=== PATIENT | female | born 1980 | race Caucasian/White ===

== ENCOUNTER 2016-11-04 15:58 | Outpatient (CLI) | payer OTHER ==
[~2016-11-04] VITALS: Ht 170.2 cm; Wt 78.0 kg
[2016-11-04] MEDS ORDERED: ACETAMINOPHEN 325 MG TAB PO STA (16:32)
[2016-11-04] MEDS ORDERED: ACETAMINOPHEN 325 MG TAB ONE (16:40)
[2016-11-04 17:00] LABS: BASO % 0.2 %; BASO ABS # 0.02 K/uL (0-0.2); COMPLETE YES; IG% 0.8 %; LYMPH % 25.6 %; LYMPH ABS # 3.03 K/uL (1.2-3.4); MEAN CELL VOLUME 94.3 fL (80-100); MEAN CORPUSCULAR HEMOGLOBIN 32.1 pg (25-34); NEUT % 65.4 %; PLATELET COUNT 311 K/uL (130-400); RED BLOOD COUNT 3.18 M/uL (4.2-5.4); WHITE BLOOD COUNT 11.85 K/uL (4.8-10.8)
[2016-11-04] MEDS ORDERED: OXYCODONE/ACETAMINOPHEN 5-325 TAB PO STA (17:26)
[2016-11-04] MEDS ORDERED: CYCLOBENZAPRINE HCL 5 MG TAB PO ONE (17:30)
[2016-11-04] MEDS ORDERED: OXYCODONE/ACETAMINOPHEN 5-325 TAB ONE (17:33)
[2016-11-04 18:22] VITALS: Ht 170.2 cm; Wt 78.0 kg
[2017-05-30] MEDS ORDERED: PRED20TA2 PO (10:42)
[2017-05-30] MEDS ORDERED: CETI10TA84 PO (10:42)
[2017-05-30] MEDS ORDERED: BND25 PO (10:42)
[2017-05-30] MEDS ORDERED: LEVO-14 PO (10:42)
[2017-05-30] MEDS ORDERED: VNTHFA/IN INH (10:47)
[2017-05-30] MEDS ORDERED: ZNTT/150 PO (10:49)
[2017-06-28] MEDS ORDERED: OXYC-57 PO (13:25)
== END 2016-11-04 18:45 | disposition home or self-care (01) ==
LOC: C.OPB 15:58 → C.LD 15:58 → C.OPB 18:45
PROVIDERS: ATTEND Obstetrics & Gynecology
DX: O26.892 Other specified pregnancy related conditions, second trimester (principal); R10.9 Unspecified abdominal pain; Z3A.22 22 weeks gestation of pregnancy

== ENCOUNTER 2016-12-12 19:25 | Emergency (ER) | payer OTHER ==
[2016-12-12 19:33] VITALS: TEMP 36.9; Ht 170.2 cm
[2016-12-12] MEDS ORDERED: HYDROmorphone INJ 1 MG/ML SYR IV STA ×2 (19:48→20:49)
[2016-12-12] MEDS ORDERED: SODIUM CHLORIDE 0.9% 1000ML 1,000 ML IV STA (19:48)
[2016-12-12] MEDS ORDERED: DiphenhydrAMINE HCL 50 MG/ML VIAL IV STA (19:48)
[2016-12-12 20:01] LABS: HEMATOCRIT 34.1 % (37-47); MEAN CELL VOLUME 92.9 fL (80-100); MEAN CORPUSCULAR HEMOGLOBIN 32.7 pg (25-34); MEAN CORPUSCULAR HGB CONC 35.2 g/dl (32-36); MEAN PLATELET VOLUME 10.2 fL (7.4-10.4); PLATELET COUNT 498 K/uL (130-400); RED BLOOD COUNT 3.67 M/uL (4.2-5.4); WHITE BLOOD COUNT 16.67 K/uL (4.8-10.8)
--- NOTE | 2016-12-12 20:04 | DIAGNOSTIC IMAGING REPORT ---
CHEST ONE VIEW PORTABLE CLINICAL HISTORY: ALMAZ, 25 wk dyspnea COMPARISON STUDY: 12/10/2014 FINDINGS: Somewhat limited study for prominence. Diaphragms smooth. No consolidative infiltrate. IMPRESSION: Subtle interstitial prominence throughout both hemithoraces. Mild interstitial inflammatory process should be considered Electronically signed by: Coy Patel M.D. 12/12/2016 8:03 PM Dictated Date/Time: 12/12/2016 8:02 PM
[2016-12-12] MEDS ORDERED: ALBUT/IPRATROP 3MG/0.5MG NEB 3 ML VIAL INH STA (20:20)
[2016-12-12 20:23] LABS: BLOOD UREA NITROGEN 4 mg/dl (7-18); BUN/CREATININE RATIO 7.2 (10-20); CALCIUM 9.1 mg/dl (8.5-10.1); CARBON DIOXIDE 15 mmol/L (21-32); CHLORIDE 109 mmol/L (98-107); CREATININE 0.52 mg/dl (0.60-1.20); GLUCOSE 85 mg/dl (70-99); POTASSIUM 3.2 mmol/L (3.5-5.1); SODIUM 142 mmol/L (136-145)
[2016-12-12 20:26] LABS: COMPLETE YES; LYMPH ABS # 3.37 K/uL (1.2-3.4); LYMPHOCYTE % 20.2 %; NEUTROPHILS % 76.3 %
--- NOTE | 2016-12-12 20:34 | EMERGENCY ROOM VISIT NOTE ---
History Report prepared by Lotus: Sis Snell Under the Supervision of: Dr. Frank Ibarra M.D. First contact with patient: 19:39 Chief Complaint: ANXIETY Stated Complaint: 25 WEEKS PREG, CANT BREATHE. PER LD SEE IN ER History of Present Illness The patient is a 36 year old female who presents to the Emergency Room with complaints of worsening shortness of breath for the past week. She is 25 weeks . She has a history of anxiety and panic attacks, and she typically takes Xanax and Wellbutrin. She stopped taking these medications in June when she found out that she was . The patient states that she "hasn't been able to breathe for weeks." It has gotten worse today. She has had a headache for the past 3 days. She states that she has been unable to sleep due to her symptoms. The patient has been taking Fioricet but states that it is not helping. She rates her current pain as a 7/10 in severity. She has been using hot and cold compresses on her head. The patient reports vomiting due to coughing and states that she can't feel her hands. She has noticed bilateral leg swelling after work for the past couple of weeks. She denies SI and fever. She denies any alcohol use today but had some wine last night. She was diagnosed with bronchitis 3 weeks ago. 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 Source of History: patient Onset: 1 week ago Position: chest (respiratory) Symptom Intensity: 7/10 Quality: other (shortness of breath) Timing: worsening Modifying Factors (Worsening): other (anxiety) Associated Symptoms: + cough, + headache, + vomiting, No fevers Review of Systems See HPI for pertinent positives & negatives. A total of 10 systems reviewed and were otherwise negative. Past Medical & Surgical Medical Problems: (1) Cramping affecting , antepartum (2) Disc herniation (3) Endometriosis (4) Hemorrhoid (5) Mastitis (6) Mastitis (7) Ovarian cyst (8) with 22 completed weeks gestation (9) Seizure Family History Cancer Diabetes mellitus Heart disease Hypertension Kidney stones Social History Smoking Status: Current Every Day Smoker Alcohol Use: occasionally Marital Status: in relationship Housing Status: lives with significant other Occupation Status: employed Current/Historical Medications Scheduled Cefdinir (Omnicef), 300 MG PO Q12H Methylprednisolone (Medrol Dosepak), 1 PKT PO UD Multivit/Min/Iron/Fol Ac/Pren ( Vitamin), 1 TAB PO QPM Scheduled PRN Acetamin/Butalbital/Caffeine (Fioricet), 1 TAB PO DAILY PRN for Pain Ondansetron Hcl (Zofran), 4 MG PO Q6 PRN for Nausea Allergies Coded Allergies: Ceftriaxone (Verified Allergy, Intermediate, hives, 12/12/16) Penicillins (Verified Allergy, Mild, HIVES, 12/12/16) CANNOT TAKE ANY CROSS DRUGS EITHER OF PENICILLIN Tramadol (Verified Adverse Reaction, Intermediate, headache, 12/12/16) Vancomycin (Verified Adverse Reaction, Unknown, CHANTAL SYNDROME, 12/12/16) Physical Exam Vital Signs Date Time Temp Pulse Resp B/P Pulse Ox O2 Delivery O2 Flow Rate FiO2 12/12/16 23:06 109/58 96 Room Air 12/12/16 21:18 102 18 105/60 98 Room Air 12/12/16 19:33 36.9 118 28 118/55 99 Room Air Physical Exam GENERAL: Patient is severely anxious appearing and in moderate distress, hyperventilating, crying and periodically vomiting. HEENT: No acute trauma, normocephalic atraumatic, mucous membranes moist, no nasal congestion, no scleral icterus. NECK: No stridor, no adenopathy, no meningismus, trachea is midline. LUNGS: Tachypneic with clear lungs, no wheeze, no rhonchi. HEART: Tachycardic rate and regular rhythm. No murmurs, rubs, gallops appreciated. ABDOMEN: Soft, nontender, bowel sounds positive, fundus consistent with dates, no peritonitis. BACK: No midline tenderness, no CVA tenderness EXTREMITIES: Normal motion all extremities, no cyanosis, no edema. NEUROLOGIC: Alert and oriented, no acute motor or sensory deficits, no focal weakness, cranial nerves grossly intact. SKIN: No rash, no jaundice, no diaphoresis. Medical Decision & Procedures ER Provider Diagnostic Interpretation: Radiology results and stated below per my review and radiologist interpretation: CHEST ONE VIEW PORTABLE CLINICAL HISTORY: ALMAZ, 25 wk dyspnea COMPARISON STUDY: 12/10/2014 FINDINGS: Somewhat limited study for prominence. Diaphragms smooth. No consolidative infiltrate. IMPRESSION: Subtle interstitial prominence throughout both hemithoraces. Mild interstitial inflammatory process should be considered Electronically signed by: Coy Patel M.D. 12/12/2016 8:03 PM Dictated Date/Time: 12/12/2016 8:02 PM BILATERAL LOWER EXTREMITY VENOUS DOPPLER HISTORY: Dyspnea shortness of breath with elevated Dimer COMPARISON STUDY: None. FINDINGS: There is normal compressibility, flow, and augmentation within the bilateral lower extremity deep venous systems. IMPRESSION: No DVT within the right or left lower extremity. Electronically signed by: Coy Patel M.D. 12/12/2016 10:22 PM Dictated Date/Time: 12/12/2016 10:22 PM Laboratory Results 12/12/16 19:57 Red Blood Count 3.67, Mean Corpuscular Volume 92.9, Mean Corpuscular Hemoglobin 32.7, Mean Corpuscular Hemoglobin Concent 35.2, Mean Platelet Volume 10.2 12/12/16 19:57 Test 12/12/16 19:57 12/12/16 20:31 White Blood Count 16.67 K/uL (4.8-10.8) Red Blood Count 3.67 M/uL (4.2-5.4) Hemoglobin 12.0 g/dL (12.0-16.0) Hematocrit 34.1 % (37-47) Mean Corpuscular Volume 92.9 fL (80-100) Mean Corpuscular Hemoglobin 32.7 pg (25-34) Mean Corpuscular Hemoglobin Concent 35.2 g/dl (32-36) Platelet Count 498 K/uL (130-400) Mean Platelet Volume 10.2 fL (7.4-10.4) RDW Standard Deviation 48.9 fL (36.4-46.3) RDW Coefficient of Variation 14.5 % (11.5-14.5) Neutrophils % (Manual) 76.3 % Lymphocytes % (Manual) 20.2 % Monocytes % (Manual) 3.5 % Neutrophils # (Manual) 12.72 K/uL (1.4-6.5) Total Absolute Neutrophils 12.72 K/uL (1.4-6.5) Lymphocytes # (Manual) 3.37 K/uL (1.2-3.4) Total Absolute Lymphocytes 3.37 K/uL (1.2-3.4) Monocytes # (Manual) 0.58 K/uL (0.11-0.59) D-Dimer 840 ug/L FEU (0-500) Anion Gap 18.0 mmol/L (3-11) Estimated GFR () 141.5 Estimated GFR (Non- 122.1 BUN/Creatinine Ratio 7.2 (10-20) Calcium Level 9.1 mg/dl (8.5-10.1) Troponin I < 0.015 ng/ml (0-0.045) Influenza Type A (RT-PCR) Neg for Influ A (NEG) Influenza Type A Antigen Neg for Influ A (NEG) Influenza Type B Antigen Neg for Influ B (NEG) Influenza Type B (RT-PCR) Neg for Influ B (NEG) Laboratory results as reviewed by me. Medications Administered Medications (Trade) Dose Ordered Sig/Maxine Route Start Time Stop Time Status Last Admin Dose Admin Hydromorphone HCl (Dilaudid Inj) 1 mg NOW STAT IV 12/12/16 19:48 12/12/16 19:50 DC 12/12/16 19:58 1 MG Diphenhydramine HCl 50 mg 50 mg NOW STAT IV 12/12/16 19:48 12/12/16 19:50 DC 12/12/16 19:57 50 MG Sodium Chloride (Nss 1000ml) 1,000 ml @ 999 mls/hr Q1H1M STAT IV 12/12/16 19:48 12/12/16 20:48 DC 12/12/16 19:58 999 MLS/HR Albuterol/ Ipratropium (Duoneb) 3 ml NOW STAT INH 12/12/16 20:20 12/12/16 20:21 DC 12/12/16 20:35 3 ML Hydromorphone HCl (Dilaudid Inj) 1 mg NOW STAT IV 12/12/16 20:49 12/12/16 20:50 DC 12/12/16 20:53 1 MG Cefixime (Suprax Tab) 400 mg NOW STAT PO 12/12/16 22:50 12/12/16 22:51 DC 12/12/16 23:01 400 MG Dexamethasone Sodium Phosphate (Decadron Inj) 4 mg NOW ONCE IV 12/12/16 23:00 12/12/16 23:01 DC 12/12/16 23:01 4 MG Oxycodone HCl (Roxicodone Immediate Rel 5MG Home Pack) 1 homepack UD ONCE PO 12/12/16 23:00 12/12/16 23:01 DC 12/12/16 23:02 1 HOMEPACK ED Course 1938: The patient was evaluated in room A7. A complete history and physical exam was performed. 1947: NSS 1000 ml @ 999 mls/hr IV, Benadryl 50 mg IV, Dilaudid 1 mg IV 2008: The patient is complaining that she is still unable to breathe. Her HR and RR have improved. 2019: DuoNeb 3 ml INH 2046: I reassessed the patient at this time. Her chest still hurts and she is still experiencing a headache. 2048: Dilaudid 1 mg IV 2236: I reassessed the patient. I discussed the results and treatment plan with her. She refused a CT scan. She understands the risks associated with this, including . She is requesting antibiotics. She is unclear if she is allergic to Omnicef, but she can take Keflex. She notes a rash with Rocephin in the past. She has never had any throat or tongue swelling. 2249: Cefixime 400 mg PO 2258: The patient states that she "rages" on prednisone and would like to try a different steroid. At this time I answered all pertaining questions that she had. She expressed understanding and verbalized agreement. The patient will be discharged home. 2299: Oxycodone HCl 1 homepack PO, Decadron 4 mg IV Medical Decision Differential: Infectious, Reactive Airway Disease, Pneumonia, Pneumothorax, COPD , CHF, ACS, Pulmonary Embolism, MSK, GI, Dissection, amongst other etiologies entertained. 36 yr old female arrives severely upset, crying and dry-heaving. She is clearly in acute panic attack. Given IV benadryl and narcotic as she is 25 wks with improvement though still feeling SHOB. Notes SHOB improved with neb. Given another dose dilaudid with further improvement in her symptoms. Dimer is positive thus with did US legs which is negative. I discussed that with shob, tachy and persistent symptoms she should have CT PE study done which is my medical opinion. She refuses to have CT done given risks to fetus as well as she is severely anxious of having CT. I explained that PE could cause serious half-way injury or even if not diagnosed promptly. Does have bumped WBC along with questionable infiltrates on CXR. With 3 weeks of symptoms abx would be indicated. Flu PCR is negative. Labs otherwise look OK. She was recently on Zpack thus I do not feel this is reasonable medication to use. Allergic to PNC and she is thus several other abx not viable. She notes previous rash to IV rocephin, though tolerates Keflex without problem. Thus, we have decided on trying Omnicef which she is not sure she has ever been on. I made it clear that she may have allergic reaction to this but as previous reactions were not anaphylactic seems reasonable to try. Notes she "rages" on prednisone and does want to try different steroid as she thinks she has tolerated others before. She will need to follow up with her PCP. Asked directly if she wishes mental health eval which she declines and she states clearly she is not suicidal nor homicidal. Asked in private whether she feels safe at home which she does. Does admit very infrequent use of one glass wine while to get some sleep which she notes her OB doc told her she could do. Notes she wishes to go home. She has long history of headaches thus will give oxy ir to go home with. She has no meningitis findings, no neuro deficits and headaches chronic thus I do not feel this is SAH/ICH. Impression Primary Impression: Shortness of breath Additional Impressions: Pulmonary congestion Acute anxiety Scribe Attestation The scribe's documentation has been prepared under my direction and personally reviewed by me in its entirety. I confirm that the note above accurately reflects all work, treatment, procedures, and medical decision making performed by me. Departure Information Dispostion Home / Self-Care Prescriptions Cefdinir (Omnicef) 300 Mg Cap 300 MG PO Q12H for 10 Days, #20 CAP Prov: Frank Ibarra M.D. 12/12/16 Methylprednisolone (MEDROL DOSEPAK) 4 Mg Roosevelt 1 PKT PO UD for 6 Days, #1 PKT Prov: Frank Ibarra M.D. 12/12/16 Referrals Brett Avina M.D. (PCP) Forms HOME CARE DOCUMENTATION FORM, IMPORTANT VISIT INFORMATION Patient Instructions ED Dyspnea Shortness of Breath, My [facility] Additional Instructions You have worsening shortness of breath or are concerned that symptoms are not improving return to ED for further evaluation. We are always here to help. Follow up with your OB provider as soon as possible. Problem Qualifiers
[2016-12-12] MEDS ORDERED: ONDA4TAB46 PO (20:38)
[2016-12-12 21:18] VITALS: PULSE 102
--- NOTE | 2016-12-12 22:24 | DIAGNOSTIC IMAGING REPORT ---
BILATERAL LOWER EXTREMITY VENOUS DOPPLER HISTORY: Dyspnea shortness of breath with elevated Dimer COMPARISON STUDY: None. FINDINGS: There is normal compressibility, flow, and augmentation within the bilateral lower extremity deep venous systems. IMPRESSION: No DVT within the right or left lower extremity. Electronically signed by: Coy Patel M.D. 12/12/2016 10:22 PM Dictated Date/Time: 12/12/2016 10:22 PM
[2016-12-12] MEDS ORDERED: CEFIXIME TAB 400 MG CAP PO STA (22:50)
[2016-12-12] MEDS ORDERED: OXYCODONE IR HOME PACK PO ONE (23:00)
[2016-12-12] MEDS ORDERED: DEXAMETHASONE SOD INJ 10 MG/ML VIAL IV ONE (23:00)
[2016-12-12] MEDS ORDERED: METH4PAK PO (23:05)
[2016-12-12] MEDS ORDERED: CEFD1CAP14 PO (23:05)
[2016-12-12 23:06] VITALS: BP 109/58; O2SAT 96
[2016-12-12 23:49] LABS: INFLUENZA A PCR Neg for Influ A (NEG); INFLUENZA B PCR Neg for Influ B (NEG)
[2016-12-29] MEDS ORDERED: RGLI10 IV (07:49)
[2017-05-30] MEDS ORDERED: LEVO-14 PO (10:42)
[2017-05-30] MEDS ORDERED: BND25 PO (10:42)
[2017-05-30] MEDS ORDERED: PRED20TA2 PO (10:42)
[2017-05-30] MEDS ORDERED: CETI10TA84 PO (10:42)
[2017-05-30] MEDS ORDERED: VNTHFA/IN INH (10:47)
[2017-05-30] MEDS ORDERED: ZNTT/150 PO (10:49)
[2017-06-28] MEDS ORDERED: OXYC-57 PO (13:25)
== END 2016-12-12 23:11 | disposition home or self-care (01) ==
LOC: C.EDB 19:26 → C.EDA 23:11
DX: O26.892 Other specified pregnancy related conditions, second trimester (principal); O99.342 Other mental disorders complicating pregnancy, second trimester; O99.332 Smoking (tobacco) complicating pregnancy, second trimester; R06.02 Shortness of breath; R09.89 Other specified symptoms and signs involving the circulatory and respiratory systems; F41.9 Anxiety disorder, unspecified; F17.200 Nicotine dependence, unspecified, uncomplicated; Z3A.25 25 weeks gestation of pregnancy

== ENCOUNTER 2016-12-28 20:12 | Observation (INO) | payer OTHER ==
[~2016-12-28] VITALS: Ht 170.2 cm; Wt 74.0 kg
[~2016-12-28 20:12] MED LIST: ONDA4TAB46 PO
[2016-12-28] MEDS ORDERED: LACTATED RINGER'S 1000ML 500 ML IV ONE (20:31)
[2016-12-28] MEDS ORDERED: MEPERIDINE HCL 25 MG/ML CARP IV ONE (20:45)
[2016-12-28] MEDS: METOCLOPRAMIDE HCL INJ 5 MG/ML 2 ML VIAL IV SCH (20:57)
[2016-12-28] MEDS ORDERED: IV FLUIDS COMPLETED PRN (21:00)
[2016-12-28] MEDS ORDERED: PANTOprazole INJ 40 MG in SYRINGE 0 ML IV SCH (21:00)
[2016-12-28] MEDS ORDERED: FAMOTIDINE IV INJ 20 MG in DEXTROSE 5% 100ML 100 ML IV SCH (21:00)
[2016-12-28 21:10] LABS: BASO % 0.2 %; BASO ABS # 0.03 K/uL (0-0.2); COMPLETE YES; EOS % 2.4 %; HEMATOCRIT 29.8 % (37-47); IG% 1.2 %; LYMPH ABS # 2.92 K/uL (1.2-3.4); MEAN CELL VOLUME 95.5 fL (80-100); MEAN CORPUSCULAR HEMOGLOBIN 32.7 pg (25-34); MEAN CORPUSCULAR HGB CONC 34.2 g/dl (32-36); MEAN PLATELET VOLUME 10.6 fL (7.4-10.4); MONO % 3.7 %; NEUT % 69.5 %; PLATELET COUNT 279 K/uL (130-400); RED BLOOD COUNT 3.12 M/uL (4.2-5.4); WHITE BLOOD COUNT 12.72 K/uL (4.8-10.8)
[2016-12-28 21:27] LABS: ALT/SGPT 14 U/L (12-78); BLOOD UREA NITROGEN 3 mg/dl (7-18); BUN/CREATININE RATIO 5.5 (10-20); CALCIUM 8.5 mg/dl (8.5-10.1); CARBON DIOXIDE 18 mmol/L (21-32); CHLORIDE 110 mmol/L (98-107); CREATININE 0.56 mg/dl (0.60-1.20); GLUCOSE 74 mg/dl (70-99); MAGNESIUM 1.8 mg/dl (1.8-2.4); POTASSIUM 3.6 mmol/L (3.5-5.1); SODIUM 140 mmol/L (136-145)
[2016-12-28 21:29] LABS: ALB/GLOB RATIO 0.8 (0.9-2); ALKALINE PHOSPHATASE 99 U/L (45-117); AST/SGOT 11 U/L (15-37)
[2016-12-28 21:43] LABS: URINE APPEARANCE CLEAR (CLEAR); URINE BILIRUBIN NEG (NEG); URINE COLOR YELLOW; URINE EPITHELIAL CELL AUTO >30 /lpf (0-5); URINE NITRITE NEG (NEG); URINE PH 7.5 (4.5-7.5); URINE SPECIFIC GRAVITY 1.003 (1.000-1.030); UROBILINOGEN NEG (NEG)
[2016-12-28 21:46] LABS: MANUAL MICROSCOPIC REQUIRED? NO; REVIEW REQ? NO
[2016-12-28] MEDS: LACTATED RINGER'S 1000ML 1,000 ML IV SCH ×2 (21:50→22:00)
[2016-12-28] MEDS ORDERED: MoRPHine SULFATE 2 MG/ML CARP IV ONE (22:00)
[2016-12-28 22:13] LABS: BENZODIAZEPINE, URINE POS (NEG); COCAINE,URINE NEG (NEG); PHENCYCLIDINE, URINE NEG (NEG)
[2016-12-28 22:18] LABS: THYROID STIMULATING HORMONE 0.832 uIu/ml (0.300-4.500)
[2016-12-28 23:18] LABS: AMYLASE 38 U/L (25-115)
[2016-12-28] MEDS ORDERED: DiphenhydrAMINE HCL 50 MG/ML VIAL IV STA (23:28)
[2016-12-28] MEDS ORDERED: DiphenhydrAMINE HCL 50 MG/ML VIAL ONE (23:29)
[2016-12-29] MEDS ORDERED: MoRPHine SULFATE 2 MG/ML CARP ONE (01:19)
[2016-12-29] MEDS ORDERED: NURSING VERBAL MED ORDER ONE (01:30)
[2016-12-29] MEDS ORDERED: BUTALBITAL/ACETAMIN/CAFFEINE TAB PO PRN (02:00)
[2016-12-29] MEDS: METOCLOPRAMIDE HCL INJ 5 MG/ML 2 ML VIAL IV SCH (02:28)
[2016-12-29] MEDS: LACTATED RINGER'S 1000ML 1,000 ML IV SCH (05:22)
[2016-12-29 07:30] VITALS: Ht 170.2 cm; Wt 74.0 kg
[2016-12-29] MEDS ORDERED: RGLI10 IV (07:49)
--- NOTE | 2016-12-29 07:50 | Discharge Instructions ---
Discharge Instructions Date of Service Dec 29, 2016. Admission Reason for Admission: Vomiting Discharge Discharge Diagnosis / Problem: NAUSEA, VOMITING Discharge Goals Goal(s): Continuing OB care Activity Recommendations Activity Limitations: resume your previous activity . Instructions / Follow-Up Instructions / Follow-Up ACTIVITY RECOMMENDATIONS: See Labor Sheet. SPECIAL CARE INSTRUCTIONS: Call Doctor if: * Regular contractions every 5 minutes or greater than contractions in one hour. * Bleeding * Water breaks or is leaking * Decreased movement * Fever >100.4 degrees F * Pain not relieved by routine measures or pain medication ordered. *Call if cannot keep down fluids or have a bloody vomit again. FOLLOW UP VISIT: Return to Labor and Delivery on for /call for appointment time . Follow-up Visit with: __JERAMIE GLEASON IN THE OFFICE___ When:___AS SCHEDULED__ Current Hospital Diet Patient's current hospital diet: Regular OB Diet Discharge Diet Recommended Diet: Regular Diet Pending Studies Studies pending at discharge: no Medical Emergencies . Who to Call and When: Medical Emergencies: If at any time you feel your situation is an emergency, please call 911 immediately. . Non-Emergent Contact Non-Emergency issues call your: Pull Worker . . "Provider Documentation" section prepared by Latisha Macedo. VTE Core Measure Inpt VTE Proph given/why not?: Treatment not indicated
[2017-01-01 16:13] LABS: HYDROXYETHYLFLURAZEPAM CONF NEGATIVE NG/ML (CUTOFF=50); HYDROXYMIDAZOLAM NEGATIVE NG/ML (CUTOFF=50); HYDROXYTRIAZOLAM CONF NEGATIVE NG/ML (CUTOFF=50); TEMAZEPAM CONF 1690 NG/ML (CUTOFF=50)
--- NOTE | 2017-01-09 16:46 | DISCHARGE SUMMARY ---
CHIEF COMPLAINT: 1. at 27 weeks. 2. Vomiting blood. DISCHARGE DIAGNOSIS: at 27 weeks. HISTORY OF PRESENT ILLNESS: This patient has a completely written history and physical that is located in the other report section of this admission and her records are also there as well. I am going to be brief with this. She called me on the phone, said she vomited up blood. It was bright red, covering her body and her sheets. 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 She notes this is bright red and brown to purple. When she presented to labor and delivery, she was unsteady on her feet. She was slurring her words and needed help getting to the bathroom. By the time I got into the room, she was alert and oriented x3. She was not really slurring her words. The patient said she has not slept in over 48 hours and that she had vomited up blood. She also notes that she is very dizzy and lightheaded. The patient has done well in this . She has lost 14 pounds, had had increased nausea and vomiting. She has really not been eating. She is a gestational diabetic. There is a concern about the abdominal circumference on this baby, measuring in the 13th percentile. The patient has had several issues with chronic pain, both with headaches and back pain. She has an appointment in pain clinic for her back on 01/04. She has been on chronic Fioricet throughout this . She notes no right lower quadrant pain, just lower abdominal crampy menstrual type pain, no vaginal bleeding or discharge, good movement. She notes that she is taking Fioricet, Lexapro, vitamins, Zofran and Tylenol. She was asked specifically if she was taking any narcotics, she declined. For the rest of the patient's detailed history and physical, please see her dictated history and physical. ASSESSMENT: This is an intrauterine at 27 weeks with a long history of nausea, vomiting, malnutrition in this . She is now claiming to have hematemesis, also complaining of worsening headache. She has mild cramping as well. No evidence of labor, no electrolyte abnormalities, no evidence of preeclampsia. HOSPITAL COURSE: The patient was admitted. She received IV fluids, IV Reglan, IV H2 alise, Tylenol for her headache. She was told multiple times that we would need to see her vomit to evaluate for this. The patient then subsequently over the course of hospitalization, disconnected herself from the monitor twice, got up, supposedly vomited, flushed the toilet and returned back to the bed. She claimed that she did not remember that we needed to see her about this because she is so sleep deprived. Her drug test returned positive for benzos as well as positive for butalbital and Fioricet. When she was confronted with the positive benzo screen, she noted that maybe she had taken some benzodiazepine that was next to her bed, when she thought she was taking her Zantac but she told multiple stories about this as well. At one time, she said it was near her bedside, the other time she said it was in a guestroom. She did have mild intermittent contractions on admission, which resolved with IV hydration. Her cervix was closed, long and high. She recently was seen in the Emergency Room for an anxiety attack and bronchitis. She was discharged with script for OxyIR and antibiotics. This was approximately 2 weeks prior to admission, she thought it was 2 days ago. She notes she finished the Omnicef in last couple of days. She notes she did not take the narcotics until a couple of days ago and she took that for a headache when she ran out of Fioricet. Her urine tox was negative for narcotics. She also admitted to the ED doctor that she had a glass of wine the day prior to admission and it appears that every now and then she may be having a glass of wine through this to deal with her anxiety. I did remind her that we recommend no alcohol in at all. After monitoring the patient for 8 hours, she was unable to demonstrate emesis to me. She continually asked for a Pepsi after not demonstrating any issues. Approximately 6-7 hours after initially admitted, I allowed her to eat and drink, she ate all of her meal. She drank her Pepsi. The fetus was reassuring for 27 weeks. Her fFN was negative. I did give her IV Demerol for headache after the Tylenol was not helpful. She noted that her headache was much better the next morning. Again, we were unable to document emesis because the patient got herself off the monitor after being explicitly told that she could not get up without assistance, that I needed to see her vomit, that she should not flush the toilet. She was upset about this, she was upset that I thought she was lying. I explained to her why I needed to see her emesis. She says that she is not remembering things because of lack of sleep. We discussed this in depth. She has never been diagnosed with bipolar disorder. She just restarted her antidepressant in the last week and does not wish to start anything else. She declines psychology evaluation and after she ate her breakfast, she wanted to go home. She was discharged to home the morning of 12/29/2016. She will continue Lexapro, change from Zantac to Protonix, continue Reglan for nausea. She has an appointment for ultrasound to evaluate estimated weight in a visit in the office with Dr. Hudson next week. I told her that she needed to talk to the dietitian today to make an appointment and if she threw up blood again, she is to call. All of this documentation is documented very well in the OB progress note section under other reports on [employer].
[2017-05-30] MEDS ORDERED: PRED20TA2 PO (10:42)
[2017-05-30] MEDS ORDERED: BND25 PO (10:42)
[2017-05-30] MEDS ORDERED: CETI10TA84 PO (10:42)
[2017-05-30] MEDS ORDERED: LEVO-14 PO (10:42)
[2017-05-30] MEDS ORDERED: VNTHFA/IN INH (10:47)
[2017-05-30] MEDS ORDERED: ZNTT/150 PO (10:49)
[2017-06-28] MEDS ORDERED: OXYC-57 PO (13:25)
== END 2016-12-29 08:45 | disposition home or self-care (01) ==
LOC: C.OPB 20:12 → C.LD 20:12 → C.OPB 20:33 → C.LD 20:33
PROVIDERS: ADMIT Obstetrics & Gynecology; ATTEND Obstetrics & Gynecology
DX: O21.0 Mild hyperemesis gravidarum (principal); O09.522 Supervision of elderly multigravida, second trimester; O99.89 Other specified diseases and conditions complicating pregnancy, childbirth and the puerperium; R51 Headache; M54.9 Dorsalgia, unspecified; Z3A.27 27 weeks gestation of pregnancy

== ENCOUNTER 2016-12-31 00:29 | Emergency (ER) | payer OTHER ==
[~2016-12-31] VITALS: Ht 170.2 cm; Wt 74.5 kg
[~2016-12-31 00:29] MED LIST changes: -ONDA4TAB46 PO; +RGLI10 IV
[2016-12-31 00:32] VITALS: Ht 170.2 cm; Wt 74.5 kg
[2016-12-31] MEDS ORDERED: SODIUM CHLORIDE 0.9% 1000ML 1,000 ML IV STA (00:50)
[2016-12-31 01:08] LABS: HEMATOCRIT 28.8 % (37-47); MEAN CELL VOLUME 93.2 fL (80-100); MEAN CORPUSCULAR HEMOGLOBIN 32.4 pg (25-34); MEAN CORPUSCULAR HGB CONC 34.7 g/dl (32-36); MEAN PLATELET VOLUME 10.3 fL (7.4-10.4); PLATELET COUNT 246 K/uL (130-400); RED BLOOD COUNT 3.09 M/uL (4.2-5.4); WHITE BLOOD COUNT 11.22 K/uL (4.8-10.8)
[2016-12-31 01:26] LABS: BUN/CREATININE RATIO 11.6 (10-20); CALCIUM 8.4 mg/dl (8.5-10.1); CREATININE 0.54 mg/dl (0.60-1.20); POTASSIUM 3.8 mmol/L (3.5-5.1)
[2016-12-31 01:47] LABS: MANUAL MICROSCOPIC REQUIRED? NO; REVIEW REQ? NO; URINE APPEARANCE CLEAR (CLEAR); URINE BILIRUBIN NEG (NEG); URINE COLOR YELLOW; URINE EPITHELIAL CELL AUTO 20-30 /lpf (0-5); URINE NITRITE NEG (NEG); URINE SPECIFIC GRAVITY 1.006 (1.000-1.030); UROBILINOGEN NEG (NEG); ZZUR CULT IF INDIC CLEAN CATCH NO
[2016-12-31 02:09] LABS: BENZODIAZEPINE, URINE POS (NEG); COCAINE,URINE NEG (NEG); PHENCYCLIDINE, URINE NEG (NEG)
--- NOTE | 2016-12-31 02:39 | EMERGENCY ROOM VISIT NOTE ---
History Report prepared by Sorayaibkayla: Zurdo Ortez Under the Supervision of: Dr. Frank Ibarra M.D. First contact with patient: 00:36 Chief Complaint: FALL Stated Complaint: FALL History of Present Illness The patient is a 36 year old female who presents to the Emergency Room with complaints of an acute fall that occurred earlier tonight. The patient slipped in snow on a set of steps to cause the fall. She hit her head on the concrete step but denies loss of consciousness. Her head pain is currently rated 8/10 in severity. She is starting to feel some neck pain. The patient vomited twice since the fall. She also hit the right knee. She does not have any right hip pain. The patient is 28 weeks , and prevented her abdomen from hitting the ground with her arm. She denies vaginal bleeding. The patient denies drug or alcohol use tonight. She did have Fioricet for her head pain at approximately 2100 tonight. The patient's blood type is O+. Source of History: patient Onset: earlier tonight Position: other (global) Quality: other (fall) Timing: other (acute) Associated Symptoms: + headache, + neck pain, + vomiting, No LOC, No abdominal pain Review of Systems See HPI for pertinent positives & negatives. A total of 10 systems reviewed and were otherwise negative. Past Medical & Surgical Medical Problems: (1) Cramping affecting , antepartum (2) Disc herniation (3) Endometriosis (4) Hematemesis (5) Hemorrhoid (6) Mastitis (7) Mastitis (8) Nausea and vomiting in (9) Ovarian cyst (10) with 22 completed weeks gestation (11) with 27 completed weeks gestation (12) Seizure Family History Cancer Diabetes mellitus Heart disease Hypertension Kidney stones Social History Smoking Status: Current Every Day Smoker Alcohol Use: occasionally Marital Status: in relationship Housing Status: lives with significant other Occupation Status: employed Current/Historical Medications Scheduled Metoclopramide HCl (Metoclopramide HCl), 10 MG IV Q6H Multivit/Min/Iron/Fol Ac/Pren ( Vitamin), 1 TAB PO QPM Scheduled PRN Acetamin/Butalbital/Caffeine (Fioricet), 1 TAB PO DAILY PRN for Pain Allergies Coded Allergies: Ceftriaxone (Verified Allergy, Intermediate, hives, 12/31/16) Penicillins (Verified Allergy, Mild, HIVES, 12/31/16) CANNOT TAKE ANY CROSS DRUGS EITHER OF PENICILLIN Tramadol (Verified Adverse Reaction, Intermediate, headache, 12/31/16) Vancomycin (Verified Adverse Reaction, Unknown, CHANTAL SYNDROME, 12/31/16) Physical Exam Vital Signs Date Time Temp Pulse Resp B/P Pulse Ox O2 Delivery O2 Flow Rate FiO2 12/31/16 02:52 36.7 80 18 95/60 98 12/31/16 01:41 78 18 96/65 98 Room Air 12/31/16 00:35 93 12/31/16 00:32 36.7 95 16 110/62 100 Room Air Physical Exam GENERAL: Patient is well appearing, in minimal distress, slightly sleepy appearing. HEENT: Large hematoma of the left forehead with an overlying abrasion, normocephalic, mucous membranes moist, no nasal congestion, no scleral icterus. NECK: No stridor, no adenopathy, no meningismus, trachea is midline, vague tenderness over the entire posterior neck. LUNGS: No dyspnea. Clear to auscultation and equal bilaterally. No wheeze, no rhonchi. HEART: Regular rate and rhythm. No murmurs, rubs, gallops appreciated. ABDOMEN: Soft, nontender, bowel sounds positive, no peritonitis. Fundus consistent withe dates, otherwise no masses. BACK: No midline tenderness, no CVA tenderness EXTREMITIES: Normal motion all extremities, no cyanosis, no edema. Abrasion over the right anterior knee with swelling and bruising, tender to palpation over the entire knee joint extending to the right lateral lower leg. NEUROLOGIC: Alert and oriented, no acute motor or sensory deficits, no focal weakness, cranial nerves grossly intact. GCS is 15, however the patient is somewhat sleepy-appearing. SKIN: No rash, no jaundice, no diaphoresis. Medical Decision & Procedures ER Provider Diagnostic Interpretation: X ray results and stated below per my interpretation. Other radiology results and stated below per my review and radiologist interpretation: TWO VIEW RIGHT TIB-FIB: No fracture, no dislocation. THREE VIEW RIGHT KNEE: No fracture, no dislocation, minimal soft tissue swelling. CT HEAD: No intracranial hemorrhage or skull fracture. Swelling in the forehead. CT C SPINE: No fracture or malalignment. Osteopenia. Radiologist: Abhay Morrison MD. Laboratory Results 12/31/16 00:55 12/31/16 00:55 Test 3/11/17 00:55 12/31/16 01:35 Red Blood Count 3.09 M/uL (4.2-5.4) Mean Corpuscular Volume 93.2 fL (80-100) Mean Corpuscular Hemoglobin 32.4 pg (25-34) Mean Corpuscular Hemoglobin Concent 34.7 g/dl (32-36) RDW Standard Deviation 49.4 fL (36.4-46.3) RDW Coefficient of Variation 14.6 % (11.5-14.5) Mean Platelet Volume 10.3 fL (7.4-10.4) Anion Gap 11.0 mmol/L (3-11) Est Creatinine Clear Calc Drug Dose 150.4 ml/min Estimated GFR () 139.7 Estimated GFR (Non- 120.6 BUN/Creatinine Ratio 11.6 (10-20) Calcium Level 8.4 mg/dl (8.5-10.1) Ethyl Alcohol mg/dL < 3.0 mg/dl (0-3) Urine Color YELLOW Urine Appearance CLEAR (CLEAR) Urine pH 7.0 (4.5-7.5) Urine Specific [place] 1.006 (1.000-1.030) Urine Protein NEG (NEG) Urine Glucose (UA) NEG (NEG) Urine Ketones NEG (NEG) Urine Occult Blood NEG (NEG) Urine Nitrite NEG (NEG) Urine Bilirubin NEG (NEG) Urine Urobilinogen NEG (NEG) Urine Leukocyte Esterase TRACE (NEG) Urine WBC (Auto) 1-5 /hpf (0-5) Urine RBC (Auto) 0-4 /hpf (0-4) Urine Hyaline Casts (Auto) 1-5 /lpf (0-5) Urine Epithelial Cells (Auto) 20-30 /lpf (0-5) Urine Bacteria (Auto) NEG (NEG) Urine Opiates Screen NEG (NEG) Urine Methadone, Qualitative NEG (NEG) Urine Barbiturates POS (NEG) Urine Phencyclidine (PCP) Level NEG (NEG) Ur Amphetamine/Methamphetamine NEG (NEG) MDMA (Ecstasy) Screen NEG (NEG) Urine Benzodiazepines Screen POS (NEG) Urine Cocaine Metabolite NEG (NEG) Urine Marijuana (THC) NEG (NEG) Laboratory results as reviewed by me. Medications Administered Medications (Trade) Dose Ordered Sig/Maxine Route Start Time Stop Time Status Last Admin Dose Admin Sodium Chloride (Nss 1000ml) 1,000 ml @ 999 mls/hr Q1H1M STAT IV 12/31/16 00:50 12/31/16 01:50 DC 12/31/16 01:02 999 MLS/HR ED Course 0040: The patient was evaluated in room B7. A complete history and physical exam was performed. 0050: NSS 1000 ml @ 999 mls/hr. 0115: The [place] Prescription Drug Monitoring Program was reviewed regarding this patient. She has had no controlled substances on file since May. 0220: Checked on the patient. She states that she unintentionally took Valium as she thought it was Zantac. 0225: Obstetrics & Gynecology was paged. 0230: Discussed the case with Dr. Thorpe (Shingle Carrier), who feels that the patient can return home and should follow up if she has any abdominal pain or vaginal bleeding. 0238: Spoke with the charge nurse. She will put in paperwork for [facility] to assess the home for the patient's 2.5 year old. 0240: Discussed the discharge instructions with the patient. She will be discharged. Medical Decision Differential: Intracranial Injury, Cervical Injury, Intrathoracic/Abdominal Injury, Neurologic Injuries, Fractures/Dislocations, Lacerations, Tetanus Status , amongst other pathologies entertained. 36 yr old 28 wk female arrives after tripping and falling at home in the snow, striking head and knee on ground. Admits taking Fiorecet prior to fall which I suspect is why she is a bit sedated here as opposed to head injury. CT head/neck negative though they had to be done given minor sedated appearance, large contusion. Xrays knee/tib/fib negative as well for acute fracture. Requesting pain medications though clearly is not in very much distress. Claims the benzo in her urine are secondary to Valium she took several days ago "accidentally" and that she has thrown it all away now. I suspect she has taken it more recently than she lets on. Adamantly denies trauma to abdomen, has no vaginal bleeding, baby is actively kicking and HR good. Stable and in no distress, though stating she still has headache. Already had Tylenol in fiorecet and further narcotics are contraindicated in post head injury patients. Discussed with Dr Thorpe who feels patient should be discharged to home. He further states he feels that [facility] should be contacted. While patient gives me no information that child at home is in risk , I feel that as mandated reported with someone stating they are concerned, that I must report this case. [place] website not functioning for reporting and Charge Nurse has filled report via phone/paper while I was seeing other patients. I have verified this has been done. As there is another person at home and patient has exhibited no active danger to patient I do not feel I have any indication to get law enforcement involved at this time. Patient furthermore offered discussion with Mental Health though adamantly denies need for this. I have explained at length the risks of using benzo's in . Patient claiming vomiting but never vomited while here. [place] Drug Monitoring Program Search Results: patient reviewed within database Drug Monitoring Findings: She has had no controlled substances on file since May. Consults Time Called: 224 Consulting Physician: Dr. Thorpe (Shingle Carrier) Returned Call: 229 229: Discussed the case with Dr. Thorep (Shingle Carrier), who feels that the patient can return home and should follow up if she has any abdominal pain or vaginal bleeding. Impression Primary Impression: Fall Additional Impressions: Concussion Contusion of knee, right Scribe Attestation The scribe's documentation has been prepared under my direction and personally reviewed by me in its entirety. I confirm that the note above accurately reflects all work, treatment, procedures, and medical decision making performed by me. Departure Information Dispostion Home / Self-Care Referrals Brett Avina M.D. (PCP) Forms HOME CARE DOCUMENTATION FORM, IMPORTANT VISIT INFORMATION Patient Instructions ED Concussion, My [facility] Problem Qualifiers Primary Impression: Fall Encounter type: initial encounter Qualified Codes: W19.XXXA - Unspecified fall, initial encounter Additional Impressions: Concussion Encounter type: initial encounter Loss of consciousness presence/duration: without LOC Qualified Codes: S06.0X0A - Concussion without loss of consciousness, initial encounter
[2016-12-31 02:52] VITALS: BP 95/60; PULSE 80; TEMP 36.7; O2SAT 98
--- NOTE | 2016-12-31 07:11 | DIAGNOSTIC IMAGING REPORT ---
CT HEAD WITHOUT CONTRAST (CT) CLINICAL HISTORY: Head pain status post trauma. Confusion. COMPARISON STUDY: No previous studies for comparison. TECHNIQUE: Axial CT of the brain is performed from the vertex to the skull base. IV contrast was not administered for this examination. CT DOSE: FINDINGS: No intra or extra-axial mass lesions are visualized. There is no CT evidence of acute cortical infarction. There is no evidence of midline shift. There is no acute hemorrhage. No calvarial fractures are visualized. There is no evidence of pathologic ventricular dilatation. There is no evidence of acute sinusitis. There is frontal scalp edema. IMPRESSION: Frontal scalp edema. Otherwise normal noncontrast head CT. Electronically signed by: Ignacio Becerra M.D. 12/31/2016 7:10 AM Dictated Date/Time: 12/31/2016 7:09 AM
--- NOTE | 2016-12-31 07:13 | DIAGNOSTIC IMAGING REPORT ---
CT OF THE CERVICAL SPINE CLINICAL HISTORY: Neck pain status post trauma COMPARISON STUDY: No previous studies for comparison. CT DOSE: 1039.07 mGy.cm TECHNIQUE: CT scan of the cervical spine was performed from the skull base to the thoracic inlet. Images are reviewed in the axial, sagittal, and coronal planes. IV contrast was not administered for this examination. FINDINGS: The visualized portions of the lung apices reveal no evidence of pneumothorax. The prevertebral soft tissues are normal. No fractures or subluxations are visualized. There are multilevel degenerative changes IMPRESSION: No evidence of acute fracture or traumatic subluxation. Electronically signed by: Ignacio Becerra M.D. 12/31/2016 7:11 AM Dictated Date/Time: 12/31/2016 7:10 AM
--- NOTE | 2016-12-31 07:13 | DIAGNOSTIC IMAGING REPORT ---
RIGHT KNEE 3 VIEWS CLINICAL HISTORY: Right knee pain status post trauma COMPARISON: None. DISCUSSION: No fractures or dislocations are visualized. There are very minor degenerative changes present. There is no evidence for soft tissue swelling. IMPRESSION: No fractures or dislocations identified. Electronically signed by: Ignacio Becerra M.D. 12/31/2016 7:12 AM Dictated Date/Time: 12/31/2016 7:12 AM
--- NOTE | 2016-12-31 07:14 | DIAGNOSTIC IMAGING REPORT ---
RIGHT TIBIA/FIBULA 2 VIEWS ROUTINE CLINICAL HISTORY: Right lower leg pain status post trauma COMPARISON: None. DISCUSSION: No fractures are visualized. IMPRESSION: No fractures identified. Electronically signed by: Ignacio Becerra M.D. 12/31/2016 7:13 AM Dictated Date/Time: 12/31/2016 7:12 AM
[2016-12-31] MEDS ORDERED: LXP10 PO (12:08)
[2016-12-31] MEDS ORDERED: ACET-1311 PO (12:08)
[2016-12-31] MEDS ORDERED: TYLOTC500 PO (17:03)
[2016-12-31] MEDS ORDERED: PANT40TA PO (17:03)
[2016-12-31] MEDS ORDERED: METO-157 PO (17:03)
[2016-12-31] MEDS ORDERED: FRCT/ PO (20:28)
[2016-12-31] MEDS ORDERED: PRENTAB26 PO (20:28)
[2017-01-04 13:08] LABS: HYDROXYETHYLFLURAZEPAM CONF NEGATIVE NG/ML (CUTOFF=50); HYDROXYMIDAZOLAM NEGATIVE NG/ML (CUTOFF=50); HYDROXYTRIAZOLAM CONF NEGATIVE NG/ML (CUTOFF=50); TEMAZEPAM CONF >2000 NG/ML (CUTOFF=50)
[2017-05-30] MEDS ORDERED: CETI10TA84 PO (10:42)
[2017-05-30] MEDS ORDERED: PRED20TA2 PO (10:42)
[2017-05-30] MEDS ORDERED: LEVO-14 PO (10:42)
[2017-05-30] MEDS ORDERED: BND25 PO (10:42)
[2017-05-30] MEDS ORDERED: VNTHFA/IN INH (10:47)
[2017-05-30] MEDS ORDERED: ZNTT/150 PO (10:49)
[2017-06-28] MEDS ORDERED: OXYC-57 PO (13:25)
== END 2016-12-31 02:53 | disposition home or self-care (01) ==
LOC: EDBD 00:29 → C.EDB 00:30
DX: O99.89 Other specified diseases and conditions complicating pregnancy, childbirth and the puerperium (principal); Z3A.28 28 weeks gestation of pregnancy; S06.0X0A Concussion without loss of consciousness, initial encounter; S00.83XA Contusion of other part of head, initial encounter; S00.81XA Abrasion of other part of head, initial encounter; S80.01XA Contusion of right knee, initial encounter; W00.0XXA Fall on same level due to ice and snow, initial encounter; Z83.3 Family history of diabetes mellitus; F17.210 Nicotine dependence, cigarettes, uncomplicated; O99.333 Smoking (tobacco) complicating pregnancy, third trimester; F19.10 Other psychoactive substance abuse, uncomplicated

== ENCOUNTER 2016-12-31 11:51 | Emergency (ER) | payer OTHER ==
[~2016-12-31] VITALS: Ht 170.2 cm; Wt 74.5 kg
[2016-12-31 11:56] VITALS: Ht 170.2 cm; Wt 74.5 kg
[2016-12-31] MEDS ORDERED: LXP10 PO (12:08)
[2016-12-31] MEDS ORDERED: ACET-1311 PO (12:08)
[2016-12-31] MEDS ORDERED: SODIUM CHLORIDE 0.9% 1000ML 1,000 ML IV STA (12:09)
[2016-12-31] MEDS ORDERED: ONDANSETRON INJ 2 MG/ML 2 ML VIAL IV STA (12:10)
[2016-12-31 13:12] VITALS: TEMP 36.8
--- NOTE | 2016-12-31 13:59 | DIAGNOSTIC IMAGING REPORT ---
LIMITED (US) CLINICAL HISTORY: . Trauma. COMPARISON STUDY: 08/31/2016 FINDINGS: A limited study was performed. A single live fetus in cephalic presentation was visualized. The heart rate is 136. The amniotic fluid volume appear normal for gestational age. The placenta was anterior. No previa was identified. The maternal cervix was closed. An anatomic study was not performed. IMPRESSION: Single live fetus in cephalic presentation. The maternal cervix was closed. No placental abnormalities are visualized. The amniotic fluid volume appeared normal for gestational age. Electronically signed by: Ignacio Becerra M.D. 12/31/2016 1:58 PM Dictated Date/Time: 12/31/2016 1:56 PM
[2016-12-31 14:02] VITALS: BP 103/61; PULSE 69; O2SAT 97
--- NOTE | 2016-12-31 14:20 | EMERGENCY ROOM VISIT NOTE ---
History Report prepared by Lotus: Lea Flores Under the Supervision of: Dr. Mack Wild D.O. First contact with patient: 12:02 Chief Complaint: HEAD INJURY (MINOR) Stated Complaint: HEAD PAIN,DIZZINESS,VOMITING History of Present Illness The patient is a 36 year old female who presents to the Emergency Room with complaints of persistent head pain starting last night. She visited the ED last night after she fell and injured her head. She experienced some vomiting. A CT was taken and no major issues were found, but she does have a concussion. Currently, the pain is still present and today she describes the pain as "unbearable". She took Tylenol at 0830 this morning, but experienced no relief. She has also vomited 3 times today, which she describes as clear. She is also experiencing dizziness, nausea, lower back pain, neck pain, and the swelling on her forehead has increased. She has applied heat to her head, which did not help. She tried to ice her forehead, but the pain worsened. She reports she slept only 3 hours last night. The patient is currently and reports that the baby is not moving as much as yesterday. She denies any vaginal bleeding. She has a history of tension headaches. Source of History: patient Onset: last night Position: head Symptom Intensity: "unbearable" Timing: other (persistent) Modifying Factors (Worsening): other (ice) Associated Symptoms: + back pain, + nausea, + neck pain, + vomiting Note: Pt experienced no relief with application of heat or Tylenol. Pt reports feeling dizzy. Review of Systems See HPI for pertinent positives & negatives. A total of 10 systems reviewed and were otherwise negative. Past Medical & Surgical Medical Problems: (1) Cramping affecting , antepartum (2) Disc herniation (3) Endometriosis (4) Hematemesis (5) Hemorrhoid (6) Mastitis (7) Mastitis (8) Nausea and vomiting in (9) Ovarian cyst (10) with 22 completed weeks gestation (11) with 27 completed weeks gestation (12) Seizure Family History Cancer Diabetes mellitus Heart disease Hypertension Kidney stones Social History Smoking Status: Current Every Day Smoker Alcohol Use: occasionally Marital Status: in relationship Housing Status: lives with significant other Occupation Status: employed Current/Historical Medications Scheduled Escitalopram Oxalate (Escitalopram Oxalate), 10 MG PO DAILY Metoclopramide HCl (Metoclopramide HCl), 10 MG IV Q6H Multivit/Min/Iron/Fol Ac/Pren ( Vitamin), 1 TAB PO QPM Scheduled PRN Acetamin/Butalbital/Caffeine (Fioricet), 1 TAB PO DAILY PRN for Pain Acetaminophen (Tylenol), 650 MG PO UD PRN for Pain Allergies Coded Allergies: Ceftriaxone (Verified Allergy, Intermediate, hives, 12/31/16) Penicillins (Verified Allergy, Mild, HIVES, 12/31/16) CANNOT TAKE ANY CROSS DRUGS EITHER OF PENICILLIN Tramadol (Verified Adverse Reaction, Intermediate, headache, 12/31/16) Vancomycin (Verified Adverse Reaction, Unknown, CHANTAL SYNDROME, 12/31/16) Physical Exam Vital Signs Date Time Temp Pulse Resp B/P Pulse Ox O2 Delivery O2 Flow Rate FiO2 12/31/16 14:02 69 18 103/61 97 Room Air 12/31/16 13:12 36.8 78 20 101/62 99 Room Air 12/31/16 11:56 36.8 85 18 122/67 100 Room Air Physical Exam CONSTITUTIONAL/VITAL SIGNS: Reviewed / noted above. GENERAL: Non-toxic in appearance. INTEGUMENTARY: Warm, dry, and [place]. HEAD: Normocephalic. EYES: without scleral icterus or trauma. ENT/OROPHARYNX: clear and moist. LYMPHADENOPATHY/NECK: Is supple without lymphadenopathy or meningismus. RESPIRATORY: Lungs clear and equal. CARDIOVASCULAR: Regular rate and rhythm. GI/ABDOMEN: Soft and nontender. No organomegaly or pulsatile mass. No rebound or guarding. Normal bowel sounds. Gravid abdomen. EXTREMITIES: Warm and well perfused. BACK: No CVA tenderness. NEUROLOGICAL: Intact without focal deficits. PSYCHIATRIC: normal affect. MUSCULOSKELETAL: Normally developed with good muscle tone. Medical Decision & Procedures ER Provider Diagnostic Interpretation: Radiology results as stated below per my review and radiologist interpretation: LIMITED (US) CLINICAL HISTORY: . Trauma. COMPARISON STUDY: 08/31/2016 FINDINGS: A limited study was performed. A single live fetus in cephalic presentation was visualized. The heart rate is 136. The amniotic fluid volume appear normal for gestational age. The placenta was anterior. No previa was identified. The maternal cervix was closed. An anatomic study was not performed. IMPRESSION: Single live fetus in cephalic presentation. The maternal cervix was closed. No placental abnormalities are visualized. The amniotic fluid volume appeared normal for gestational age. Electronically signed by: Ignacio Becerra M.D. 12/31/2016 1:58 PM Dictated Date/Time: 12/31/2016 1:56 PM Medications Administered Medications (Trade) Dose Ordered Sig/Maxine Route Start Time Stop Time Status Last Admin Dose Admin Sodium Chloride (Nss 1000ml) 1,000 ml @ 999 mls/hr Q1H1M STAT IV 12/31/16 12:09 12/31/16 13:09 DC 12/31/16 12:50 999 MLS/HR Ondansetron HCl (Zofran Inj) 4 mg NOW STAT IV 12/31/16 12:10 12/31/16 12:13 DC 12/31/16 12:50 4 MG Laboratory results as stated above per my review. ED Course 1204: Previous medical records were reviewed. The patient was evaluated in room A10. A complete history and physical examination was performed. 1209: NSS 1000 ml @ 999 mls/hr IV. 1210: Zofran Inj 4 mg IV. 1400: I discussed the patient's case with Dr. Cade, on-call absorber operator. The patient will be discharged home. 1410: I reevaluated the patient. I discussed the results and treatment plan. She verbalized understanding and agreement. She will be discharged home. Medical Decision Differential includes: Acute intracranial bleed, trauma, meningitis, encephalitis, increased intracranial pressure, mass or mass effect, facial or dental infection, temporal arteritis, CVA, TIA, acute hypertensive emergency, sinusitis, carbon monoxide exposure. This is a 36-year-old female who presents the ED with a chief complaint of headache and nausea. The patient states that she fell yesterday and was here last night. She had a CT scan of the brain that did not show any acute abnormalities. She has an abrasion and a small hematoma to the forehead. The patient also has abrasions of the right leg. She states that he vomited 3 times this morning. She states that she is taking Fioricet and Tylenol without relief. The patient initially told triage that the baby is moving fine. I examined the patient. She has the above findings. There does not appear to be anything acute. She is in no distress. I advised the patient that I would provide her with IV fluids and IV Zofran for nausea. She requested morphine for pain. She states that she received morphine several days ago when she was admitted upstairs for vomiting. I did not feel comfortable providing morphine to the patient. She subsequently began telling me that her her baby does not feel like it's moving as much as it should. She was concerned about her baby and felt that it should be monitored. These were not complaints that she expressed prior to me declining to give her narcotics. The patient does not have any evidence of any abdominal injury. An ultrasound of the baby did not reveal any abnormalities. The heart rate was 136. The patient was given IV fluids, normal saline 1 L. She is given 4 mg IV Zofran. I spoke with Dr. Cade from obstetrics. She and I both feel the patient is stable for discharge and outpatient follow-up. While the patient was here, she reported that she vomited a small blood clot but the self flushing toilet flush it down before she could get a picture of it. She states that Dr. Thorpe asked her for a picture since she reported this previously. The patient also claims that she slipped on her urine in the bathroom as well. The patient's overall presentation is concerning for a secondary gain issue possibly related to controlled substances. The patient was felt to be stable for discharge. She stated that she presented via [employer]. She states that her other child's father is currently home with her 2-year-old. Consults Time Called: 1355 Consulting Physician: Dr. Cade, on-call absorber operator Returned Call: 1400 I discussed the patient's case with her. The patient will be discharged home. Impression Primary Impression: Headache Additional Impression: Nausea and vomiting in Scribe Attestation The scribe's documentation has been prepared under my direction and personally reviewed by me in its entirety. I confirm that the note above accurately reflects all work, treatment, procedures, and medical decision making performed by me. Departure Information Referrals Brett Avina M.D. (PCP) Patient Instructions My [facility] Additional Instructions Follow-up with your doctor for further care and evaluation in 2-6 days if symptoms persist. Return to the emergency department for worsening or new symptoms or any concerns. You have been examined and treated today on an emergency basis only. This is not a substitute for, or an effort to provide, complete comprehensive medical care. It is impossible to recognize and treat all injuries or illnesses in a single emergency department visit. It is therefore important that you follow up closely with your doctor. Call as soon as possible for an appointment Problem Qualifiers
[2016-12-31] MEDS ORDERED: PANT40TA PO (17:03)
[2016-12-31] MEDS ORDERED: METO-157 PO (17:03)
[2016-12-31] MEDS ORDERED: TYLOTC500 PO (17:03)
[2016-12-31] MEDS ORDERED: PRENTAB26 PO (20:28)
[2016-12-31] MEDS ORDERED: FRCT/ PO (20:28)
[2017-05-30] MEDS ORDERED: BND25 PO (10:42)
[2017-05-30] MEDS ORDERED: PRED20TA2 PO (10:42)
[2017-05-30] MEDS ORDERED: LEVO-14 PO (10:42)
[2017-05-30] MEDS ORDERED: CETI10TA84 PO (10:42)
[2017-05-30] MEDS ORDERED: VNTHFA/IN INH (10:47)
[2017-05-30] MEDS ORDERED: ZNTT/150 PO (10:49)
[2017-06-28] MEDS ORDERED: OXYC-57 PO (13:25)
== END 2016-12-31 14:24 | disposition home or self-care (01) ==
LOC: C.EDB 11:52 → C.EDA 14:24
DX: O26.892 Other specified pregnancy related conditions, second trimester (principal); O21.9 Vomiting of pregnancy, unspecified; O99.332 Smoking (tobacco) complicating pregnancy, second trimester; R51 Headache; F17.200 Nicotine dependence, unspecified, uncomplicated; Z3A.27 27 weeks gestation of pregnancy

== ENCOUNTER 2016-12-31 16:23 | Emergency (ER) | payer OTHER ==
[~2016-12-31 16:23] MED LIST changes: +ACET-1311 PO; +LXP10 PO
[2016-12-31 16:26] VITALS: TEMP 36.8; Ht 162.6 cm
[2016-12-31] MEDS ORDERED: SODIUM CHLORIDE 0.9% 1000ML 1,000 ML IV STA (16:53)
[2016-12-31] MEDS ORDERED: METO-157 PO (17:03)
[2016-12-31] MEDS ORDERED: TYLOTC500 PO (17:03)
[2016-12-31] MEDS ORDERED: PANT40TA PO (17:03)
[2016-12-31 17:31] LABS: MEAN CELL VOLUME 94.5 fL (80-100); MEAN CORPUSCULAR HEMOGLOBIN 32.2 pg (25-34); MEAN CORPUSCULAR HGB CONC 34.1 g/dl (32-36); MEAN PLATELET VOLUME 10.3 fL (7.4-10.4); PLATELET COUNT 255 K/uL (130-400); RED BLOOD COUNT 3.07 M/uL (4.2-5.4); WHITE BLOOD COUNT 11.91 K/uL (4.8-10.8)
[2016-12-31 17:44] LABS: PARTIAL THROMBOPLASTIN RATIO 0.9
[2016-12-31 17:45] LABS: ALT/SGPT 11 U/L (12-78); BLOOD UREA NITROGEN 4 mg/dl (7-18); BUN/CREATININE RATIO 7.7 (10-20); CALCIUM 8.2 mg/dl (8.5-10.1); CARBON DIOXIDE 18 mmol/L (21-32); CHLORIDE 111 mmol/L (98-107); CREATININE 0.48 mg/dl (0.60-1.20); GLUCOSE 68 mg/dl (70-99); POTASSIUM 3.5 mmol/L (3.5-5.1); SODIUM 142 mmol/L (136-145)
--- NOTE | 2016-12-31 17:54 | DIAGNOSTIC IMAGING REPORT ---
CT HEAD WITHOUT CONTRAST (CT) CLINICAL HISTORY: Headache, syncope, head trauma. COMPARISON STUDY: 12/31/2016 TECHNIQUE: Axial CT of the brain is performed from the vertex to the skull base. IV contrast was not administered for this examination. CT DOSE: FINDINGS: No intra or extra-axial mass lesions are visualized. There is no CT evidence of acute cortical infarction. There is no evidence of midline shift. There is no acute hemorrhage. No calvarial fractures are visualized. There is mild frontal scalp edema. There is no evidence of pathologic ventricular dilatation. There is no evidence of acute sinusitis IMPRESSION: Frontal scalp edema. Otherwise normal noncontrast head CT. Electronically signed by: Ignacio Becerra M.D. 12/31/2016 5:53 PM Dictated Date/Time: 12/31/2016 5:49 PM
[2016-12-31 17:56] LABS: ALKALINE PHOSPHATASE 97 U/L (45-117); AST/SGOT 11 U/L (15-37); COMPLETE YES; EOSINOPHIL % 3.5 %; LYMPH ABS # 2.82 K/uL (1.2-3.4); LYMPHOCYTE % 23.7 %; NEUTROPHILS % 71.9 %; THYROID STIMULATING HORMONE 0.503 uIu/ml (0.300-4.500)
--- NOTE | 2016-12-31 17:57 | DIAGNOSTIC IMAGING REPORT ---
CT OF THE CERVICAL SPINE CLINICAL HISTORY: Neck pain status post trauma COMPARISON STUDY: No previous studies for comparison. CT DOSE: 998.33 mGy.cm TECHNIQUE: CT scan of the cervical spine was performed from the skull base to the thoracic inlet. Images are reviewed in the axial, sagittal, and coronal planes. IV contrast was not administered for this examination. FINDINGS: The visualized portions of the lung apices reveal no evidence of pneumothorax. There is minimal apical emphysema The prevertebral soft tissues are normal. No fractures or subluxations are visualized. Incidental note is made of a right maxillary molar dental apical abscess. There is a right mandibular molar dental nima. IMPRESSION: No evidence of acute fracture or traumatic subluxation. Electronically signed by: Ignacio Becerra M.D. 12/31/2016 5:56 PM Dictated Date/Time: 12/31/2016 5:53 PM
[2016-12-31 18:30] VITALS: BP 100/50; PULSE 74; O2SAT 100
--- NOTE | 2016-12-31 19:55 | EMERGENCY ROOM VISIT NOTE ---
History Report prepared by Lotus: Mariella Erazo Under the Supervision of: Dr. Marty Kaiser M.D. First contact with patient: 16:38 Chief Complaint: HEAD PAIN Stated Complaint: SYNCOPE, FELL HIT BACK OF HEAD Nursing Triage Summary: Patient states she was seen in ED today, went home, went to bed and woke up on the floor on her back. Called OB and was told to come here for head trauma. States back of head was bleeding, believes she hit it on a wood floor. US done this am, also got fluids and zofran. History of Present Illness The patient is a 36 year old female who presents to the Emergency Room with complaints of worsening head pain. She is currently 28 weeks and reports she hit her forehead last night when she lost her footing in the snow. She landed on her wood deck, hitting her knees and head. The patient came in to the ED around midnight for treatment, then was discharged home and went to sleep. The patient again came to the emergency department at noon today because she had continued head pain. She was evaluated here and had an ultrasound of the fetus because she felt that movements had decreased. The ultrasound was reported as normal and she states that movements have returned to normal. She went back home but states when she was in the ED the second time she was very lightheaded. She got home and her boyfriend helped out of the car and she went upstairs. She reports she woke up on the hard wood floor of her bedroom, unsure of how she got there, so she called for her boyfriend, who came to help her up. She then called OB, who recommended she come back to the ED because of her head trauma and continued head pain. She does not know how long she had lost consciousness for. She also admits to some neck pain. She denies any chest pain or shortness of breath. She denies any numbness or weakness in her legs. She reports she felt light headed when she was discharged home earlier this afternoon, and states her head pain seems to be "getting worse". She rates her current discomfort as an 8/10. Movement and palpation worsen her pain. Tylenol has "done nothing" for her. She does not believe she hit her abdomen during her fall last night or today. She denies any vaginal bleeding or discharge. Source of History: patient Onset: midnight last night Position: head Symptom Intensity: 06/01 Quality: ache Timing: worsening Modifying Factors (Worsening): movement, other (palpation) Associated Symptoms: + LOC, + neck pain, No SOB, No abdominal pain, No chest pain Review of Systems See HPI for pertinent positives & negatives. A total of 10 systems reviewed and were otherwise negative. Past Medical & Surgical Medical Problems: (1) Cramping affecting , antepartum (2) Disc herniation (3) Endometriosis (4) Hematemesis (5) Hemorrhoid (6) Mastitis (7) Mastitis (8) Nausea and vomiting in (9) Ovarian cyst (10) with 22 completed weeks gestation (11) with 27 completed weeks gestation (12) Seizure Family History Cancer Diabetes mellitus Heart disease Hypertension Kidney stones Social History Smoking Status: Current Every Day Smoker Alcohol Use: occasionally Marital Status: in relationship Housing Status: lives with significant other Occupation Status: employed Current/Historical Medications Scheduled Escitalopram Oxalate (Escitalopram Oxalate), 10 MG PO HS Multivit/Min/Iron/Fol Ac/Pren ( Vitamin), 1 TAB PO HS Pantoprazole (Protonix), 40 MG PO DAILY Scheduled PRN Acetamin/Butalbital/Caffeine (Fioricet), 1 TAB PO DAILY PRN for Tension Headache Acetaminophen (Tylenol), 1,000 MG PO UD PRN for Pain Metoclopramide Hcl (Reglan), 10 MG PO TID PRN for Nausea Allergies Coded Allergies: Ceftriaxone (Verified Allergy, Intermediate, hives, 12/31/16) Penicillins (Verified Allergy, Mild, HIVES, 12/31/16) CANNOT TAKE ANY CROSS DRUGS EITHER OF PENICILLIN Tramadol (Verified Adverse Reaction, Intermediate, headache, 12/31/16) Vancomycin (Verified Adverse Reaction, Unknown, CHANTAL SYNDROME, 12/31/16) Physical Exam Vital Signs Date Time Temp Pulse Resp B/P Pulse Ox O2 Delivery O2 Flow Rate FiO2 12/31/16 18:30 74 18 100/50 100 Room Air 12/31/16 17:09 82 96/57 98 Room Air 82 112/64 87 121/69 12/31/16 16:26 36.8 92 16 105/66 98 Room Air Physical Exam Constitutional: Vital signs reviewed. Eyes: Pupils are equal round reactive to light. Conjunctiva are noninjected. ENT: Pharynx is clear without erythema or exudate. Mucous membranes are moist. No midline tenderness to the cervical spine. Respiratory: Clear to auscultation bilaterally. Breath sounds are equal bilaterally. Cardiovascular: Regular rate and rhythm. No rubs or gallops. GI: Soft, gravid and nontender. Bowel sounds are present. Musculoskeletal: No peripheral edema. Abrasion right knee. Integumentary: Abrasion to the forehead. Abrasion to the occiput. No active bleeding. Neurologic: The patient is awake and alert. Cranial nerves II-XII are intact. Motor is 5 out of 5 all extremities. Sensation is intact to light touch all extremities. Normal speech. No pronator drift. Psychiatric: Normal affect. Medical Decision & Procedures ER Provider Diagnostic Interpretation: These CT scans were reviewed and interpreted by the radiologist and reviewed by myself. CT OF THE CERVICAL SPINE CLINICAL HISTORY: Neck pain status post trauma COMPARISON STUDY: No previous studies for comparison. CT DOSE: 998.33 mGy.cm TECHNIQUE: CT scan of the cervical spine was performed from the skull base to the thoracic inlet. Images are reviewed in the axial, sagittal, and coronal planes. IV contrast was not administered for this examination. FINDINGS: The visualized portions of the lung apices reveal no evidence of pneumothorax. There is minimal apical emphysema The prevertebral soft tissues are normal. No fractures or subluxations are visualized. Incidental note is made of a right maxillary molar dental apical abscess. There is a right mandibular molar dental nima. IMPRESSION: No evidence of acute fracture or traumatic subluxation. Electronically signed by: Ignacio Becerra M.D. 12/31/2016 5:[address] HEAD WITHOUT CONTRAST (CT) CLINICAL HISTORY: Headache, syncope, head trauma. COMPARISON STUDY: 12/31/2016 TECHNIQUE: Axial CT of the brain is performed from the vertex to the skull base. IV contrast was not administered for this examination. CT DOSE: FINDINGS: No intra or extra-axial mass lesions are visualized. There is no CT evidence of acute cortical infarction. There is no evidence of midline shift. There is no acute hemorrhage. No calvarial fractures are visualized. There is mild frontal scalp edema. There is no evidence of pathologic ventricular dilatation. There is no evidence of acute sinusitis IMPRESSION: Frontal scalp edema. Otherwise normal noncontrast head CT. Electronically signed by: Ignacio Becerra M.D. 12/31/2016 5:53 PM Laboratory Results 12/31/16 17:10 Red Blood Count 3.07, Mean Corpuscular Volume 94.5, Mean Corpuscular Hemoglobin 32.2, Mean Corpuscular Hemoglobin Concent 34.1, Mean Platelet Volume 10.3 12/31/16 17:10 Test 12/31/16 17:10 12/31/16 17:21 White Blood Count 11.91 K/uL (4.8-10.8) Red Blood Count 3.07 M/uL (4.2-5.4) Hemoglobin 9.9 g/dL (12.0-16.0) Hematocrit 29.0 % (37-47) Mean Corpuscular Volume 94.5 fL (80-100) Mean Corpuscular Hemoglobin 32.2 pg (25-34) Mean Corpuscular Hemoglobin Concent 34.1 g/dl (32-36) Platelet Count 255 K/uL (130-400) Mean Platelet Volume 10.3 fL (7.4-10.4) RDW Standard Deviation 50.6 fL (36.4-46.3) RDW Coefficient of Variation 14.9 % (11.5-14.5) Neutrophils % (Manual) 71.9 % Lymphocytes % (Manual) 23.7 % Monocytes % (Manual) 0.9 % Eosinophils % (Manual) 3.5 % Neutrophils # (Manual) 8.56 K/uL (1.4-6.5) Total Absolute Neutrophils 8.56 K/uL (1.4-6.5) Lymphocytes # (Manual) 2.82 K/uL (1.2-3.4) Total Absolute Lymphocytes 2.82 K/uL (1.2-3.4) Monocytes # (Manual) 0.11 K/uL (0.11-0.59) Eosinophils # (Manual) 0.42 K/uL (0-0.5) Red Blood Cell Morphology Unremarkable Prothrombin Time 11.0 SECONDS (9.0-12.0) Prothromb Time International Ratio 1.0 (0.9-1.1) Activated Partial Thromboplast Time 24.2 SECONDS (21.0-31.0) Partial Thromboplastin Ratio 0.9 Anion Gap 13.0 mmol/L (3-11) Estimated GFR () 145.2 Estimated GFR (Non- 125.3 BUN/Creatinine Ratio 7.7 (10-20) Calcium Level 8.2 mg/dl (8.5-10.1) Total Bilirubin 0.2 mg/dl (0.2-1) Direct Bilirubin < 0.1 mg/dl (0-0.2) Aspartate Amino Transf (AST/SGOT) 11 U/L (15-37) Alanine Aminotransferase (ALT/SGPT) 11 U/L (12-78) Alkaline Phosphatase 97 U/L (45-117) Total Protein 6.1 gm/dl (6.4-8.2) Albumin 2.6 gm/dl (3.4-5.0) Thyroid Stimulating Hormone (TSH) 0.503 uIu/ml (0.300-4.500) Bedside Troponin I 0.000 ng/ml (0-0.045) Laboratory results as reviewed by me. Medications Administered Medications (Trade) Dose Ordered Sig/Maxine Route Start Time Stop Time Status Last Admin Dose Admin Sodium Chloride (Nss 1000ml) 1,000 ml @ 999 mls/hr Q1H1M STAT IV 12/31/16 16:53 12/31/16 17:53 DC 12/31/16 17:23 999 MLS/HR ECG Indication: syncope Rate (beats per minute): 78 Rhythm: normal sinus Findings: no acute ischemic change, no ectopy ED Course 1643: The patient was evaluated in room A9. A complete history and physical exam was performed. 1652: NSS 1000 ml @ 999 mls/hr IV. 5: I reevaluated the patient. I discussed her test results. She says she has no complaints, but still has a headache. I explained why we cannot give her anything stronger than Tylenol for pain and she understood. I will have nursing attempt an ambulation trial. The patient states she would rather go home to her own bed, but will wait for my consult from [employer]. She also reports she only slept about 3 hours last night and is very tired. 1899: I reevaluated the patient. She walked around the ED with the assistance of nursing. She was a little lightheaded, but did not feel like she was going to pass out. She states she does not want to be admitted, but thinks maybe it would be good to stay in the ED for another hour or so. 1900: I discussed the patients case with Dr. Ellis, [facility] [place] [employer]. She does not feel the patient needs to remain in the hospital. She is not concerned about the fetus given the patient did not fall on her abdomen and has normal movements. Dr. Ellis also did not feel any monitoring is indicated. 1910: I discussed the plan with the patient. She states rather than stay here and eat, she would rather just go home right now. I discussed her discharge instructions and she verbalized complete understanding and agreement. The patient also said the nurse did heart tones and it was 146. I cannot find documentation for this so nursing will repeat it before she is discharged. 192: The nurse went in to attempt heart tones on the fetus. She can feel the baby moving around and heard heart tones but baby moved. The patient then stated she wanted to leave, and have no further attempts, as she was going walk out. The nurse going to attempt heart tones again so we can address the patients concerns about her fetus. 193: Nursing informed me the heart tones are 140. The patient is being discharged. Medical Decision This is a 36-year-old female who presents with a syncopal episode and head injury. Differential diagnosis includes vasovagal syncope, orthostatic hypotension, dehydration, concussion, intracranial hemorrhage, cervical fracture. I did perform a limited focused review of portions of the patient's old chart on the electronic medical record. The patient was seen here at 1230 AM because she fell in the snow. She had a negative head and neck CT and her urine toxicology screen showed Benzodiazepines and Barbiturates. She is on Fioricet. The case was discussed with Dr. Thorpe. The patient was discharged home. She was seen here again at noon for persistent head pain. The patient requested Morphine for her headache, though the physician did not feel comfortable treating her with Morphine. She then told the physician she did not feel the baby was moving as usual, and requested evaluation. She had an US of the fetus which was unremarkable. The Physician felt that overall her appearance was one of secondary gain for controlled substances. The case was discussed with obstetrics and she was discharged home. I did evaluate the patient as noted above. The patient is presenting with a syncopal episode with a second head injury today. She is feeling dizzy and complains of a worsening headache. She is 28 weeks but states she did not fall on her abdomen. She states she has normal movements and no abdominal pain, vaginal bleeding, contractions or vaginal discharge. She denies any chest discomfort or shortness of breath or thoracic pain. She has no pain or edema to her legs other than an abrasion to her right knee from when she fell earlier. She is neurologically intact. Given her worsening headache and second head injury I did feel a CT scan was indicated. I did discuss this with her and she agreed. IV access was established. The patient was placed on a continuous director of cardiac rehabilitation. I did order and personally review the patient's 12-lead EKG as described above. There is no evidence of heart block, PVCs or acute ischemia. No preexcitation. I did order and review the patient's blood work as noted in the electronic medical record. She has anemia and slight leukocytosis which is unchanged from her prior visit. I did order a CT of the head and cervical spine. I did review the images myself as well as the radiology report as described above. There is no evidence of intracranial hemorrhage or skull fracture. No cervical fracture. I did treat the patient with normal saline IV. She did have Tylenol prior to arrival. She did ask for something for pain but I did explain to her given her syncopal episode, and recent head injury that I did not feel narcotics would be indicated. She understood. I did talk about hospitalization given her syncope and dizziness. She stated that she did not really want to stay in the hospital. She states that she only got 3 hours of sleep last night and had not eaten anything all day. This would certainly explain her syncopal episode. I did ambulate her around the emergency department and she did well other than getting slightly dizzy. This is understandable given her recent head injuries. We did order a food tray for her. I did discuss the case with the information services assistant plumbing and heating contractor who had sent her here earlier. She did not feel that the patient required hospitalization or any monitoring. She recommended outpatient follow up. I did discuss this with the patient. We were going to feed her and observe her for some time before discharging her but she stated that she wanted to leave right away. She even initially resisted getting heart tones but finally acquiesced. heart tones were 140. The baby was moving frequently. She was discharged in good condition and stated that she would eat something right away and go to bed. She was advised follow up with her doctor within 48 hours and given return instructions as outlined below. Consults Time Called: 1829 Consulting Physician: Dr. Ellis [facility] [place] [employer] Returned Call: 1900 I discussed the patients case with Dr. Ellis [facility] [place] [employer]. She does not feel the patient needs to remain in the hospital. She is not concerned about the fetus given the patient did not fall on her abdomen and has normal movements. Impression Primary Impression: Syncope Additional Impressions: Acute head injury Neck pain Anemia Scribe Attestation The scribe's documentation has been prepared under my direct and personally reviewed by me in its entirety. I confirm that the note above accurately reflects all work, treatment, procedures, and medical decision making performed by me. Departure Information Dispostion Home / Self-Care Referrals Brett Avina M.D. (PCP) Patient Instructions ED Head Injury Closed, My [facility], Syncope Additional Instructions You have been examined and treated today on an emergency basis only. This is not a substitute for, or an effort to provide, complete comprehensive medical care. It is impossible to recognize and treat all injuries or illnesses in a single emergency department visit. It is therefore important that you follow up closely with your physician within 48 hours. Call as soon as possible for an appointment. Return for worsening symptoms or if you develop fever, vomiting, chest pain, shortness of breath, abdominal pain, vaginal bleeding or discharge, loss of movement or any other concerning symptoms. Problem Qualifiers Primary Impression: Syncope Syncope type: unspecified Qualified Codes: R55 - Syncope and collapse Additional Impressions: Acute head injury Encounter type: initial encounter Qualified Codes: S09.90XA - Unspecified injury of head, initial encounter Weeks of gestation: 28 weeks Qualified Codes: Z3A.28 - 28 weeks gestation of Anemia Anemia type: unspecified type Qualified Codes: D64.9 - Anemia, unspecified
[2016-12-31] MEDS ORDERED: FRCT/ PO (20:28)
[2016-12-31] MEDS ORDERED: PRENTAB26 PO (20:28)
[2017-05-30] MEDS ORDERED: CETI10TA84 PO (10:42)
[2017-05-30] MEDS ORDERED: LEVO-14 PO (10:42)
[2017-05-30] MEDS ORDERED: BND25 PO (10:42)
[2017-05-30] MEDS ORDERED: PRED20TA2 PO (10:42)
[2017-05-30] MEDS ORDERED: VNTHFA/IN INH (10:47)
[2017-05-30] MEDS ORDERED: ZNTT/150 PO (10:49)
[2017-06-28] MEDS ORDERED: OXYC-57 PO (13:25)
== END 2016-12-31 19:44 | disposition home or self-care (01) ==
LOC: C.EDB 16:25 → C.EDA 19:44
DX: R55 Syncope and collapse (principal); S09.90XA Unspecified injury of head, initial encounter; D64.9 Anemia, unspecified; W19.XXXA Unspecified fall, initial encounter; F17.200 Nicotine dependence, unspecified, uncomplicated; Z3A.28 28 weeks gestation of pregnancy

== ENCOUNTER 2017-01-02 21:56 | Emergency (ER) | payer OTHER ==
[~2017-01-02] VITALS: Ht 170.2 cm; Wt 72.2 kg
[~2017-01-02 21:56] MED LIST changes: -ACET-1311 PO; +FRCT/ PO; +METO-157 PO; +PANT40TA PO; +PRENTAB26 PO; -RGLI10 IV; +TYLOTC500 PO
[2017-01-02 22:09] VITALS: Ht 170.2 cm; Wt 72.2 kg
[2017-01-02] MEDS ORDERED: ACETAMINOPHEN 500 MG TAB PO STA (23:05)
[2017-01-02 23:29] VITALS: BP 111/70; PULSE 90; TEMP 36.4; O2SAT 98
--- NOTE | 2017-01-03 01:47 | EMERGENCY ROOM VISIT NOTE ---
History First contact with patient: 22:50 Chief Complaint: BACK PAIN Stated Complaint: BACK History of Present Illness The patient is a 36 year old female who presents to the Emergency Room with complaints of left-sided low back. That she rates a 10/10. The patient is 28 weeks , and has had a history of chronic L5 and S1 disc disease. The patient states that when she was in [place] she would follow with pain management where she had injections performed. She presents to the ER today as her fourth visit in the past 48 hours. She had several falls 2 days ago, one of which was here in the emergency department and was felt to be intentional. Patient was seen by 3 different providers 48 hours ago, each with concern for drug-seeking behavior. The patient presents tonight for evaluation. She states there is a large snowstorm tomorrow, and she does not feel that she can get to her primary care physician's office. She does have an appointment in 2 days with a new tumbling barrel painter locally. She has been using Tylenol at home. She was given Flexeril by HOT METAL CAR OPERATOR, but she states she does not take this anymore because it gives her restless leg symptoms. She has had some cough incontinence throughout the . She states her pain radiates down her left leg. No fever or chills. No abdominal pain. The baby has been moving as normal. Review of Systems More than 10 systems were reviewed and otherwise negative with the exception of history of present illness. Past Medical/Surgical History Medical Problems: (1) Cramping affecting , antepartum (2) Disc herniation (3) Endometriosis (4) Hematemesis (5) Hemorrhoid (6) Mastitis (7) Mastitis (8) Nausea and vomiting in (9) Ovarian cyst (10) with 22 completed weeks gestation (11) with 27 completed weeks gestation (12) Seizure Family History Cancer Diabetes mellitus Heart disease Hypertension Kidney stones Social History Smoking Status: Current Every Day Smoker Alcohol Use: occasionally Marital Status: in relationship Housing Status: lives with significant other Occupation Status: employed Current/Historical Medications Scheduled Escitalopram Oxalate (Escitalopram Oxalate), 10 MG PO HS Multivit/Min/Iron/Fol Ac/Pren ( Vitamin), 1 TAB PO HS Pantoprazole (Protonix), 40 MG PO DAILY Scheduled PRN Acetamin/Butalbital/Caffeine (Fioricet), 1 TAB PO DAILY PRN for Tension Headache Acetaminophen (Tylenol), 1,000 MG PO UD PRN for Pain Metoclopramide Hcl (Reglan), 10 MG PO TID PRN for Nausea Allergies Coded Allergies: Ceftriaxone (Verified Allergy, Intermediate, hives, 12/31/16) Penicillins (Verified Allergy, Mild, HIVES, 12/31/16) CANNOT TAKE ANY CROSS DRUGS EITHER OF PENICILLIN Tramadol (Verified Adverse Reaction, Intermediate, headache, 12/31/16) Vancomycin (Verified Adverse Reaction, Unknown, CHANTAL SYNDROME, 12/31/16) Physical Exam Vital Signs Date Time Temp Pulse Resp B/P Pulse Ox O2 Delivery O2 Flow Rate FiO2 01/02/17 23:29 36.4 90 18 111/70 98 01/02/17 22:09 36.4 90 18 111/70 98 Pain Rating (0-10): 5.0 Physical Exam VITALS: Vitals are noted on the nurse's note and reviewed by myself. Vital signs stable. GENERAL: Well-developed, well-nourished, white female, who is in no acute distress and resting comfortably. Patient is cooperative with the examination. HEAD: Normocephalic atraumatic. NECK: Supple without nuchal rigidity. No lymphadenopathy. No thyromegaly. Cervical spine is nontender. HEART: Regular rate and rhythm without murmurs gallops or rubs. LUNGS: Clear to auscultation bilaterally without wheezes, rales or rhonchi. No retractions or accessory muscle use. ABDOMEN: Positive normal bowel sounds x 4. Soft and consistent with 28 week . No CVA tenderness. MUSCULOSKELETAL: No muscle atrophy, erythema, or edema noted. Full range of motion without joint tenderness in all extremities. Positive tenderness on palpation of the lower lumbar spine with left greater than right. When distracted palpation in this area does not elicit a tenderness response in the patient. Negative straight leg raise. NEURO: Patient was alert and oriented to person place and time. CN II through XII grossly intact. Deep tendon reflexes 2+ throughout. Medical Decision & Procedures ED Course Physical exam and history were performed. Nursing notes and EMR were reviewed. Patient appears to have back pain chronically that is acutely exacerbated today. I spent an extensive amount of time reviewing the patient's chart over the past 2 days. She is , and does not have complaints of abdominal or vaginal pain today. She has had multiple visits that are very concerning for drug-seeking behavior. On exam her tenderness is not reproducible when she is distracted, and I do have concern for malingering. I discussed options of care with the patient, and offered both x-rays and urinalysis. The patient stated that she felt both of these were unnecessary tests, and refused both. I explained that I would be able to provide her Tylenol here in the department, but we would not be able to provide her narcotics. The patient was quite dissatisfied with this, and asked that I contact her HOT METAL CAR OPERATOR as they may be able to provide different pain medication. I discussed the case with my attending physician, and we agreed that an emergent HOT METAL CAR OPERATOR consult for musculoskeletal back pain was not appropriate. I discharged the patient with instructions to follow with her primary care physician, HOT METAL CAR OPERATOR, and tumbling barrel painter, as she has appointments this week. The patient remained in the ER for greater than 1 hour after discharge, and I did return to answer her questions several times regarding her care today. The patient was very persistent with requesting several narcotics including morphine, Vicodin, and Tylenol 3. I again explained that the emergency department would not be providing her narcotic medication, and that she was being treated appropriately. She must keep her upcoming appointments, but was otherwise invited back to the ER with any new, worsening, or concerning symptoms. Overall I have significant concern for drug-seeking behavior with the patient. Based on her past visits in 48 hours, it appears that multiple providers share this concern. I feel the patient is appropriate for a no narcotic treatment plan, and will make this recommendation. The chart was completed utilizing [employer] Voice Recognition Software. Grammatical errors, random word insertions, pronoun errors, and incomplete sentences are an occasional consequence of this system due to software limitations, ambient noise, and hardware issues. Any formal questions or concerns about the content, text, or information contained within the body of this dictation should be directly addressed to the provider for clarification. . Medical Decision Differential diagnosis: Etiologies such as drug seeking behavior, musculoskeletal, disc herniation, fracture, aortic disease, metastatic disease, cord compression, discitis, infection, renal colic, gastrointestinal, acute exacerbation of chronic back pain, sciatica, cauda equina, as well as others were entertained. Impression Primary Impression: Low back pain Departure Information Dispostion Home / Self-Care Condition GOOD Forms HOME CARE DOCUMENTATION FORM, IMPORTANT VISIT INFORMATION Patient Instructions My [facility] Additional Instructions You were seen and evaluated today on an emergency basis only. This is not a substitute for, or an effort to provide, complete comprehensive medical care. It is not possible to recognize and treat all injuries or illnesses in a single emergency department visit. For this reason it is recommended that you followup with your HOT METAL CAR OPERATOR and pain management provider this week as scheduled. You may take Tylenol 1000 mg every 6-8 hours as needed for pain. Continue Flexeril as previously prescribed. You are welcome to return to the emergency department anytime with new, worsening, or concerning symptoms.
[2017-05-30] MEDS ORDERED: CETI10TA84 PO (10:42)
[2017-05-30] MEDS ORDERED: BND25 PO (10:42)
[2017-05-30] MEDS ORDERED: LEVO-14 PO (10:42)
[2017-05-30] MEDS ORDERED: PRED20TA2 PO (10:42)
[2017-05-30] MEDS ORDERED: VNTHFA/IN INH (10:47)
[2017-05-30] MEDS ORDERED: ZNTT/150 PO (10:49)
[2017-06-28] MEDS ORDERED: OXYC-57 PO (13:25)
== END 2017-01-02 23:29 | disposition home or self-care (01) ==
LOC: C.EDB 21:57 → C.EDC 23:29
DX: O26.892 Other specified pregnancy related conditions, second trimester (principal); O99.332 Smoking (tobacco) complicating pregnancy, second trimester; M54.5 Low back pain; F17.200 Nicotine dependence, unspecified, uncomplicated; Z3A.28 28 weeks gestation of pregnancy

== ENCOUNTER → 2017-01-05 | Outpatient (CLI) | payer OTHER ==
[~2017-01-05] MED LIST changes: +AYG/5 PO; +BND25 PO; +CETI10TA10 PO; +CETI10TA84 PO; +DEXA2TAB PO; +DIPH25CA65 PO; +DOCU-94 PO; +HYDR25SU20 PR; +LEVO-14 PO; +LXP/20 PO; +ONDA4TAB65 PO; +OXYC-57 PO; +PRED20TA2 PO; +RANI150T3 PO; -TYLOTC500 PO; +VNTHFA/IN INH; +ZNTT/150 PO
[2017-01-05 16:33] LABS: HEMATOCRIT 27.9 % (37-47)
[2017-01-05 19:06] LABS: URINE APPEARANCE CLOUDY (CLEAR); URINE BILIRUBIN NEG (NEG); URINE COLOR YELLOW; URINE EPITHELIAL CELL AUTO >30 /lpf (0-5); URINE NITRITE NEG (NEG); URINE SPECIFIC GRAVITY 1.016 (1.000-1.030); UROBILINOGEN NEG (NEG)
[2017-01-05 19:08] LABS: MANUAL MICROSCOPIC REQUIRED? NO; REVIEW REQ? NO
== END | disposition home or self-care (01) ==
LOC: C.LAB1850 15:32
PROVIDERS: ATTEND Obstetrics & Gynecology
DX: O09.523 Supervision of elderly multigravida, third trimester (principal)

== ENCOUNTER → 2017-01-27 | Outpatient (CLI) | payer OTHER ==
[~2017-01-27] MED LIST changes: +AZIT250T PO; -BND25 PO; +BSP/10 PO; +CITA10TA4 PO; +DIPH25CA5 PO
[2017-01-27 13:14] LABS: BENZODIAZEPINE, URINE NEG (NEG); COCAINE,URINE NEG (NEG); PHENCYCLIDINE, URINE NEG (NEG)
== END | disposition home or self-care (01) ==
LOC: C.LABSPEC 11:25
PROVIDERS: ATTEND Obstetrics & Gynecology
DX: O26.90 Pregnancy related conditions, unspecified, unspecified trimester (principal); Z3A.00 Weeks of gestation of pregnancy not specified

== ENCOUNTER → 2017-02-27 | Outpatient (CLI) | payer OTHER | END | disposition home or self-care (01) | LOC: C.LABSPEC 15:37 | PROVIDERS: ATTEND Obstetrics & Gynecology | DX: O09.523 Supervision of elderly multigravida, third trimester (principal); Z3A.00 Weeks of gestation of pregnancy not specified ==

== ENCOUNTER 2017-03-28 00:44 | Inpatient (IN) | payer OTHER ==
[~2017-03-28] VITALS: Ht 167.6 cm; Wt 80.0 kg
[~2017-03-28 00:44] MED LIST changes: -AYG/5 PO; -AZIT250T PO; -BSP/10 PO; -CETI10TA10 PO; -CETI10TA84 PO; -CITA10TA4 PO; -DEXA2TAB PO; -DIPH25CA5 PO; -DIPH25CA65 PO; -DOCU-94 PO; -HYDR25SU20 PR; -LEVO-14 PO; -LXP/20 PO; -ONDA4TAB65 PO; -OXYC-57 PO; -PRED20TA2 PO; -RANI150T3 PO; -VNTHFA/IN INH; -ZNTT/150 PO
[2017-03-28] MEDS ORDERED: LACTATED RINGER'S 1000ML 1,000 ML IV SCH (00:55)
[2017-03-28] MEDS ORDERED: LACTATED RINGER'S 1000ML 1,000 ML IV PRN (00:55)
[2017-03-28 01:17] VITALS: Ht 167.6 cm; Wt 80.0 kg
[2017-03-28] MEDS ORDERED: FENTANYL CITRATE INJ 50 MCG/1 ML 2 ML VIAL ONE (01:41)
[2017-03-28] MEDS ORDERED: EpHEDrine SULFATE INJ 50 MG/ML AMP ONE (01:41)
[2017-03-28] MEDS ORDERED: FENTANYL 2MCG/ML ROPIV 1.25MG/ML 100ML BAG EPI ONE (01:41)
[2017-03-28] MEDS ORDERED: BUPIVACAINE 0.25% 30 ML VIAL ONE (01:41)
[2017-03-28 01:43] LABS: BENZODIAZEPINE, URINE NEG (NEG); COCAINE,URINE NEG (NEG); PHENCYCLIDINE, URINE NEG (NEG)
[2017-03-28 01:53] LABS: HEMATOCRIT 32.9 % (37-47); MEAN CELL VOLUME 95.9 fL (80-100); MEAN CORPUSCULAR HEMOGLOBIN 31.2 pg (25-34); MEAN CORPUSCULAR HGB CONC 32.5 g/dl (32-36); MEAN PLATELET VOLUME 12.1 fL (7.4-10.4); PLATELET COUNT 202 K/uL (130-400); RED BLOOD COUNT 3.43 M/uL (4.2-5.4); WHITE BLOOD COUNT 11.26 K/uL (4.8-10.8)
[2017-03-28 01:54] LABS: PLT ESTIMATE NORMAL
[2017-03-28] MEDS ORDERED: NALOXONE HCL INJ 1 MG in SODIUM CHLORIDE 0.9% 1000ML 1,000 ML IV PRN (02:49)
[2017-03-28] MEDS ORDERED: LACTATED RINGER'S 1000ML 500 ML IV PRN ×2 (02:49→04:27)
[2017-03-28] MEDS ORDERED: DiphenhydrAMINE HCL 50 MG/ML VIAL IV PRN (03:00)
[2017-03-28] MEDS ORDERED: FENTANYL 2MCG/ML ROPIV 1.25MG/ML 100ML BAG EPI PRN (03:00)
[2017-03-28] MEDS ORDERED: NALOXONE HCL INJ 0.4 MG/1 ML VIAL/CARP IV PRN (03:00)
[2017-03-28] MEDS ORDERED: NALBUPHINE HCL INJ 10 MG/ML AMP IV PRN (03:00)
[2017-03-28] MEDS ORDERED: EpHEDrine SULFATE INJ 50 MG/ML AMP IV PRN (03:00)
[2017-03-28] MEDS ORDERED: NURSING VERBAL MED ORDER ONE (03:15)
[2017-03-28] MEDS ORDERED: CALCIUM CARBONATE 500 MG CHEWABLE PO PRN (03:15)
[2017-03-28] MEDS ORDERED: OXYTOCIN 30 UNITS/500ML NSS IV PRN ×2 (04:30→05:30)
[2017-03-28] MEDS ORDERED: BENZOCAINE 20% AER SPR 82.5 GM CAN EXT PRN (05:30)
[2017-03-28] MEDS ORDERED: DIPHTHERIA/TETANUS/PERTUSSIS 0.5 ML SYR/VIAL IM. ONE (05:30)
[2017-03-28] MEDS ORDERED: HYDROCORTISONE ACETATE 25 MG SUPP PR PRN (05:30)
[2017-03-28] MEDS ORDERED: LANOLIN OINT EXT PRN ×2 (05:30)
[2017-03-28] MEDS ORDERED: SUPERCREAM 0.870 % 15GM JAR EXT PRN (05:30)
[2017-03-28] MEDS: IBUPROFEN 600 MG TAB PO PRN ×4 (06:05→18:49)
--- NOTE | 2017-03-28 06:29 | DELIVERY SUMMARY ---
DATE OF OPERATION: 03/28/2017 FINDINGS: A viable female infant with Apgars of 8 and 9. Baby delivered spontaneously over intact perineum. Cord gases, cord blood samples were obtained. Placenta delivered spontaneously. Estimated blood loss is 300 mL. LABOR NOTE: The patient is a 36-year-old 5, para 1 with an EDC of 24 March by first trimester ultrasound, who presented to labor and delivery with spontaneous rupture of membranes. The patient states membranes ruptured late in the evening of 27 March with irregular contractions. The patient has had multiple events during this . She was treated as a gestational diabetic. Her previous , she was GDM on insulin, however; this although the circumferences were less than a 75th percentile so the patient was not on any insulin. The patient has a history of migraine headaches and was using Fioricet for control. There was episode around 30 weeks ' gestational age where there was concern about abuse of medication. Decision was made to only have neurology write for the medication. The patient was seen in the Emergency room around 30 weeks for a fall and was felt to be intoxicated. The patient had a urine tox screen which was positive for benzodiazepines. The patient was not receiving any prescriptions for this medication. The patient states that she took the medication by mistake. The patient's last was also remarkable for post mastitis which lasted 14 months. She was on multiple antibiotics including a PIC line for the medication. The infection finally cleared. Upon arrival, the patient was 3-4 cm, grossly ruptured and gregor and uncomfortable. Anesthesia was consulted and an epidural was placed. Upon the placement of the epidural, the patient progressed to full dilatation and began her second stage. She pushed twice delivering a viable female . Cord was clamped and cut. Cord gases, cord blood samples were obtained. Placenta was delivered spontaneously. Inspection of the perineum showed the perineum to be intact. Estimated blood loss was 300 mL. Sponge and needle count was correct. I attest to the content of the Intraoperative Record and any orders documented therein. Any exceptions are noted below. MTDD
--- NOTE | 2017-03-28 07:46 | Anesthesia Procedure Note ---
Anesthesia Epidural Removal Nt Date & Time Mar 28, 2017 at 07:46 Vital Signs Pain Intensity: 0.0 Notes Mental Status: alert / awake / arousable, participated in evaluation Nausea / Vomiting: adequately controlled Pain: adequately controlled Airway Patency, RR, SpO2: stable & adequate BP & HR: stable & adequate Hydration State: stable & adequate Neuraxial Anesthesia: was administered Anesthetic Complications: no major complications apparent, pt satisfied with anesthetic care Epidural: removed without complications, with tip intact
[2017-03-28 08:10] VITALS: BP 120/58; PULSE 71; TEMP 36.7
[2017-03-28] MEDS: PRENATAL VITAMIN TAB PO SCH (10:26)
[2017-03-28] MEDS: FERROUS SULFATE 325 MG TAB PO SCH (10:26)
[2017-03-28] MEDS: PANTOprazole SOD 40 MG TAB PO SCH (10:26)
[2017-03-28] MEDS: DOCUSATE SODIUM 100 MG CAP PO SCH ×2 (10:26→19:46)
[2017-03-28] MEDS: ACETAMINOPHEN 325 MG TAB PO PRN ×2 (10:28→19:48)
[2017-03-28 12:15] VITALS: BP 111/65; PULSE 83; TEMP 37
[2017-03-28 15:14] VITALS: BP 110/69; PULSE 70; TEMP 36.7; O2SAT 99
[2017-03-28 19:50] VITALS: BP 102/64; PULSE 71; TEMP 36.6
[2017-03-28] MEDS ORDERED: ESCITALOPRAM OXALATE 10 MG TAB PO SCH (22:00)
[2017-03-29 00:25] VITALS: BP 106/63; PULSE 64; TEMP 36.7
[2017-03-29] MEDS: IBUPROFEN 600 MG TAB PO PRN ×2 (00:33→05:10)
[2017-03-29 05:00] VITALS: BP 117/72; PULSE 64; TEMP 36.6; O2SAT 100
--- NOTE | 2017-03-29 06:40 | Progress Note ---
Subjective Mar 29, 2017. Subjective conversation w/ patient, physical exam, chart review Ambulation: ambulating normally Voiding: no voiding problems Passing Gas: Yes Diet Tolerance: Regular Diet Lochia: Moderate Feeding Type: Bottle Feeding (has h/o severe mastitis, is preventing with compressive garment and avoiding nipple stim.) Review of Systems Constitutional: No fever, No chills Respiratory: No cough Cardiac: No chest pain Abdomen: No nausea, No vomiting Objective Vital Signs Date Time Temp Pulse Resp B/P (MAP) Pulse Ox O2 Delivery O2 Flow Rate FiO2 03/29/17 05:00 36.6 64 18 117/72 (87) 100 Room Air 03/29/17 00:25 36.7 64 18 106/63 (77) Room Air 03/29/17 00:25 Room Air 03/28/17 19:50 36.6 71 16 102/64 (77) Room Air 03/28/17 15:15 Room Air 03/28/17 15:14 36.7 70 18 110/69 (83) 99 Room Air 03/28/17 12:15 37.0 83 16 111/65 (80) Room Air 03/28/17 08:10 Room Air 03/28/17 08:10 36.7 71 20 120/58 (78) Room Air Physical Exam General Appearance: WELL-APPEARING, NO APPARENT DISTRESS Respiratory/Chest: no respiratory distress, no accessory muscle use Cardiovascular: no edema Abdomen: non tender, soft Fundus: Firm (-3cm below umb.) Extremities: no calf tenderness Laboratory Results Last 24 Hours Test 03/29/17 04:44 Assessment and Plan Problem List Medical Problems: (1) Acute anxiety Status: Acute (2) Acute gastroenteritis Status: Acute (3) Acute head injury Status: Acute (4) Anemia Status: Acute (5) Concussion Status: Acute (6) Contusion of knee, right Status: Acute (7) External hemorrhoid Status: Acute (8) Fall Status: Acute (9) Headache Status: Acute (10) Low back pain Status: Acute (11) Neck pain Status: Acute (12) Pelvic pain Status: Acute (13) Pulmonary congestion Status: Acute (14) Purulent discharge from nipple Status: Acute (15) Right lower quadrant abdominal pain Status: Acute (16) Right ovarian cyst Status: Acute (17) Shortness of breath Status: Acute (18) Syncope Status: Acute (19) Thrombosed external hemorrhoids Status: Acute Post- Day#: 1 Continue Routine Care: Patient desires d/c home as she is greater than 24 hours . She is noted to have swelling of the lower lip and tongue this morning, without any associated shortness of breath. She also has c/o rash at times during this admission and is being treated with benadryl Q8h for these symptoms. She suspects she is allergic to the sheets or something in our environment, such as deng in neighboring rooms, and wants to go home today if possible. Review of her meds for any new items reveals that she is on colace since delivery and has never taken before; also will stop that and advise she not use it at home.
--- NOTE | 2017-03-29 06:43 | Discharge Instructions ---
Discharge Instructions Date of Service Mar 29, 2017. Admission Reason for Admission: LABOR Discharge Discharge Diagnosis / Problem: Vaginal delivery Discharge Goals Goal(s): Routine recovery after delivery Activity Recommendations Activity Limitations: per Instructions/Follow-up section . Instructions / Follow-Up Instructions / Follow-Up ACTIVITY RECOMMENDATIONS: * Gradual return to full activity over the next 2-3 weeks. * No lifting - nothing heavier than baby over the next 2-3 weeks. * Do not engage in vigorous exercise, sexual activity or sports until cleared by your physician. * Do not drive or operate any motorized equipment until cleared by your physician. * You may shower/bathe daily. MEDICATIONS: For discomfort or pain, you may use Acetaminophen (Tylenol), Ibuprofen (Advil), or Naproxen (Aleve) following the package directions. For constipation you may use Colace following the package directions. BREAST CARE: If you are not breast feeding: * Wear a supportive bra 24 hours a day for one to two weeks. * Avoid stimulating your breasts and nipples as much as possible during the first few weeks after delivery. * When taking a shower, have the warm water hit your back, not breasts. * When your breasts feel full, apply ice packs. Usually three to four times a day helps ease the discomfort. * Take a mild pain medication (Tylenol / Motrin) when you are uncomfortable. If breast feeding: * Use breast milk to lubricate nipples. Lansinoh cream may be used for sore nipples. You do not need to remove cream prior to breast feeding. If using a different brand of cream, check the label for directions regarding removal of cream prior to nursing. * Wear a supportive bra. * If having problems with breasts or breast feeding, call a commercial sales consultant or your health care provider. EPISIOTOMY CARE: After delivery, if you have an episiotomy (stitches), the following steps will ease discomfort and aid healing. * For the first 24 hours after delivery, place ice packs next to your episiotomy to help reduce swelling. * After the first 24 hour-period, sitz baths, either portable or in the tub, are suggested. A shower with a shower arm sprayed over the episiotomy may be comforting. * Mansi care should be done after each voiding and bowel movement. Squirt warm water from a plastic bottle over the perineum (region of the body between the anus and urinary opening) and pat dry. * Use Dermoplast to ease discomfort. Shake container. Nabb directly over the episiotomy. Place a Tucks on a clean sanitary pad next to your episiotomy. SPECIAL CARE INSTRUCTIONS: When you are discharged from the hospital, it is important for you to follow the instructions listed below: * During the first week at home, you should be able to care for yourself and your baby. In addition, the usual light household activities are encouraged. * Limit your activities to the way you feel. Do not try to clean the house or move furniture. Be sensible. * If you actively engage in sports and have done so up until the time of your delivery, you may resume these activities as soon as you feel able. This may take up to one month or even longer. Use good judgment. * Continue to take your vitamins for at least six weeks after the of your baby. * Your diet need not be limited unless you were on a special diet before your delivery. Breast-feeding mothers need around 2500 calories per day and at least 64-80 ounces of fluid per day (8 to 10 glasses). * You should eat foods from the four major food groups. Crash diets or fad diets are to be avoided. Eating lean meats, fresh fruits and vegetables, low-fat dairy products, high fiber foods and a regular exercise program, will help you get back to your pre- weight without putting your health at risk. * Constipation is sometimes a problem after delivery. Take a mild laxative as needed. If breast feeding, Milk of Magnesia is acceptable to use. You may use a suppository or Fleets enema if no episiotomy. * A daily shower or tub bath is suggested. Be sure to thoroughly and gently dry the perineum. * A bloody vaginal discharge will usually continue until around four weeks post . A small amount of bleeding may continue for as long as six weeks. Vaginal discharge changes from the bright red bleeding after delivery to pink then brownish and finally yellowish-pink before becoming white and disappearing. * Bleeding may increase with activity. Your first period may come in 4-8 weeks. If you are breast feeding, your period may be delayed even longer. * [place] (sex) can begin whenever both you and your partner feel comfortable and do not have any form of genital infection. It is recommended that you wait at least six weeks for internal and external healing to occur. If you have questions, please talk to your health care practitioner. A condom should be used to prevent infection and . * Foreplay, gentle intercourse and lubrication is very important the first several times to prevent pain. A water-based lubricant such as K-Y jelly or Astroglide may be used. * If you have RH negative blood and your baby is RH positive, you will receive RHOGAM by injection prior to discharge. The nurse will give you a card to keep with you that has the date and place that you received RHOGAM after delivery. * During your care, you had a Rubella screen done to check for the presence of rubella antibodies in your blood. If your test was negative, you will receive a Rubella vaccine prior to discharge. This vaccine may cause a fever, soreness at the injection site and flu-like symptoms. If these symptoms persist, notify your health care practitioner. is not advised for one month after a Rubella vaccine. * Verbalizes understanding of car seat law as reviewed with patient nursing. * Car Seat hand-out given and reviewed with patient by nursing. * Shaken baby information reviewed with patient by nursing. Call you doctor if: * Heavy bleeding (saturating several pads an hour) or passing clots the size of your fist. * A fever >101 degrees F (38.3 degrees C) on two occasions four hours apart and /or chills. * Unusual pain in the pelvic or vaginal areas. * "Baby Blues" lasting longer than two weeks. If you have any questions or concerns, call your health care practitioner at . FOLLOW UP VISIT: * Please call the office at to schedule a 6 week examination. It is important you keep this appointment. It is important for you to make arrangements for either yearly or twice yearly check-ups thereafter. Current Hospital Diet Patient's current hospital diet: Regular OB Diet Discharge Diet Recommended Diet: Regular Diet Pending Studies Studies pending at discharge: no Medical Emergencies . Who to Call and When: Medical Emergencies: If at any time you feel your situation is an emergency, please call 911 immediately. . Non-Emergent Contact Non-Emergency issues call your: Primary Care Provider . . "Provider Documentation" section prepared by Elaina Kapadia. . VTE Core Measure Inpt VTE Proph given/why not?: Treatment not indicated
[2017-03-29 07:41] LABS: HEMATOCRIT 28.5 % (37-47)
[2017-03-29 08:00] VITALS: BP 112/69; PULSE 71; TEMP 36.6
[2017-03-29] MEDS: PRENATAL VITAMIN TAB PO SCH ×2 (08:00→08:35)
[2017-03-29] MEDS ORDERED: NURSING VERBAL MED ORDER ONE (08:15)
[2017-03-29] MEDS ORDERED: DiphenhydrAMINE HCL 50 MG/ML VIAL ONE (08:25)
[2017-03-29] MEDS ORDERED: DiphenhydrAMINE HCL 50 MG/ML VIAL IV ONE (08:30)
[2017-03-29] MEDS: FERROUS SULFATE 325 MG TAB PO SCH (08:35)
[2017-03-29] MEDS: PANTOprazole SOD 40 MG TAB PO SCH (08:35)
[2017-03-29] MEDS ORDERED: RANITIDINE HCL 50 MG/100 ML D5W IV ONE (09:45)
[2017-03-29] MEDS ORDERED: CETI10TA10 PO (09:50)
[2017-03-29] MEDS ORDERED: RANI150T3 PO (09:50)
[2017-03-29] MEDS ORDERED: DEXA2TAB PO (09:50)
[2017-03-29] MEDS ORDERED: DEXAMETHASONE INJ 8 MG in SYRINGE 0 ML IV ONE (10:30)
[2017-03-29] MEDS ORDERED: RANITIDINE IV 50 MG in DEXTROSE 5% 100ML 100 ML IV ONE (10:30)
--- NOTE | 2017-03-29 11:14 | INTERNAL MEDICINE CONSULTATION ---
DATE OF ADMISSION: 03/29/2017 CHIEF COMPLAINT: Swelling of the lip and tongue. HISTORY OF PRESENT ILLNESS: This is a 36-year-old female with past medical history significant for endometriosis, lumbar degenerative disc disease, migraine without auras, depression, tobacco use disorder, allergic rhinitis due to pollen, is day 1. The patient says that yesterday she noticed some hives in lower extremities and in the neck region and she got some Benadryl and today morning when she got up she had swollen lip and swollen tongue. She has some pain with swallowing, but no shortness of breath. She got a dose of Benadryl and we were called for further evaluation. The patient denies any new medications. She had epidural during her delivery, but she had epidural in the past and never had a reaction. SHE IS ALLERGIC TO PENICILLIN WHICH GIVES HIVES, but no recent changes in medications. She denies any food allergies. Currently, resting comfortably and hemodynamically stable, still has swollen lips and swollen tongue, seems comfortable. Allergies:to , penicillins, tramadol and vancomycin. PAST MEDICAL HISTORY: As mentioned above. PAST SURGICAL HISTORY: Exploration of abdomen for ovarian torsion, laparoscopy with biopsy for endometriosis, tonsillectomy, adenoidectomy, tympanostomy. MEDICATIONS AT HOME: The patient is on albuterol two puffs every 4 hours p.r.n.,Fioricet one pill every 4 times as needed, previtamin daily, Zofran 4 mg every 8 hours p.r.n., Lexapro 10 mg p.o. daily. FAMILY HISTORY: Significant for maternal grandmother had cervical cancer. Maternal grandmother has diabetes. Paternal grandfather has heart disorder and hypertension. SOCIAL HISTORY: Smokes half pack a day for 20 years. No alcohol use. No drug use. Single. REVIEW OF SYMPTOMS: As per HPI. Rest of symptoms negative. PHYSICAL EXAMINATION: GENERAL: The patient is of moderate build, not in distress. VITAL SIGNS: Temperature 36.6, pulse 64, respiratory rate 18, blood pressure 117/72, oxygen 100% room air. HEENT: No pallor, no icterus.Swollen lips and tounge NECK: No JVD, no neck masses, supple. CARDIOVASCULAR: S1, S2 heard, regular rate and rhythm, no murmur, no gallop. RESPIRATORY SYSTEM: Clear to auscultation bilaterally. No wheezing, no crackles. ABDOMEN: Benign. CENTRAL NERVOUS SYSTEM: Nonfocal. EXTREMITIES: No edema. LABORATORY DATA: Hemoglobin 9.6, hematocrit 28.5. Urine toxicology negative. ASSESSMENT AND PLAN: This is a 36-year-old female who presented with allergic reaction on day 1. 1. Allergic reaction with swollen lips and swollen tongue. No airway compromise. Has some pain on swallowing. Received Benadryl so far. We will give a dose of dexamethasone and IV Zantac, Benadryl p.r.n. and see if the patient improves. May be she can be discharged on Zantac daily for 1-2 weeks and tapering dexamethasone, Zyrtec for about a week and follow outpatient with family doctor .May need allergy/ immunology evaluation 2. History of depression. Continue home medication of Lexapro. 3. Deep venous thrombosis prophylaxis and disposition as per [employer]. MTDD
[2017-03-29 14:21] VITALS: BP_DIAS 69; PULSE 71; TEMP 36.6
[2017-03-29] MEDS ORDERED: CETIRIZINE HCL 10 MG TAB PO SCH (20:00)
[2017-03-29] MEDS ORDERED: BISACODYL 5 MG TABEC PO SCH (20:00)
[2017-03-29] MEDS ORDERED: RANITIDINE HCL 150 MG TAB PO SCH (20:00)
[2017-03-30] MEDS ORDERED: CETIRIZINE HCL 10 MG TAB PO SCH (08:00)
[2017-03-30] MEDS ORDERED: OXYC-57 PO (12:44)
[2017-05-30] MEDS ORDERED: PRED20TA2 PO (10:42)
[2017-05-30] MEDS ORDERED: LEVO-14 PO (10:42)
[2017-05-30] MEDS ORDERED: CETI10TA84 PO (10:42)
[2017-05-30] MEDS ORDERED: DIPH25CA5 PO (10:42)
[2017-05-30] MEDS ORDERED: VNTHFA/IN INH (10:47)
[2017-05-30] MEDS ORDERED: ZNTT/150 PO (10:49)
[2017-06-28] MEDS ORDERED: OXYC-57 PO (13:25)
== END 2017-03-29 14:10 | disposition home or self-care (01) | DRG 775 ==
LOC: C.OPB 00:44 → C.LD 00:44 → C.OPB 01:03 → C.OBG 08:18
PROVIDERS: ADMIT Obstetrics & Gynecology; ATTEND Obstetrics & Gynecology
PROC: 10E0XZZ Delivery of Products of Conception, External Approach (ICD-10-PCS; principal; 2017-03-28)
DX: O24.420 Gestational diabetes mellitus in childbirth, diet controlled (principal); O99.354 Diseases of the nervous system complicating childbirth; G43.909 Migraine, unspecified, not intractable, without status migrainosus; O76 Abnormality in fetal heart rate and rhythm complicating labor and delivery; O48.0 Post-term pregnancy; O99.73 Diseases of the skin and subcutaneous tissue complicating the puerperium; L27.0 Generalized skin eruption due to drugs and medicaments taken internally; R22.0 Localized swelling, mass and lump, head; O9A.23 Injury, poisoning and certain other consequences of external causes complicating the puerperium; T47.4X5A Adverse effect of other laxatives, initial encounter; Y92.230 Patient room in hospital as the place of occurrence of the external cause; O99.52 Diseases of the respiratory system complicating childbirth; J30.9 Allergic rhinitis, unspecified; O99.344 Other mental disorders complicating childbirth; F32.9 Major depressive disorder, single episode, unspecified; O99.334 Smoking (tobacco) complicating childbirth; F17.210 Nicotine dependence, cigarettes, uncomplicated; Z37.0 Single live birth; Z3A.40 40 weeks gestation of pregnancy; Z87.898 Personal history of other specified conditions; Z79.899 Other long term (current) drug therapy

== ENCOUNTER 2017-03-30 11:54 | Emergency (ER) | payer OTHER ==
[~2017-03-30] VITALS: Ht 170.2 cm; Wt 74.7 kg
[~2017-03-30 11:54] MED LIST changes: +CETI10TA10 PO; +DEXA2TAB PO; +RANI150T3 PO
[2017-03-30 11:56] VITALS: TEMP 37; Ht 170.2 cm; Wt 74.7 kg
[2017-03-30] MEDS ORDERED: XYLOCAINE 1%/SOD BICARB 20 ML VIAL INFIL ONE (12:21)
--- NOTE | 2017-03-30 12:30 | EMERGENCY ROOM VISIT NOTE ---
History Report prepared by Lotus: Joyce Mcnulty Under the Supervision of: Dr. Rj De Jesus M.D. First contact with patient: 12:11 Chief Complaint: RECTAL PAIN Stated Complaint: THROMBOSED HEMORRHOID-GAVE ON MONDAY History of Present Illness The patient is a 36 year old female who presents to the Emergency Room with complaints of persistent rectal pain that began 1 day ago. She currently rates her discomfort as a 5/10 in severity. The patient reports that she had a vaginal two days ago for her daughter. She reports that she has a history of thrombosed hemorrhoids. The patient states that she called her general surgeon yesterday and was told that she cannot get in for an appointment until tomorrow. She reports that her pain is so severe that she could not wait until tomorrow. 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 Source of History: patient Onset: 1 day ago Position: other (rectal) Symptom Intensity: 5/10 Timing: other (persistent) Modifying Factors (Worsening): other (lifting heavy dogs) Review of Systems All systems have been listed, reviewed, and are negative other than those previously mentioned. Please see Additional Medical History Sheet. Past Medical & Surgical Medical Problems: (1) Cramping affecting , antepartum (2) Disc herniation (3) Endometriosis (4) Hematemesis (5) Hemorrhoid (6) Mastitis (7) Mastitis (8) Nausea and vomiting in (9) Ovarian cyst (10) with 22 completed weeks gestation (11) with 27 completed weeks gestation (12) Seizure Family History Cancer Diabetes mellitus Gallbladder disease Heart disease Hypertension Kidney disease Kidney stones Social History Smoking Status: Current Every Day Smoker Alcohol Use: occasionally Marital Status: in relationship Housing Status: lives with family Occupation Status: employed Current/Historical Medications Scheduled Cetirizine Hcl (Zyrtec), 10 MG PO DAILY Dexamethasone (Dexamethasone), 4 MG PO UD Escitalopram Oxalate (Escitalopram Oxalate), 10 MG PO HS Multivit/Min/Iron/Fol Ac/Pren ( Vitamin), 1 TAB PO HS Pantoprazole (Protonix), 40 MG PO DAILY Ranitidine Hcl (Zantac), 150 MG PO BID Scheduled PRN Acetamin/Butalbital/Caffeine (Fioricet), 1 TAB PO DAILY PRN for Tension Headache Metoclopramide Hcl (Reglan), 10 MG PO TID PRN for Nausea Oxycodone/Acetaminophen 5MG/325MG (Percocet 5MG/325MG), 1-2 TABLETS PO Q4H PRN for Pain Allergies Coded Allergies: Ceftriaxone (Verified Allergy, Intermediate, hives, 03/30/17) Penicillins (Verified Allergy, Mild, HIVES, 03/30/17) CANNOT TAKE ANY CROSS DRUGS EITHER OF PENICILLIN Tramadol (Verified Adverse Reaction, Intermediate, headache, 03/30/17) Vancomycin (Verified Adverse Reaction, Unknown, CHANTAL SYNDROME, 03/30/17) Physical Exam Vital Signs Date Time Temp Pulse Resp B/P (MAP) Pulse Ox O2 Delivery O2 Flow Rate FiO2 03/30/17 13:28 81 16 117/69 96 03/30/17 11:56 37.0 84 18 131/65 97 Room Air Physical Exam GENERAL: Patient awake, alert, oriented x 3. Patient follows commands. Patient does not appear toxic. Patient is adequately hydrated and well- nourished. SKIN: No erythema, pallor, cyanosis or rash HEENT: Normal head, pupils equal, reactive to light and accommodation. Neck: Without adenopathy, no neck vein distention. LUNGS: Clear to auscultation. No wheezes, no rales, no rhonchi. HEART: No murmurs. No gallops. No rubs ABDOMEN: No masses, no rebound, no hepatomegaly or splenomegaly. RECTAL: Cluster of hemorrhoids around her anus with 1 boby sized thrombosed hemorrhoid. EXTREMITIES: No signs of trauma or infection. NEUROLOGIC: Cranial nerves II-XII within normal limits. No gross motor sensory function deficits. Medical Decision & Procedures Procedure The largest hemorrhoid was anesthetized with 1% lidocaine buffer a 1.5 cm elipse was removed. Clot was removed and the entire inside of the hemorrhoid was irrigated. Gauze was placed over the site with a bandage. The patient tolerated the procedure well. The patient is safe for discharge. ED Course 1211: Past medical records reviewed. The patient was evaluated in room B7. A complete history and physical examination was performed. 1220: At this time removed the thrombose from the patient. I discussed all the exam findings with her and I discussed the treatment plan. She verbalized complete understanding and agreement. She is ready to go home. 1221: Ordered Lidocaine HCl 20 ml INFIL. Medical Decision Nurses notes reviewed. Medical history sheet reviewed. Differential diagnosis includes but is not limited to: external hemorrhoids, thrombosed hemorrhoids, fissure. Patient has multiple external hemorrhoids one of which was thrombosed. The hemorrhoid was opened and a small ellipse was removed. He was irrigated. Patient understands that this is a temporary resolution and that she may require further surgical intervention. The patient will be placed on Colace which she's had before. There was some concern about possible angioedema edema. This is unlikely to be from the Colace. The patient was also given a prescription for Percocet. She is to use sitz baths and follow-up with Dr. Aguirre. Blood Pressure Screening: Patient was found to have a slightly elevated blood pressure due to circumstances. I do not believe that the patient requires hypertension monitoring. Medication Reconciliation: I attest that I have personally reviewed the patient' s current medication list. [place] Drug Monitoring Program Search Results: patient reviewed within database, no issues identified Impression Primary Impression: External hemorrhoid, thrombosed Scribe Attestation The scribe's documentation has been prepared under my direction and personally reviewed by me in its entirety. I confirm that the note above accurately reflects all work, treatment, procedures, and medical decision making performed by me. Departure Information Dispostion Home / Self-Care Prescriptions Oxycodone/Acetaminophen 5MG/325MG (PERCOCET 5MG/325MG) Tab 1-2 TABLETS PO Q4H Y for Pain, #10 TAB Prov: Rj De Jesus M.D. 03/30/17 Referrals No Doctor, Assigned (PCP) Forms HOME CARE DOCUMENTATION FORM, IMPORTANT VISIT INFORMATION Patient Instructions Hemorrhoids Thrombosed, My [facility] Additional Instructions 100 mg of Colace twice a day. 1 Percocet every 4 hours as needed for moderate to severe pain. Do not drive or operate machinery while taking Percocet. Use a sitz bath 3-4 times a day for the next 4 days. Follow-up with Dr. Aguirre.
[2017-03-30] MEDS ORDERED: OXYC-57 PO (12:44)
[2017-03-30 13:28] VITALS: BP 117/69; PULSE 81; O2SAT 96
[2017-05-30] MEDS ORDERED: CETI10TA84 PO (10:42)
[2017-05-30] MEDS ORDERED: LEVO-14 PO (10:42)
[2017-05-30] MEDS ORDERED: DIPH25CA5 PO (10:42)
[2017-05-30] MEDS ORDERED: PRED20TA2 PO (10:42)
[2017-05-30] MEDS ORDERED: VNTHFA/IN INH (10:47)
[2017-05-30] MEDS ORDERED: ZNTT/150 PO (10:49)
[2017-06-28] MEDS ORDERED: OXYC-57 PO (13:25)
== END 2017-03-30 13:30 | disposition home or self-care (01) ==
LOC: C.EDB 11:55
DX: K64.5 Perianal venous thrombosis (principal)

== ENCOUNTER 2017-04-02 12:01 | Emergency (ER) | payer OTHER ==
[~2017-04-02] VITALS: Ht 170.2 cm; Wt 71.8 kg
[~2017-04-02 12:01] MED LIST changes: +OXYC-57 PO
[2017-04-02 12:07] VITALS: Ht 170.2 cm; Wt 71.8 kg
[2017-04-02] MEDS ORDERED: DOCU-94 PO (12:25)
[2017-04-02] MEDS ORDERED: LXP/20 PO (12:25)
[2017-04-02] MEDS ORDERED: DiphenhydrAMINE HCL 50 MG/ML VIAL IV STA (12:42)
[2017-04-02] MEDS ORDERED: DEXAMETHASONE SOD INJ 10 MG/ML VIAL IV STA (12:51)
[2017-04-02 13:13] LABS: BASO % 0.2 %; BASO ABS # 0.02 K/uL (0-0.2); COMPLETE YES; EOS % 0.5 %; HEMATOCRIT 33.9 % (37-47); IG% 0.8 %; LYMPH ABS # 1.99 K/uL (1.2-3.4); MEAN CELL VOLUME 96.3 fL (80-100); MEAN CORPUSCULAR HEMOGLOBIN 31.5 pg (25-34); MEAN CORPUSCULAR HGB CONC 32.7 g/dl (32-36); MEAN PLATELET VOLUME 10.2 fL (7.4-10.4); MONO % 2.6 %; NEUT % 80.9 %; PLATELET COUNT 331 K/uL (130-400); RED BLOOD COUNT 3.52 M/uL (4.2-5.4); WHITE BLOOD COUNT 13.27 K/uL (4.8-10.8)
[2017-04-02 13:23] LABS: INR 0.9 (0.9-1.1); PARTIAL THROMBOPLASTIN RATIO 0.9; PROTHROMBIN TIME (PATIENT) 10.1 SECONDS (9.0-12.0)
[2017-04-02 13:30] LABS: BUN/CREATININE RATIO 20.4 (10-20); CALCIUM 8.3 mg/dl (8.5-10.1); CREATININE 0.5 mg/dl (0.60-1.20)
--- NOTE | 2017-04-02 13:31 | EMERGENCY ROOM VISIT NOTE ---
History First contact with patient: 12:28 Chief Complaint: ILLNESS Stated Complaint: SWOLLEN LIP/TONGUE, THROMBOSED HEMORRHOID History of Present Illness The patient is a 36 year old female who presents to the Emergency Room with complaints of hemorrhoids, lip and tongue swelling, rash on hands, ankle swelling and pain. She gave to a healthy term female on 03/28/2017 by NVD with epidural. The day following this she woke up with lip and tongue swelling which did not improve with Benadryl use. She was evaluate by one of the hospitalist who started dexamethasone and the swelling improved over the next 24 hours. It was unclear what may have caused this as no antibiotics were given. She was seen in the ER 3 days previously due to a thrombosed hemorrhoid which was drained however she feels further pain at this site again. Blood also noted on wiping She also notes she engorged breasts as she is not breast feeding and waiting for her milk to dry up due to previous mastitis with her last child. Review of Systems See HPI for pertinent positives & negatives. A total of 10 systems reviewed and were otherwise negative. Past Medical/Surgical History Medical Problems: (1) Acute anxiety (2) Contusion of breast, right (3) Cramping affecting , antepartum (4) Disc herniation (5) Endometriosis (6) Hand contusion (7) Hematemesis (8) Hemorrhoid (9) Influenza A (10) Influenza A (11) Mastitis (12) Mastitis (13) Mastitis (14) Nausea and vomiting in (15) Ovarian cyst (16) (17) with 22 completed weeks gestation (18) with 27 completed weeks gestation (19) Pulmonary congestion (20) Radicular pain of right lower extremity (21) Seizure (22) Third trimester Family History Cancer Diabetes mellitus Gallbladder disease Heart disease Hypertension Kidney disease Kidney stones Social History Smoking Status: Current Every Day Smoker Alcohol Use: occasionally Marital Status: in relationship Housing Status: lives with family Occupation Status: employed Current/Historical Medications Scheduled Diphenhydramine Hcl (Benadryl Allergy), 1 CAP PO Q6H Escitalopram Oxalate (Escitalopram Oxalate), 20 MG PO HS Hydrocortisone Acetate (Rectal (Anusol-Hc), 1 SUPP AR BID Ranitidine Hcl (Zantac), 150 MG PO BID Scheduled PRN Oxycodone/Acetaminophen 5MG/325MG (Percocet 5MG/325MG), 1-2 TABLETS PO Q4H PRN for Pain Allergies Coded Allergies: Ceftriaxone (Verified Allergy, Intermediate, hives, 04/02/17) Penicillins (Verified Allergy, Mild, HIVES, 04/02/17) CANNOT TAKE ANY CROSS DRUGS EITHER OF PENICILLIN Tramadol (Verified Adverse Reaction, Intermediate, headache, 04/02/17) Vancomycin (Verified Adverse Reaction, Unknown, CHANTAL SYNDROME, 04/02/17) Physical Exam Vital Signs Date Time Temp Pulse Resp B/P (MAP) Pulse Ox O2 Delivery O2 Flow Rate FiO2 04/02/17 15:03 37.0 95 18 134/82 98 04/02/17 12:07 37.0 95 18 134/82 98 Room Air Physical Exam VITAL SIGNS: were reviewed as above GENERAL: mild acute distress from lip swelling and ankle pain. SKIN: Warm dry and pink, hives on wrist bilaterally, macular confluent blanching rash on both palms. No petechia or purpura noted HEAD: Normocephalic and atraumatic EYES: extraocular muscles intact, pupils equal and reactive to light OROPHARYNX: non erythematous, clear and moist, lower lip and tongue appear mildly swollen, tonsils surgically absent NECK: Supple, no adenopathy or meningismus, no stridor on auscultation LUNGS: normal respiratory rate, clear to auscultation, no accessory muscle use HEART: Increased rate with normal rhythm, heart sounds 1+2, no murmurs ABDOMEN: Soft and nontender, bowel sounds normal RECTAL: circumferential hemorrhoids, painful to touch BACK: no CVA tenderness EXTREMITIES: Warm and well perfused, no calf tenderness/swelling, no pedal edema , tender bottom of both feet bilaterally, no ankle and toe swelling (however subjectively she feels they are enlarged). NEUROLOGICALLY: Awake alert and oriented. Cranial nerves 2-12 intact. Cerebellar testing is within normal limits. There is no nystagmus. There is no facial droop. Speech is clear. Vision is grossly normal. Upper and lower limb motor and sensory examinations. MUSCULOSKELETAL: Good muscle tone. No evidence of trauma Medical Decision & Procedures Laboratory Results 04/02/17 13:00 Red Blood Count 3.52, Mean Corpuscular Volume 96.3, Mean Corpuscular Hemoglobin 31.5, Mean Corpuscular Hemoglobin Concent 32.7, Mean Platelet Volume 10.2, Neutrophils (%) (Auto) 80.9, Lymphocytes (%) (Auto) 15.0, Monocytes (%) (Auto) 2.6, Eosinophils (%) (Auto) 0.5, Basophils (%) (Auto) 0.2, Neutrophils # (Auto) 10.76, Lymphocytes # (Auto) 1.99, Monocytes # (Auto) 0.34, Eosinophils # (Auto) 0.06, Basophils # (Auto) 0.02 04/02/17 13:00 Test 04/02/17 13:00 White Blood Count 13.27 K/uL (4.8-10.8) Red Blood Count 3.52 M/uL (4.2-5.4) Hemoglobin 11.1 g/dL (12.0-16.0) Hematocrit 33.9 % (37-47) Mean Corpuscular Volume 96.3 fL (80-100) Mean Corpuscular Hemoglobin 31.5 pg (25-34) Mean Corpuscular Hemoglobin Concent 32.7 g/dl (32-36) Platelet Count 331 K/uL (130-400) Mean Platelet Volume 10.2 fL (7.4-10.4) Neutrophils (%) (Auto) 80.9 % Lymphocytes (%) (Auto) 15.0 % Monocytes (%) (Auto) 2.6 % Eosinophils (%) (Auto) 0.5 % Basophils (%) (Auto) 0.2 % Neutrophils # (Auto) 10.76 K/uL (1.4-6.5) Lymphocytes # (Auto) 1.99 K/uL (1.2-3.4) Monocytes # (Auto) 0.34 K/uL (0.11-0.59) Eosinophils # (Auto) 0.06 K/uL (0-0.5) Basophils # (Auto) 0.02 K/uL (0-0.2) RDW Standard Deviation 48.5 fL (36.4-46.3) RDW Coefficient of Variation 13.9 % (11.5-14.5) Immature Granulocyte % (Auto) 0.8 % Immature Granulocyte # (Auto) 0.10 K/uL (0.00-0.02) Erythrocyte Sedimentation Rate 22 mm/hr (0-21) Prothrombin Time 10.1 SECONDS (9.0-12.0) Prothromb Time International Ratio 0.9 (0.9-1.1) Activated Partial Thromboplast Time 23.7 SECONDS (21.0-31.0) Partial Thromboplastin Ratio 0.9 Anion Gap 10.0 mmol/L (3-11) Est Creatinine Clear Calc Drug Dose 149.8 ml/min Estimated GFR () 143.3 Estimated GFR (Non- 123.6 BUN/Creatinine Ratio 20.4 (10-20) Calcium Level 8.3 mg/dl (8.5-10.1) Total Bilirubin 0.2 mg/dl (0.2-1) Aspartate Amino Transf (AST/SGOT) 10 U/L (15-37) Alanine Aminotransferase (ALT/SGPT) 17 U/L (12-78) Alkaline Phosphatase 145 U/L (45-117) C-Reactive Protein 1.70 mg/dl (0-0.29) Total Protein 6.2 gm/dl (6.4-8.2) Albumin 2.8 gm/dl (3.4-5.0) Globulin 3.4 gm/dl (2.5-4.0) Albumin/Globulin Ratio 0.8 (0.9-2) Medications Administered Medications (Trade) Dose Ordered Sig/Maxine Route Start Time Stop Time Status Last Admin Dose Admin Diphenhydramine HCl (Benadryl Inj) 25 mg NOW STAT IV 04/02/17 12:42 04/02/17 12:44 DC 04/02/17 12:53 25 MG Dexamethasone Sodium Phosphate (Decadron Inj) 10 mg NOW STAT IV 04/02/17 12:51 04/02/17 12:54 DC 04/02/17 12:55 10 MG ED Course 12:15pm Complete history and physical performed 1:15pm Discussed case Dr De Jesus 1:47pm Reassessed patient; lip swelling improving after diphenhydramine and dexamethasone given Medical Decision Prior records/ancillary studies reviewed. Triage Nursing notes reviewed. Additional history obtained from the patient. The patient's history was concerning for possible allergic reaction / angioedema. Differential diagnosis: Etiologies such as allergic reaction, anaphylaxis, urticaria, Montague-Wale syndrome, toxic epidermal necrolysis, erythema multiforme, cellulitis, as well as others were entertained. Physical examination: As above. ER treatment provided: Continuous cardiac monitoring Benadryl 25 mg IV Decadron 10 mg IV On reassessment the patient felt better. Diagnostic interpretation by me: Deferred Consistent with angioedema but unclear etiology what caused this. Only medication that started before each episode is Colace therefore she was advised to stop this and use diphenhydramine as required for continued symptoms at home. She opted not to have steroids as these worsen her depression, insomnia and she gets severely irritable. The above treatment did well to reverse the symptoms. After prolonged monitoring and frequent reassessments the patient did very well and symptoms improved. I gave my usual and customary discussion regarding this issue. By the evaluation outlined above emergent etiologies such as recurring anaphylaxis, anaphylatic shock, airway compromise, Montague-Wale syndrome, toxic epidermal necrolysis, erythema multiforme, infectious etiologies, as well as others were deemed relatively unlikely. The patient informed about the findings as listed above. All questions were answered and she pleased with the treatment. Return instructions were outlined and the patient was discharged in stable condition. Outpatient prescription management: Anusol - HC supp for hemorrhoids Oxycodone 5mg Referral: The patient was referred back to her primary care physician for follow-up in 2- 3 days for a recheck of the current condition and for possible referral to early intervention school psychologist. [place] Drug Monitoring Program Search Results: patient reviewed within database Drug Monitoring Findings: No controlled substances since Jun 20 2016 Impression Primary Impression: Angioedema Additional Impressions: Hemorrhoid Engorged breasts Departure Information Dispostion Home / Self-Care Condition GOOD Prescriptions Hydrocortisone Acetate (Rectal (ANUSOL-HC) 25 Mg Sup 1 SUPP AR BID for 7 Days, #14 SUPP Prov: Gregory Hernandez MD 04/02/17 Oxycodone/Acetaminophen 5MG/325MG (PERCOCET 5MG/325MG) Tab 1-2 TABLETS PO Q4H Y for Pain, #20 TAB PAIN Prov: Gregory Hernandez MD 04/02/17 Diphenhydramine Hcl (BENADRYL ALLERGY) 25 Mg Cap 1 CAP PO Q6H for 30 Days, #30 CAP 1 Refill Prov: Gregory Hernandez MD 04/02/17 Referrals No Doctor, Assigned (PCP) Brett Avina M.D. Patient Instructions My [facility] Resident Tracking Resident Involvement: Resident Care Provided Care Provided: Adult ED Problem Qualifiers Primary Impression: Angioedema Encounter type: initial encounter Qualified Codes: T78.3XXA - Angioneurotic edema, initial encounter
[2017-04-02 13:33] LABS: ALB/GLOB RATIO 0.8 (0.9-2); C-REACTIVE PROTEIN 1.7 mg/dl (0-0.29)
[2017-04-02] MEDS ORDERED: DIPH25CA65 PO (14:49)
--- NOTE | 2017-04-02 14:49 | EMERGENCY ROOM VISIT NOTE ---
ED Visit Note First contact with patient: 12:28 36-year-old female with multiple complaints including breast engorgement, hemorrhoids and swelling of her hands feet and face. I saw the patient along with Dr. Hernandez the resident. Please see his note. I saw the patient only a few days ago and drained a thrombosed hemorrhoid. Patient now has multiple other small nonthrombosed hemorrhoids surrounding the anus. The patient had more swelling earlier when seen by the resident, Dr. Hernandez. The patient has since been given Benadryl and steroids. The patient is currently taking Colace as her only new medication. I will stop that medication even though it is unlikely that is causing the angioedema. The patient will continue Benadryl. The patient is not tolerating oral steroids well but will be placed on rectal steroid suppositories for her hemorrhoids. The patient will continue using ibuprofen as needed for breast engorgement.
[2017-04-02] MEDS ORDERED: OXYC-57 PO (14:50)
[2017-04-02] MEDS ORDERED: HYDR25SU20 PR (14:51)
[2017-04-02 15:03] VITALS: BP 134/82; PULSE 95; TEMP 37; O2SAT 98
[2017-05-30] MEDS ORDERED: LEVO-14 PO (10:42)
[2017-05-30] MEDS ORDERED: CETI10TA84 PO (10:42)
[2017-05-30] MEDS ORDERED: PRED20TA2 PO (10:42)
[2017-05-30] MEDS ORDERED: DIPH25CA5 PO (10:42)
[2017-05-30] MEDS ORDERED: VNTHFA/IN INH (10:47)
[2017-05-30] MEDS ORDERED: ZNTT/150 PO (10:49)
[2017-06-28] MEDS ORDERED: OXYC-57 PO (13:25)
== END 2017-04-02 15:04 | disposition home or self-care (01) ==
LOC: C.EDB 12:02 → C.EDC 15:04
DX: T78.3XXA Angioneurotic edema, initial encounter (principal); K64.9 Unspecified hemorrhoids; N64.59 Other signs and symptoms in breast; X58.XXXA Exposure to other specified factors, initial encounter; F41.9 Anxiety disorder, unspecified; K92.0 Hematemesis; Z83.3 Family history of diabetes mellitus; Z82.49 Family history of ischemic heart disease and other diseases of the circulatory system; F17.200 Nicotine dependence, unspecified, uncomplicated

== ENCOUNTER 2017-04-05 10:53 | Emergency (ER) | payer OTHER ==
[~2017-04-05] VITALS: Ht 170.2 cm; Wt 71.9 kg
[~2017-04-05 10:53] MED LIST changes: -CETI10TA10 PO; -DEXA2TAB PO; +DIPH25CA65 PO; -FRCT/ PO; +HYDR25SU20 PR; +LXP/20 PO; -LXP10 PO; -METO-157 PO; -PANT40TA PO; -PRENTAB26 PO
[2017-04-05 11:08] VITALS: TEMP 36.9; Ht 170.2 cm; Wt 71.9 kg
[2017-04-05] MEDS ORDERED: SODIUM CHLORIDE 0.9% 500ML 500 ML IV STA (12:00)
[2017-04-05] MEDS ORDERED: ONDANSETRON INJ 2 MG/ML 2 ML VIAL IV STA (12:00)
[2017-04-05] MEDS ORDERED: OPTIRAY 320 IV PRN (12:00)
[2017-04-05 12:04] LABS: BASO % 0.1 %; BASO ABS # 0.01 K/uL (0-0.2); COMPLETE YES; EOS % 0.5 %; HEMATOCRIT 33.9 % (37-47); IG% 0.6 %; LYMPH % 15.3 %; LYMPH ABS # 2.08 K/uL (1.2-3.4); MEAN CELL VOLUME 96.6 fL (80-100); MEAN CORPUSCULAR HEMOGLOBIN 32.8 pg (25-34); MEAN CORPUSCULAR HGB CONC 33.9 g/dl (32-36); MEAN PLATELET VOLUME 9.7 fL (7.4-10.4); MONO % 2.4 %; NEUT % 81.1 %; PLATELET COUNT 332 K/uL (130-400); RED BLOOD COUNT 3.51 M/uL (4.2-5.4); WHITE BLOOD COUNT 13.57 K/uL (4.8-10.8)
[2017-04-05 12:12] LABS: INR 0.9 (0.9-1.1); PROTHROMBIN TIME (PATIENT) 10.1 SECONDS (9.0-12.0)
[2017-04-05 12:29] LABS: ALT/SGPT 15 U/L (12-78); AST/SGOT 12 U/L (15-37); BLOOD UREA NITROGEN 13 mg/dl (7-18); BUN/CREATININE RATIO 25.7 (10-20); CALCIUM 8.1 mg/dl (8.5-10.1); CARBON DIOXIDE 22 mmol/L (21-32); CHLORIDE 109 mmol/L (98-107); CREATININE 0.49 mg/dl (0.60-1.20); GLUCOSE 80 mg/dl (70-99); SODIUM 140 mmol/L (136-145)
[2017-04-05 12:32] LABS: ALKALINE PHOSPHATASE 128 U/L (45-117)
--- NOTE | 2017-04-05 13:10 | DIAGNOSTIC IMAGING REPORT ---
CT ABD/PELVIS IV CONTRAST ONLY CLINICAL HISTORY: Diffuse abdominal pain COMPARISON STUDY: 09/28/2015 TECHNIQUE: Following the IV administration of 94 mL of Optiray-320, CT scan of the abdomen and pelvis was performed from the lung bases to the proximal femurs. Images are reviewed in the axial, sagittal, and coronal planes. IV contrast was administered without complication. CT DOSE: 304.82 mGy.cm FINDINGS: Lower chest: There are minimal basilar atelectatic changes. Liver: The contrast-enhanced liver is normal in size, contour, and attenuation. There is no intrahepatic biliary ductal dilatation. The hepatic veins and portal veins are patent. Gallbladder: Unremarkable. Spleen: Normal in size and attenuation. Pancreas: Unremarkable. Adrenal glands: Unremarkable. Kidneys: There is symmetric renal cortical enhancement. The kidneys are normal in size without hydronephrosis. Bowel: There are no transition zones indicate bowel obstruction. There is mild fecal retention. There is no acute diverticulitis. The appendix appears normal. Peritoneum: There is no intraperitoneal free air or abdominal ascites. There is stable rectus diastases. There is a tiny fat-containing umbilical hernia. Vasculature: The abdominal aorta is normal in course and caliber. Adenopathy: None. Pelvic viscera: The uterus appears bulky with a prominent endometrium. Correlation with a beta hCG as well as a pelvic ultrasound is recommended in follow-up Skeletal structures: No destructive osseous lesions are seen. IMPRESSION: 1. No evidence of bowel obstruction. No evidence of free air 2. Normal appendix. No evidence of acute diverticulitis 3. Bulky uterus with a prominent endometrium. Correlation with a beta hCG as well as with a pelvic ultrasound is recommended in follow-up Electronically signed by: Ignacio Becerra M.D. 04/05/2017 1:09 PM Dictated Date/Time: 04/05/2017 1:01 PM
[2017-04-05 13:17] LABS: URINE APPEARANCE CLEAR (CLEAR); URINE BILIRUBIN NEG (NEG); URINE COLOR YELLOW; URINE NITRITE NEG (NEG); URINE PH 7.5 (4.5-7.5); URINE SPECIFIC GRAVITY 1.022 (1.000-1.030); UROBILINOGEN NEG (NEG); ZZUR CULT IF INDIC CLEAN CATCH YES
[2017-04-05 13:27] LABS: MANUAL MICROSCOPIC REQUIRED? NO; REVIEW REQ? NO
[2017-04-05] MEDS ORDERED: ONDA4TAB65 PO (13:51)
[2017-04-05 14:03] VITALS: BP 111/60; PULSE 67; O2SAT 96
--- NOTE | 2017-04-05 17:55 | EMERGENCY ROOM VISIT NOTE ---
History Report prepared by Lotus: Sis Snell Under the Supervision of: Gladys LondonO. First contact with patient: 11:30 Chief Complaint: ABDOMINAL PAIN Stated Complaint: STOMACH/BACK PAIN, SWELLING TO EYE AND LIPS Nursing Triage Summary: pt reports hx of angio edema today notes increased edema in eyes , with abdominal pain that started 1 day ago that wraps around to back, denies urinary sx History of Present Illness The patient is a 36 year old female who presents to the Emergency Room with complaints of constant abdominal pain since yesterday afternoon. The patient delivered a baby on 03/28/17. She states that she woke up the next day with angioedema of her lips and tongue. She has been in the ED for the angioedema and discharged home. She has an appointment with an manager mechanical next week. The patient states that the swelling has continued intermittently but improves with Benadryl. Yesterday afternoon she developed lower abdominal pain that radiates into her back bilaterally. Nothing makes her pain better, but bending and twisting exacerbate her pain. The patient rates her current pain as a 5/10 in severity. She notes nausea as well. She is still experiencing vaginal bleeding from her delivery and states that it is getting better. This is her second child. She denies any other vaginal discharge, vomiting, urinary symptoms, and diarrhea. She had a normal bowel movement this morning. Source of History: patient Onset: yesterday afternoon Position: abdomen Symptom Intensity: 5/10 Quality: other (radiating) Timing: constant Modifying Factors (Worsening): other (bending/twisting) Modifying Factors (Relieving): other (none) Associated Symptoms: + nausea, No vomiting, No diarrhea, No urinary symptoms Note: Pt has been experiencing intermittent angioedema that improves with Benadryl. Review of Systems See HPI for pertinent positives & negatives. A total of 10 systems reviewed and were otherwise negative. Past Medical & Surgical Medical Problems: (1) Acute anxiety (2) Contusion of breast, right (3) Cramping affecting , antepartum (4) Disc herniation (5) Endometriosis (6) Hand contusion (7) Hematemesis (8) Hemorrhoid (9) Influenza A (10) Influenza A (11) Mastitis (12) Mastitis (13) Mastitis (14) Nausea and vomiting in (15) Ovarian cyst (16) (17) with 22 completed weeks gestation (18) with 27 completed weeks gestation (19) Pulmonary congestion (20) Radicular pain of right lower extremity (21) Seizure (22) Third trimester Family History Cancer Diabetes mellitus Gallbladder disease Heart disease Hypertension Kidney disease Kidney stones Social History Smoking Status: Current Every Day Smoker Alcohol Use: occasionally Marital Status: in relationship Housing Status: lives with family Occupation Status: employed Current/Historical Medications Scheduled Diphenhydramine Hcl (Benadryl Allergy), 1 CAP PO Q6H Escitalopram Oxalate (Escitalopram Oxalate), 20 MG PO HS Hydrocortisone Acetate (Rectal (Anusol-Hc), 1 SUPP NC BID Ranitidine Hcl (Zantac), 150 MG PO BID Scheduled PRN Ondansetron Hcl (Zofran), 4 MG PO PRN PRN for nausea Oxycodone/Acetaminophen 5MG/325MG (Percocet 5MG/325MG), 1-2 TABLETS PO Q4H PRN for Pain Allergies Coded Allergies: Ceftriaxone (Verified Allergy, Intermediate, hives, 04/05/17) Penicillins (Verified Allergy, Mild, HIVES, 04/05/17) CANNOT TAKE ANY CROSS DRUGS EITHER OF PENICILLIN Tramadol (Verified Adverse Reaction, Intermediate, headache, 04/05/17) Vancomycin (Verified Adverse Reaction, Unknown, CHANTAL SYNDROME, 04/05/17) Physical Exam Vital Signs Date Time Temp Pulse Resp B/P (MAP) Pulse Ox O2 Delivery O2 Flow Rate FiO2 04/05/17 14:03 67 16 111/60 96 04/05/17 13:10 65 16 107/71 99 Room Air 04/05/17 12:19 73 18 104/61 98 Room Air 04/05/17 11:08 36.9 85 18 109/65 97 Room Air Physical Exam GENERAL: alert, sitting up in bed, well appearing, well nourished, no distress, non-toxic HEAD: NC/AT, no swelling. EYE EXAM: normal conjunctiva, PERRL and EOM's grossly intact OROPHARYNX: no exudate, no erythema, lips, buccal mucosa, and tongue normal and mucous membranes are moist NECK: supple, no nuchal rigidity, no adenopathy, non-tender LUNGS: Clear to auscultation. Normal chest wall mechanics HEART: no murmurs, S1 normal and S2 normal ABDOMEN: abdomen soft, minimally diffusely tender, normo-active bowel sounds, no masses, no rebound or guarding. BACK: Back is symmetrical on inspection and there is no deformity, acute reproducible tenderness in the bilateral lower lumber perispinal region. SKIN: no rashes and no bruising UPPER EXTREMITIES: upper extremities are grossly normal. LOWER EXTREMITIES: No pitting edema, calves equal bilaterally. NEURO EXAM: Normal sensorium, cranial nerves II-XII grossly intact, normal speech, no gross weakness of arms, no gross weakness of legs. Medical Decision & Procedures ER Provider Diagnostic Interpretation: Radiology results as stated below per my review and the radiologist's interpretation: CT ABD/PELVIS IV CONTRAST ONLY CLINICAL HISTORY: Diffuse abdominal pain COMPARISON STUDY: 09/28/2015 TECHNIQUE: Following the IV administration of 94 mL of Optiray-320, CT scan of the abdomen and pelvis was performed from the lung bases to the proximal femurs. Images are reviewed in the axial, sagittal, and coronal planes. IV contrast was administered without complication. CT DOSE: 304.82 mGy.cm FINDINGS: Lower chest: There are minimal basilar atelectatic changes. Liver: The contrast-enhanced liver is normal in size, contour, and attenuation. There is no intrahepatic biliary ductal dilatation. The hepatic veins and portal veins are patent. Gallbladder: Unremarkable. Spleen: Normal in size and attenuation. Pancreas: Unremarkable. Adrenal glands: Unremarkable. Kidneys: There is symmetric renal cortical enhancement. The kidneys are normal in size without hydronephrosis. Bowel: There are no transition zones indicate bowel obstruction. There is mild fecal retention. There is no acute diverticulitis. The appendix appears normal. Peritoneum: There is no intraperitoneal free air or abdominal ascites. There is stable rectus diastases. There is a tiny fat-containing umbilical hernia. Vasculature: The abdominal aorta is normal in course and caliber. Adenopathy: None. Pelvic viscera: The uterus appears bulky with a prominent endometrium. Correlation with a beta hCG as well as a pelvic ultrasound is recommended in follow-up Skeletal structures: No destructive osseous lesions are seen. IMPRESSION: 1. No evidence of bowel obstruction. No evidence of free air 2. Normal appendix. No evidence of acute diverticulitis 3. Bulky uterus with a prominent endometrium. Correlation with a beta hCG as well as with a pelvic ultrasound is recommended in follow-up Electronically signed by: Ignacio Becerra M.D. 04/05/2017 1:09 PM Dictated Date/Time: 04/05/2017 1:01 PM Laboratory Results 04/05/17 11:52 Red Blood Count 3.51, Mean Corpuscular Volume 96.6, Mean Corpuscular Hemoglobin 32.8, Mean Corpuscular Hemoglobin Concent 33.9, Mean Platelet Volume 9.7, Neutrophils (%) (Auto) 81.1, Lymphocytes (%) (Auto) 15.3, Monocytes (%) (Auto) 2.4, Eosinophils (%) (Auto) 0.5, Basophils (%) (Auto) 0.1, Neutrophils # (Auto) 11.00, Lymphocytes # (Auto) 2.08, Monocytes # (Auto) 0.33, Eosinophils # (Auto) 0.07, Basophils # (Auto) 0.01 04/05/17 11:52 Test 04/05/17 11:52 04/05/17 13:05 White Blood Count 13.57 K/uL (4.8-10.8) Red Blood Count 3.51 M/uL (4.2-5.4) Hemoglobin 11.5 g/dL (12.0-16.0) Hematocrit 33.9 % (37-47) Mean Corpuscular Volume 96.6 fL (80-100) Mean Corpuscular Hemoglobin 32.8 pg (25-34) Mean Corpuscular Hemoglobin Concent 33.9 g/dl (32-36) Platelet Count 332 K/uL (130-400) Mean Platelet Volume 9.7 fL (7.4-10.4) Neutrophils (%) (Auto) 81.1 % Lymphocytes (%) (Auto) 15.3 % Monocytes (%) (Auto) 2.4 % Eosinophils (%) (Auto) 0.5 % Basophils (%) (Auto) 0.1 % Neutrophils # (Auto) 11.00 K/uL (1.4-6.5) Lymphocytes # (Auto) 2.08 K/uL (1.2-3.4) Monocytes # (Auto) 0.33 K/uL (0.11-0.59) Eosinophils # (Auto) 0.07 K/uL (0-0.5) Basophils # (Auto) 0.01 K/uL (0-0.2) RDW Standard Deviation 48.0 fL (36.4-46.3) RDW Coefficient of Variation 13.7 % (11.5-14.5) Immature Granulocyte % (Auto) 0.6 % Immature Granulocyte # (Auto) 0.08 K/uL (0.00-0.02) Prothrombin Time 10.1 SECONDS (9.0-12.0) Prothromb Time International Ratio 0.9 (0.9-1.1) Activated Partial Thromboplast Time 25.3 SECONDS (21.0-31.0) Partial Thromboplastin Ratio 1.0 Anion Gap 9.0 mmol/L (3-11) Est Creatinine Clear Calc Drug Dose 152.9 ml/min Estimated GFR () 144.3 Estimated GFR (Non- 124.5 BUN/Creatinine Ratio 25.7 (10-20) Calcium Level 8.1 mg/dl (8.5-10.1) Total Bilirubin 0.2 mg/dl (0.2-1) Direct Bilirubin < 0.1 mg/dl (0-0.2) Aspartate Amino Transf (AST/SGOT) 12 U/L (15-37) Alanine Aminotransferase (ALT/SGPT) 15 U/L (12-78) Alkaline Phosphatase 128 U/L (45-117) Total Protein 6.2 gm/dl (6.4-8.2) Albumin 2.8 gm/dl (3.4-5.0) Lipase 112 U/L (73-393) Urine Color YELLOW Urine Appearance CLEAR (CLEAR) Urine pH 7.5 (4.5-7.5) Urine Specific [place] 1.022 (1.000-1.030) Urine Protein NEG (NEG) Urine Glucose (UA) NEG (NEG) Urine Ketones NEG (NEG) Urine Occult Blood 3+ (NEG) Urine Nitrite NEG (NEG) Urine Bilirubin NEG (NEG) Urine Urobilinogen NEG (NEG) Urine Leukocyte Esterase MODERATE (NEG) Urine WBC (Auto) 10-30 /hpf (0-5) Urine RBC (Auto) 0-4 /hpf (0-4) Urine Hyaline Casts (Auto) 0 /lpf (0-5) Urine Epithelial Cells (Auto) 10-20 /lpf (0-5) Urine Bacteria (Auto) NEG (NEG) Urine Test NEG (NEG) Laboratory results per my review. Medications Administered Medications (Trade) Dose Ordered Sig/Maxine Route Start Time Stop Time Status Last Admin Dose Admin Ondansetron HCl (Zofran Inj) 4 mg NOW STAT IV 04/05/17 12:00 04/05/17 12:01 DC 04/05/17 12:15 4 MG Sodium Chloride 500 ml @ 999 mls/hr Q31M STAT IV 04/05/17 12:00 04/05/17 12:30 DC 04/05/17 12:15 999 MLS/HR ED Course ED COURSE: Vital signs were reviewed and showed normal vitals. The patients medical record was reviewed The above diagnostic studies were performed and reviewed. ED treatments and interventions as stated above. 1130: The patient was evaluated in room A11B. A complete history and physical examination was performed. 1159: The patient is nauseated and requesting Zofran. 1200: NSS 500 ml @ 999 mls/hr IV, Zofran 4 mg IV 1348: Upon reevaluation, the patient is resting more comfortably. I discussed my findings with the patient. She does not want a pelvic examination and does not want me to call her ob-counter helper. She understands and agrees with the treatment plan. Based on the patients age, coexisting illnesses, exam and lab findings the decision to treat as an outpatient was made. The patient remained stable while under my care. The patient appeared well at the time of discharge. Medical Decision Differential diagnoses includes but is not limited to gastritis, peptic ulcer disease, GERD, gallbladder disease, pancreatitis, small bowel obstruction, acute coronary syndrome, pericarditis, ischemic bowel, irritable bowel disease, irritable bowel syndrome, appendicitis, diverticulitis, malignancy, hernia, urinary tract infection, torsion, perforation, trauma, infectious. Medication Reconciliation: I attest that I have personally reviewed the patient' s current medication list. Blood pressure screening: Patient was found to have normal blood pressure on screening and does not require follow-up. Patient is a 36-year-old female who presents the ER for diffuse abdominal pain radiating through to the back. She recently had a vaginal delivery. She seen here for swelling in her face. She has also noted intermittent swelling in her legs lips and eyes which has completely resolved. Abdominal exam is fairly benign. She denies any new vaginal discharge. She does admit to some vaginal bleeding. No fevers. Labs show a persistent leukocytosis of 13,000. Hemoglobin is 11.5. BMP along with LFTs, bilirubin and lipase is normal. UA was contaminated with multiple epithelial cells. was negative. Following the CT scan which was negative with exception of a thickened endometrium. I recommend discussion with OB and pelvic which she declined. Patient notes that she will follow up with them later today. She was given fluids and Zofran. She is discharged follow-up with her primary care doctor/ OB. I do not believe that she has endometritis as she has no fevers and doesn' t complain of any new pelvic discharge, however pelvic would've been extremely beneficial. Risks and benefits were explained. Patient left as she wanted to take the child home. Discussed with Pt concerning signs and symptoms to watch out for. Pt was instructed to follow up with their PCP and discussed with the patient their option to return to the ED at anytime for persistent or worsening symptoms. The appropriate anticipatory guidance and out-patient management, including indications for return to the emergency department, were explained at length to the patient and understood. Impression Primary Impression: Abdominal pain Additional Impression: Swelling Scribe Attestation The scribe's documentation has been prepared under my direction and personally reviewed by me in its entirety. I confirm that the note above accurately reflects all work, treatment, procedures, and medical decision making performed by me. Departure Information Dispostion Home / Self-Care Prescriptions Ondansetron Hcl (ZOFRAN) 4 Mg Tab 4 MG PO PRN Y for nausea, #30 TAB Prov: Lopez Ovalles, DO 04/05/17 Referrals Brett Avina M.D. (PCP) Forms Call Back Authorization, HOME CARE DOCUMENTATION FORM, IMPORTANT VISIT INFORMATION Patient Instructions Abdominal Pain - [facility], [facility] Additional Instructions Please follow up with your primary care doctor with in the next 24 hours. Any worsening of your symptoms, please return to the ED immediately. This includes trouble swelling, trouble breathing, chest pain, shortness breath, passing out, or any other concerning signs or symptoms from your standpoint. Problem Qualifiers Primary Impression: Abdominal pain Abdominal location: generalized Qualified Codes: R10.84 - Generalized abdominal pain
[2017-05-30] MEDS ORDERED: PRED20TA2 PO (10:42)
[2017-05-30] MEDS ORDERED: LEVO-14 PO (10:42)
[2017-05-30] MEDS ORDERED: CETI10TA84 PO (10:42)
[2017-05-30] MEDS ORDERED: DIPH25CA5 PO (10:42)
[2017-05-30] MEDS ORDERED: VNTHFA/IN INH (10:47)
[2017-05-30] MEDS ORDERED: ZNTT/150 PO (10:49)
[2017-06-28] MEDS ORDERED: OXYC-57 PO (13:25)
== END 2017-04-05 14:04 | disposition home or self-care (01) ==
LOC: C.EDB 10:55 → C.EDA 14:04
DX: O90.89 Other complications of the puerperium, not elsewhere classified (principal); R10.84 Generalized abdominal pain; R22.0 Localized swelling, mass and lump, head; N80.9 Endometriosis, unspecified; O99.345 Other mental disorders complicating the puerperium; F41.9 Anxiety disorder, unspecified; O99.335 Smoking (tobacco) complicating the puerperium; F17.200 Nicotine dependence, unspecified, uncomplicated; Z82.49 Family history of ischemic heart disease and other diseases of the circulatory system; Z84.1 Family history of disorders of kidney and ureter; Z83.3 Family history of diabetes mellitus; Z79.899 Other long term (current) drug therapy

== ENCOUNTER 2017-06-08 11:25 | Emergency (ER) | payer OTHER ==
[~2017-06-08] VITALS: Ht 167.6 cm; Wt 75.5 kg
[~2017-06-08 11:25] MED LIST changes: +BND25 PO; +CETI10TA84 PO; -DIPH25CA65 PO; -HYDR25SU20 PR; +LEVO-14 PO; -LXP/20 PO; -OXYC-57 PO; +PRED20TA2 PO; -RANI150T3 PO; +VNTHFA/IN INH; +ZNTT/150 PO
[2017-06-08 11:29] VITALS: TEMP 37; Ht 167.6 cm; Wt 75.5 kg
[2017-06-08] MEDS ORDERED: SODIUM CHLORIDE 0.9% 1000ML 1,000 ML IV STA ×2 (11:59)
[2017-06-08 12:15] LABS: BASO % 0.2 %; BASO ABS # 0.02 K/uL (0-0.2); COMPLETE YES; EOS % 2.3 %; HEMATOCRIT 40.6 % (37-47); IG% 0.2 %; LYMPH ABS # 2.97 K/uL (1.2-3.4); MEAN CELL VOLUME 96.9 fL (80-100); MEAN PLATELET VOLUME 10.9 fL (7.4-10.4); MONO % 4.7 %; NEUT % 62.6 %; PLATELET COUNT 325 K/uL (130-400); RED BLOOD COUNT 4.19 M/uL (4.2-5.4)
[2017-06-08 12:35] LABS: BUN/CREATININE RATIO 15.1 (10-20); CALCIUM 8.7 mg/dl (8.5-10.1); CREATININE 0.72 mg/dl (0.60-1.20)
[2017-06-08 12:36] LABS: PREG INTERNAL NEGATIVE QC NEG CLEAR BACKGROUND; PREG INTERNAL POSITIVE QC POS CONTROL LINE
[2017-06-08 12:45] LABS: ALB/GLOB RATIO 1.1 (0.9-2); THYROID STIMULATING HORMONE 1.04 uIu/ml (0.300-4.500)
[2017-06-08] MEDS ORDERED: AYG/5 PO (13:02)
--- NOTE | 2017-06-08 13:03 | EMERGENCY ROOM VISIT NOTE ---
History First contact with patient: 11:47 Chief Complaint: ED VAG BLEEDING Stated Complaint: 9 WKS. POST -EXCESSIVE BLEEDING History of Present Illness The patient is a 36 year old female who presents to the Emergency Room with complaints of heavy vaginal bleeding. The patient states that she is 9 weeks . She states that she has been formula feeding. She had a normal menstrual period last month. She states that over the past 3-4 days, she has had some brownish spotting which progressed into vaginal bleeding last night. She states the bleeding has been gradually worsening overnight. At this time, she states that she is changing her tampon and pad every 20-30 minutes and also complains of pelvic cramping and nausea. The patient is concerned she could be , as she has been having unprotected sex. She states she has felt slightly lightheaded this morning when she tried to go to work. Her bleeding has been exacerbated by moving around and lifting heavy objects. She called [facility] [employer] [facility] and they sent her here for evaluation. The patient does not take any blood thinners. She reports a history of endometriosis. Review of Systems A complete 10 point review of systems was reviewed with the patient with pertinent positives and negatives as per history of present illness. All else were negative. Past Medical/Surgical History Medical Problems: (1) Acute anxiety (2) Contusion of breast, right (3) Cramping affecting , antepartum (4) Disc herniation (5) Endometriosis (6) Hand contusion (7) Hematemesis (8) Hemorrhoid (9) Influenza A (10) Influenza A (11) Mastitis (12) Mastitis (13) Mastitis (14) Nausea and vomiting in (15) Ovarian cyst (16) (17) with 22 completed weeks gestation (18) with 27 completed weeks gestation (19) Pulmonary congestion (20) Radicular pain of right lower extremity (21) Seizure (22) Third trimester Family History Cancer Diabetes mellitus Gallbladder disease Heart disease Hypertension Kidney disease Kidney stones Social History Smoking Status: Current Every Day Smoker Alcohol Use: occasionally Marital Status: in relationship Housing Status: lives with family Occupation Status: employed Current/Historical Medications Scheduled Cetirizine (Zyrtec), 10 MG PO HS Levocetirizine Dihydrochloride (Levocetirizine Dihydrochl), 1 TAB PO QAM Norethindrone Acetate (Aygestin), 1 TAB PO UD Ranitidine (Zantac), 150 MG PO HS Scheduled PRN Albuterol Hfa (Ventolin Hfa), 2-4 PUFFS INH Q6H PRN for Shortness of Breath Diphenhydramine Hcl (Benadryl), 50 MG PO Q4H PRN for HIVES Prednisone (Prednisone Tab), 2 TABS PO UD PRN for IDIOPATHIC ANGIOEDEMA Physical Exam Vital Signs Date Time Temp Pulse Resp B/P (MAP) Pulse Ox O2 Delivery O2 Flow Rate FiO2 06/08/17 13:39 53 18 117/76 100 06/08/17 12:38 53 06/08/17 12:19 53 20 113/48 98 Room Air 06/08/17 11:29 37.0 64 18 108/73 97 Room Air Physical Exam VITALS: Vitals are noted on the nurse's note and reviewed by myself. Vital signs stable. GENERAL: This is a 36-year-old female, in no acute distress, nondiaphoretic, well-developed well-nourished. SKIN: Capillary reflex less than 2 seconds. HEENT: Normocephalic. PERRLA. EOMI. Mucous membranes moist. Neck is supple without nuchal rigidity. HEART: Regular rate and rhythm without murmurs gallops or rubs. LUNGS: Clear to auscultation bilaterally without wheezes, rales or rhonchi. ABDOMEN: Soft, nontender to palpation. PELVIC: There is a moderate amount of blood within the vaginal vault. There is some oozing from the cervix. NEURO: Patient was alert and oriented to person place and time. Medical Decision & Procedures Laboratory Results 06/08/17 11:50 Red Blood Count 4.19, Mean Corpuscular Volume 96.9, Mean Corpuscular Hemoglobin 31.0, Mean Corpuscular Hemoglobin Concent 32.0, Mean Platelet Volume 10.9, Neutrophils (%) (Auto) 62.6, Lymphocytes (%) (Auto) 30.0, Monocytes (%) (Auto) 4.7, Eosinophils (%) (Auto) 2.3, Basophils (%) (Auto) 0.2, Neutrophils # (Auto) 6.19, Lymphocytes # (Auto) 2.97, Monocytes # (Auto) 0.47, Eosinophils # (Auto) 0.23, Basophils # (Auto) 0.02 06/08/17 11:50 Test 06/08/17 11:50 White Blood Count 9.90 K/uL (4.8-10.8) Red Blood Count 4.19 M/uL (4.2-5.4) Hemoglobin 13.0 g/dL (12.0-16.0) Hematocrit 40.6 % (37-47) Mean Corpuscular Volume 96.9 fL (80-100) Mean Corpuscular Hemoglobin 31.0 pg (25-34) Mean Corpuscular Hemoglobin Concent 32.0 g/dl (32-36) Platelet Count 325 K/uL (130-400) Mean Platelet Volume 10.9 fL (7.4-10.4) Neutrophils (%) (Auto) 62.6 % Lymphocytes (%) (Auto) 30.0 % Monocytes (%) (Auto) 4.7 % Eosinophils (%) (Auto) 2.3 % Basophils (%) (Auto) 0.2 % Neutrophils # (Auto) 6.19 K/uL (1.4-6.5) Lymphocytes # (Auto) 2.97 K/uL (1.2-3.4) Monocytes # (Auto) 0.47 K/uL (0.11-0.59) Eosinophils # (Auto) 0.23 K/uL (0-0.5) Basophils # (Auto) 0.02 K/uL (0-0.2) RDW Standard Deviation 49.0 fL (36.4-46.3) RDW Coefficient of Variation 13.7 % (11.5-14.5) Immature Granulocyte % (Auto) 0.2 % Immature Granulocyte # (Auto) 0.02 K/uL (0.00-0.02) Anion Gap 5.0 mmol/L (3-11) Est Creatinine Clear Calc Drug Dose 111.1 ml/min Estimated GFR () 124.0 Estimated GFR (Non- 107.0 BUN/Creatinine Ratio 15.1 (10-20) Calcium Level 8.7 mg/dl (8.5-10.1) Total Bilirubin 0.2 mg/dl (0.2-1) Aspartate Amino Transf (AST/SGOT) 14 U/L (15-37) Alanine Aminotransferase (ALT/SGPT) 17 U/L (12-78) Alkaline Phosphatase 96 U/L (45-117) Total Protein 7.0 gm/dl (6.4-8.2) Albumin 3.6 gm/dl (3.4-5.0) Globulin 3.4 gm/dl (2.5-4.0) Albumin/Globulin Ratio 1.1 (0.9-2) Thyroid Stimulating Hormone (TSH) 1.040 uIu/ml (0.300-4.500) Human Chorionic Gonadotropin, Qual NEG (NEG) Medications Administered Medications (Trade) Dose Ordered Sig/Maxine Route Start Time Stop Time Status Last Admin Dose Admin Sodium Chloride 1,000 ml @ 999 mls/hr Q1H1M STAT IV 06/08/17 11:59 06/08/17 12:59 DC 06/08/17 12:16 999 MLS/HR Sodium Chloride 1,000 ml @ 999 mls/hr Q1H1M STAT IV 06/08/17 11:59 06/08/17 12:59 DC 06/08/17 12:16 999 MLS/HR ED Course The patient was evaluated as above. Labs were drawn and IV access was obtained. Case was discussed with Dr. Hudson of [employer]. She suggested an Aygestin taper. Discharge instructions were reviewed with the patient. The patient verbalized understanding of my assessment and treatment plan and was discharged home in good condition. Medical Decision Differential diagnosis includes miscarriage, heavy menstrual bleeding, bleeding dyscrasia, structural abnormality, malignancy, among others. The patient is a 36-year-old female who presents today complaining of heavy vaginal bleeding. Labs revealed no leukocytosis. Hemoglobin is 13.0. Pelvic exam showed moderate blood, but no hemorrhaging. Case was discussed with [facility] [employer], who recommended an Aygestin taper and follow-up in the office. The patient was agreeable to this. She will return here for worsening bleeding or any other new/concerning symptoms. Based on the patient's presentation and work up, I feel the patient is stable for outpatient treatment. The patient was educated to return to the emergency department for any worsening of their current condition or new/concerning symptoms. She will follow up with [facility] [employer] as needed. Medication Reconcilliation Current Medication List: was personally reviewed by me Blood Pressure Screening Patient's blood pressure: Normal blood pressure Impression Primary Impression: Excessive vaginal bleeding Departure Information Dispostion Home / Self-Care Condition GOOD Prescriptions Norethindrone Acetate (AYGESTIN) 5 Mg Tab 1 TAB PO UD, #45 TAB 1 tablet 4 times a day 3 days, 3 times a day 4 days, twice a day 7 days, daily 7 days. Prov: Masha Schreiber ., ИВАН 06/08/17 Referrals Kita Best, (PCP) Trena Barajas M.D. Patient Instructions My [facility] Additional Instructions Take the Aygestin as prescribed. Continue the entire taper until it is finished , even if you stop bleeding. When you finish the taper, you may have a normal menstrual period. This is normal. Follow-up with [facility] [employer] as needed. Return to the emergency by with worsening bleeding, passing out, lightheadedness , or any other new/concerning symptoms.
[2017-06-08 13:39] VITALS: BP 117/76; PULSE 53; O2SAT 100
[2017-06-28] MEDS ORDERED: OXYC-57 PO (13:25)
== END 2017-06-08 13:40 | disposition home or self-care (01) ==
LOC: C.EDB 11:26
DX: N93.9 Abnormal uterine and vaginal bleeding, unspecified (principal); F41.9 Anxiety disorder, unspecified; N80.9 Endometriosis, unspecified; Z80.9 Family history of malignant neoplasm, unspecified; Z83.3 Family history of diabetes mellitus; Z82.49 Family history of ischemic heart disease and other diseases of the circulatory system; Z84.1 Family history of disorders of kidney and ureter; F17.210 Nicotine dependence, cigarettes, uncomplicated; Z79.899 Other long term (current) drug therapy

== ENCOUNTER → 2017-06-19 | Outpatient (CLI) | payer OTHER ==
[~2017-06-19] MED LIST changes: +AYG/5 PO; +AZIT250T PO; +BSP/10 PO; +CITA10TA4 PO; +OXYC-57 PO
--- NOTE | 2017-06-19 13:49 | MAMMOGRAPHY REPORT ---
BILATERAL DIGITAL DIAGNOSTIC MAMMOGRAM TOMOSYNTHESIS WITH CAD AND TARGETED LEFT ULTRASOUND: 06/19/2017 CLINICAL HISTORY: 36-year-old woman presents for symptoms which she reports dated back to January 2014. She initially had left mastitis for which she was treated for approximately one year, including IV antibiotics. Most recently, 1 month ago she noted pain and bloody/purulent discharge from her left n ipple and also extending from puncture sites of prior nipple piercing. She reports she was able to e xpress additional pus from her nipple yesterday. TECHNIQUE: Breast tomosynthesis in addition to standard 2D mammography was performed. Current study was also evaluated with a Computer Aided Detection (CAD) system. COMPARISON: Comparison is made to exams dated: 11/20/2014 ultrasound - [facility] a nd 11/27/2015 mammogram. BREAST COMPOSITION: The tissue of both breasts is heterogeneously dense, which may obscure small mas ses. FINDINGS: No obvious mass, architectural distortion, developing asymmetry or suspicious microcalcifi cations are seen bilaterally. No focal skin thickening or nipple retraction is identified. Targeted ultrasound was performed along with the left nipple and retroareolar breast in the area of c oncern pointed out by the patient. Given slight technical issues of shadowing surrounding the nipple due to the air interface, there is a probable small hypoechoic fluid collection within the nipple it self. Accurate measurements are difficult to obtain but crescent of hypoechoic fluid measures approx imately 4.5 x 3.4 x 10.2 mm. No fluid collection or mass is seen with in the deeper breast parenchym a. No definite intraductal mass is seen within the deeper parenchyma in the retroareolar and periare olar left breast. IMPRESSION: ACR BI-RADS CATEGORY 2: BENIGN, TARGETED ULTRASOUND ACR BI-RADS CATEGORY 2: BENIGN 1. There is a crescentic hypoechoic fluid collection within the left nipple measuring approximately 4.5 x 3.4 x 10.2 mm, likely explaining the patient's purulent/blood-tinged discharge, suspicious for residual abscess despite reported history of expressed prurulent discharge one day prior. Surgical c onsultation with the patient's breast surgeon, Dr. Aguirre, is recommended. 2. Otherwise stable mammograms, without mammographic evidence of malignancy. These results and recommendations were discussed with the patient at the time of the exam. Approximately 10% of breast cancers are not detected with mammography. A negative mammographic report should not delay biopsy if a clinically suggestive mass is present. Alda Griffin M.D. ay/:06/19/2017 13:33:19 Benzene Washer Operator: Kellie BOYD(R)(Neeraj), [facility] letter sent: Normal 1/2 BI-RADS Code: ACR BI-RADS Category 2: Benign Ultrasound BI-RADS: ACR BI-RADS Category 2: Benign
== END | disposition home or self-care (01) ==
LOC: C.MAMM 09:54
PROVIDERS: ATTEND Family Medicine
DX: N64.52 Nipple discharge (principal); N64.4 Mastodynia

== ENCOUNTER → 2017-06-28 | Day surgery (SDC) | payer OTHER ==
[2017-05-30 10:42] VITALS: Ht 167.6 cm; Wt 74.5 kg
[2017-06-27 14:44] LABS: BASO % 0.4 %; BASO ABS # 0.04 K/uL (0-0.2); COMPLETE YES; EOS % 4.1 %; HEMATOCRIT 40.8 % (37-47); IG% 0.4 %; LYMPH % 38.2 %; LYMPH ABS # 4.09 K/uL (1.2-3.4); MEAN CELL VOLUME 96.5 fL (80-100); MEAN CORPUSCULAR HGB CONC 31.1 g/dl (32-36); MEAN PLATELET VOLUME 10.6 fL (7.4-10.4); MONO % 6.3 %; NEUT % 50.6 %; PLATELET COUNT 499 K/uL (130-400); RED BLOOD COUNT 4.23 M/uL (4.2-5.4); WHITE BLOOD COUNT 10.72 K/uL (4.8-10.8)
[~2017-06-28] VITALS: Ht 167.6 cm; Wt 74.5 kg
[~2017-06-28] MED LIST changes: +ATROPINE SULFATE 0.1 MG/ML 5ML SYR IV PRN; +BUPIVACAINE 0.25% 30 ML VIAL ONE; +CLINDAMYCIN PHOS 150 MG/ML 2 ML VIAL IV SCH; +DEXAMETHASONE SOD INJ 4 MG/ML VIAL ONE; +EpHEDrine SULFATE INJ 50 MG/ML AMP IV PRN; +FENTANYL CITRATE INJ 50 MCG/1 ML 2 ML VIAL ONE; +FLUMAZENIL 0.1 MG/1 ML 10 ML VIAL IV PRN; +LACTATED RINGER'S 1000ML 1,000 ML IV SCH; +LIDOCAINE HCL 2% 2 ML VIAL (20MG/ML) ONE; +MIDAZOLAM HCL 1 MG/ML 2ML VIAL ONE; +NALOXONE HCL 0.4 MG/1 ML VIAL/CARP IV PRN; +NEOSTIGMINE METHYLSULFATE 5 MG/5 ML SYR ONE; +ONDANSETRON INJ 2 MG/ML 2 ML VIAL IV PRN; +ONDANSETRON INJ 2 MG/ML 2 ML VIAL ONE; +OXYCODONE/ACETAMINOPHEN 5-325 TAB PO PRN; +PROMETHAZINE HCL INJ 12.5 MG in SODIUM CHLORIDE 0.9% 50ML 50 ML IV PRN; +PROMETHAZINE HCL INJ 25 MG in SODIUM CHLORIDE 0.9% 50ML 50 ML IV PRN; +PROPOFOL IV EMULSION 10 MG/ML 20 ML VIAL IV ONE; +ROCURONIUM BROMIDE 10 MG/ML 5 ML VIAL IV ONE; +SODIUM CHLORIDE 0.9% 1000ML 1,000 ML IV SCH
--- NOTE | 2017-06-28 11:49 | History & Physical Bridge Note ---
H&P Re-Evaluation Bridge Note: I have examined the patient, reviewed the History & Physical and in the interval since the performance of the History & Physical I have noted the following changes of clinical significance: No changes noted
--- NOTE | 2017-06-28 13:24 | [facility] Post Operative Brief Note ---
Immediate Operative Summary Operative Date Jun 28, 2017. Pre-Operative Diagnosis Desires sterilization Post-Operative Diagnosis Same as preop Procedure(s) Performed Laparoscopic Tubal Sterilization Surgeon Dr. Cade Corporate Quality Assurance Manager Surgeon(s) None Estimated Blood Loss 5 mL Findings Scar tissue at umbilicus, site of previous laparoscopic incisions. Uterus/tubes /ovaries appear normal. Bowel appears normal. Specimens None Drains ochoa, clear yellow Anesthesia general Complication(s) None Disposition Recovery Room / PACU
--- NOTE | 2017-06-28 13:26 | Discharge Instructions-SurgCtr ---
Discharge Instructions Date of Service Jun 28, 2017. Visit Reason for Visit: Encounter For Contraceptive Mgmt Discharge Discharge Diagnosis / Problem: desire for sterilization Discharge Goals Goal(s): Therapeutic intervention Activity Recommendations Activity Limitations: per Instructions/Follow-up section Anesthesia . Post Anesthesia Instructions: If you have had General Anesthesia or IV Sedation: * Do not drive today. * Resume driving when surgeon permits. * Do not make important decisions or sign legal documents today. * Call surgeon for: 1. Temperature elevations greater than 101 degrees F. 2. Uncontrollable pain. 3. Excessive bleeding. 4. Persistent nausea and vomiting. 5. Medication intolerance (nausea, vomiting or rash). * For nausea and vomiting use only clear liquids such as: tea, soda, bouillon until nausea subsides, then gradually increase diet as tolerated. * If you have any concerns or questions, call your surgeon's office. If physician is unavailable and it is an emergency, call 911 or go to the nearest emergency room. . Instructions / Follow-Up Instructions / Follow-Up ACTIVITY RECOMMENDATIONS: * Rest the first 2-3 days. You should be back to your normal activity levels by day 3. * No heavy lifting for 2 weeks. * No intercourse, tampons or douching for 1-2 weeks. * You may shower the next day. * Do not drive anytime that you are taking narcotic pain medicines. RETURN TO SCHOOL/WORK: * May return to school or work after 2-3 days. DIET: Nausea may occur in the immediate post-operative period. If so, take clear liquids such as tea, bouillon, apple juice until all nausea has subsided, then resume usual diet. MEDICATIONS: Resume previous medications unless instructed otherwise by your surgeon. Ibuprofen 200mg 2-3 tablets every 4-6 hours as needed -- OR -- Aleve 2 tablets every 8-12 hours as needed for post-operative discomfort Medications are over the counter. Tylenol may be used if above medications are contraindicated or not preferred. Medication should be taken with food or milk. Do not take on an empty stomach. SPECIAL CARE INSTRUCTIONS: * Check temperature twice daily for one week. report any elevation over 101 degrees. * You may experience some vagina spotting and/or bleeding. This is normal for 1 -2 weeks and should not be heavier than a normal period. If it is unusual in amount, call your physician. * Post-operative discomfort may consist of a sore throat, a "bloated" feeling and pain in the shoulders. these are normal symptoms, which usually only last for 2-3 days. * Remove band-aids tomorrow and shower. There is no need to replace band-aids unless there is drainage or discomfort. FOLLOW UP VISIT: Call your doctor's office for a post-operative 2 week visit if not already scheduled. Diet Recommendations Home Diet: resume previous diet Procedures Procedures Performed: Laparoscopic Tubal Sterilization Pending Studies Studies pending at discharge: no Medical Emergencies . Who to Call and When: Medical Emergencies: If at any time you feel your situation is an emergency, please call 911 immediately. . Non-Emergent Contact Non-Emergency issues call your: Primary Care Provider, Mobile Development Manager . . "Provider Documentation" section prepared by Marilia Cade. . [place] Drug Monitoring Program Search Results: patient reviewed within database
[2017-06-28] MEDS: HYDROmorphone INJ 1 MG/ML SYR IV PRN ×8 (13:36→14:24)
[2017-06-28 14:46] VITALS: TEMP 36.6
--- NOTE | 2017-06-28 15:17 | OPERATIVE REPORT ---
DATE OF OPERATION: 06/28/2017 PREOPERATIVE DIAGNOSIS: Desires sterilization. POSTOPERATIVE DIAGNOSIS: Same, adhesions from prior surgery. PROCEDURES PERFORMED: Laparoscopic tubal sterilization. SURGEON: Dr. Marilia Cade. SANDFILL OPERATOR SURFACE: None. ESTIMATED BLOOD LOSS: 5 mL. FINDINGS: Scar tissue at the umbilicus at the site of previous laparoscopic incisions. Tubes, uterus and ovaries appear normal. Bowel appears normal. SPECIMENS: None. DRAINS: Muller, clear yellow. ANESTHESIA: General. COMPLICATIONS: None. DISPOSITION: Stable and good to recovery room. INDICATIONS FOR PROCEDURE: The patient is a 36-year-old G5, P2-0-3-2 who has completed childbearing and does not desire future fertility requesting tubal sterilization. Additionally, she has had multiple skin infections and has a nipple infection, currently has seen general surgery who recommends her to quit smoking prior to performing surgery. She had a previous mastitis infection that required antibiotics with PICC line and is requesting antibiotics preoperatively. DESCRIPTION OF PROCEDURE: The patient was seen in the preoperative holding area where risks, benefits, alternatives to surgery were reviewed. She elected to proceed with the case. She had previously signed informed consent under no duress in the office. She was taken to the operating room where general anesthesia was introduced. She was prepared and draped in the usual sterile fashion in the dorsal lithotomy position with feet in Yellofin stirrups. Clindamycin was given preoperatively for the above reasons. Muller catheter was placed and drained clear yellow. A weighted speculum was placed in the vagina. The cervix was visualized. The anterior lip was grasped with single tooth tenaculum and an acorn manipulator was placed. Gloves were changed and attention was then turned to the abdomen where an infraumbilical incision was made. Multiple attempts were made to carry this through to the peritoneum using the open Ivory technique; however, due to known history of laparoscopy x5 and concern for adhesive disease due to difficulty of getting through this tissue, this approach was abandoned and attention was then turned to the supraumbilical location and an incision was made at this site and carried down through to the peritoneum with ease using the Ivory technique. The scope was inserted. Intraabdominal placement was confirmed. The abdomen was insufflated with CO2 gas to 15 mmHg. The patient was placed in Trendelenburg position. The pelvis was viewed. A suprapubic incision was made and this trocar was placed under direct visualization. Pictures were taken. The Filshie clip applicator was inserted and confirmation of tubal anatomy was visualized with observation of bilateral tubal fimbria. The Filshie clips were applied approximately 2 cm from the cornual region. Pictures were taken. All instruments were removed under direct visualization. The gas was desufflated from the abdomen. The fascial incision sites were reapproximated using 0 Vicryl in a kuangi-ba-yzujl stitch. Skin incisions were reapproximated using 4-0 Vicryl in a subcuticular stitch. 0.25% Marcaine was applied to assist with pain control. Bandages were applied. All instruments were removed from the vagina. The Muller was removed. The patient was cleaned of prep and the patient was then taken in stable and good condition to the postoperative recovery area. She will receive a prescription of Percocet 30 tablets for postoperative pain control due to both abdominal surgery as well as the patient's inability to take NSAIDs for pain control due to allergy. [place] PDMP has been reviewed. She does have prior prescriptions for pain medications; however, none have been filled within the past month and due to patient's surgery and allergies I feel that this short term 7-day course of Percocet for pain control is appropriate. I attest to the content of the Intraoperative Record and any orders documented therein. Any exception s are noted below.
[2017-06-28 15:25] VITALS: BP 122/73; PULSE 82; O2SAT 100
--- NOTE | 2017-06-28 15:30 | Anesthesia Progress Nt - [facility] ---
Anesthesia Post Op Note Date & Time Jun 28, 2017 at 15:30 Vital Signs Pain Intensity: 6 Vital Signs Past 12 Hours Date Time Temp Pulse Resp B/P (MAP) Pulse Ox O2 Delivery O2 Flow Rate FiO2 06/28/17 15:25 82 16 122/73 (89) 100 Room Air 06/28/17 14:46 36.6 69 16 125/79 (94) 100 Room Air 06/28/17 14:31 121/76 06/28/17 14:30 62 23 06/28/17 14:30 61 23 98 06/28/17 14:29 60 23 06/28/17 14:29 57 23 98 06/28/17 14:28 68 21 99 06/28/17 14:28 69 21 06/28/17 14:26 142/91 06/28/17 14:23 63 19 06/28/17 14:23 63 19 98 06/28/17 14:21 137/86 06/28/17 14:20 36.6 60 16 140/87 99 Room Air 06/28/17 14:18 68 21 97 06/28/17 14:18 68 21 06/28/17 14:17 60 21 06/28/17 14:17 60 21 98 06/28/17 14:16 140/87 06/28/17 14:12 57 19 98 06/28/17 14:12 58 19 06/28/17 14:11 149/88 06/28/17 14:07 60 16 06/28/17 14:07 60 16 97 06/28/17 14:06 64 18 06/28/17 14:06 63 18 136/92 98 06/28/17 14:01 64 15 136/88 98 06/28/17 14:01 64 15 06/28/17 14:00 74 10 97 06/28/17 14:00 66 10 06/28/17 13:59 134/89 06/28/17 13:57 94/82 06/28/17 13:55 60 16 97 06/28/17 13:55 60 16 06/28/17 13:51 144/90 06/28/17 13:50 62 10 06/28/17 13:50 63 10 100 06/28/17 13:46 137/86 06/28/17 13:45 69 12 100 06/28/17 13:45 69 12 06/28/17 13:41 129/80 06/28/17 13:40 74 18 06/28/17 13:40 73 18 99 06/28/17 13:36 125/84 06/28/17 13:35 84 24 97 06/28/17 13:35 84 24 06/28/17 13:31 108/64 06/28/17 13:30 36.9 92 24 108/64 98 Diffusion Mask 6 06/28/17 13:30 91 17 06/28/17 13:30 91 17 99 06/28/17 11:20 37 80 16 126/67 (86) 99 Room Air Notes Mental Status: alert / awake / arousable, participated in evaluation Pt Amnestic to Procedure: Yes Nausea / Vomiting: adequately controlled Pain: adequately controlled Airway Patency, RR, SpO2: stable & adequate BP & HR: stable & adequate Hydration State: stable & adequate Anesthetic Complications: no major complications apparent
--- NOTE | 2017-06-28 20:36 | Medical Student: [facility] ---
Immediate Operative Summary Operative Date Jun 28, 2017. Pre-Operative Diagnosis desired sterilization Post-Operative Diagnosis same Procedure(s) Performed laparoscopic tubal sterilization bilaterally Surgeon Dr. Cade Rn Emergency Surgeon(s) none Estimated Blood Loss 5 ml Findings scar tissue at umbilicus likely from pervious laparoscopic incisions. Normal appearing uterus, fallopian tubes, ovaries, and bowel. Specimens none Drains ochoa , clear yellow fluid Anesthesia general Complication(s) None Disposition Recovery Room / PACU
== END | disposition home or self-care (01) ==
LOC: X.SURG 11:01
PROVIDERS: ATTEND Obstetrics & Gynecology
DX: Z30.2 Encounter for sterilization (principal); F41.9 Anxiety disorder, unspecified; F32.9 Major depressive disorder, single episode, unspecified; K21.9 Gastro-esophageal reflux disease without esophagitis; F17.200 Nicotine dependence, unspecified, uncomplicated; Z83.3 Family history of diabetes mellitus; Z80.49 Family history of malignant neoplasm of other genital organs

== ENCOUNTER 2017-08-06 13:55 | Emergency (ER) | payer OTHER ==
[~2017-08-06] VITALS: Ht 170.2 cm; Wt 78.2 kg
[~2017-08-06 13:55] MED LIST changes: -ATROPINE SULFATE 0.1 MG/ML 5ML SYR IV PRN; -AZIT250T PO; -BSP/10 PO; -BUPIVACAINE 0.25% 30 ML VIAL ONE; -CITA10TA4 PO; -CLINDAMYCIN PHOS 150 MG/ML 2 ML VIAL IV SCH; -DEXAMETHASONE SOD INJ 4 MG/ML VIAL ONE; -EpHEDrine SULFATE INJ 50 MG/ML AMP IV PRN; -FENTANYL CITRATE INJ 50 MCG/1 ML 2 ML VIAL ONE; -FLUMAZENIL 0.1 MG/1 ML 10 ML VIAL IV PRN; -LACTATED RINGER'S 1000ML 1,000 ML IV SCH; -LIDOCAINE HCL 2% 2 ML VIAL (20MG/ML) ONE; -MIDAZOLAM HCL 1 MG/ML 2ML VIAL ONE; -NALOXONE HCL 0.4 MG/1 ML VIAL/CARP IV PRN; -NEOSTIGMINE METHYLSULFATE 5 MG/5 ML SYR ONE; -ONDANSETRON INJ 2 MG/ML 2 ML VIAL IV PRN; -ONDANSETRON INJ 2 MG/ML 2 ML VIAL ONE; -OXYC-57 PO; -OXYCODONE/ACETAMINOPHEN 5-325 TAB PO PRN; -PROMETHAZINE HCL INJ 12.5 MG in SODIUM CHLORIDE 0.9% 50ML 50 ML IV PRN; -PROMETHAZINE HCL INJ 25 MG in SODIUM CHLORIDE 0.9% 50ML 50 ML IV PRN; -PROPOFOL IV EMULSION 10 MG/ML 20 ML VIAL IV ONE; -ROCURONIUM BROMIDE 10 MG/ML 5 ML VIAL IV ONE; -SODIUM CHLORIDE 0.9% 1000ML 1,000 ML IV SCH
[2017-08-06 14:07] VITALS: TEMP 36.8; Ht 170.2 cm; Wt 78.2 kg
--- NOTE | 2017-08-06 15:19 | EMERGENCY ROOM VISIT NOTE ---
History Report prepared by Lotus: Malu Lanier Under the Supervision of: Dr. Messi Tracey M.D. First contact with patient: 14:47 Chief Complaint: EAR PAIN Stated Complaint: GIULIANO. EAR INFECTION History of Present Illness The patient is a 36 year old white female with a past medical history of anxiety , depression, tubal ligation, endometriosis and angioedema who presents to the ED with a cc of constant ear pain and aching beginning beginning 10 days ago. The patient states that she cannot take NSAIDS after getting angioedema from them after giving . Positive sore throat. She notes that swallowing worsens her pain. The patient states that she has gotten ear tubes 2 times before with the last time. She notes that she smokes a half pack of cigarettes a day. Source of History: patient Onset: 10 days ago Position: ear (bilateral) Quality: ache Timing: constant Associated Symptoms: + sorethroat Review of Systems See HPI for pertinent positives and negatives. A total of ten systems were reviewed and were otherwise negative. Past Medical & Surgical Medical Problems: (1) Acute anxiety (2) Contusion of breast, right (3) Cramping affecting , antepartum (4) Disc herniation (5) Endometriosis (6) Hand contusion (7) Hematemesis (8) Hemorrhoid (9) Influenza A (10) Influenza A (11) Mastitis (12) Mastitis (13) Mastitis (14) Nausea and vomiting in (15) Ovarian cyst (16) (17) with 22 completed weeks gestation (18) with 27 completed weeks gestation (19) Pulmonary congestion (20) Radicular pain of right lower extremity (21) Seizure (22) Third trimester Family History Cancer Diabetes mellitus Gallbladder disease Heart disease Hypertension Kidney disease Kidney stones Social History Smoking Status: Current Every Day Smoker Alcohol Use: occasionally Marital Status: in relationship Housing Status: lives with family Occupation Status: employed Current/Historical Medications Scheduled Azithromycin (Zithromax), 250 MG PO DAILY Buspirone HCl (Buspirone HCl), 10 MG PO BID Citalopram Hydrobromide (Citalopram Hydrobromide), 10 MG PO QPM Prednisone (Prednisone Tab), 3 TAB PO DAILY Ranitidine (Zantac), 150 MG PO HS Scheduled PRN Albuterol Hfa (Ventolin Hfa), 2-4 PUFFS INH Q6H PRN for Shortness of Breath Diphenhydramine Hcl (Benadryl), 50 MG PO Q4H PRN for HIVES Prednisone (Prednisone Tab), 2 TABS PO UD PRN for IDIOPATHIC ANGIOEDEMA Allergies Coded Allergies: NSAIDs (Verified Allergy, Severe, IDIOPATHIC ANGIOEDEMA, 08/06/17) Ceftriaxone (Verified Allergy, Intermediate, hives, 08/06/17) Penicillins (Verified Allergy, Intermediate, HIVES, 08/06/17) CANNOT TAKE ANY CROSS DRUGS EITHER OF PENICILLIN Tramadol (Verified Adverse Reaction, Intermediate, headache, 08/06/17) Vancomycin (Verified Adverse Reaction, Intermediate, CHANTAL SYNDROME, ) Nickel (Verified Adverse Reaction, Mild, SKIN IRRITATION, 08/06/17) Physical Exam Vital Signs Date Time Temp Pulse Resp B/P (MAP) Pulse Ox O2 Delivery O2 Flow Rate FiO2 08/06/17 16:07 69 16 124/86 99 08/06/17 14:07 36.8 87 18 118/79 96 Room Air Physical Exam GENERAL: Awake, alert, well-appearing, NAD HENT: Normocephalic, atraumatic. Bilateral myringotomy tubes, does have some scarring of the TM. Left TM is severely retracted into the ossicles. Posterior oropharynx is clear, no stridor. EYES: Normal conjunctiva. Sclera non-icteric. NECK: Supple. No nuchal rigidity. FROM. RESPIRATORY: CTAB, no rhonchi, wheezing, crackles CARDIAC: RRR, no MRG ABDOMEN: Soft, NTND, BS+ MSK: No chest wall TTP, no LE edema NEURO: GCS 15, CN 2-12 intact, moves all 4s on command SKIN: No rash or jaundice noted. Medical Decision & Procedures Medications Administered Medications (Trade) Dose Ordered Sig/Maxine Route Start Time Stop Time Status Last Admin Dose Admin Prednisone (PredniSONE TAB) 50 mg ONE STAT PO 08/06/17 15:21 08/06/17 15:24 DC 08/06/17 15:47 50 MG Acetaminophen (Tylenol Tab) 1,000 mg NOW STAT PO 08/06/17 15:21 08/06/17 15:24 DC 08/06/17 15:43 1,000 MG Azithromycin (Zithromax Tab) 500 mg NOW ONCE PO 08/06/17 15:30 08/06/17 15:31 DC 08/06/17 15:44 500 MG ED Course 1447: The patient was evaluated in room C4. A complete history and physical exam was performed. 1557: I reevaluated the patient. Discussed results and discharge instructions: She verbalized understanding and agreement. The patient is ready for discharge. Medical Decision The patient is a 36 year old white female with a past medical history of anxiety , depression, tubal ligation, endometriosis and angioedema who presents to the ED with a cc of constant ear pain and aching beginning beginning 10 days ago. Differential diagnosis includes otitis media, otitis externa, eustachian tube dysfunction, pharyngitis, laryngitis. Patient was seen and evaluated the bedside. Patient of note had some questionable drainage around her myringotomy tubes. Patient noted to have severe retraction of the left TM. No other effusion noted patient did not have signs concerning for otitis externa. Given the patient's prior symptoms as well as history of otitis especially in an adult patient was treated with antibiotics as well as steroids. Patient was non-stridulous did not have any wheezing. Patient was not given her tachycardic. The patient that I don't think she needed any blood work or imaging at this time. Patient was feeling improved after symptomatically treatment and control. Patient was told to keep her follow-up appointment with ENT. Patient no signs of meningismus and patient did not have posterior auricular pain/bulging concerning for possible mastoiditis. Patient agreed with plan of care patient was given strict follow- up, discharge, return precautions. Patient discharged home. Medication Reconcilliation Current Medication List: was personally reviewed by me Blood Pressure Screening Patient's blood pressure: Normal blood pressure Blood pressure disposition: Did not require urgent referral Impression Primary Impression: Otitis media Additional Impression: Laryngitis Scribe Attestation The scribe's documentation has been prepared under my direction and personally reviewed by me in its entirety. I confirm that the note above accurately reflects all work, treatment, procedures, and medical decision making performed by me. Departure Information Dispostion Home / Self-Care Prescriptions Prednisone (Prednisone Tab) 20 Mg Tab 3 TAB PO DAILY for 4 Days, #12 TAB FOR 4 DAYS Prov: Messi Tracey M.D. 08/06/17 Azithromycin (Zithromax) 250 Mg Tab 250 MG PO DAILY for 4 Days, #4 TAB Prov: Messi Tracey M.D. 08/06/17 Referrals No Doctor, Assigned (PCP) Patient Instructions ED Otitis Media Acute Adult, My [facility] Additional Instructions Please return to the emergency department if you have worsening or recurrent symptoms not amenable to at-home treatment. Please call for a follow-up appointment with her primary care physician. Please take your medications as prescribed. If you have other concerns and/or complaints please feel free to also call your primary care physician's office or return the ED for further evaluation, management, and treatment. You may take tylenol 1000mg every 6 hours as needed for pain. Take the steroids preferably w/ food in the morning. You have been examined and treated today on an emergency basis only. This is not a substitute for, or an effort to provide, complete comprehensive medical care. It is impossible to recognize and treat all injuries or illnesses in a single emergency department visit. It is therefore important that you follow up closely with [facility]. Call as soon as possible for an appointment. Thank you for your time and consideration. I look forward to speaking with you again soon. Please don't hesitate to call us if you have any questions. Problem Qualifiers Primary Impression: Otitis media Otitis media type: other nonsuppurative Chronicity: chronic Laterality: bilateral Qualified Codes: H65.493 - Other chronic nonsuppurative otitis media , bilateral
[2017-08-06] MEDS ORDERED: TRAMADOL HCL 50 MG TAB PO STA (15:21)
[2017-08-06] MEDS ORDERED: ACETAMINOPHEN 500 MG TAB PO STA (15:21)
[2017-08-06] MEDS ORDERED: AZITHROMYCIN 250 MG TAB PO ONE (15:30)
[2017-08-06] MEDS ORDERED: CITA10TA4 PO (15:48)
[2017-08-06] MEDS ORDERED: BSP/10 PO (15:48)
[2017-08-06] MEDS ORDERED: AZIT250T PO (15:55)
[2017-08-06] MEDS ORDERED: PRED20TA2 PO (15:55)
[2017-08-06 16:07] VITALS: BP 124/86; PULSE 69; O2SAT 99
== END 2017-08-06 16:08 | disposition home or self-care (01) ==
LOC: C.EDB 13:56 → C.EDC 16:08
DX: H66.93 Otitis media, unspecified, bilateral (principal); J04.0 Acute laryngitis; G40.909 Epilepsy, unspecified, not intractable, without status epilepticus; N83.209 Unspecified ovarian cyst, unspecified side; F41.9 Anxiety disorder, unspecified; F17.200 Nicotine dependence, unspecified, uncomplicated; Z87.828 Personal history of other (healed) physical injury and trauma; Z79.899 Other long term (current) drug therapy; Z88.0 Allergy status to penicillin; Z88.1 Allergy status to other antibiotic agents; Z88.8 Allergy status to other drugs, medicaments and biological substances; Z91.09 Other allergy status, other than to drugs and biological substances; Z80.9 Family history of malignant neoplasm, unspecified; Z83.3 Family history of diabetes mellitus; Z83.79 Family history of other diseases of the digestive system; Z82.49 Family history of ischemic heart disease and other diseases of the circulatory system; Z84.1 Family history of disorders of kidney and ureter

== ENCOUNTER 2017-11-14 15:35 | Emergency (ER) | payer OTHER ==
[~2017-11-14] VITALS: Ht 167.6 cm; Wt 78.8 kg
[~2017-11-14 15:35] MED LIST changes: -AYG/5 PO; -BND25 PO; -CETI10TA84 PO; +DIPH25CA5 PO; -LEVO-14 PO
[2017-11-14 15:46] VITALS: Ht 167.6 cm; Wt 78.8 kg
[2017-11-14] MEDS ORDERED: BSP/10 PO (15:48)
[2017-11-14] MEDS ORDERED: CITA10TA4 PO (15:48)
[2017-11-14] MEDS ORDERED: SODIUM CHLORIDE 0.9% 1000ML 1,000 ML IV STA (16:48)
[2017-11-14] MEDS ORDERED: MoRPHine SULFATE 10 MG/ML CARP/VIAL IV STA (16:48)
[2017-11-14] MEDS ORDERED: ONDANSETRON INJ 2 MG/ML 2 ML VIAL IV STA (16:48)
[2017-11-14] MEDS ORDERED: TAMSULOSIN HCL 0.4 MG CAP PO ONE (17:00)
[2017-11-14 17:30] LABS: BASO % 0.4 %; BASO ABS # 0.05 K/uL (0-0.2); EOS % 2.8 %; EOS ABS # 0.37 K/uL (0-0.5); HEMATOCRIT 42.2 % (37-47); HEMOGLOBIN 14.3 g/dL (12.0-16.0); IG# 0.04 K/uL (0.00-0.02); LYMPH % 27.1 %; LYMPH ABS # 3.54 K/uL (1.2-3.4); MEAN CELL VOLUME 93.4 fL (80-100); MEAN CORPUSCULAR HEMOGLOBIN 31.6 pg (25-34); MEAN CORPUSCULAR HGB CONC 33.9 g/dl (32-36); MEAN PLATELET VOLUME 10.4 fL (7.4-10.4); MONO % 5.4 %; NEUT ABS # 8.34 K/uL (1.4-6.5); PLATELET COUNT 355 K/uL (130-400); RED CELL DISTRIBUTION WIDTH CV 13.7 % (11.5-14.5); RED CELL DISTRIBUTION WIDTH SD 46.8 fL (36.4-46.3); WHITE BLOOD COUNT 13.04 K/uL (4.8-10.8)
[2017-11-14 17:50] LABS: ALBUMIN 3.9 gm/dl (3.4-5.0); ALT/SGPT 17 U/L (12-78); BLOOD UREA NITROGEN 11 mg/dl (7-18); CALCIUM 9.3 mg/dl (8.5-10.1); CARBON DIOXIDE 23 mmol/L (21-32); CREATININE 0.86 mg/dl (0.60-1.20); GLUCOSE 92 mg/dl (70-99); LIPASE 230 U/L (73-393); POTASSIUM 3.7 mmol/L (3.5-5.1); SODIUM 139 mmol/L (136-145)
[2017-11-14 17:53] LABS: ALKALINE PHOSPHATASE 99 U/L (45-117); AST/SGOT 12 U/L (15-37); TOTAL PROTEIN 7.6 gm/dl (6.4-8.2)
[2017-11-14] MEDS ORDERED: BUTA1TAB70 PO (18:16)
--- NOTE | 2017-11-14 18:24 | DIAGNOSTIC IMAGING REPORT ---
ABD/PELVIS WITHOUT FOR STONE CT DOSE: 973.30 mGy.cm HISTORY: Flank pain left flank pain TECHNIQUE: Multiaxial CT images of the abdomen and pelvis were performed without the use of intravenous and oral contrast according to the standard department stone protocol. A dose lowering technique was utilized adhering to the principles of ALARA. COMPARISON STUDY: 04/05/2017 FINDINGS: The lung bases are clear. The unenhanced liver, gallbladder, spleen, pancreas, and adrenal glands are unremarkable. No renal stones or hydronephrosis. No bowel wall thickening or obstruction. The pelvic organs are unremarkable. No suspicious lytic or blastic osseous lesions. Interval resection of multiple uterine fibroids. 2.5 cm left ovarian cyst. (. Mild chronic sigmoid diverticulosis. No evidence for acute diverticulitis. Nonobstructive bowel pattern. Normal appendix. IMPRESSION: 1. No evidence for renal calcification or hydronephrosis. 2. 2.5 cm left ovarian cyst. 3. Mild chronic sigmoid diverticulosis. No evidence for acute diverticulitis. The above report was generated using voice recognition software. It may contain grammatical, syntax or spelling errors. Electronically signed by: Coy Patel M.D. 11/14/2017 6:22 PM Dictated Date/Time: 11/14/2017 6:18 PM
[2017-11-14] MEDS ORDERED: MoRPHine SULFATE 4 MG/ML 1 ML CARP\\VIAL IV STA (18:35)
[2017-11-14] MEDS ORDERED: DEXAMETHASONE INJ 10 MG in SYRINGE 0 ML IV STA (18:35)
[2017-11-14] MEDS ORDERED: HYDR-5688 PO (18:39)
[2017-11-14] MEDS ORDERED: METH4PAK PO (18:39)
--- NOTE | 2017-11-14 18:41 | EMERGENCY ROOM VISIT NOTE ---
History First contact with patient: 16:41 Chief Complaint: FLANK PAIN Stated Complaint: LOWER LEFT BACK PAIN, ABDOMINAL PAIN, UTI SX History of Present Illness The patient is a 37 year old female who presents to the Emergency Room with complaints of left flank pain. The patient states for the past 3-4 days when she would bear down to move her bowels or urinate she would get pain in the left lower quadrant of her abdomen. For the past 2 hours she has increased pain in that area and it is now radiating around to her back. She states the pain is now constant with intermittent sharpness. She rates it at a 8 out of 10. The patient does admit that 2 weeks ago she had a strain to her lower back with some sciatica but this feels different. The patient denies any urinary symptoms of frequency, urgency, dysuria or hematuria. The patient denies any personal history of kidney stones but does admit to a family history of kidney stones in her grandfather. The patient also admits that she drinks a lot of caffeinated soda. The patient denies any associated nausea or vomiting. The patient denies any change in bowel habits. She also states that she has been been taking Fioricet for her migraine headaches and that has not helped her abdominal pain. It has helped her migraine. Review of Systems 10 system review was performed and was negative unless stated otherwise history of present illness. Past Medical/Surgical History Medical Problems: (1) Acute anxiety (2) Contusion of breast, right (3) Cramping affecting , antepartum (4) Disc herniation (5) Endometriosis (6) Hand contusion (7) Hematemesis (8) Hemorrhoid (9) Influenza A (10) Influenza A (11) Mastitis (12) Mastitis (13) Mastitis (14) Nausea and vomiting in (15) Ovarian cyst (16) (17) with 22 completed weeks gestation (18) with 27 completed weeks gestation (19) Pulmonary congestion (20) Radicular pain of right lower extremity (21) Seizure (22) Third trimester Family History Cancer Diabetes mellitus Gallbladder disease Heart disease Hypertension Kidney disease Kidney stones Social History Smoking Status: Current Every Day Smoker Alcohol Use: occasionally Marital Status: in relationship Housing Status: lives with family Occupation Status: employed Current/Historical Medications Scheduled Buspirone HCl (Buspirone HCl), 10 MG PO BID Citalopram Hydrobromide (Citalopram Hydrobromide), 10 MG PO QPM Scheduled PRN Ohnyvbykbr-Pgcpyhtdyvwvr-Ujquy (Esgic), 1 TAB PO QID PRN for Severe Headache Diphenhydramine Hcl (Benadryl), 50 MG PO Q4H PRN for Allergic Reaction Prednisone (Prednisone Tab), 40 MG PO UD PRN for IDIOPATHIC ANGIOEDEMA Physical Exam Vital Signs Date Time Temp Pulse Resp B/P (MAP) Pulse Ox O2 Delivery O2 Flow Rate FiO2 11/14/17 18:21 71 16 108/65 98 Room Air 11/14/17 15:46 36.7 88 20 110/70 97 Room Air Physical Exam GENERAL: 37-year-old female appears uncomfortable secondary to pain. MENTAL Status: Alert and oriented 3. MOUTH: Mucosa is moist NECK: Supple, no lymphadenopathy noted. No carotid bruits noted. LUNGS: Clear auscultation without wheezes rales or rhonchi. CARDIAC: Regular rate and rhythm without murmur. Pulses is full and equal throughout. BACK: No CVA tenderness noted. ABDOMEN: Positive bowel sounds all 4 quadrants. Soft, nontender to palpation without organomegaly or masses. EXTREMITIES: No cyanosis or edema noted. Medical Decision & Procedures ER Provider Diagnostic Interpretation: ABD/PELVIS WITHOUT FOR STONE CT DOSE: 973.30 mGy.cm HISTORY: Flank pain left flank pain TECHNIQUE: Multiaxial CT images of the abdomen and pelvis were performed without the use of intravenous and oral contrast according to the standard department stone protocol. A dose lowering technique was utilized adhering to the principles of ALARA. COMPARISON STUDY: 04/05/2017 FINDINGS: The lung bases are clear. The unenhanced liver, gallbladder, spleen, pancreas, and adrenal glands are unremarkable. No renal stones or hydronephrosis. No bowel wall thickening or obstruction. The pelvic organs are unremarkable. No suspicious lytic or blastic osseous lesions. Interval resection of multiple uterine fibroids. 2.5 cm left ovarian cyst. (. Mild chronic sigmoid diverticulosis. No evidence for acute diverticulitis. Nonobstructive bowel pattern. Normal appendix. IMPRESSION: 1. No evidence for renal calcification or hydronephrosis. 2. 2.5 cm left ovarian cyst. 3. Mild chronic sigmoid diverticulosis. No evidence for acute diverticulitis. The above report was generated using voice recognition software. It may contain grammatical, syntax or spelling errors. Electronically signed by: Coy Patel M.D. 11/14/2017 6:22 PM Dictated Date/Time: 11/14/2017 6:18 PM Laboratory Results 11/14/17 17:05 Red Blood Count 4.52, Mean Corpuscular Volume 93.4, Mean Corpuscular Hemoglobin 31.6, Mean Corpuscular Hemoglobin Concent 33.9, Mean Platelet Volume 10.4, Neutrophils (%) (Auto) 64.0, Lymphocytes (%) (Auto) 27.1, Monocytes (%) (Auto) 5.4, Eosinophils (%) (Auto) 2.8, Basophils (%) (Auto) 0.4, Neutrophils # (Auto) 8.34, Lymphocytes # (Auto) 3.54, Monocytes # (Auto) 0.70, Eosinophils # (Auto) 0.37, Basophils # (Auto) 0.05 11/14/17 17:05 Test 11/14/17 17:05 White Blood Count 13.04 K/uL (4.8-10.8) Red Blood Count 4.52 M/uL (4.2-5.4) Hemoglobin 14.3 g/dL (12.0-16.0) Hematocrit 42.2 % (37-47) Mean Corpuscular Volume 93.4 fL (80-100) Mean Corpuscular Hemoglobin 31.6 pg (25-34) Mean Corpuscular Hemoglobin Concent 33.9 g/dl (32-36) Platelet Count 355 K/uL (130-400) Mean Platelet Volume 10.4 fL (7.4-10.4) Neutrophils (%) (Auto) 64.0 % Lymphocytes (%) (Auto) 27.1 % Monocytes (%) (Auto) 5.4 % Eosinophils (%) (Auto) 2.8 % Basophils (%) (Auto) 0.4 % Neutrophils # (Auto) 8.34 K/uL (1.4-6.5) Lymphocytes # (Auto) 3.54 K/uL (1.2-3.4) Monocytes # (Auto) 0.70 K/uL (0.11-0.59) Eosinophils # (Auto) 0.37 K/uL (0-0.5) Basophils # (Auto) 0.05 K/uL (0-0.2) RDW Standard Deviation 46.8 fL (36.4-46.3) RDW Coefficient of Variation 13.7 % (11.5-14.5) Immature Granulocyte % (Auto) 0.3 % Immature Granulocyte # (Auto) 0.04 K/uL (0.00-0.02) Urine Color YELLOW Urine Appearance CLEAR (CLEAR) Urine pH 6.0 (4.5-7.5) Urine Specific [place] 1.027 (1.000-1.030) Urine Protein NEG (NEG) Urine Glucose (UA) NEG (NEG) Urine Ketones NEG (NEG) Urine Occult Blood NEG (NEG) Urine Nitrite NEG (NEG) Urine Bilirubin NEG (NEG) Urine Urobilinogen NEG (NEG) Urine Leukocyte Esterase NEG (NEG) Anion Gap 8.0 mmol/L (3-11) Est Creatinine Clear Calc Drug Dose 93.9 ml/min Estimated GFR () 99.3 Estimated GFR (Non- 85.7 BUN/Creatinine Ratio 13.3 (10-20) Calcium Level 9.3 mg/dl (8.5-10.1) Total Bilirubin 0.2 mg/dl (0.2-1) Direct Bilirubin < 0.1 mg/dl (0-0.2) Aspartate Amino Transf (AST/SGOT) 12 U/L (15-37) Alanine Aminotransferase (ALT/SGPT) 17 U/L (12-78) Alkaline Phosphatase 99 U/L (45-117) Total Protein 7.6 gm/dl (6.4-8.2) Albumin 3.9 gm/dl (3.4-5.0) Lipase 230 U/L (73-393) Medications Administered Medications (Trade) Dose Ordered Sig/Maxine Route Start Time Stop Time Status Last Admin Dose Admin Sodium Chloride 1,000 ml @ 999 mls/hr Q1H1M STAT IV 11/14/17 16:48 11/14/17 17:48 DC 11/14/17 17:04 999 MLS/HR Morphine Sulfate (MoRPHine SULFATE INJ) 6 mg NOW STAT IV 11/14/17 16:48 11/14/17 16:50 DC 11/14/17 17:07 6 MG Ondansetron HCl (Zofran Inj) 4 mg NOW STAT IV 11/14/17 16:48 1/23/18 16:51 DC 11/14/17 17:05 4 MG Tamsulosin HCl (Flomax Cap) 0.4 mg NOW ONCE PO 11/14/17 17:00 11/14/17 17:01 DC 11/14/17 17:08 0.4 MG ED Course The patient was evaluated. IV access was obtained. The patient's EMR medication list were reviewed. The patient was given 1 L normal saline wide- open. She was given Zofran 4 mg IV push and morphine 6 mg IV for pain. She is also given Flomax 0.4 mg by mouth. CBC and differential, renal profile, LFTs and lipase levels were ordered. Urinalysis was ordered. Urinalysis was negative. CT stone study was ordered interpreted by the radiologist as above with a left 2.5 cm ovarian cyst. No evidence of ureteral calculi. Labs are reviewed. White count was elevated 13,000. Remainder labs are unremarkable. The patient was reevaluated and was still complaining of pain. I informed her of all findings. The patient was given additional 4 mg of morphine IV and Decadron 10 mg IV before discharge. The patient was discharged home in stable condition. Medical Decision Differential diagnosis include UTI, pyelonephritis, ureteral calculi, diverticulitis, muscular strain, hernia, ovarian cyst, endometriosis [place] Drug Monitoring Program Search Results: patient reviewed within database Medication Reconcilliation Current Medication List: was personally reviewed by me Blood Pressure Screening Patient's blood pressure: Normal blood pressure Impression Primary Impression: Left ovarian cyst Additional Impression: Low back pain Departure Information Dispostion Home / Self-Care Condition GOOD Prescriptions Hydrocodone/Acetaminophen 5MG/325MG (Tennyson 5MG/325MG) Tab 1-2 TABLET PO Q6 Y for Pain, #20 TAB For Initial Treatment Prov: Tammy Patel PA-C 11/14/17 Methylprednisolone (MEDROL DOSEPAK) 4 Mg [place] 0 PO DAILY, #1 PKT Prov: Tammy Patel PA-C 11/14/17 Referrals No Doctor, Assigned (PCP) Forms HOME CARE DOCUMENTATION FORM, IMPORTANT VISIT INFORMATION Patient Instructions [facility] Additional Instructions Take Tennyson as needed for pain. Do not drive while taking the Tennyson. Start Medrol Dosepak tomorrow. Follow-up with GENER[facility] MAINTENANCE TECHNICIAN regarding your ovarian cyst. Problem Qualifiers Additional Impression: Low back pain Chronicity: acute Back pain laterality: left Sciatica presence: without sciatica Qualified Codes: M54.5 - Low back pain
[2017-11-14] MEDS ORDERED: NORCO 5/325MG HOME PACK PO ONE (18:45)
[2017-11-14 19:10] VITALS: BP 104/69; PULSE 79; TEMP 36.7; O2SAT 98
[2017-11-15] MEDS ORDERED: NORE5TAB5 PO (18:07)
== END 2017-11-14 19:11 | disposition home or self-care (01) ==
LOC: C.EDB 15:37
DX: N83.202 Unspecified ovarian cyst, left side (principal); R10.9 Unspecified abdominal pain; M54.5 Low back pain

== ENCOUNTER 2017-11-15 14:28 | Emergency (ER) | payer OTHER ==
[~2017-11-15] VITALS: Ht 167.6 cm; Wt 80.2 kg
[~2017-11-15 14:28] MED LIST changes: +BSP/10 PO; +BUTA1TAB70 PO; +CITA10TA4 PO; +HYDR-5688 PO; +METH4PAK PO; -VNTHFA/IN INH; -ZNTT/150 PO
[2017-11-15 14:38] VITALS: TEMP 37.1; Ht 167.6 cm; Wt 80.2 kg
[2017-11-15] MEDS ORDERED: ONDANSETRON INJ 2 MG/ML 2 ML VIAL IV STA (15:10)
[2017-11-15] MEDS ORDERED: SODIUM CHLORIDE 0.9% 1000ML 1,000 ML IV STA (15:10)
[2017-11-15] MEDS ORDERED: MoRPHine SULFATE 4 MG/ML 1 ML CARP\\VIAL IV STA ×2 (15:10→17:44)
[2017-11-15 15:42] LABS: BASO % 0.1 %; BASO ABS # 0.01 K/uL (0-0.2); EOS % 0.1 %; EOS ABS # 0.02 K/uL (0-0.5); HEMATOCRIT 40.2 % (37-47); HEMOGLOBIN 13.3 g/dL (12.0-16.0); IG# 0.06 K/uL (0.00-0.02); LYMPH % 11.9 %; LYMPH ABS # 1.93 K/uL (1.2-3.4); MEAN CELL VOLUME 93.3 fL (80-100); MEAN CORPUSCULAR HEMOGLOBIN 30.9 pg (25-34); MEAN CORPUSCULAR HGB CONC 33.1 g/dl (32-36); MEAN PLATELET VOLUME 10.9 fL (7.4-10.4); MONO ABS # 0.82 K/uL (0.11-0.59); NEUT % 82.5 %; NEUT ABS # 13.41 K/uL (1.4-6.5); PLATELET COUNT 375 K/uL (130-400); RED CELL DISTRIBUTION WIDTH CV 13.7 % (11.5-14.5); RED CELL DISTRIBUTION WIDTH SD 47.1 fL (36.4-46.3); WHITE BLOOD COUNT 16.25 K/uL (4.8-10.8)
[2017-11-15 15:48] LABS: PTT PATIENT 24.7 SECONDS (21.0-31.0)
[2017-11-15 15:49] LABS: ALBUMIN 3.7 gm/dl (3.4-5.0); CALCIUM 8.6 mg/dl (8.5-10.1); CREATININE 0.84 mg/dl (0.60-1.20); POTASSIUM 3.5 mmol/L (3.5-5.1)
[2017-11-15 16:00] LABS: TOTAL PROTEIN 7.2 gm/dl (6.4-8.2)
--- NOTE | 2017-11-15 17:09 | DIAGNOSTIC IMAGING REPORT ---
PELVIC ULTRASOUND CLINICAL HISTORY: HEAVY VAGINAL BLEEDING, L OVARIAN CYST COMPARISON STUDY: CT of the abdomen and pelvis November 14, 2017 and pelvic ultrasound October 02, 2015. TECHNIQUE: Transabdominal and transvaginal sonography of the pelvis was performed. FINDINGS: The uterus measures 7.7 x 4 x 5.1 cm. Endometrium measures 1.1 cm in thickness. The myometrium is heterogeneous with multiple hypoechoic and echogenic regions which measure up to 3.9 cm. These have no well-defined borders. A 1.2 cm hypoechoic focus within the fundus may reflect a fibroid. The right ovary is normal, measuring 2.4 x 1.7 x 1.6 cm. The left ovary measures 2.5 x 2.4 x 3.1 cm. There is color flow within each ovary. There is a 2 cm complex left ovarian cyst with peripheral hypoechoic material suggestive of a hemorrhagic cyst. This corresponds to the finding on CT of November 14, 2017. IMPRESSION: 1. Endometrial thickness of 1.1 cm. Heterogeneous myometrium, most pronounced within the posterior wall with areas of increased and decreased echogenicity which raises the possibility of adenomyosis. Fibroids could appear similar although adenomyosis is favored. 2. 2 cm hemorrhagic left ovarian cyst. 3. No sonographic evidence of ovarian torsion. Electronically signed by: Rex Cuevas M.D. 11/15/2017 5:08 PM Dictated Date/Time: 11/15/2017 5:02 PM
[2017-11-15 17:27] VITALS: BP 122/83
[2017-11-15] MEDS ORDERED: NORE5TAB5 PO (18:07)
--- NOTE | 2017-11-15 18:09 | EMERGENCY ROOM VISIT NOTE ---
ED Visit Note First contact with patient: 14:58 CHIEF COMPLAINT: Heavy vaginal bleeding since last evening HISTORY OF PRESENT ILLNESS: Patient is a Ab3 37-year-old white female who presents to the emergency department for evaluation of heavy vaginal bleeding that started yesterday. Patient was actually seen in the emergency department yesterday for left lower quadrant/left flank pain that she had had for several days. The pain worsened yesterday which prompted her to come to the emergency department. She was thoroughly evaluated and diagnosed with a left ovarian cyst and discharged home on Lodi. Patient states that she had some vaginal spotting yesterday consistent with her normal menses. Her bleeding increased overnight. She states that she was using a super plus tampon and a pad, shortness interval was having to change them every 20 minutes. This morning she got lightheaded in the bathroom with position changes. She does report an episode of heavy vaginal bleeding when she was about 8 weeks in May of last year which resolved with Aygestin taper, and she reports that she was having normal menstrual cycles until her heavy bleeding last evening. She is status post tubal ligation in June of last year and thinks that it is highly unlikely that she could be . She does have a history of an ovarian torsion status post laparoscopy, and has had several laparoscopies for endometriosis. She continues to complain of left lower quadrant pain. She states that the Lodi only dulled the pain last evening. She states that she was on the phone with the [facility] office and they encouraged her to come to the emergency department for evaluation. REVIEW OF SYSTEMS: Review of systems as per HPI. All other systems reviewed were negative. 10 systems reviewed. PMH: Electronic medical records are reviewed and summarized as above/below. See Problem List. SOCIAL HISTORY: Patient lives at home with her boyfriend and children. Smoker. PHYSICAL EXAM: Vital Signs: Reviewed Nurse's notes. CONSTITUTIONAL: Patient is a well-appearing 37-year-old white female who is awake and alert and in no acute distress. Vital signs are stable. She is not tachycardic or hypotensive EYES: Pupils equal, round, reactive to light and accommodation. EOMs intact without nystagmus. Sclera are anicteric. ENT: Tympanic membranes intact, with normal landmarks. External canals are clear. Oral and nasopharynx are clear. Mucous membranes are moist, no lesions , tongue and gums appear normal. NECK: No bruits auscultated. Supple without lymphadenopathy. No thyromegaly. No meningeal signs. Full active range of motion without discomfort. CARDIOVASCULAR: Regular rate and rhythm, with normal S1 and S2, no murmur or gallop or rub is heard. No carotid bruits auscultated. No JVD. Peripheral pulses easily palpable. RESPIRATORY: Breath sounds equal and clear to auscultation without wheezes, rales, or rhonchi heard. Full and equal chest expansion without accessory muscle use or retractions. ABDOMEN: Bowel sounds are present. Abdomen is soft, nondistended, mildly tender in the left lower quadrant, without guarding, rebound or rigidity. Well- healed surgical scars are noted. INTEGUMENTARY: No lesions or rash, normal skin turgor. LYMPH: No lymphadenopathy. EMERGENCY DEPARTMENT COURSE: The patient was seen and examined as above. Her old records are reviewed, including her ED visit and laboratory studies from yesterday. She presents emergency department with heavy vaginal bleeding yesterday. She reports that she is going through a super plus tampon and pad every 20-40 minutes. She has a known left ovarian cyst. She is hemodynamically stable on evaluation. Laboratory workup yesterday was unremarkable. IV lock was initiated. She was given a liter of normal saline solution. She was mildly orthostatic with vitals. CBC with differential, serum hCG and CMP were drawn. Pelvic ultrasound was performed. Laboratory studies noted a white count of 16,200, unclear of the significance, could be related to the margination from pain and stress. H&H is 13.3 and 40.2. Coags are unremarkable. Chemistries are without significant abnormality. HCG was negative. TSH is just minimally low at 0.288. Urinalysis from yesterday was completely clear, today is contaminated with blood and no other indicators for infection. Pelvic ultrasound was performed which showed a thickened endometrium at 1.1 cm. The myometrium was heterogeneous, with areas of increased and decreased echogenicity which raises the possibility of adenomyosis , possibility also included fibroids. The left ovarian cyst was again documented, noted to be 2 cm and complex/hemorrhagic nature. All laboratory and diagnostic imaging studies were reviewed with the patient. She was medicated with Zofran 4 mg IV 1 and morphine 4 mg IV 2. When she was reassessed when she returned from ultrasound, she reported increased pain and did receive the second dose of morphine, also reported that she felt hungry and wanted to go home. Laboratory and diagnostic imaging studies were reviewed with gynecology on-call , Dr. Christopher. 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 The patient does also have the hemorrhagic left ovarian cyst which is also causing her discomfort. She is unable to take NSAIDs due to an allergy unfortunately. The patient has Lodi that she will continue for pain for her cyst. She was also placed on any Aygestin taper which she has done in the past. Bleeding precautions were outlined. She was advised to follow closely with [facility] for further care and management. The patient was discharged home in stable condition. She rated her discomfort a 2/10 at discharge. Differential diagnoses entertained included ectopic , ovarian cyst, ovarian torsion, dysfunctional uterine bleeding, mass or malignancy, uterine fibroids, , spontaneous ,, coagulopathy, among others. Medication reconciliation: I attest that I have personally reviewed the patient' s current medication list. Blood pressure screening : Patient was found to have normal blood pressure on screening and does not require follow-up. PELVIC ULTRASOUND CLINICAL HISTORY: HEAVY VAGINAL BLEEDING, L OVARIAN CYST COMPARISON STUDY: CT of the abdomen and pelvis November 14, 2017 and pelvic ultrasound October 02, 2015. TECHNIQUE: Transabdominal and transvaginal sonography of the pelvis was performed. FINDINGS: The uterus measures 7.7 x 4 x 5.1 cm. Endometrium measures 1.1 cm in thickness. The myometrium is heterogeneous with multiple hypoechoic and echogenic regions which measure up to 3.9 cm. These have no well-defined borders. A 1.2 cm hypoechoic focus within the fundus may reflect a fibroid. The right ovary is normal, measuring 2.4 x 1.7 x 1.6 cm. The left ovary measures 2.5 x 2.4 x 3.1 cm. There is color flow within each ovary. There is a 2 cm complex left ovarian cyst with peripheral hypoechoic material suggestive of a hemorrhagic cyst. This corresponds to the finding on CT of November 14, 2017. IMPRESSION: 1. Endometrial thickness of 1.1 cm. Heterogeneous myometrium, most pronounced within the posterior wall with areas of increased and decreased echogenicity which raises the possibility of adenomyosis. Fibroids could appear similar although adenomyosis is favored. 2. 2 cm hemorrhagic left ovarian cyst. 3. No sonographic evidence of ovarian torsion. Problem List Medical Problems: (1) Abdominal pain Status: Resolved (2) Acute anxiety Status: Resolved (3) Acute anxiety Status: Resolved (4) Acute gastroenteritis Status: Resolved (5) Acute head injury Status: Resolved (6) Anemia Status: Resolved (7) Angioedema Status: Resolved (8) Angioedema Status: Resolved (9) Anxiety Status: Chronic (10) Breast pain Status: Resolved (11) Breast pain Status: Resolved (12) Breast pain Status: Resolved (13) Breast pain Status: Resolved (14) Chronic mastitis Status: Resolved (15) Chronic mastitis Status: Resolved (16) Chronic mastitis of left breast Status: Resolved (17) Concussion Status: Resolved (18) Constipation Status: Resolved (19) Contusion of breast, right Status: Resolved (20) Contusion of knee, right Status: Resolved (21) Cramping affecting , antepartum Status: Resolved (22) Dental caries Status: Resolved (23) Depression Status: Chronic (24) Disc herniation Status: Resolved (25) Elevated creatine kinase level Status: Resolved (26) Elevated liver function tests Status: Resolved (27) Endometriosis Status: Chronic (28) Engorged breasts Status: Resolved (29) Excessive vaginal bleeding Status: Resolved (30) External hemorrhoid Status: Resolved (31) External hemorrhoid, thrombosed Status: Resolved (32) External hemorrhoid, thrombosed Status: Resolved (33) Fall Status: Resolved (34) Gestational diabetes Status: Resolved (35) 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, 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 Status: Resolved (36) Hand contusion Status: Resolved (37) Headache Status: Resolved (38) Hematemesis Status: Resolved (39) Hemorrhoid Status: Resolved (40) History of mastitis Status: Resolved (41) Influenza A Status: Resolved (42) Influenza A Status: Resolved (43) Laceration Status: Resolved (44) Left ovarian cyst Status: Resolved (45) Low back pain Status: Resolved (46) Low back pain Status: Resolved (47) Mastitis Status: Resolved (48) Mastitis Status: Resolved (49) Mastitis Status: Resolved (50) Mastitis Status: Resolved (51) Mastitis Status: Resolved (52) Migraines Status: Chronic (53) Nausea and vomiting in Status: Resolved (54) Neck pain Status: Resolved (55) Nipple infection Status: Resolved (56) Otitis media Status: Resolved (57) Ovarian cyst Status: Resolved (58) Pain of both breasts Status: Resolved (59) Pain, dental Status: Resolved (60) Pelvic pain Status: Resolved (61) Pelvic pain Status: Resolved (62) Pelvic pain in female Status: Resolved (63) Pelvic pain in female Status: Resolved (64) Status: Resolved (65) Status: Resolved (66) with 22 completed weeks gestation Status: Resolved (67) with 27 completed weeks gestation Status: Resolved (68) Pulmonary congestion Status: Resolved (69) Pulmonary congestion Status: Resolved (70) Purulent discharge from nipple Status: Resolved (71) Purulent mastitis Status: Resolved (72) Radicular pain of right lower extremity Status: Resolved (73) Right lower quadrant abdominal pain Status: Resolved (74) Right lower quadrant abdominal pain Status: Resolved (75) Right ovarian cyst Status: Resolved (76) Right ovarian cyst Status: Resolved (77) RLQ abdominal pain Status: Resolved (78) RLQ abdominal pain Status: Resolved (79) Seizure Status: Resolved (80) Shortness of breath Status: Resolved (81) Shortness of breath Status: Resolved (82) Swelling Status: Resolved (83) Swelling Status: Resolved (84) Syncope Status: Resolved (85) Third trimester Status: Resolved (86) Thrombosed external hemorrhoids Status: Resolved Surgical Problems: (1) History of laparoscopy Status: Resolved (2) History of tubal ligation Status: Resolved Current/Historical Medications Scheduled Buspirone HCl (Buspirone HCl), 10 MG PO BID Citalopram Hydrobromide (Citalopram Hydrobromide), 10 MG PO QPM Methylprednisolone (Medrol Dosepak), 0 PO DAILY Norethindrone (Aygestin), 5 MG PO DIRECTED Scheduled PRN Gvmwendcyl-[id number] (Esgic), 1 TAB PO QID PRN for Severe Headache Diphenhydramine Hcl (Benadryl), 50 MG PO Q4H PRN for Allergic Reaction Hydrocodone/Acetaminophen 5MG/325MG ([place]odi 5MG/325MG), 1-2 TABLET PO Q6 PRN for Pain Prednisone (Prednisone Tab), 40 MG PO UD PRN for IDIOPATHIC ANGIOEDEMA Allergies Coded Allergies: NSAIDs (Verified Allergy, Severe, IDIOPATHIC ANGIOEDEMA, 11/14/17) Ceftriaxone (Verified Allergy, Intermediate, hives, 11/14/17) Penicillins (Verified Allergy, Intermediate, HIVES, 11/14/17) CANNOT TAKE ANY CROSS DRUGS EITHER OF PENICILLIN Tramadol (Verified Adverse Reaction, Intermediate, headache, 11/14/17) Vancomycin (Verified Adverse Reaction, Intermediate, CHANTAL SYNDROME, 11/14) Nickel (Verified Adverse Reaction, Mild, SKIN IRRITATION, 11/14/17) Vital Signs Date Time Temp Pulse Resp B/P (MAP) Pulse Ox O2 Delivery O2 Flow Rate FiO2 11/15/17 18:28 76 18 98 11/15/17 17:27 62 20 122/83 98 Room Air 11/15/17 15:50 71 16 131/79 98 Room Air 68 145/80 74 108/84 11/15/17 14:38 37.1 82 18 125/62 97 Room Air Laboratory Results 11/15/17 14:50 Red Blood Count 4.31, Mean Corpuscular Volume 93.3, Mean Corpuscular Hemoglobin 30.9, Mean Corpuscular Hemoglobin Concent 33.1, Mean Platelet Volume 10.9, Neutrophils (%) (Auto) 82.5, Lymphocytes (%) (Auto) 11.9, Monocytes (%) (Auto) 5.0, Eosinophils (%) (Auto) 0.1, Basophils (%) (Auto) 0.1, Neutrophils # (Auto) 13.41, Lymphocytes # (Auto) 1.93, Monocytes # (Auto) 0.82, Eosinophils # (Auto) 0.02, Basophils # (Auto) 0.01 11/15/17 14:50 Test 11/15/17 14:50 11/15/17 17:30 White Blood Count 16.25 K/uL (4.8-10.8) Red Blood Count 4.31 M/uL (4.2-5.4) Hemoglobin 13.3 g/dL (12.0-16.0) Hematocrit 40.2 % (37-47) Mean Corpuscular Volume 93.3 fL (80-100) Mean Corpuscular Hemoglobin 30.9 pg (25-34) Mean Corpuscular Hemoglobin Concent 33.1 g/dl (32-36) Platelet Count 375 K/uL (130-400) Mean Platelet Volume 10.9 fL (7.4-10.4) Neutrophils (%) (Auto) 82.5 % Lymphocytes (%) (Auto) 11.9 % Monocytes (%) (Auto) 5.0 % Eosinophils (%) (Auto) 0.1 % Basophils (%) (Auto) 0.1 % Neutrophils # (Auto) 13.41 K/uL (1.4-6.5) Lymphocytes # (Auto) 1.93 K/uL (1.2-3.4) Monocytes # (Auto) 0.82 K/uL (0.11-0.59) Eosinophils # (Auto) 0.02 K/uL (0-0.5) Basophils # (Auto) 0.01 K/uL (0-0.2) RDW Standard Deviation 47.1 fL (36.4-46.3) RDW Coefficient of Variation 13.7 % (11.5-14.5) Immature Granulocyte % (Auto) 0.4 % Immature Granulocyte # (Auto) 0.06 K/uL (0.00-0.02) Prothrombin Time 10.3 SECONDS (9.0-12.0) Prothromb Time International Ratio 1.0 (0.9-1.1) Activated Partial Thromboplast Time 24.7 SECONDS (21.0-31.0) Partial Thromboplastin Ratio 1.0 Anion Gap 7.0 mmol/L (3-11) Est Creatinine Clear Calc Drug Dose 97.0 ml/min Estimated GFR () 102.2 Estimated GFR (Non- 88.2 BUN/Creatinine Ratio 12.7 (10-20) Calcium Level 8.6 mg/dl (8.5-10.1) Total Bilirubin 0.2 mg/dl (0.2-1) Aspartate Amino Transf (AST/SGOT) 8 U/L (15-37) Alanine Aminotransferase (ALT/SGPT) 17 U/L (12-78) Alkaline Phosphatase 99 U/L (45-117) Total Protein 7.2 gm/dl (6.4-8.2) Albumin 3.7 gm/dl (3.4-5.0) Globulin 3.5 gm/dl (2.5-4.0) Albumin/Globulin Ratio 1.1 (0.9-2) Thyroid Stimulating Hormone (TSH) 0.288 uIu/ml (0.300-4.500) Human Chorionic Gonadotropin, Qual NEG (NEG) Urine Color ORANGE Urine Appearance CLEAR (CLEAR) Urine pH 6.0 (4.5-7.5) Urine Specific [place] 1.014 (1.000-1.030) Urine Protein NEG (NEG) Urine Glucose (UA) NEG (NEG) Urine Ketones NEG (NEG) Urine Occult Blood 3+ (NEG) Urine Nitrite NEG (NEG) Urine Bilirubin NEG (NEG) Urine Urobilinogen NEG (NEG) Urine Leukocyte Esterase TRACE (NEG) Urine WBC (Auto) 1-5 /hpf (0-5) Urine RBC (Auto) >30 /hpf (0-4) Urine Hyaline Casts (Auto) 0 /lpf (0-5) Urine Epithelial Cells (Auto) 10-20 /lpf (0-5) Urine Bacteria (Auto) NEG (NEG) Medications Administered Medications (Trade) Dose Ordered Sig/Maxine Route Start Time Stop Time Status Last Admin Dose Admin Sodium Chloride 1,000 ml @ 999 mls/hr Q1H1M STAT IV 11/15/17 15:10 11/15/17 16:10 DC 11/15/17 15:53 999 MLS/HR Morphine Sulfate (MoRPHine SULFATE INJ) 4 mg NOW STAT IV 11/15/17 15:10 11/15/17 15:28 DC 11/15/17 15:53 4 MG Ondansetron HCl (Zofran Inj) 4 mg NOW STAT IV 11/15/17 15:10 11/15/17 15:28 DC 11/15/17 15:53 4 MG Morphine Sulfate (MoRPHine SULFATE INJ) 4 mg NOW STAT IV 11/15/17 17:44 11/15/17 17:45 DC 11/15/17 17:50 4 MG Departure Information Impression Primary Impression: Abnormal vaginal bleeding Additional Impression: Hemorrhagic cyst of left ovary Prescriptions Norethindrone (Aygestin) 5 Mg Tab 5 MG PO DIRECTED, #45 TAB 1 TABLET QID X 3 DAYS, 1 TABLET TID X 4 DAYS, 1 TABLET BID X 7 DAYS, 1 TABLET DAILY UNTIL GONE. Prov: Marysol Clark PA 11/15/17 Referrals Kita Best DO (PCP) Patient Instructions [facility] Additional Instructions DO NOT drive, drink alcohol, operate machinery, or perform dangerous activities today. You were given medications in the ER that can affect your ability to safely function or operate a vehicle. Continue Lodi for pain. Aygestin taper as prescribed. This medication should stop bleeding in 2-3 days , bleeding will recur when taper is stopped, however should be controlled. Acetaminophen(Tylenol) may be used for fever or pain. Use 1000mg every six hours as needed. Avoid using more than 3000mg in a 24 hour period. Rest and avoid any heavy lifting or strenuous activity. Heating pad to the abdomen for discomfort. Strict vaginal rest-no tampons, douching or intercourse. Drink plenty of fluids. Diet as tolerated. Follow up with [facility] by phone tomorrow to schedule an appointment. Return to the ED for worsening pain, heavier bleeding (soaking a pad in an hour or less, passing clots larger than your fist), lightheadedness, dizziness, passing out, worsening of your condition or as needed. Problem Qualifiers
[2017-11-15 18:28] VITALS: PULSE 76; O2SAT 98
== END 2017-11-15 18:28 | disposition home or self-care (01) ==
LOC: C.EDB 14:29 → C.EDC 18:28
DX: N83.202 Unspecified ovarian cyst, left side (principal); Z98.51 Tubal ligation status; F17.210 Nicotine dependence, cigarettes, uncomplicated; F41.9 Anxiety disorder, unspecified; Z79.899 Other long term (current) drug therapy

== ENCOUNTER 2017-11-24 00:03 | Emergency (ER) | payer OTHER ==
[~2017-11-24] VITALS: Ht 167.6 cm; Wt 81.0 kg
[~2017-11-24 00:03] MED LIST changes: -HYDR-5688 PO; -METH4PAK PO; +MULT-506 PO; +PSEU60TA80 PO
[2017-11-24 00:09] VITALS: TEMP 36.8; Ht 167.6 cm; Wt 81.0 kg
[2017-11-24] MEDS ORDERED: Norethindrone PO (00:39)
[2017-11-24] MEDS ORDERED: CAFFEINE PO (00:39)
[2017-11-24] MEDS ORDERED: BUTALBITAL PO (00:39)
[2017-11-24] MEDS ORDERED: ACETAMINOPHEN PO (00:39)
[2017-11-24 01:14] VITALS: O2SAT 97
[2017-11-24] MEDS ORDERED: SODIUM CHLORIDE 0.9% 1000ML 1,000 ML IV ONE (01:15)
[2017-11-24] MEDS ORDERED: LIDOCAINE/EPINEPH/TETRACAINE 1 EA SYR EXT STA (01:18)
[2017-11-24 01:29] LABS: BASO % 0.4 %; BASO ABS # 0.04 K/uL (0-0.2); EOS ABS # 0.31 K/uL (0-0.5); HEMATOCRIT 39.8 % (37-47); HEMOGLOBIN 13.2 g/dL (12.0-16.0); IG# 0.03 K/uL (0.00-0.02); LYMPH % 41.6 %; LYMPH ABS # 4.26 K/uL (1.2-3.4); MEAN CELL VOLUME 94.3 fL (80-100); MEAN CORPUSCULAR HEMOGLOBIN 31.3 pg (25-34); MEAN CORPUSCULAR HGB CONC 33.2 g/dl (32-36); MEAN PLATELET VOLUME 10.1 fL (7.4-10.4); MONO % 5.2 %; MONO ABS # 0.53 K/uL (0.11-0.59); NEUT % 49.5 %; NEUT ABS # 5.08 K/uL (1.4-6.5); PLATELET COUNT 347 K/uL (130-400); RED CELL DISTRIBUTION WIDTH CV 14.8 % (11.5-14.5); RED CELL DISTRIBUTION WIDTH SD 50.6 fL (36.4-46.3); WHITE BLOOD COUNT 10.25 K/uL (4.8-10.8)
[2017-11-24] MEDS ORDERED: ACETAMINOPHEN IV 1,000 MG in EMPTY BAG 0 ML IV ONE (01:30)
[2017-11-24] MEDS ORDERED: ACETAMINOPHEN 1000 MG/100 ML IV IV ONE (01:31)
[2017-11-24 01:42] LABS: PTT PATIENT 24.3 SECONDS (21.0-31.0)
[2017-11-24 01:56] LABS: ALBUMIN 3.7 gm/dl (3.4-5.0); CALCIUM 8.8 mg/dl (8.5-10.1); CREATININE 0.8 mg/dl (0.60-1.20); POTASSIUM 3.9 mmol/L (3.5-5.1)
[2017-11-24 02:07] LABS: TOTAL PROTEIN 7.5 gm/dl (6.4-8.2)
[2017-11-24 04:00] VITALS: BP 124/75; PULSE 80; O2SAT 98
[2017-11-24] MEDS ORDERED: HYDR-5688 PO (20:52)
--- NOTE | 2017-11-24 22:18 | EMERGENCY ROOM VISIT NOTE ---
History First contact with patient: 01:02 Chief Complaint: VAGINAL BLEEDING Stated Complaint: VAGINAL BLEED History of Present Illness The patient is a 37 year old female who presents to the Emergency Room with multiple complaints. The patient states that she has vaginal hemorrhage, and has been bleeding nonstop for the past several days. She is also claiming to have uterine cancer and a chocolate cyst on her left ovary. She has been seen in this department a few days ago for vaginal bleeding. Ultrasound showed a mildly thickened endometrium with what appears to be a hemorrhagic left ovarian cyst. She was started on Aygestin, and reportedly has been taking the medication as prescribed. She subsequently followed with CHEF MANAGER and is scheduled for endometrial biopsy, D&C, and ablation in roughly 10 days. The patient was evidently in the bathroom tonight, and passed a large amount of vaginal blood onto the bathroom floor. She took pictures of the blood on the floor, cleaned the blood off the tile, and was using a kitchen knife to clean blood out of the grout. She states that she became lightheaded while doing this , fell backwards, and accidentally cut herself with the knife to her left upper arm. She believes she is up-to-date on her tetanus. The patient states increased stressors in her home life, where her is an alcoholic, and she is in the process of from him. This is challenging because they have children together. The patient is complaining of generalized abdominal pain that she rates a 10/10. She has Vicodin at home that she is taking. This is not evidently improving her symptoms. Review of Systems More than 10 systems were reviewed and otherwise negative with the exception of history of present illness. Past Medical/Surgical History Medical Problems: (1) Abdominal pain (2) Acute anxiety (3) Acute anxiety (4) Acute gastroenteritis (5) Acute head injury (6) Anemia (7) Angioedema (8) Angioedema (9) Anxiety (10) Breast pain (11) Breast pain (12) Breast pain (13) Breast pain (14) Chronic mastitis (15) Chronic mastitis (16) Chronic mastitis of left breast (17) Concussion (18) Constipation (19) Contusion of breast, right (20) Contusion of knee, right (21) Cramping affecting , antepartum (22) Dental caries (23) Depression (24) Disc herniation (25) Elevated creatine kinase level (26) Elevated liver function tests (27) Endometriosis (28) Engorged breasts (29) Excessive vaginal bleeding (30) External hemorrhoid (31) External hemorrhoid, thrombosed (32) External hemorrhoid, thrombosed (33) Fall (34) Gestational diabetes (35) 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, 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 (36) Hand contusion (37) Headache (38) Hematemesis (39) Hemorrhoid (40) History of mastitis (41) Influenza A (42) Influenza A (43) Laceration (44) Left ovarian cyst (45) Low back pain (46) Low back pain (47) Mastitis (48) Mastitis (49) Mastitis (50) Mastitis (51) Mastitis (52) Migraines (53) Nausea and vomiting in (54) Neck pain (55) Nipple infection (56) Otitis media (57) Ovarian cyst (58) Pain of both breasts (59) Pain, dental (60) Pelvic pain (61) Pelvic pain (62) Pelvic pain in female (63) Pelvic pain in female (64) (65) (66) with 22 completed weeks gestation (67) with 27 completed weeks gestation (68) Pulmonary congestion (69) Pulmonary congestion (70) Purulent discharge from nipple (71) Purulent mastitis (72) Radicular pain of right lower extremity (73) Right lower quadrant abdominal pain (74) Right lower quadrant abdominal pain (75) Right ovarian cyst (76) Right ovarian cyst (77) RLQ abdominal pain (78) RLQ abdominal pain (79) Seizure (80) Shortness of breath (81) Shortness of breath (82) Swelling (83) Swelling (84) Syncope (85) Third trimester (86) Thrombosed external hemorrhoids Surgical Problems: (1) History of laparoscopy (2) History of tubal ligation Family History Cancer Diabetes mellitus Gallbladder disease Heart disease Hypertension Kidney disease Kidney stones Social History Smoking Status: Current Every Day Smoker Alcohol Use: occasionally Marital Status: in relationship Housing Status: lives with family Occupation Status: employed Current/Historical Medications Scheduled Buspirone HCl (Buspirone HCl), 10 MG PO BID Citalopram Hydrobromide (Citalopram Hydrobromide), 10 MG PO QPM Multivitamin (Multivitamin), 1 TAB PO DAILY [Norethindrone], 1 TAB PO DAILY Scheduled PRN Diphenhydramine Hcl (Benadryl), 50 MG PO Q4H PRN for Allergic Reaction Hydrocodone/Acetaminophen 5MG/325MG (Landrum 5MG/325MG), 1-2 TABLET PO Q4H PRN for Pain Prednisone (Prednisone Tab), 40 MG PO UD PRN for IDIOPATHIC ANGIOEDEMA [[id number]], 1 TAB PO QID PRN for severe migraine Physical Exam Vital Signs Date Time Temp Pulse Resp B/P (MAP) Pulse Ox O2 Delivery O2 Flow Rate FiO2 11/24/17 04:00 80 16 124/75 98 11/24/17 03:22 90 20 117/64 96 Room Air 11/24/17 01:27 78 16 108/70 97 Room Air 11/24/17 01:14 97 Room Air 11/24/17 00:41 93 11/24/17 00:09 36.8 88 20 111/80 97 Room Air Physical Exam VITALS: Vitals are noted on the nurse's note and reviewed by myself. Vital signs stable. GENERAL: Anxious-appearing female who is speaking rapidly and tangentially. She does not appear in any distress. HEART: Regular rate and rhythm without murmurs gallops or rubs. LUNGS: Clear to auscultation bilaterally without wheezes, rales or rhonchi. No retractions or accessory muscle use. ABDOMEN: Positive normal bowel sounds x 4. Soft, nontender, without masses or organomegaly. No guarding or rebound tenderness. MUSCULOSKELETAL: There are 2 superficial horizontal lacerations appreciated over the left upper arm. These run parallel to each other and appear consistent with superficial cutting. Each of these is roughly 3.5 cm in length and will not require formal repair. There is an additional puncture type wound just inferior to this with a 1.0 cm opening. This does gape and will require evaluation and repair. The patient has full sensation and range of motion of the left upper extremity otherwise. No other injuries noted. Medical Decision & Procedures Laboratory Results 11/24/17 01:05 Red Blood Count 4.22, Mean Corpuscular Volume 94.3, Mean Corpuscular Hemoglobin 31.3, Mean Corpuscular Hemoglobin Concent 33.2, Mean Platelet Volume 10.1, Neutrophils (%) (Auto) 49.5, Lymphocytes (%) (Auto) 41.6, Monocytes (%) (Auto) 5.2, Eosinophils (%) (Auto) 3.0, Basophils (%) (Auto) 0.4, Neutrophils # (Auto) 5.08, Lymphocytes # (Auto) 4.26, Monocytes # (Auto) 0.53, Eosinophils # (Auto) 0.31, Basophils # (Auto) 0.04 11/24/17 01:05 Test 11/24/17 01:05 11/24/17 02:15 White Blood Count 10.25 K/uL (4.8-10.8) Red Blood Count 4.22 M/uL (4.2-5.4) Hemoglobin 13.2 g/dL (12.0-16.0) Hematocrit 39.8 % (37-47) Mean Corpuscular Volume 94.3 fL (80-100) Mean Corpuscular Hemoglobin 31.3 pg (25-34) Mean Corpuscular Hemoglobin Concent 33.2 g/dl (32-36) Platelet Count 347 K/uL (130-400) Mean Platelet Volume 10.1 fL (7.4-10.4) Neutrophils (%) (Auto) 49.5 % Lymphocytes (%) (Auto) 41.6 % Monocytes (%) (Auto) 5.2 % Eosinophils (%) (Auto) 3.0 % Basophils (%) (Auto) 0.4 % Neutrophils # (Auto) 5.08 K/uL (1.4-6.5) Lymphocytes # (Auto) 4.26 K/uL (1.2-3.4) Monocytes # (Auto) 0.53 K/uL (0.11-0.59) Eosinophils # (Auto) 0.31 K/uL (0-0.5) Basophils # (Auto) 0.04 K/uL (0-0.2) RDW Standard Deviation 50.6 fL (36.4-46.3) RDW Coefficient of Variation 14.8 % (11.5-14.5) Immature Granulocyte % (Auto) 0.3 % Immature Granulocyte # (Auto) 0.03 K/uL (0.00-0.02) Prothrombin Time 10.0 SECONDS (9.0-12.0) Prothromb Time International Ratio 1.0 (0.9-1.1) Activated Partial Thromboplast Time 24.3 SECONDS (21.0-31.0) Partial Thromboplastin Ratio 0.9 Anion Gap 10.0 mmol/L (3-11) Est Creatinine Clear Calc Drug Dose 102.3 ml/min Estimated GFR () 108.4 Estimated GFR (Non- 93.5 BUN/Creatinine Ratio 14.3 (10-20) Calcium Level 8.8 mg/dl (8.5-10.1) Total Bilirubin 0.2 mg/dl (0.2-1) Aspartate Amino Transf (AST/SGOT) 14 U/L (15-37) Alanine Aminotransferase (ALT/SGPT) 18 U/L (12-78) Alkaline Phosphatase 79 U/L (45-117) Total Protein 7.5 gm/dl (6.4-8.2) Albumin 3.7 gm/dl (3.4-5.0) Globulin 3.8 gm/dl (2.5-4.0) Albumin/Globulin Ratio 1.0 (0.9-2) Thyroid Stimulating Hormone (TSH) 0.854 uIu/ml (0.300-4.500) Salicylates Level 2.8 mg/dl (2.8-20) Acetaminophen Level < 2 ug/ml (10-30) Urine Color YELLOW Urine Appearance CLEAR (CLEAR) Urine pH 6.0 (4.5-7.5) Urine Specific Leburn 1.034 (1.000-1.030) Urine Protein NEG (NEG) Urine Glucose (UA) NEG (NEG) Urine Ketones 1+ (NEG) Urine Occult Blood 3+ (NEG) Urine Nitrite NEG (NEG) Urine Bilirubin NEG (NEG) Urine Urobilinogen NEG (NEG) Urine Leukocyte Esterase NEG (NEG) Urine WBC (Auto) 5-10 /hpf (0-5) Urine RBC (Auto) >30 /hpf (0-4) Urine Hyaline Casts (Auto) 1-5 /lpf (0-5) Urine Epithelial Cells (Auto) >30 /lpf (0-5) Urine Bacteria (Auto) NEG (NEG) Urine Crystals CALCIUM OXALATE (NONE Urine Test NEG (NEG) Urine Opiates Screen NEG (NEG) Urine Methadone, Qualitative NEG (NEG) Urine Barbiturates POS (NEG) Urine Phencyclidine (PCP) Level NEG (NEG) Ur Amphetamine/Methamphetamine NEG (NEG) MDMA (Ecstasy) Screen NEG (NEG) Urine Benzodiazepines Screen POS (NEG) Urine Cocaine Metabolite NEG (NEG) Urine Marijuana (THC) NEG (NEG) Medications Administered Medications (Trade) Dose Ordered Sig/Maxine Route Start Time Stop Time Status Last Admin Dose Admin Sodium Chloride 1,000 ml @ 999 mls/hr Q1H1M ONCE IV 11/24/17 01:15 11/24/17 02:15 DC 11/24/17 01:15 999 MLS/HR Tetracaine/ Epinephrine/ Lidocaine (L.e.t. Gel 4%/ 1:100/0.5%) 1 ea NOW STAT EXT 11/24/17 01:18 11/24/17 01:20 DC 11/24/17 01:34 1 EA Acetaminophen 1000 mg/Empty Bag 100 ml @ 400 mls/hr NOW ONCE IV 11/24/17 01:30 11/24/17 01:44 DC 11/24/17 01:35 400 MLS/HR Procedure Laceration repair. Patient elects to have their laceration repaired. Verbal consent was obtained to perform the procedure. There is an abundance of materials available for the procedure. Patient is not allergic to latex. Using sterile technique the wound was cleaned with Betadine. The area was sterilely draped. LET Gel was used to anesthetize the left upper arm laceration /puncture wound. Once the patient was anesthetized, the wound was copiously irrigated under pressure with sterile saline. The wound was explored and there were no deep structures injured such as tendons, bone, or significant blood vessels. The laceration was repaired using 2 martha with the wound edges being well approximated. Hemostasis was achieved. The area was cleaned with sterile saline and dressed with bacitracin ointment and bandage. Patient tolerated the procedure well without complications. Blood loss was negligible. ED Course Physical exam and history were performed. Nursing notes, EMR, and Medication List were personally reviewed. Patient appears to have multiple complaints bring her to the emergency department this evening. She appears very histrionic on examination. She may be having a manic episode. It was difficult to redirect the patient back to her primary complaint, which is evidently vaginal bleeding. She did take pictures of her vaginal bleeding tonight, as evidently the blood fell onto the bathroom floor. Based on the pictures there was 2-3 ounces of bright red blood on the floor, which the patient is describing as a "hemorrhage". She is also relaying a suspicious story of "fall" causing injury and laceration to her left upper arm. Clinically it appears that she has been intentionally cutting her left arm, causing her injuries. I did confront the patient about this, and she denies intentional injury. I offered her mental health evaluation, and she declined, stating that she had an emergency meeting with her counselor yesterday, and an acute care appointment with PCP today. She evidently was started on Xanax today because of her symptoms. The patient continues to believe that she has cancer despite no obvious diagnosis of this in the past few days. I discussed options of care with the patient, and elected to check labs. She has had ultrasound and CT scans performed here within the past week, and based on her exam these were deferred. She was given hydration here in the department. Her wound was repaired as above. The patient's labs do not show a significantly elevated white blood cell count or gross anemia. She is not . Drug of abuse screen was positive for benzodiazepines. Tylenol and salicylates are negative. On reexamination she does not have reproducible tenderness throughout the abdomen. She did not have any vaginal bleeding here despite staying under our care for greater than 4 hours. She continues to be histrionic, and psychiatric evaluation was again recommended. Patient continues to decline this, and does not appear to meet any criteria for involuntary care as she is not suicidal or homicidal. As best I am able to determine, the patient does have an upcoming appointment with CHEF MANAGER for surgery. She is adamant that her laceration was accidental, and that she is scared because of her cancer. I attempted to clarify her current medical conditions, however the patient was not amenable to this. At this time I am not sure what additional services we can offer her through the ER. She has had multiple visits this week with CAT scan and ultrasounds that show a left ovarian cyst. Her blood work is essentially stable. She has followed CHEF MANAGER this week, and evidently has an upcoming surgical procedure. She does not appear to have an acute life-threatening process occurring. She clearly has some level of mental health process occurring however, and does have resources available as an outpatient. She does not wish for additional intervention and does not appear to be distinct danger to herself. The patient will be discharged home with conservative care instructions. She is to continue the Aygestin for her bleeding. Wound care instructions were discussed. She was otherwise invited back to the ER with any new, worsening, or concerning symptoms. The chart was completed utilizing [employer] Speech Voice Recognition Software. Grammatical errors, random word insertions, pronoun errors, and incomplete sentences are an occasional consequence of this system due to software limitations, ambient noise, and hardware issues. Any formal questions or concerns about the content, text, or information contained within the body of this dictation should be directly addressed to the provider for clarification. . Medical Decision Differential diagnosis: Etiologies such as acute nuno, paranoia, Munchausen's, ectopic , dysfunction uterine bleeding, bleeding dyscrasia, trauma, infection, as well as others were entertained. Impression Primary Impression: Abnormal vaginal bleeding Additional Impression: Laceration of left upper arm Departure Information Dispostion Home / Self-Care Condition GOOD Forms HOME CARE DOCUMENTATION FORM, IMPORTANT VISIT INFORMATION Patient Instructions My [facility] Additional Instructions You were seen and evaluated today on an emergency basis only. This is not a substitute for, or an effort to provide, complete comprehensive medical care. It is not possible to recognize and treat all injuries or illnesses in a single emergency department visit. For this reason it is recommended that you followup with your primary care physician and CHEF MANAGER for ongoing care and evaluation. Take Tylenol 1000 mg every 6-8 hours for pain control Continue Aygestin as previously prescribed Keep wound clean and dry. Do not allow any crusting or dried blood to accumulate on martha. If this occurs, use a mild soap/water on a Q-tip to clean the wound. Do not use Peroxide to clean the wound as this can delay healing Use an antibiotic ointment like Bacitracin for 3-4 days, then let wound dry. You may bathe and shower as normal, but DO NOT SOAK the wound. Erie removal in about 10 days with your Family Doctor or in the ER. Return sooner for any signs of infection, increasing redness, swelling, or drainage. You are welcome to return to the emergency department anytime with new, worsening, or concerning symptoms. Problem Qualifiers
== END 2017-11-24 04:05 | disposition home or self-care (01) ==
LOC: EDBD 00:03 → C.EDA 00:05
DX: N93.9 Abnormal uterine and vaginal bleeding, unspecified (principal); S41.112A Laceration without foreign body of left upper arm, initial encounter; W26.0XXA Contact with knife, initial encounter; R10.9 Unspecified abdominal pain; F41.9 Anxiety disorder, unspecified; F32.9 Major depressive disorder, single episode, unspecified; Z98.51 Tubal ligation status; Z80.9 Family history of malignant neoplasm, unspecified; Z83.3 Family history of diabetes mellitus; Z82.49 Family history of ischemic heart disease and other diseases of the circulatory system; Z84.1 Family history of disorders of kidney and ureter; F17.210 Nicotine dependence, cigarettes, uncomplicated; Z79.899 Other long term (current) drug therapy

== ENCOUNTER 2017-11-24 16:25 | Emergency (ER) | payer OTHER ==
[~2017-11-24] VITALS: Ht 167.6 cm; Wt 81.1 kg
[~2017-11-24 16:25] MED LIST changes: +ACETAMINOPHEN PO; +BUTALBITAL PO; +CAFFEINE PO; +Norethindrone PO
[2017-11-24 16:34] VITALS: TEMP 36.6; Ht 167.6 cm; Wt 81.1 kg
[2017-11-24] MEDS ORDERED: METOCLOPRAMIDE HCL INJ 5 MG/ML 2 ML VIAL IV. STA (17:24)
[2017-11-24] MEDS: MoRPHine SULFATE 4 MG/ML 1 ML CARP\\VIAL IV PRN ×3 (17:39→20:45)
--- NOTE | 2017-11-24 17:40 | EMERGENCY ROOM VISIT NOTE ---
History First contact with patient: 16:48 Chief Complaint: VAGINAL BLEEDING Stated Complaint: DISTENDED ABD,PAIN,BLEEDING Nursing Triage Summary: Patient was evaluated in the ED earlier today Patient states she was sent to ED by ASSOCIATE DIRECTOR QA for abdominal bloating, heavy vaginal bleeding, and abdominal pain, nausea History of Present Illness The patient is a 37 year old female who presents to the Emergency Room with complaints of abdominal bloating and lower abdominal pain for the last 2 days. The patient was seen in the emergency department early in the morning. Labs were drawn. She was not told of any abnormalities. The patient also reports heavy vaginal bleeding approximately one pad per hour. She has a history of heavy bleeding. She has seen her NETWORK CONTROL OPERATOR for this. She is scheduled for an endometrial biopsy in the next few weeks. She denies any lightheadedness or dizziness. She did have one episode of vomiting yesterday. Her bowel movements have been regular. The last one was this morning. No fever or chills. Of note, the patient was in the emergency department last week for lower pelvic pain. She was diagnosed with a left-sided ovarian cyst. Review of Systems 10 system review performed and negative unless noted in HPI or below Past Medical/Surgical History Medical Problems: (1) Abdominal pain (2) Acute anxiety (3) Acute anxiety (4) Acute gastroenteritis (5) Acute head injury (6) Anemia (7) Angioedema (8) Angioedema (9) Anxiety (10) Breast pain (11) Breast pain (12) Breast pain (13) Breast pain (14) Chronic mastitis (15) Chronic mastitis (16) Chronic mastitis of left breast (17) Concussion (18) Constipation (19) Contusion of breast, right (20) Contusion of knee, right (21) Cramping affecting , antepartum (22) Dental caries (23) Depression (24) Disc herniation (25) Elevated creatine kinase level (26) Elevated liver function tests (27) Endometriosis (28) Engorged breasts (29) Excessive vaginal bleeding (30) External hemorrhoid (31) External hemorrhoid, thrombosed (32) External hemorrhoid, thrombosed (33) Fall (34) Gestational diabetes (35) 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, 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 (36) Hand contusion (37) Headache (38) Hematemesis (39) Hemorrhoid (40) History of mastitis (41) Influenza A (42) Influenza A (43) Laceration (44) Left ovarian cyst (45) Low back pain (46) Low back pain (47) Mastitis (48) Mastitis (49) Mastitis (50) Mastitis (51) Mastitis (52) Migraines (53) Nausea and vomiting in (54) Neck pain (55) Nipple infection (56) Otitis media (57) Ovarian cyst (58) Pain of both breasts (59) Pain, dental (60) Pelvic pain (61) Pelvic pain (62) Pelvic pain in female (63) Pelvic pain in female (64) (65) (66) with 22 completed weeks gestation (67) with 27 completed weeks gestation (68) Pulmonary congestion (69) Pulmonary congestion (70) Purulent discharge from nipple (71) Purulent mastitis (72) Radicular pain of right lower extremity (73) Right lower quadrant abdominal pain (74) Right lower quadrant abdominal pain (75) Right ovarian cyst (76) Right ovarian cyst (77) RLQ abdominal pain (78) RLQ abdominal pain (79) Seizure (80) Shortness of breath (81) Shortness of breath (82) Swelling (83) Swelling (84) Syncope (85) Third trimester (86) Thrombosed external hemorrhoids Surgical Problems: (1) History of laparoscopy (2) History of tubal ligation Family History Cancer Diabetes mellitus Gallbladder disease Heart disease Hypertension Kidney disease Kidney stones Social History Smoking Status: Current Every Day Smoker Alcohol Use: occasionally Marital Status: in relationship Housing Status: lives with family Occupation Status: employed Current/Historical Medications Scheduled Buspirone HCl (Buspirone HCl), 10 MG PO BID Citalopram Hydrobromide (Citalopram Hydrobromide), 10 MG PO QPM Multivitamin (Multivitamin), 1 TAB PO DAILY [Norethindrone], 1 TAB PO DAILY Scheduled PRN Diphenhydramine Hcl (Benadryl), 50 MG PO Q4H PRN for Allergic Reaction Hydrocodone/Acetaminophen 5MG/325MG (Arboles 5MG/325MG), 1-2 TABLET PO Q4H PRN for Pain Prednisone (Prednisone Tab), 40 MG PO UD PRN for IDIOPATHIC ANGIOEDEMA [Dpoiqhnyld-Hxyn-Tcta], 1 TAB PO QID PRN for severe migraine Physical Exam Vital Signs Date Time Temp Pulse Resp B/P (MAP) Pulse Ox O2 Delivery O2 Flow Rate FiO2 11/24/17 21:06 80 18 113/70 98 11/24/17 18:22 74 20 107/87 95 Room Air 11/24/17 16:34 36.6 108 20 99/69 98 Room Air Physical Exam VITALS: Vitals are noted on the nurse's note and reviewed by myself. Vital signs stable. GENERAL: 37-year-old female, tearful and anxious in appearance,, SKIN: The skin was without rashes, erythema, edema, or bruising HEAD: Normocephalic atraumatic. MOUTH: Mucous membranes moderately dry. NECK: Supple without nuchal rigidity. No lymphadenopathy. Cervical spine is nontender. No JVD. HEART: Regular rate and rhythm without murmurs gallops or rubs. LUNGS: Clear to auscultation bilaterally without wheezes, rales or rhonchi. No accessory muscle use. ABDOMEN: Positive bowel sounds x 4.Soft, mildly distended, subjective tenderness in the suprapubic and left lower quadrant without organomegaly. No guarding or rebound tenderness. MUSCULOSKELETAL: No muscle atrophy, erythema, or edema noted.Strength 5/5 throughout. NEURO: Patient was alert and oriented to person place and time. Normal sensation to touch. No focal neurological deficits. Medical Decision & Procedures ER Provider Diagnostic Interpretation: Pelvic ultrasound IMPRESSION: 1. Interval resolution of left ovarian hemorrhagic cyst. No ovarian torsion. 2. Heterogeneous anterior uterine myometrium. The appearance is nonspecific but could suggest underlying adenomyosis. This be better demonstrated on MR pelvis. 3. Normal endometrium. Electronically signed by: Dejon Richardson M.D. 11/24/2017 7:48 PMPelvis ultrasound Chest and abdominal x-rays IMPRESSION: 1. No active disease in the chest. 2. Nonobstructed abdominal bowel gas pattern noting moderate constipation. Electronically signed by: Castro Murray M.D. 11/24/2017 6:32 PM Dictated Date/Time: 11/24/2017 6:30 PM Laboratory Results 11/24/17 17:31 Red Blood Count 4.12, Mean Corpuscular Volume 94.9, Mean Corpuscular Hemoglobin 31.3, Mean Corpuscular Hemoglobin Concent 33.0, Mean Platelet Volume 10.0, Neutrophils (%) (Auto) 59.5, Lymphocytes (%) (Auto) 32.6, Monocytes (%) (Auto) 4.8, Eosinophils (%) (Auto) 2.7, Basophils (%) (Auto) 0.2, Neutrophils # (Auto) 5.85, Lymphocytes # (Auto) 3.20, Monocytes # (Auto) 0.47, Eosinophils # (Auto) 0.27, Basophils # (Auto) 0.02 11/24/17 17:31 Test 11/24/17 17:31 11/24/17 19:00 White Blood Count 9.83 K/uL (4.8-10.8) Red Blood Count 4.12 M/uL (4.2-5.4) Hemoglobin 12.9 g/dL (12.0-16.0) Hematocrit 39.1 % (37-47) Mean Corpuscular Volume 94.9 fL (80-100) Mean Corpuscular Hemoglobin 31.3 pg (25-34) Mean Corpuscular Hemoglobin Concent 33.0 g/dl (32-36) Platelet Count 367 K/uL (130-400) Mean Platelet Volume 10.0 fL (7.4-10.4) Neutrophils (%) (Auto) 59.5 % Lymphocytes (%) (Auto) 32.6 % Monocytes (%) (Auto) 4.8 % Eosinophils (%) (Auto) 2.7 % Basophils (%) (Auto) 0.2 % Neutrophils # (Auto) 5.85 K/uL (1.4-6.5) Lymphocytes # (Auto) 3.20 K/uL (1.2-3.4) Monocytes # (Auto) 0.47 K/uL (0.11-0.59) Eosinophils # (Auto) 0.27 K/uL (0-0.5) Basophils # (Auto) 0.02 K/uL (0-0.2) RDW Standard Deviation 51.5 fL (36.4-46.3) RDW Coefficient of Variation 15.0 % (11.5-14.5) Immature Granulocyte % (Auto) 0.2 % Immature Granulocyte # (Auto) 0.02 K/uL (0.00-0.02) Anion Gap 6.0 mmol/L (3-11) Est Creatinine Clear Calc Drug Dose 113.7 ml/min Estimated GFR () 123.1 Estimated GFR (Non- 106.2 BUN/Creatinine Ratio 15.2 (10-20) Calcium Level 8.5 mg/dl (8.5-10.1) Total Bilirubin 0.2 mg/dl (0.2-1) Aspartate Amino Transf (AST/SGOT) 11 U/L (15-37) Alanine Aminotransferase (ALT/SGPT) 18 U/L (12-78) Alkaline Phosphatase 87 U/L (45-117) Total Protein 7.5 gm/dl (6.4-8.2) Albumin 3.6 gm/dl (3.4-5.0) Globulin 3.9 gm/dl (2.5-4.0) Albumin/Globulin Ratio 0.9 (0.9-2) Lipase 158 U/L (73-393) Human Chorionic Gonadotropin, Qual NEG (NEG) Urine Color ORANGE Urine Appearance CLOUDY (CLEAR) Urine pH 6.5 (4.5-7.5) Urine Specific [place] 1.029 (1.000-1.030) Urine Protein TRACE (NEG) Urine Glucose (UA) NEG (NEG) Urine Ketones TRACE (NEG) Urine Occult Blood 3+ (NEG) Urine Nitrite NEG (NEG) Urine Bilirubin NEG (NEG) Urine Urobilinogen NEG (NEG) Urine Leukocyte Esterase SMALL (NEG) Urine WBC (Auto) 5-10 /hpf (0-5) Urine RBC (Auto) >30 /hpf (0-4) Urine Hyaline Casts (Auto) 5-10 /lpf (0-5) Urine Epithelial Cells (Auto) >30 /lpf (0-5) Urine Bacteria (Auto) NEG (NEG) Medications Administered Medications (Trade) Dose Ordered Sig/Maxine Route Start Time Stop Time Status Last Admin Dose Admin Metoclopramide HCl (Reglan Inj) 10 mg NOW STAT IV. 11/24/17 17:24 11/24/17 17:26 DC 11/24/17 17:39 10 MG Morphine Sulfate (MoRPHine SULFATE INJ) 4 mg Q1H PRN IV 11/24/17 17:30 11/24/17 21:21 DC 11/24/17 20:45 4 MG Sodium Chloride 500 ml @ 999 mls/hr Q31M STAT IV 11/24/17 18:02 11/24/17 18:32 DC 11/24/17 18:21 999 MLS/HR Acetaminophen/ Hydrocodone Bitart (Arboles 5/325mg Home Pack) 1 [facility] STK-MED ONCE .ROUTE 11/24/17 20:35 11/24/17 20:36 DC 11/24/17 20:58 1 [facility] ED Course Patient was seen and examined Vital signs including blood pressure were reviewed medications list was verified with patient Labs were obtained, and a saline lock was established The patient was medicated with morphine and Reglan. She was hydrated with 500 mL normal saline. Imaging was performed and reviewed The patient was reassessed. She did require 2 additional doses of morphine. She was however more comfortable after receiving this. We discussed the results of her workup. She voiced understanding. She was comfortable enough to be discharged home. She was given a home pack of Arboles. I reviewed discharge instructions the patient. They voiced understanding and had no further questions. Medical Decision Differential diagnosis: Abnormal vaginal bleeding, menorrhagia, metrorrhagia, uterine fibroids, endometrial polyps, thyroid abnormality, anemia secondary to acute blood loss, ectopic , intrauterine , ovarian cysts, , anxiety, psychiatric disorder, GI dysmotility, bowel obstruction This patient is a 37-year-old female that presents to emergency department with lower abdominal pain, vaginal bleeding and bloating. On exam, she was somewhat bloated. She was subjectively tender in the lower abdomen. Her workup reveals no leukocytosis. She was nontoxic in appearance. I do not suspect an acute abdomen. She is afebrile. She is fairly constipated, which is likely the source of her pain and bloating. Regarding the patient's vaginal bleeding, her H&H is stable. Her ultrasound shows resolution of the left ovarian cyst. Some of her pain could be secondary to this rupturing. The patient had good pain control in the emergency department. I believe she is stable to be discharged home with close follow-up from her primary care physician in addition to OB/ ASSOCIATE DIRECTOR QA. She was comfortable with this plan. She was sent home with a short course of narcotics. She was also sent home with instructions to take a laxative twice daily. She agrees to return with any worsening symptoms. This chart was completed in part utilizing [employer] Voice Recognition software. Attempts were made to minimize the grammatical errors, random word insertions, pronoun errors and incomplete sentences. Any formal questions or concerns about the content, text or information contained within the body of this dictation should be directly addressed to the provider for clarification. Medication Reconcilliation Current Medication List: was personally reviewed by me Blood Pressure Screening Patient's blood pressure: Normal blood pressure Impression Primary Impression: Abdominal pain Additional Impression: Constipation Departure Information Dispostion Home / Self-Care Condition GOOD Prescriptions Hydrocodone/Acetaminophen 5MG/325MG (Arboles 5MG/325MG) Tab 1-2 TABLET PO Q4H Y for Pain, #15 TAB For Initial Treatment Prov: Latisha Nguyen PA-C 11/24/17 Referrals Kita Best DO (PCP) Latisha Macedo M.D. Patient Instructions My [facility] Additional Instructions You were evaluated in the emergency department for abdominal pain and vaginal bleeding. X-rays confirmed a fair amount of constipation. There was resolution of the ovarian cyst on ultrasound. Please take MiraLAX twice daily for 7 days I would recommend a stool softener such as Colace once daily as your typical regimen Please take Tylenol 650 mg every 6 hours as needed for pain Arboles 1-2 tabs every 4 hours for severe pain. Do not drink alcohol or drive while taking this medication. You have been examined and treated today on an emergency basis only. This is not a substitute for, or an effort to provide, complete comprehensive medical care. It is impossible to recognize and treat all injuries or illnesses in a single emergency department visit. It is therefore important that you follow up closely with [facility], your PCP, and/or your specialist(s). Call as soon as possible for an appointment. It was a pleasure taking part in your care today. Please do not hesitate to return to the emergency department with any new or concerning symptoms Work Instructions Return To Work: 1 day Problem Qualifiers
[2017-11-24 17:44] LABS: BASO % 0.2 %; BASO ABS # 0.02 K/uL (0-0.2); EOS % 2.7 %; EOS ABS # 0.27 K/uL (0-0.5); HEMATOCRIT 39.1 % (37-47); HEMOGLOBIN 12.9 g/dL (12.0-16.0); IG# 0.02 K/uL (0.00-0.02); LYMPH % 32.6 %; MEAN CELL VOLUME 94.9 fL (80-100); MEAN CORPUSCULAR HEMOGLOBIN 31.3 pg (25-34); MONO % 4.8 %; MONO ABS # 0.47 K/uL (0.11-0.59); NEUT % 59.5 %; NEUT ABS # 5.85 K/uL (1.4-6.5); PLATELET COUNT 367 K/uL (130-400); RED CELL DISTRIBUTION WIDTH SD 51.5 fL (36.4-46.3); WHITE BLOOD COUNT 9.83 K/uL (4.8-10.8)
[2017-11-24] MEDS ORDERED: SODIUM CHLORIDE 0.9% 500ML 500 ML IV STA (18:02)
[2017-11-24 18:12] LABS: ALBUMIN 3.6 gm/dl (3.4-5.0); CALCIUM 8.5 mg/dl (8.5-10.1); CREATININE 0.72 mg/dl (0.60-1.20); POTASSIUM 3.8 mmol/L (3.5-5.1)
[2017-11-24 18:15] LABS: TOTAL PROTEIN 7.5 gm/dl (6.4-8.2)
--- NOTE | 2017-11-24 18:33 | DIAGNOSTIC IMAGING REPORT ---
PA CHEST WITH ABDOMINAL SERIES CLINICAL HISTORY: Abdominal bloating. Nausea. FINDINGS: A PA chest radiograph is compared to study dated 12/12/2016. The cardiomediastinal silhouette is unremarkable. The lungs and pleural spaces are clear. No pneumothorax is seen. The bony thorax is grossly intact. Supine and erect abdominal radiographs are correlated with abdominal CT dated 11/14/2017. There is a nonobstructed abdominal bowel gas pattern. Moderate fecal retention is noted in the colon. No evidence of intraperitoneal free air is seen. Surgical clips are present in the pelvis. There are no abnormal abdominal calcifications. The lumbosacral spine and bony pelvis appear intact. IMPRESSION: 1. No active disease in the chest. 2. Nonobstructed abdominal bowel gas pattern noting moderate constipation. Electronically signed by: Castro Murray M.D. 11/24/2017 6:32 PM Dictated Date/Time: 11/24/2017 6:30 PM
--- NOTE | 2017-11-24 19:49 | DIAGNOSTIC IMAGING REPORT ---
TRANSVAG-FEMALE PELVIS CLINICAL HISTORY: 37 years-old Female presenting with lower abdominal pain and history of ovarian cyst, heavy bleeding. TECHNIQUE: Real-time grayscale and color and spectral Doppler ultrasound imaging of the pelvis was performed first using a transabdominal probe and subsequently transvaginal for better characterization. COMPARISON: Ultrasound from 11/15/2017. FINDINGS: Uterus: Heterogeneous myometrium along the anterior wall towards the fundus. Retroverted. The uterus measures 7.4 x 4.1 x 6.6 cm. Endometrial stripe measures 3 mm in thickness. Endometrium normal-appearing. Cervix contains nabothian cysts. Right adnexa: Right ovary normal. Right ovary measures 2.8 x 1.3 x 2.3 cm. Normal color Doppler flow and arterial and venous waveforms within the ovarian parenchyma. Left adnexa: Left ovary demonstrates interval resolution of the hemorrhagic cyst. Left ovary measures 2.7 x 1.5 x 2.5 cm. Normal color Doppler flow and arterial and venous waveforms within the ovarian parenchyma. Other: No free fluid. IMPRESSION: 1. Interval resolution of left ovarian hemorrhagic cyst. No ovarian torsion. 2. Heterogeneous anterior uterine myometrium. The appearance is nonspecific but could suggest underlying adenomyosis. This be better demonstrated on MR pelvis. 3. Normal endometrium. Electronically signed by: Dejon Richardson M.D. 11/24/2017 7:48 PM Dictated Date/Time: 11/24/2017 7:44 PM
[2017-11-24] MEDS ORDERED: NORCO 5/325MG HOME PACK ONE (20:35)
[2017-11-24] MEDS ORDERED: HYDR-5688 PO (20:52)
[2017-11-24 21:06] VITALS: BP 113/70; PULSE 80; O2SAT 98
== END 2017-11-24 21:07 | disposition home or self-care (01) ==
LOC: C.EDB 16:26
DX: R10.30 Lower abdominal pain, unspecified (principal); K59.00 Constipation, unspecified; N93.9 Abnormal uterine and vaginal bleeding, unspecified; D64.9 Anemia, unspecified; N80.9 Endometriosis, unspecified; N83.201 Unspecified ovarian cyst, right side; F17.200 Nicotine dependence, unspecified, uncomplicated; Z83.3 Family history of diabetes mellitus; Z83.79 Family history of other diseases of the digestive system; Z82.49 Family history of ischemic heart disease and other diseases of the circulatory system; Z84.1 Family history of disorders of kidney and ureter

== ENCOUNTER → 2017-11-27 | Outpatient (CLI) | payer OTHER ==
[~2017-11-27] MED LIST changes: -BUTA1TAB70 PO; +HYDR-5688 PO; -PSEU60TA80 PO
== END | disposition home or self-care (01) ==
LOC: C.PATHSPEC 17:37
PROVIDERS: ATTEND Obstetrics & Gynecology
DX: N92.0 Excessive and frequent menstruation with regular cycle (principal); N94.89 Other specified conditions associated with female genital organs and menstrual cycle

== ENCOUNTER → 2017-12-06 | Day surgery (SDC) | payer OTHER ==
[2017-11-21 10:56] VITALS: Ht 167.6 cm; Wt 80.0 kg
[~2017-12-06] VITALS: Ht 167.6 cm; Wt 80.0 kg
[~2017-12-06] MED LIST changes: +ALPR-411 PO; +ATROPINE SULFATE 0.1 MG/ML 5ML SYR IV PRN; +BACITRACIN OINT 15 GM TUBE ONE; +DEXAMETHASONE SOD INJ 4 MG/ML VIAL IV PRN; +DEXAMETHASONE SOD INJ 4 MG/ML VIAL ONE; +EpHEDrine SULFATE INJ 50 MG/ML AMP IV PRN; +FENTANYL CITRATE INJ 50 MCG/1 ML 2 ML VIAL IV PRN; +FENTANYL CITRATE INJ 50 MCG/1 ML 2 ML VIAL ONE; +LABETALOL HCL IV 5 MG/ML 20ML IV PRN; +LACTATED RINGER'S 1000ML 1,000 ML IV SCH; +LIDOCAINE HCL 2% 2 ML VIAL (20MG/ML) ONE; +METOCLOPRAMIDE HCL INJ 5 MG/ML 2 ML VIAL IV PRN; +MIDAZOLAM HCL 1 MG/ML 2ML VIAL ONE; +MoRPHine SULFATE 10 MG/ML CARP/VIAL IV PRN; +ONDANSETRON INJ 2 MG/ML 2 ML VIAL IV PRN; +ONDANSETRON INJ 2 MG/ML 2 ML VIAL ONE; +OXYCODONE/ACETAMINOPHEN 5-325 TAB PO PRN; +PROMETHAZINE HCL INJ 25 MG in SODIUM CHLORIDE 0.9% 50ML 50 ML IV PRN; +PROPOFOL IV EMULSION 10 MG/ML 20 ML VIAL IV ONE; +SODIUM CHLORIDE 0.9% 1000ML 1,000 ML IV SCH
--- NOTE | 2017-12-06 13:06 | [facility] Post Operative Brief Note ---
Immediate Operative Summary Operative Date Dec 06, 2017. Pre-Operative Diagnosis Heavy Menses Post-Operative Diagnosis same as preop Procedure(s) Performed Dilatation And Curettage, Hysteroscopy, Failed Attempted Endometrial Ablation Surgeon Dr. Cade Home Care Liaison Surgeon(s) none Estimated Blood Loss 5ml Findings See Below Uterus length 5cm, Width 4.5cm. Bilateral ostia seen. Specimens A: Endometrial Curettings Drains Bladder emptied prior to procedure Anesthesia Type General Complication(s) Unable to obtain seal at cervix to allow Novasure to deploy. Attempted multiple remedies to obtain seal: cervical cerclage stitch, vaseline-imed gauze, KY jelly, Raytec sponges, and latex glove. Disposition Accompanied Pt To Recovery: no Disposition: Recovery Room / PACU
--- NOTE | 2017-12-06 13:09 | Discharge Instructions-SurgCtr ---
Discharge Instructions Date of Service Dec 06, 2017. Visit Reason for Visit: Heavy Menses Discharge Discharge Diagnosis / Problem: heavy menses Discharge Goals Goal(s): Diagnostic testing, Therapeutic intervention Activity Recommendations Activity Limitations: per Instructions/Follow-up section Anesthesia . Post Anesthesia Instructions: If you have had General Anesthesia or IV Sedation: * Do not drive today. * Resume driving when surgeon permits. * Do not make important decisions or sign legal documents today. * Call surgeon for: 1. Temperature elevations greater than 101 degrees F. 2. Uncontrollable pain. 3. Excessive bleeding. 4. Persistent nausea and vomiting. 5. Medication intolerance (nausea, vomiting or rash). * For nausea and vomiting use only clear liquids such as: tea, soda, bouillon until nausea subsides, then gradually increase diet as tolerated. * If you have any concerns or questions, call your surgeon's office. If physician is unavailable and it is an emergency, call 911 or go to the nearest emergency room. . Instructions / Follow-Up Instructions / Follow-Up ACTIVITY RECOMMENDATIONS: * Avoid tampons, douching, hot tubs, pools, and intercourse until bleeding has stopped. * May shower as usual. * No strenuous activity for 24-48 hours. After 24-48 hours, you may do anything you feel like doing (driving and sports are okay). SPECIAL CARE INSTRUCTIONS: Special Diet: * Mild nausea may occur in the immediate post-operative period. * Take clear liquids such as tea, cola or bouillon until all nausea has subsided; you may then resume your normal diet. Special Care: * Light bleeding and vaginal spotting can last from a few days to 3-4 weeks. Call your doctor if bleeding becomes heavier than the heaviest part of your period. * Check your temperature twice a day for one week. If it goes above 100.4 degrees Fahrenheit (38.0 Celsius), notify your doctor. * Call your doctor's office for an appointment for 6 weeks after your surgery. FOLLOW-UP VISIT: Call your doctor's office for an appointment for 6 weeks after your surgery. Diet Recommendations Home Diet: resume previous diet Procedures Procedures Performed: Dilatation And Curettage, Hysteroscopy, Failed Attempted Endometrial Ablation Pending Studies Studies pending at discharge: yes List of pending studies: pathology Medical Emergencies . Who to Call and When: Medical Emergencies: If at any time you feel your situation is an emergency, please call 911 immediately. . Non-Emergent Contact Non-Emergency issues call your: Primary Care Provider, Sr. Strategic Sourcing Manager . . "Provider Documentation" section prepared by Marilia Cade. .
[2017-12-06 13:54] VITALS: TEMP 36.7
[2017-12-06 14:14] VITALS: BP 126/83; PULSE 60; O2SAT 97
--- NOTE | 2017-12-06 14:20 | Anesthesia Progress Nt - [facility] ---
Anesthesia Post Op Note Date & Time Dec 06, 2017 at 14:20 Vital Signs Pain Intensity: 4 Vital Signs Past 12 Hours Date Time Temp Pulse Resp B/P (MAP) Pulse Ox O2 Delivery O2 Flow Rate FiO2 12/06/17 14:14 60 12 126/83 (97) 97 Room Air 12/06/17 13:54 36.7 77 12 134/89 (104) 99 Room Air 12/06/17 13:46 125/83 12/06/17 13:45 74 21 12/06/17 13:45 74 21 98 12/06/17 13:43 37.1 68 16 124/77 98 Room Air 12/06/17 13:41 124/77 12/06/17 13:40 80 18 12/06/17 13:40 80 18 98 12/06/17 13:37 139/93 12/06/17 13:35 80 22 98 12/06/17 13:35 79 22 12/06/17 13:31 129/78 12/06/17 13:30 77 17 97 12/06/17 13:30 78 17 12/06/17 13:29 78 21 96 12/06/17 13:29 79 21 12/06/17 13:26 120/84 12/06/17 13:24 83 26 96 12/06/17 13:24 84 26 12/06/17 13:22 152/93 12/06/17 13:19 85 22 12/06/17 13:19 85 22 97 12/06/17 13:16 125/80 12/06/17 13:14 104 30 94 12/06/17 13:14 103 30 12/06/17 13:11 113/73 12/06/17 13:09 99 12/06/17 13:09 97 96 12/06/17 13:09 36.9 96 24 113/73 96 Diffusion Mask 6 12/06/17 11:10 37.1 91 18 119/82 (94) 97 Room Air Notes Mental Status: alert / awake / arousable, participated in evaluation Pt Amnestic to Procedure: Yes Nausea / Vomiting: adequately controlled Pain: adequately controlled Airway Patency, RR, SpO2: stable & adequate BP & HR: stable & adequate Hydration State: stable & adequate Anesthetic Complications: no major complications apparent
--- NOTE | 2017-12-10 01:16 | OPERATIVE REPORT ---
DATE OF OPERATION: 12/06/2017 PREOPERATIVE DIAGNOSIS: Heavy menses. POSTOPERATIVE DIAGNOSIS: Same. PROCEDURES PERFORMED: Dilation and curettage, hysteroscopy and failed attempt at endometrial ablation. SURGEON: Marilia Cade DO. COPYRIGHT CLERK: None. ESTIMATED BLOOD LOSS: 5 mL. FINDINGS: Uterus length, 5 cm width 4.5 cm. Bilateral tubal ostia seen. SPECIMENS: Endometrial curettings. DRAINS: Bladder emptied prior to procedure. ANESTHESIA: General. COMPLICATIONS: Unable to obtain seal of cervix to allow the NovaSure to deploy. Attempted multiple remedies to obtain seal, including cervical cerclage, stitch, Vaseline, impregnated gauze, K-Y jelly, Ray-Lizbeth sponges and a latex glove. DISPOSITION: Stable and good to recovery area. INDICATIONS FOR PROCEDURE: The patient is a 37-year-old G5, P2-0-3-2 with heavy periods. She underwent laparoscopic tubal ligation in June 2017. With menses she is bleeding very heavily and passing large clots. She states she was soaking through super tampons every 30 minutes and complains of feeling dizzy and weak at times. The patient states she is severely allergic to all NSAID and declines trial of any progesterone containing control. DESCRIPTION OF PROCEDURE: The patient was seen in the preoperative holding area where risks, benefits, alternatives to surgery were reviewed. She elected to proceed with the case. She had previously signed informed consent under no duress in the office. We had discussed as part of the consent, the possibility that ablation could fail either at time of procedure or in the future and she is aware of the potential complication. The patient was taken to the operating room where general anesthesia was introduced. She was prepared and draped in the usual sterile fashion in the dorsal lithotomy position with feet in candy cane stirrups. A timeout was and called and confirmed. Her bladder was drained and a weighted speculum was placed in the vagina. The cervix was visualized. Of note, the cervix was large and floppy with the appearance of a multiparous cervix. The uterus was sounded with the above noted dimensions. The cervix was sequentially carefully dilated to admit the hysteroscope. The hysteroscope was inserted through the cervix and into the uterus and bilateral tubal ostia were noted. A small amount of fluffy endometrial tissue was also seen. The scope was withdrawn and a gentle curettage was undertaken with a sharp curette. The specimen was sent to pathology for further evaluation. Next, the NovaSure device was inserted and deployed. The NovaSure was run through its cycle to check for a seal. An error message appeared on the NovaSure device indicating a lack of a good seal in the uterine cavity was found. The NovaSure device was withdrawn. The scope was replaced to ensure that the device had been located in the proper cavity. This was seen. No uterine perforations were noted. The hysteroscope was withdrawn. The NovaSure device was then attempted multiple times to obtain a seal. The device was inserted, a cervical cerclage stitch was placed using 0 Vicryl in a circumferential fashion in an attempt to cinch the cervix down over top of the NovaSure device, Vaseline impregnated gauze was wrapped around the shaft of the NovaSure, K-Y jelly soaked Ray-Lizbeth sponges were packed around the device in the vagina as well as a latex gloves was used to attempt to create an air tight seal; however, none of these remedies were successful and each cycle, the NovaSure device reported an error message due to lack of a seal inside the cavity. The NovaSure device was eventually withdrawn. The device itself appeared normal without any damage or abnormality. At this time, with inability to use the NovaSure device for ablation, the procedure was aborted. All instruments were withdrawn from the vagina. Excellent hemostasis was observed. The cerclage suture stitch was removed. Again, excellent hemostasis was noted. The patient was awoken from anesthesia and was taken to recovery area in stable and good condition. After the procedure, I discussed with the patient the complication of inability to use a NovaSure device. The patient would like to proceed with a permanent solution to her heavy menses and will be calling the office to schedule a hysterectomy. We will further discuss this and obtain informed consent in the office. I attest to the content of the Intraoperative Record and any orders documented therein. Any exception s are noted below.
== END | disposition home or self-care (01) ==
LOC: X.SURG 10:42
PROVIDERS: ATTEND Obstetrics & Gynecology
DX: N92.0 Excessive and frequent menstruation with regular cycle (principal); F17.200 Nicotine dependence, unspecified, uncomplicated; F32.9 Major depressive disorder, single episode, unspecified; F41.9 Anxiety disorder, unspecified; Z88.0 Allergy status to penicillin; Z88.1 Allergy status to other antibiotic agents; Z88.6 Allergy status to analgesic agent; Z79.899 Other long term (current) drug therapy; Z83.3 Family history of diabetes mellitus

== ENCOUNTER 2017-12-25 05:36 | Observation (INO) | payer OTHER ==
[2017-12-21 12:11] VITALS: BMI 28.0
--- NOTE | 2017-12-21 12:47 | PAT Medication Instructions ---
Service Date Dec 21, 2017. Current Home Medication List Acetamin/Butalbital/Caffeine (Fioricet), 1-2 TAB PO Q4H PRN for RN Buspirone HCl (Buspirone HCl), 15 MG PO BID Citalopram Hydrobromide (Citalopram Hydrobromide), 20 MG PO HS Diphenhydramine Hcl (Benadryl), 50 MG PO Q4H PRN for Allergic Reaction Multivitamin (Multivitamin), 2 TAB PO DAILY Ondansetron Hcl (Zofran), 4 MG PO PRN PRN for Nausea Prednisone (Prednisone Tab), 40 MG PO UD PRN for IDIOPATHIC ANGIOEDEMA Ranitidine (Zantac), 150 MG PO PRN Rizatriptan Benzoate (Maxalt), 10 MG PO UD PRN for RN Trazodone Hcl (Trazodone), 50 MG PO HS PRN for medical staff director Instructions For Your Scheduled Surgery - Hold the following medications the morning of surgery: Diphenhydramine Hcl (Benadryl), 50 MG PO Q4H PRN for Allergic Reaction Multivitamin (Multivitamin), 2 TAB PO DAILY - Take the following medications the morning of surgery with a sip of water: Buspirone HCl (Buspirone HCl), 15 MG PO BID Ondansetron Hcl (Zofran), 4 MG PO PRN PRN for Nausea (if needed) Prednisone (Prednisone Tab), 40 MG PO UD PRN for IDIOPATHIC ANGIOEDEMA (if needed) Ranitidine (Zantac), 150 MG PO PRN (if needed) Rizatriptan Benzoate (Maxalt), 10 MG PO UD PRN for RN (if needed) Trazodone Hcl (Trazodone), 50 MG PO HS PRN for RN (if needed) Acetamin/Butalbital/Caffeine (Fioricet), 1-2 TAB PO Q4H PRN for RN (if needed) - Take the following medications as scheduled the night before surgery: Buspirone HCl (Buspirone HCl), 15 MG PO BID Citalopram Hydrobromide (Citalopram Hydrobromide), 20 MG PO HS Diphenhydramine Hcl (Benadryl), 50 MG PO Q4H PRN for Allergic Reaction (if needed) Acetamin/Butalbital/Caffeine (Fioricet), 1-2 TAB PO Q4H PRN for RN (if needed) Ondansetron Hcl (Zofran), 4 MG PO PRN PRN for Nausea (if needed) Prednisone (Prednisone Tab), 40 MG PO UD PRN for IDIOPATHIC ANGIOEDEMA (if needed) Ranitidine (Zantac), 150 MG PO PRN (if needed) Rizatriptan Benzoate (Maxalt), 10 MG PO UD PRN for RN (if needed) Trazodone Hcl (Trazodone), 50 MG PO HS PRN for RN (if needed) Acetamin/Butalbital/Caffeine (Fioricet), 1-2 TAB PO Q4H PRN for RN (if needed) If you have any questions please call us at [phone] or [phone] or [phone]
[2017-12-21 13:23] LABS: BASO % 0.4 %; BASO ABS # 0.05 K/uL (0-0.2); EOS % 2.1 %; EOS ABS # 0.24 K/uL (0-0.5); HEMATOCRIT 41.8 % (37-47); HEMOGLOBIN 14.4 g/dL (12.0-16.0); IG# 0.04 K/uL (0.00-0.02); LYMPH % 28.4 %; LYMPH ABS # 3.18 K/uL (1.2-3.4); MEAN CELL VOLUME 91.7 fL (80-100); MEAN CORPUSCULAR HEMOGLOBIN 31.6 pg (25-34); MEAN CORPUSCULAR HGB CONC 34.4 g/dl (32-36); MEAN PLATELET VOLUME 10.4 fL (7.4-10.4); MONO % 5.8 %; MONO ABS # 0.65 K/uL (0.11-0.59); NEUT % 62.9 %; NEUT ABS # 7.05 K/uL (1.4-6.5); PLATELET COUNT 298 K/uL (130-400); RED CELL DISTRIBUTION WIDTH CV 13.7 % (11.5-14.5); RED CELL DISTRIBUTION WIDTH SD 45.8 fL (36.4-46.3); WHITE BLOOD COUNT 11.21 K/uL (4.8-10.8)
[~2017-12-25] VITALS: Ht 167.6 cm; Wt 78.4 kg
[~2017-12-25 05:36] MED LIST changes: -ACETAMINOPHEN PO; -ALPR-411 PO; -ATROPINE SULFATE 0.1 MG/ML 5ML SYR IV PRN; -BACITRACIN OINT 15 GM TUBE ONE; -BUTALBITAL PO; -CAFFEINE PO; -DEXAMETHASONE SOD INJ 4 MG/ML VIAL IV PRN; -DEXAMETHASONE SOD INJ 4 MG/ML VIAL ONE; -EpHEDrine SULFATE INJ 50 MG/ML AMP IV PRN; -FENTANYL CITRATE INJ 50 MCG/1 ML 2 ML VIAL IV PRN; -FENTANYL CITRATE INJ 50 MCG/1 ML 2 ML VIAL ONE; +FRCT/ PO; -HYDR-5688 PO; -LABETALOL HCL IV 5 MG/ML 20ML IV PRN; -LACTATED RINGER'S 1000ML 1,000 ML IV SCH; -LIDOCAINE HCL 2% 2 ML VIAL (20MG/ML) ONE; -METOCLOPRAMIDE HCL INJ 5 MG/ML 2 ML VIAL IV PRN; -MIDAZOLAM HCL 1 MG/ML 2ML VIAL ONE; -MoRPHine SULFATE 10 MG/ML CARP/VIAL IV PRN; -Norethindrone PO; +ONDA4TAB46 PO; -ONDANSETRON INJ 2 MG/ML 2 ML VIAL IV PRN; -ONDANSETRON INJ 2 MG/ML 2 ML VIAL ONE; -OXYCODONE/ACETAMINOPHEN 5-325 TAB PO PRN; -PROMETHAZINE HCL INJ 25 MG in SODIUM CHLORIDE 0.9% 50ML 50 ML IV PRN; -PROPOFOL IV EMULSION 10 MG/ML 20 ML VIAL IV ONE; +RANI150T85 PO; +RIZA10TA18 PO; -SODIUM CHLORIDE 0.9% 1000ML 1,000 ML IV SCH; +TRAZ50TA35 PO
[2017-12-25 05:52] VITALS: BP 100/72; PULSE 59; TEMP 36.9; O2SAT 98; Ht 167.6 cm; Wt 78.4 kg
[2017-12-25] MEDS ORDERED: CLINDAMYCIN 600 MG/54 ML D5W 50 ML IV SCH (06:00)
[2017-12-25] MEDS ORDERED: GENTAMICIN INJ 120 MG in DEXTROSE 5% 100ML 100 ML IV SCH (06:00)
[2017-12-25] MEDS ORDERED: LACTATED RINGER'S 1000ML 1,000 ML IV SCH (06:00)
[2017-12-25] MEDS ORDERED: ACETAMINOPHEN 1000 MG/100 ML IV IV ONE (06:47)
[2017-12-25] MEDS ORDERED: BUPIVACAINE 0.5 % 5 MG/1 ML MPF 30ML VIAL ONE (06:52)
[2017-12-25] MEDS ORDERED: METHYLENE BLUE 0.5% 10 ML VIAL ONE ×2 (06:52→09:33)
[2017-12-25] MEDS ORDERED: FENTANYL CITRATE INJ 50 MCG/1 ML 2 ML VIAL ONE ×3 (07:00→09:12)
[2017-12-25] MEDS ORDERED: LIDOCAINE HCL 2% 2 ML VIAL (20MG/ML) ONE (07:00)
[2017-12-25] MEDS ORDERED: ONDANSETRON INJ 2 MG/ML 2 ML VIAL ONE (07:00)
[2017-12-25] MEDS ORDERED: MIDAZOLAM HCL 1 MG/ML 2ML VIAL ONE ×2 (07:00→07:08)
[2017-12-25] MEDS ORDERED: DEXAMETHASONE SOD INJ 4 MG/ML VIAL ONE (07:00)
[2017-12-25] MEDS ORDERED: HYDROmorphone INJ 2 MG/ML SYR/VIAL ONE (07:00)
[2017-12-25] MEDS ORDERED: PROPOFOL IV EMULSION 10 MG/ML 20 ML VIAL IV ONE (07:00)
[2017-12-25] MEDS ORDERED: LARYING-O-JET KIT (LTA) ONE (07:00)
[2017-12-25] MEDS ORDERED: SODIUM CHLORIDE 0.9% INJ 10 ML VIAL ONE (07:05)
[2017-12-25] MEDS ORDERED: ONDANSETRON INJ 2 MG/ML 2 ML VIAL IV PRN ×2 (08:00→10:15)
[2017-12-25] MEDS ORDERED: PHENYLEPHRINE 100MCG/ML 5ML SYR IV PRN (08:00)
[2017-12-25] MEDS ORDERED: ATROPINE SULFATE 0.1 MG/ML 5ML SYR IV PRN (08:00)
[2017-12-25] MEDS ORDERED: EpHEDrine SULFATE INJ 50 MG/ML AMP IV PRN (08:00)
[2017-12-25] MEDS ORDERED: KETAMINE HCL INJ 50 MG/ML 10 ML VIAL ONE (08:29)
[2017-12-25] MEDS ORDERED: GLYCOPYRROLATE INJ 0.2 MG/ML VIAL ONE (09:12)
[2017-12-25] MEDS ORDERED: ROCURONIUM BROMIDE 10 MG/ML 5 ML VIAL IV ONE (09:12)
[2017-12-25] MEDS ORDERED: NEOSTIGMINE METHYLSULFATE 5 MG/5 ML SYR ONE (09:12)
[2017-12-25] MEDS ORDERED: TISSEEL FIBRIN SEALANT 4ML TOP ONE (09:56)
--- NOTE | 2017-12-25 10:00 | [facility] Post Operative Brief Note ---
Immediate Operative Summary Operative Date Dec 25, 2017. Pre-Operative Diagnosis Heavy Menses, Female Pelvic Pain Post-Operative Diagnosis Same as preop Procedure(s) Performed Total Laparoscopic Hysterectomy Bilateral Salpingectomy Robot Assist; Cystoscopy Surgeon Dr. Cade Ferryboat Captain Surgeon(s) Dr Coy Olvera Estimated Blood Loss 100 ml Findings Consistent with Post-Op Diagnosis Normal appearing uterus, tubes, ovaries. S/p tubal clips Fluids (cc crystalloids) 1100ml Specimens A. Cervix, Uterus, Bilateral Fallopian Tubes Drains Muller, clear yellow Anesthesia Type General Complication(s) none Disposition Accompanied Pt To Recover: no Disposition: Recovery Room / PACU
[2017-12-25] MEDS ORDERED: PROMETHAZINE HCL INJ 25 MG in SODIUM CHLORIDE 0.9% 50ML 50 ML IV PRN (10:15)
[2017-12-25] MEDS ORDERED: MAGNESIUM HYDROXIDE SUSP 30 ML UDC PO PRN (10:15)
[2017-12-25] MEDS ORDERED: BISACODYL 10 MG SUPP PR PRN (10:15)
[2017-12-25] MEDS ORDERED: SIMETHICONE 80 MG CHEW PO PRN (10:15)
[2017-12-25] MEDS ORDERED: OXYCODONE/ACETAMINOPHEN 5-325 TAB PO PRN ×2 (10:15)
[2017-12-25] MEDS ORDERED: SCOPOLAMINE 1.5 MG TDSY TD ONE (10:20)
[2017-12-25] MEDS: HYDROmorphone INJ 2 MG/ML SYR/VIAL IV PRN ×4 (10:22→10:41)
[2017-12-25] MEDS ORDERED: IV FLUIDS COMPLETED PRN (10:45)
--- NOTE | 2017-12-25 10:54 | OPERATIVE REPORT ---
DATE OF OPERATION: 12/25/2017 PROCEDURE: 1. Total laparoscopic hysterectomy with robotic assistance. 2. Bilateral salpingectomy 3. Cystoscopy. PREDELIVERY DIAGNOSES: Heavy menses, failed attempt at ablation, ALLERGIC TO NSAIDS, refuses all hormonal options. POSTOPERATIVE DIAGNOSES: Same. SURGEON: Dr. Marilia Cade. REFERENCE SERVICES HEAD: Coy Parra MD, family services specialist. ESTIMATED BLOOD LOSS: 100 mL FINDINGS: Normal appearing uterus, tubes and ovaries. Filshie clips visible on bilateral tubes. FLUIDS: 1100 mL SPECIMENS: Uterus and cervix and bilateral fallopian tubes. DRAINS: Muller, clear yellow. ANESTHESIA: General. COMPLICATIONS: None. DISPOSITION: Stable and good to recovery room. INDICATIONS FOR PROCEDURE: The patient is a 37-year-old G5, P 2-0-3-2, with history of heavy menses. She underwent laparoscopic tubal ligation in 06/2017 and had attempt at NovaSure ablation. However, after multiple attempts using a variety of methods to obtain a seal around the cervix, the device was unable to obtain a proper seal inside the uterus, and therefore, the device could not perform an ablation. She has a history of very heavy menses, bleeding heavily and passing large clots, soaking through super tampons every 30 minutes. Also has felt dizzy and weak at times. She states she is severely ALLERGIC TO ALL NSAIDs and declines trial of any progesterone containing control. She is also a smoker above the age of 35. She has completed childbearing as she underwent an elective tubal ligation and desires a permanent solution to her heavy menses. DESCRIPTION OF PROCEDURE: The patient was seen in the preoperative holding area where risks, benefits, alternatives to surgery were reviewed. She elected to proceed with the case. She had previously signed informed consent under no duress in the office. She was taken to the operating room where general anesthesia was administered. She was prepared and draped in the usual sterile fashion in the dorsal lithotomy position. A timeout was confirmed. The Muller catheter was placed in the bladder. A weighted speculum was placed in the vagina. The cervix was visualized and the anterior lip was grasped with a single tooth tenaculum. Stay sutures at 3 o'clock and 9 o'clock were placed. Next, the VCare uterine manipulator was inserted and tied into place using bilateral sutures. Gloves and gown were changed and attention was then turned to the abdomen where using the open Ivory technique, the supraumbilical camera trocar was placed. The camera was inserted, intraabdominal placement was ensured. Gas was turned on to high flow to insufflate the abdomen to 15 mmHg with CO2 gas. The patient was placed in steep Trendelenburg position. The pelvis was visualized. Bilateral trocar ports were placed for a total of 5 trocars with 2 on each side of the camera port. All trocars were placed under direct visualization. Bowel was swept out of the way with a blunt probe. The robot was then docked and all instruments were inserted under direct visualization. Next, under robotic assistance, salpingectomy was performed. First, the left fallopian tube was grasped, and using monopolar scissors, was transected from its mesosalpinx. This was then coagulated at the insertion to the uterus and transected and removed, to be sent to pathology. In a similar fashion, the right fallopian tube was removed. Next, the left round ligament was coagulated, transected, and the broad ligament was . The left uteroovarian ligament was coagulated and transected, and the ovary fell away to the pelvic sidewall. Bilateral ureters were visualized in the pelvic sidewall, far from the site of surgery, peristalsing well. The left side of the uterus was then skeletonized. The bladder flap was taken down and the left uterine vessels were coagulated. Next, attention was then turned to the right side where in a similar fashion, the round ligament was coagulated and transected, broad ligament was . The uteroovarian ligament was coagulated and transected. The right uterine vessels were skeletonized and the right uterine vessels were coagulated after the bladder flap was taken down on the right side. Next, bilateral uterine vessels were transected. The uterus and cervix were amputated from the vaginal cuff using a circumferential incision with monopolar scissors. The cervix and uterus were delivered through the vagina. The vaginal cuff was reapproximated using V-Loc suture in a running stitch. The pelvis was irrigated and suctioned and noted to be hemostatic. Next, attention was turned to the bladder where the Muller catheter was removed. Cystoscopy was performed and bilateral urine jets were noted through the ureters. The bladder appeared atraumatic and free of injury. The cystoscope was removed and a new Muller catheter was placed. Attention was turned back to the robot and pelvis where Tisseel coagulant was employed along all raw edges to ensure excellent hemostasis. The robot was undocked from the patient. All trocars were removed. At the umbilical incision site, the fascia was reapproximated with 0 Vicryl in 2 [id number] stitches. All trocar sites were reapproximated at the skin level using 4-0 Vicryl in subcuticular stitches. Pressure was applied as well as Bovie cautery to obtain better hemostasis at the skin. Dermabond glue was applied to skin edges. The patient was then awoken from anesthesia and taken to the recovery area in stable and good condition. I attest to the content of the Intraoperative Record and any orders documented therein. Any exception s are noted below.
[2017-12-25] MEDS ORDERED: HYDROmorphone INJ 1 MG/ML SYR ONE (11:05)
[2017-12-25] MEDS ORDERED: NURSING VERBAL MED ORDER ONE (11:15)
--- NOTE | 2017-12-25 11:24 | Anesthesiology Progress Note ---
Anesthesia Post Op Note Date & Time Dec 25, 2017 at 11:24 Vital Signs Pain Intensity: 6 Vital Signs Past 12 Hours Date Time Temp Pulse Resp B/P (MAP) Pulse Ox O2 Delivery O2 Flow Rate FiO2 12/25/17 11:10 76 16 115/65 95 Room Air 12/25/17 11:00 36.4 70 20 122/64 94 Room Air 12/25/17 10:50 73 20 142/63 99 Oxymask 4 12/25/17 10:40 78 20 120/68 97 Oxymask 4 12/25/17 10:30 66 14 137/72 99 Oxymask 4 12/25/17 10:20 65 20 133/72 97 Oxymask 10 12/25/17 10:13 36.3 85 14 135/73 95 Oxymask 10 12/25/17 05:52 36.9 59 18 100/72 (81) 98 Room Air Notes Mental Status: alert / awake / arousable, participated in evaluation Pt Amnestic to Procedure: Yes Nausea / Vomiting: adequately controlled Pain: adequately controlled Airway Patency, RR, SpO2: stable & adequate BP & HR: stable & adequate Hydration State: stable & adequate Anesthetic Complications: no major complications apparent
[2017-12-25] MEDS ORDERED: HYDROmorphone INJ 0.5 MG/0.5 ML SYR IV ONE (11:30)
[2017-12-25] MEDS ORDERED: PROMETHAZINE HCL INJ 6.25 MG in SODIUM CHLORIDE 0.9% 50ML 50 ML IV ONE (11:30)
--- NOTE | 2017-12-25 11:40 | Discharge Instructions ---
Discharge Instructions Date of Service Dec 25, 2017. Admission Reason for Admission: Heavy Menses, Female Pelvic Pain Discharge Discharge Diagnosis / Problem: s/p hysterectomy Discharge Goals Goal(s): Routine recovery after surgery Activity Recommendations Activity Limitations: per Instructions/Follow-up section . Instructions / Follow-Up Instructions / Follow-Up POST OPERATIVE: BOWEL FUNCTION/MEDICATIONS: 1. Constipation pain and discomfort are the most common complaints 5-7 days after surgery. Points 2-6 address the things that can help. 2. Chewing gum can help stimulate the gut and help improve digestion and motility. 3. Milk of Magnesia 1-2 times per day until return of bowel function. 4. Colace is a stool softener that helps. Taking this 2-3 times per day until bowel function returns to normal is highly recommended. 5. Dulcolax is a laxative that may be used if several days have passed without a bowel movement. Alternatively Miralax may be used daily instead. 6. Drink plenty of fluids as this will also reduce constipation. 7. Narcotic pain medications will be prescribed by your physician. They are safe to use and we encourage you to use them. If you are not allergic, ibuprofen will also be prescribed. Many patients will be able to transition off of the narcotic medications to ibuprofen by postoperative day 3. ACTIVITY RECOMMENDATIONS: 1. Get plenty of rest and listen to your body. If you are tired, take a nap. 2. You may shower, but do not take a tub bath until you see your doctor at the 2 week post operative visit. 3. Absolutely NO intercourse and nothing in the vagina until you are examined by your doctor at the 6 week visit. At that visit it will be determined when such activities can be resumed. This is typically 12 weeks after your surgery depending on healing time. 4. The main physical activity in the first week should be walking. By the second week you can slowly increase activity. There are no limits on walking up and down stairs. 5. Do not lift more than 5-10 lbs for 4 weeks. Remember the "one-handed rule", i.e. if you can lift something with only one hand it's likely okay. 6. Minimize stretcher drier operator like vacuuming and exercising for 4 weeks. "Overdoing it" can lead to incisions not healing, pain and vaginal bleeding , so again, listen to your body. 7. Driving can be resumed when you feel able. Do not drive within 24 hours of taking a narcotic medication. EXPECTATIONS: 1. Vaginal spotting, bleeding and discharge are common after surgery. There may even be an odor to the discharge which is often related to sutures used in the vagina. If you experience heavy vaginal bleeding, call the office number day or night [phone]. 2. Bladder discomfort is common after surgery from the catheter. This usually resolves in 1-2 weeks. 3. By the end of the 3rd or 4th week you should be feeling much better. It may take up to 6 weeks for your energy levels to return to normal. 4. Narcotic medications have side effects such as: dizziness, headache, nausea and/or vomiting. If you suspect your pain medication is causing problems, call our office and we may be able to prescribe an alternate medication. 5. The skin incisions are often covered with a liquid bandage. This will gradually peel off over time. CALL THE OFFICE IF YOU HAVE ANY OF THE FOLLOWIN. Temperature of 101 degrees or higher. 2. Severe abdominal or pelvic pain not relieved by pain medication. 3. Persistent nausea or vomiting. 4. Increased pain with urination or difficulty urinating. 5. Bright red bleeding that soaks more than 1 pad per hour. CONTACT PHONE NUMBERS: Main Office: [phone] Surgical Nurse: [phone] extension [phone] Avoid all tobacco products. If you need help to stop smoking, call [place] FREE QUITLINE at . This is a free call. Current Hospital Diet Patient's current hospital diet: Discharge Diet Recommended Diet: Regular Diet Procedures Procedures Performed: Total Laparoscopic Hysterectomy Bilateral Salpingectomy Robot Assist; Cystoscopy Pending Studies Studies pending at discharge: yes List of pending studies: pathology Medical Emergencies . Who to Call and When: Medical Emergencies: If at any time you feel your situation is an emergency, please call 911 immediately. . Non-Emergent Contact Non-Emergency issues call your: Primary Care Provider, Nursing Home Aide . . "Provider Documentation" section prepared by Marilia Cade. . [place] Drug Monitoring Program Search Results: patient reviewed within database Drug Monitoring Findings: Patient has multiple narcotic prescriptions, however since she is being discharged after major surgery, I feel that it is appropriate to give her a prescription for a 7-day course of pain medications for the postoperative period.
[2017-12-25 11:55] VITALS: BP 108/74; PULSE 77; TEMP 36.9; O2SAT 95
[2017-12-25 12:25] VITALS: BP 116/65; PULSE 75; TEMP 36.8; O2SAT 97
--- NOTE | 2017-12-25 12:54 | OB/GYN Progress Note ---
[facility] Progress Note Date of Service Dec 25, 2017. Subjective conversation w/ patient, physical exam Ambulation: limited ambulation Voiding: ochoa catheter in place Passing Gas: No Diet Tolerance: Clear Liquids Pain: controlled Review of Systems Constitutional: No problem reported Respiratory: No problem reported Cardiac: No problem reported Breast: No problem reported Abdomen: No problem reported Female : No problem reported Objective Vital Signs Date Time Temp Pulse Resp B/P (MAP) Pulse Ox O2 Delivery O2 Flow Rate FiO2 12/25/17 11:55 95 Room Air 12/25/17 11:35 79 16 113/75 93 Room Air 12/25/17 11:20 67 14 111/73 95 Room Air 12/25/17 11:10 76 16 115/65 95 Room Air 12/25/17 11:00 36.4 70 20 122/64 94 Room Air 12/25/17 10:50 73 20 142/63 99 Oxymask 4 12/25/17 10:40 78 20 120/68 97 Oxymask 4 12/25/17 10:30 66 14 137/72 99 Oxymask 4 12/25/17 10:20 65 20 133/72 97 Oxymask 10 12/25/17 10:13 36.3 85 14 135/73 95 Oxymask 10 12/25/17 05:52 36.9 59 18 100/72 (81) 98 Room Air Physical Exam General Appearance: WELL-APPEARING, NO APPARENT DISTRESS Respiratory/Chest: no respiratory distress Cardiovascular: regular rate, rhythm Abdomen: non tender, soft Incision Description: Clean, Dry & Intact Extremities: normal inspection Laboratory Results Last 24 Hours Test 12/25/17 06:24 Assessment and Plan Post-Op Continue Routine Care: POD#0 s/p RALH, BS, cystoscopy. Doing well. Pain controlled. Will start to increase diet PO. Will remove ochoa when ambulating. When she meets postop criteria, will be ok for discharge home. Discussed discharge instructions. RTO 2w and 6w postop.
[2017-12-25] MEDS ORDERED: OXYC-57 PO (12:57)
--- NOTE | 2017-12-25 12:59 | Discharge Summary ---
Discharge Summary Date of Service Dec 25, 2017. Discharge Summary Admission Date: Dec 25, 2017 at 12:20 Discharge Date: Dec 25, 2017 Discharge Disposition: Home Principal Diagnosis: Heavy menses Problems/Secondary Diagnoses: (1) Anxiety Status: Chronic (2) Depression Status: Chronic (3) Endometriosis Status: Chronic (4) Migraines Status: Chronic Immunizations: Have You Had Influenza Vaccine: No History of Tetanus Vaccine?: No History of Pneumococcal: No History of Hepatitis B Vaccine: Unknown Procedures: Robotic-assisted laparoscopic total hysterectomy with bilateral salpingectomy Consultations: anesthesia Hospital Course Patient was kept for observation following RALH/BS, cysto. Discharged to home. Total Time Spent: Less than 30 minutes This includes examination of the patient, discharge planning, medication reconciliation, and communication with other providers. Discharge Instructions Please refer to the electronic Patient Visit Report (Discharge Instructions) for additional information. Follow-Up Office 2w, 6w
[2017-12-25 13:00] VITALS: BP 121/84; PULSE 97; TEMP 36.4; O2SAT 98
[2017-12-25 13:55] VITALS: BP 109/71; PULSE 86; TEMP 36.9; O2SAT 96
[2017-12-25 15:20] VITALS: BP 105/70; PULSE 93; TEMP 37.1; O2SAT 97
[2017-12-25] MEDS ORDERED: DOCUSATE SODIUM 100 MG CAP PO SCH (21:00)
== END 2017-12-25 16:02 | disposition home or self-care (01) ==
LOC: C.ACU 05:36 → C.MS4N 12:20
PROVIDERS: ADMIT Obstetrics & Gynecology; ATTEND Obstetrics & Gynecology
DX: N92.0 Excessive and frequent menstruation with regular cycle (principal); N72 Inflammatory disease of cervix uteri; N88.8 Other specified noninflammatory disorders of cervix uteri; F41.9 Anxiety disorder, unspecified; F32.9 Major depressive disorder, single episode, unspecified; G47.33 Obstructive sleep apnea (adult) (pediatric); K21.9 Gastro-esophageal reflux disease without esophagitis; Z83.3 Family history of diabetes mellitus; Z80.49 Family history of malignant neoplasm of other genital organs; F17.200 Nicotine dependence, unspecified, uncomplicated; Z88.0 Allergy status to penicillin; Z88.1 Allergy status to other antibiotic agents; Z88.6 Allergy status to analgesic agent; Z98.51 Tubal ligation status; Z90.89 Acquired absence of other organs; Z86.69 Personal history of other diseases of the nervous system and sense organs
CPT/HCPCS: 58571; S2900

== ENCOUNTER 2018-01-05 17:13 | Emergency (ER) | payer OTHER ==
[~2018-01-05] VITALS: Ht 167.6 cm; Wt 79.1 kg
[~2018-01-05 17:13] MED LIST changes: -PRED20TA2 PO
[2018-01-05 17:16] VITALS: TEMP 36.8; Ht 167.6 cm; Wt 79.1 kg
[2018-01-05] MEDS ORDERED: ONDANSETRON INJ 2 MG/ML 2 ML VIAL IV STA (17:31)
[2018-01-05] MEDS ORDERED: SODIUM CHLORIDE 0.9% 1000ML 1,000 ML IV STA (17:31)
--- NOTE | 2018-01-05 17:38 | EMERGENCY ROOM VISIT NOTE ---
History Report prepared by Lotus: Ulises Boo Under the Supervision of: Dr. Castro Wick M.D. First contact with patient: 17:21 Chief Complaint: ED VAG BLEEDING Stated Complaint: VAGINAL SWELLING,PAIN,BLEEDING,POST HYSTO 01/04, History of Present Illness The patient is a 37 year old female who presents to the Emergency Room with complaints of worsening lower abdominal pain that began at 1830 last evening, 23 hours ago. She rates her abdominal pain as a 4/10 in severity, and describes the pain as "sharp." Sitting down and standing up worsens her pain. There is no radiation to the back, and there has not been any fevers, nausea/vomiting. The patient states that she is also experiencing some "light pink spotting" vaginally, with a very minimal wet discharge. She also described her "labia and vulva" as being "extremely swollen." This was not sore to the touch, but was very swollen. The patient also noted that she inserted her fingers into her vaginal canal which was very swollen as well. The patient did have a hysterectomy performed on the of this month, 11 days ago. She has not had any issues since the surgery until last night when her symptoms began. The patient is a P:2 A:4 and has a history of endometriosis. Source of History: patient Onset: 23 hours ago Position: abdomen Symptom Intensity: 4/10 Quality: sharp Modifying Factors (Worsening): other (sitting down/standing up) Modifying Factors (Relieving): other (N/A) Note: Swollen areas of the vagina. Review of Systems See HPI for pertinent positives & negatives. A total of 10 systems reviewed and were otherwise negative. Past Medical & Surgical Medical Problems: (1) Abdominal pain (2) Acute anxiety (3) Acute anxiety (4) Acute gastroenteritis (5) Acute head injury (6) Anemia (7) Angioedema (8) Angioedema (9) Anxiety (10) Breast pain (11) Breast pain (12) Breast pain (13) Breast pain (14) Chronic mastitis (15) Chronic mastitis (16) Chronic mastitis of left breast (17) Concussion (18) Constipation (19) Contusion of breast, right (20) Contusion of knee, right (21) Cramping affecting , antepartum (22) Dental caries (23) Depression (24) Disc herniation (25) Elevated creatine kinase level (26) Elevated liver function tests (27) Endometriosis (28) Engorged breasts (29) Excessive vaginal bleeding (30) External hemorrhoid (31) External hemorrhoid, thrombosed (32) External hemorrhoid, thrombosed (33) Fall (34) Gestational diabetes (35) 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, 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 (36) Hand contusion (37) Headache (38) Hematemesis (39) Hemorrhoid (40) History of mastitis (41) Influenza A (42) Influenza A (43) Laceration (44) Left ovarian cyst (45) Low back pain (46) Low back pain (47) Mastitis (48) Mastitis (49) Mastitis (50) Mastitis (51) Mastitis (52) Menorrhagia (53) Migraines (54) Nausea and vomiting in (55) Neck pain (56) Nipple infection (57) Otitis media (58) Ovarian cyst (59) Pain of both breasts (60) Pain, dental (61) Pelvic pain (62) Pelvic pain (63) Pelvic pain in female (64) Pelvic pain in female (65) (66) (67) with 22 completed weeks gestation (68) with 27 completed weeks gestation (69) Pulmonary congestion (70) Pulmonary congestion (71) Purulent discharge from nipple (72) Purulent mastitis (73) Radicular pain of right lower extremity (74) Right lower quadrant abdominal pain (75) Right lower quadrant abdominal pain (76) Right ovarian cyst (77) Right ovarian cyst (78) RLQ abdominal pain (79) RLQ abdominal pain (80) Seizure (81) Shortness of breath (82) Shortness of breath (83) Swelling (84) Swelling (85) Syncope (86) Third trimester (87) Thrombosed external hemorrhoids Surgical Problems: (1) History of laparoscopy (2) History of tubal ligation Family History Cancer Diabetes mellitus Gallbladder disease Heart disease Hypertension Kidney disease Kidney stones Social History Smoking Status: Current Every Day Smoker Alcohol Use: occasionally Marital Status: in relationship Housing Status: lives with family Occupation Status: employed Current/Historical Medications Scheduled Buspirone HCl (Buspirone HCl), 15 MG PO BID Ciprofloxacin Hcl (Cipro), 500 MG PO BID Citalopram Hydrobromide (Citalopram Hydrobromide), 20 MG PO HS Metronidazole (Flagyl), 500 MG PO TID Multivitamin (Multivitamin), 1 TAB PO DAILY Scheduled PRN Acetamin/Butalbital/Caffeine (Fioricet), 1-2 TAB PO Q4H PRN for RN Diphenhydramine Hcl (Benadryl), 50 MG PO Q4H PRN for Allergic Reaction Ondansetron Hcl (Zofran), 4 MG PO PRN PRN for Nausea Oxycodone Ir (Roxicodone Ir), 1-2 TAB PO Q4H PRN for Pain Prednisone (Prednisone), 400 MG PO DIRECTED PRN for ONSET OF ALLERGY-SWELLING Ranitidine (Zantac), 150 MG PO DIRECTED PRN for GI Upset Rizatriptan Benzoate (Maxalt), 10 MG PO UD PRN for RN Trazodone Hcl (Trazodone), 50 MG PO HS PRN for RN Allergies Coded Allergies: NSAIDs (Verified Allergy, Severe, IDIOPATHIC ANGIOEDEMA, 01/05/18) Ceftriaxone (Verified Allergy, Intermediate, hives, 01/05/18) Penicillins (Verified Allergy, Intermediate, HIVES, 01/05/18) CANNOT TAKE ANY CROSS DRUGS EITHER OF PENICILLIN Tramadol (Verified Adverse Reaction, Intermediate, headache, 01/05/18) Vancomycin (Verified Adverse Reaction, Intermediate, CHANTAL SYNDROME, 01/05) Nickel (Verified Adverse Reaction, Mild, SKIN IRRITATION, 01/05/18) Physical Exam Vital Signs Date Time Temp Pulse Resp B/P (MAP) Pulse Ox O2 Delivery O2 Flow Rate FiO2 01/05/18 20:59 79 18 97 01/05/18 20:24 96/79 01/05/18 19:00 82 22 108/68 99 01/05/18 17:54 94 16 96/72 96 Room Air 01/05/18 17:16 36.8 96 18 118/84 97 Room Air Physical Exam GENERAL: Patient is anxious and tearful, she is in mild distress. HEENT: No acute trauma, normocephalic atraumatic, mucous membranes moist, no nasal congestion, no scleral icterus. NECK: No stridor, no adenopathy, no meningismus, trachea is midline. LUNGS: Clear to auscultation bilaterally, no wheeze, no rhonchi, breath sounds equal. HEART: Without murmurs gallops or rubs, regular rate and rhythm. ABDOMEN: Soft, with tenderness in the lower pelvis bilaterally. Bowel sounds positive, no hernias, no peritonitis. EXTREMITIES: No cyanosis or edema, full range of motion of all the joints without pain or difficulty, no signs for acute trauma. NEUROLOGIC: Oriented x 3, no acute motor or sensory deficits, no focal weakness. SKIN: No rash, no jaundice, no diaphoresis. Medical Decision & Procedures ER Provider Diagnostic Interpretation: Radiology results as stated below per my review and radiologist interpretation: ABD/PELVIS IV AND ORAL CONT CT DOSE: 425.43 mGy.cm HISTORY: Pain ABDOMINAL PAIN/GI--?APPY--GIVE PO AND IV CONTRAST TECHNIQUE: Multiaxial CT images of the abdomen and pelvis were performed following the use of intravenous and oral contrast. A dose lowering technique was utilized adhering to the principles of ALARA. COMPARISON STUDY: 11/14/2017 FINDINGS: Lung bases are clear. Liver spleen and pancreas are unremarkable. Kidneys negative for differences. As compared to the prior study appears to been an interval hysterectomy. There is a trace amount of free fluid within the pelvic cul-de-sac. There is a 2 cm left ovarian cyst. Bladder is midline. Bowel pattern is nonobstructive. The appendix is normal. IMPRESSION: Normal study post hysterectomy. Normal appendix. Nonobstructive bowel pattern. The above report was generated using voice recognition software. It may contain grammatical, syntax or spelling errors. Electronically signed by: Coy Patel M.D. 01/05/2018 8:17 PM Dictated Date/Time: 01/05/2018 8:13 PM Laboratory Results 01/05/18 17:38 Red Blood Count 4.64, Mean Corpuscular Volume 92.2, Mean Corpuscular Hemoglobin 32.1, Mean Corpuscular Hemoglobin Concent 34.8, Mean Platelet Volume 10.2, Neutrophils (%) (Auto) 70.8, Lymphocytes (%) (Auto) 22.5, Monocytes (%) (Auto) 3.6, Eosinophils (%) (Auto) 2.4, Basophils (%) (Auto) 0.2, Neutrophils # (Auto) 11.39, Lymphocytes # (Auto) 3.63, Monocytes # (Auto) 0.58, Eosinophils # (Auto) 0.39, Basophils # (Auto) 0.03 01/05/18 17:38 Test 01/05/18 17:38 01/05/18 20:15 White Blood Count 16.10 K/uL (4.8-10.8) Red Blood Count 4.64 M/uL (4.2-5.4) Hemoglobin 14.9 g/dL (12.0-16.0) Hematocrit 42.8 % (37-47) Mean Corpuscular Volume 92.2 fL (80-100) Mean Corpuscular Hemoglobin 32.1 pg (25-34) Mean Corpuscular Hemoglobin Concent 34.8 g/dl (32-36) Platelet Count 440 K/uL (130-400) Mean Platelet Volume 10.2 fL (7.4-10.4) Neutrophils (%) (Auto) 70.8 % Lymphocytes (%) (Auto) 22.5 % Monocytes (%) (Auto) 3.6 % Eosinophils (%) (Auto) 2.4 % Basophils (%) (Auto) 0.2 % Neutrophils # (Auto) 11.39 K/uL (1.4-6.5) Lymphocytes # (Auto) 3.63 K/uL (1.2-3.4) Monocytes # (Auto) 0.58 K/uL (0.11-0.59) Eosinophils # (Auto) 0.39 K/uL (0-0.5) Basophils # (Auto) 0.03 K/uL (0-0.2) RDW Standard Deviation 45.8 fL (36.4-46.3) RDW Coefficient of Variation 13.6 % (11.5-14.5) Immature Granulocyte % (Auto) 0.5 % Immature Granulocyte # (Auto) 0.08 K/uL (0.00-0.02) Anion Gap 7.0 mmol/L (3-11) Est Creatinine Clear Calc Drug Dose 114.0 ml/min Estimated GFR () 125.2 Estimated GFR (Non- 108.1 BUN/Creatinine Ratio 11.3 (10-20) Calcium Level 9.2 mg/dl (8.5-10.1) Total Bilirubin 0.3 mg/dl (0.2-1) Aspartate Amino Transf (AST/SGOT) 9 U/L (15-37) Alanine Aminotransferase (ALT/SGPT) 17 U/L (12-78) Alkaline Phosphatase 94 U/L (45-117) Total Protein 8.2 gm/dl (6.4-8.2) Albumin 4.1 gm/dl (3.4-5.0) Globulin 4.1 gm/dl (2.5-4.0) Albumin/Globulin Ratio 1.0 (0.9-2) Lipase 97 U/L (73-393) Urine Color YELLOW Urine Appearance CLEAR (CLEAR) Urine pH 6.5 (4.5-7.5) Urine Specific Boyle 1.021 (1.000-1.030) Urine Protein NEG (NEG) Urine Glucose (UA) NEG (NEG) Urine Ketones NEG (NEG) Urine Occult Blood NEG (NEG) Urine Nitrite NEG (NEG) Urine Bilirubin NEG (NEG) Urine Urobilinogen NEG (NEG) Urine Leukocyte Esterase NEG (NEG) Laboratory results reviewed by me. Medications Administered Medications (Trade) Dose Ordered Sig/Maxine Route Start Time Stop Time Status Last Admin Dose Admin Ondansetron HCl (Zofran Inj) 4 mg NOW STAT IV 01/05/18 17:31 01/05/18 17:33 DC 01/05/18 17:49 4 MG Sodium Chloride 1,000 ml @ 999 mls/hr Q1H1M STAT IV 01/05/18 17:31 01/05/18 18:31 DC 01/05/18 17:49 999 MLS/HR Morphine Sulfate (MoRPHine SULFATE INJ) 4 mg Q30M PRN IV 01/05/18 17:45 01/05/18 22:23 DC 01/05/18 21:37 4 MG Ciprofloxacin (Cipro Tab) 500 mg NOW STAT PO 01/05/18 20:58 01/05/18 21:00 DC 01/05/18 21:38 500 MG Metronidazole (Flagyl Tab) 500 mg NOW STAT PO 01/05/18 20:58 01/05/18 21:00 DC 01/05/18 21:38 500 MG Oxycodone HCl (Roxicodone Immediate Rel 5MG Home Pack) 1 homepack UD ONCE PO 01/05/18 21:00 01/05/18 21:01 DC 01/05/18 21:37 1 HOMEPACK ED Course 1725: The patient was evaluated in room C8. A complete history and physical exam was performed. 1731: Ordered Sodium Chloride 1000 mL @ 999 mL/hr IV, Zofran 4 mg IV. 1744: Ordered Morphine Sulfate 4 mg IV. 2031: I checked on the patient at this time. She is still crying, she states that her symptoms are unresolved. 2034: I discussed the case with Dr. Deb ALVAREZ. He will come to the department to do a speculum exam on the patient. 2055: I discussed the case with Dr. Boyd again at this time. He states that he did his exam and cannot see anything surgical. He states we should send her home on antibiotics. 2057: Ordered Flagyl 500 mg PO, Cipro 500 mg PO. 2099: Ordered Oxycodone HCl 1 homepack PO. 2109: The patient will be discharged home. Medical Decision Differential Diagnosis includes; Vaginal cuff, rupture, UTI, abscess, dehydration, electrolyte abnormality, vaginitis, infection. There is a moderate leukocytosis, this is consistent with infection. No concerning anemia. No significant electrolyte abnormality, kidney failure, hepatitis or pancreatitis. Urinalysis does not show infection. Abdominal and pelvis CT does not show abscess or any acute pelvic pathology, no evidence for free air. On exam, the patient was not febrile or toxic, there was no peritonitis. Patient received IV saline, IV Zofran and IV morphine. She was eventually given oral Cipro and oral Flagyl. The patient presents with pelvic pain. She is status post recent hysterectomy. I did contact OB, the patient was seen by the OB physician here in the ED. He did perform a pelvic exam and feels the patient may have a vaginal cuff cellulitis. He does feel the patient is stable for discharge home. Patient will be discharged on Cipro, Flagyl, and oxycodone. She will follow with OB and return here for fever, worsening symptoms or vomiting. [place] Drug Monitoring [place] Search Results: patient reviewed within database, no issues identified, see additional documentation Drug Monitoring Findings: Patient received Percocet on the 25 of December from her surgeon. Medication Reconcilliation Current Medication List: was personally reviewed by me Blood Pressure Screening Patient's blood pressure: Low blood pressure Consults Time Called: 2030 Consulting Physician: Dr. Deb ALVAREZ Returned Call: 2034 I discussed the case with Dr. Deb ALVAREZ. He will come to the department to do a speculum exam on the patient. Impression Primary Impression: Vaginal cuff cellulitis Additional Impression: Status post hysterectomy Scribe Attestation The scribe's documentation has been prepared under my direction and personally reviewed by me in its entirety. I confirm that the note above accurately reflects all work, treatment, procedures, and medical decision making performed by me. Departure Information Dispostion Home / Self-Care Prescriptions Oxycodone Ir (Roxicodone Ir) 5 Mg Tab 1-2 TAB PO Q4H Y for Pain, #10 TAB Prov: Castro Wick M.D. 01/05/18 Metronidazole (FLAGYL) 500 Mg Tab 500 MG PO TID for 10 Days, #30 TAB Prov: Castro Wick M.D. 01/05/18 Ciprofloxacin Hcl (CIPRO) 500 Mg Tab 500 MG PO BID, #20 TAB Prov: Castro Wick M.D. 01/05/18 Referrals No Doctor, Assigned (PCP) Forms HOME CARE DOCUMENTATION FORM, IMPORTANT VISIT INFORMATION, WORK / SCHOOL INSTRUCTIONS Patient Instructions My [facility] Additional Instructions rest fluids cipro 2x per day for 10 days flagyl 3x per day for 10 days oxy ir 1-2 tab every 4 hours for pain return for worsening symptoms, vomiting or fever see stripper and printer next week--call monday for appt Problem Qualifiers
[2018-01-05] MEDS ORDERED: OPTIRAY 320 IV PRN (17:45)
[2018-01-05] MEDS: MoRPHine SULFATE 4 MG/ML 1 ML CARP\\VIAL IV PRN ×4 (17:50→21:37)
[2018-01-05 18:07] LABS: BASO % 0.2 %; BASO ABS # 0.03 K/uL (0-0.2); EOS % 2.4 %; EOS ABS # 0.39 K/uL (0-0.5); HEMATOCRIT 42.8 % (37-47); HEMOGLOBIN 14.9 g/dL (12.0-16.0); IG# 0.08 K/uL (0.00-0.02); LYMPH % 22.5 %; LYMPH ABS # 3.63 K/uL (1.2-3.4); MEAN CELL VOLUME 92.2 fL (80-100); MEAN CORPUSCULAR HEMOGLOBIN 32.1 pg (25-34); MEAN CORPUSCULAR HGB CONC 34.8 g/dl (32-36); MEAN PLATELET VOLUME 10.2 fL (7.4-10.4); MONO % 3.6 %; MONO ABS # 0.58 K/uL (0.11-0.59); NEUT % 70.8 %; NEUT ABS # 11.39 K/uL (1.4-6.5); PLATELET COUNT 440 K/uL (130-400); RED CELL DISTRIBUTION WIDTH CV 13.6 % (11.5-14.5); RED CELL DISTRIBUTION WIDTH SD 45.8 fL (36.4-46.3)
[2018-01-05] MEDS ORDERED: PRED20TA PO (18:15)
[2018-01-05 18:28] LABS: ALBUMIN 4.1 gm/dl (3.4-5.0); CALCIUM 9.2 mg/dl (8.5-10.1); CREATININE 0.71 mg/dl (0.60-1.20); POTASSIUM 3.7 mmol/L (3.5-5.1)
[2018-01-05 18:31] LABS: TOTAL PROTEIN 8.2 gm/dl (6.4-8.2)
--- NOTE | 2018-01-05 20:18 | DIAGNOSTIC IMAGING REPORT ---
ABD/PELVIS IV AND ORAL CONT CT DOSE: 425.43 mGy.cm HISTORY: Pain ABDOMINAL PAIN/GI--?APPY--GIVE PO AND IV CONTRAST TECHNIQUE: Multiaxial CT images of the abdomen and pelvis were performed following the use of intravenous and oral contrast. A dose lowering technique was utilized adhering to the principles of ALARA. COMPARISON STUDY: 11/14/2017 FINDINGS: Lung bases are clear. Liver spleen and pancreas are unremarkable. Kidneys negative for differences. As compared to the prior study appears to been an interval hysterectomy. There is a trace amount of free fluid within the pelvic cul-de-sac. There is a 2 cm left ovarian cyst. Bladder is midline. Bowel pattern is nonobstructive. The appendix is normal. IMPRESSION: Normal study post hysterectomy. Normal appendix. Nonobstructive bowel pattern. The above report was generated using voice recognition software. It may contain grammatical, syntax or spelling errors. Electronically signed by: Coy Patel M.D. 01/05/2018 8:17 PM Dictated Date/Time: 01/05/2018 8:13 PM
[2018-01-05 20:24] VITALS: BP 96/79
[2018-01-05] MEDS ORDERED: CIPROFLOXACIN 500 MG TAB PO STA (20:58)
[2018-01-05] MEDS ORDERED: METRONIDAZOLE 250 MG TAB PO STA (20:58)
[2018-01-05 20:59] VITALS: PULSE 79; O2SAT 97
[2018-01-05] MEDS ORDERED: OXYCODONE IR HOME PACK PO ONE (21:00)
[2018-01-05] MEDS ORDERED: CIPR-255 PO (21:23)
[2018-01-05] MEDS ORDERED: OXYC1TAB3 PO (21:23)
[2018-01-05] MEDS ORDERED: METR-162 PO (21:23)
--- NOTE | 2018-01-05 22:12 | HISTORY & PHYSICAL EXAMINATION ---
DATE OF ADMISSION: 01/05/2018 HISTORY OF PRESENT ILLNESS: I was asked to see Uzma in the ER by Dr. Wick from the ER. She had had a hysterectomy [address] Marilia Cade. This was a TLH and conservation of the ovaries. The procedure was uncomplicated and she was doing well until 2 days ago when she had some slight bleeding and some vulvar swelling and then today she had significant pain in her vagina and pelvis, more pressure at this time. Pain is described as sharp and dull and she is somewhat vague in the description. Also when she voids, she has some discomfort. She is passing flatus and is having bowel movements. Her abdomen is not distended and she does not feel febrile, although she says she has felt chills before. PAST MEDICAL HISTORY: She has a history of menorrhagia, has a history of anxiety. She has a history of disc herniation, she is a prior gestational diabetic, past history of mastitis. The patient has also had multiple ER visits within the last year for multiple problems. MEDICATIONS: She is taking Percocet. ALLERGIES: SHE IS ALLERGIC TO MULTIPLE ANTIBIOTICS AND NSAIDS. SOCIAL HISTORY: Nonsmoker, nondrinker. The patient does say she is under stress. PHYSICAL EXAMINATION: VITAL SIGNS: Stable. She is afebrile. ABDOMEN: Soft, nontender. Incision clean, dry and intact. GYNECOLOGIC: Reveals a normal external genitalia with no swelling. Vagina is visualized with sterile speculum with nursing present. Cuff is intact and appears normal. No pus is seen. No blood is seen. Gentle bimanual exam fails to reveal any masses and the patient describes tenderness. IMPRESSION AND PLAN: Reviewed CT scan which is negative. Her creatinine is normal. Her white blood cell count is elevated at 16.1, her hemoglobin is 14.9. I discussed with Dr. Wick it is possible she has a mild cuff infection. Discussed Cipro and Flagyl for 10-14 days. I also discussed a limited refill of Percocet as well. I do not think the patient requires inpatient hospitalization as she is not febrile. She appears well and CT is negative. Clearly if outpatient antibiotics fail, I advised the patient to return to the office. I also advised her to call on Monday to follow up with a surgeon. YONY
== END 2018-01-05 21:41 | disposition home or self-care (01) ==
LOC: C.EDB 17:15 → C.EDC 21:41
DX: L03.818 Cellulitis of other sites (principal); Z98.890 Other specified postprocedural states; Z90.710 Acquired absence of both cervix and uterus; F32.9 Major depressive disorder, single episode, unspecified; F41.9 Anxiety disorder, unspecified; Z98.51 Tubal ligation status; Z80.9 Family history of malignant neoplasm, unspecified; Z83.3 Family history of diabetes mellitus; Z82.49 Family history of ischemic heart disease and other diseases of the circulatory system; Z84.1 Family history of disorders of kidney and ureter; F17.210 Nicotine dependence, cigarettes, uncomplicated; Z79.899 Other long term (current) drug therapy; Z88.0 Allergy status to penicillin; Z88.1 Allergy status to other antibiotic agents; Z88.8 Allergy status to other drugs, medicaments and biological substances

== ENCOUNTER → 2018-01-11 | Outpatient (CLI) | payer OTHER ==
[~2018-01-11] MED LIST changes: +CIPR-255 PO; +METR-162 PO; +OXYC1TAB3 PO; +PRED20TA PO
[2018-01-11 12:27] LABS: BASO % 0.3 %; BASO ABS # 0.03 K/uL (0-0.2); EOS % 2.6 %; EOS ABS # 0.25 K/uL (0-0.5); HEMOGLOBIN 13.8 g/dL (12.0-16.0); IG# 0.02 K/uL (0.00-0.02); LYMPH % 22.7 %; LYMPH ABS # 2.21 K/uL (1.2-3.4); MEAN CORPUSCULAR HEMOGLOBIN 31.7 pg (25-34); MEAN CORPUSCULAR HGB CONC 33.7 g/dl (32-36); MEAN PLATELET VOLUME 10.8 fL (7.4-10.4); MONO % 4.9 %; MONO ABS # 0.48 K/uL (0.11-0.59); NEUT % 69.3 %; NEUT ABS # 6.75 K/uL (1.4-6.5); PLATELET COUNT 380 K/uL (130-400); RED CELL DISTRIBUTION WIDTH CV 13.6 % (11.5-14.5); RED CELL DISTRIBUTION WIDTH SD 46.5 fL (36.4-46.3); WHITE BLOOD COUNT 9.74 K/uL (4.8-10.8)
[2018-01-11 12:53] LABS: BLOOD UREA NITROGEN 10 mg/dl (7-18); CARBON DIOXIDE 26 mmol/L (21-32); CREATININE 0.73 mg/dl (0.60-1.20); GLUCOSE 91 mg/dl (70-99); POTASSIUM 4.1 mmol/L (3.5-5.1); SODIUM 136 mmol/L (136-145)
== END | disposition home or self-care (01) ==
LOC: C.LAB1850 11:18
PROVIDERS: ATTEND Obstetrics & Gynecology
DX: G89.18 Other acute postprocedural pain (principal)

== ENCOUNTER → 2018-02-07 | Outpatient (CLI) | payer OTHER ==
[~2018-02-07] MED LIST changes: -METR-162 PO
--- NOTE | 2018-02-07 14:35 | DIAGNOSTIC IMAGING REPORT ---
HEAD WITHOUT CONTRAST (CT) CLINICAL HISTORY: 37 years-old Female with R51 Headache. Acute left-sided frontal headache TECHNIQUE: Multiple axial CT images of the head were obtained without contrast. A dose lowering technique was utilized adhering to the principles of ALARA. CT DOSE: 614.27 mGy.cm COMPARISON: Head CT 12/31/2016. FINDINGS: No acute intracranial hemorrhage, midline shift, intracranial mass, hydrocephalus, territorial ischemia or abnormal extra-axial collection. The calvarium is intact. The paranasal sinuses, mastoid air cells, and middle ear cavities are clear. IMPRESSION: No acute intracranial abnormality. The above report was generated using voice recognition software. It may contain grammatical, syntax or spelling errors. Electronically signed by: Shalom House M.D. 02/07/2018 2:34 PM Dictated Date/Time: 02/07/2018 2:32 PM
== END | disposition home or self-care (01) ==
LOC: C.CTS 14:22
PROVIDERS: ATTEND Physician Assistant
DX: R51 Headache (principal)

== ENCOUNTER 2018-06-01 15:40 | Emergency (ER) | payer OTHER ==
[~2018-06-01] VITALS: Ht 170.2 cm; Wt 79.7 kg
[~2018-06-01 15:40] MED LIST changes: +OXYC-90 PO; -OXYC1TAB3 PO
[2018-06-01 15:49] VITALS: TEMP 36.6; Ht 170.2 cm; Wt 79.7 kg
[2018-06-01] MEDS ORDERED: METHYLPREDNISOLONE 125 MG VIAL IV STA (17:10)
[2018-06-01] MEDS ORDERED: SODIUM CHLORIDE 0.9% 1000ML 1,000 ML IV STA (17:10)
[2018-06-01] MEDS ORDERED: RANITIDINE HCL 150 MG TAB PO ONE (17:15)
[2018-06-01] MEDS ORDERED: CITA20TA9 PO (17:53)
[2018-06-01] MEDS ORDERED: BUSP15TA70 PO (17:53)
[2018-06-01] MEDS ORDERED: TOPI50TA16 PO (17:53)
[2018-06-01] MEDS ORDERED: RANI150T3 PO (17:57)
[2018-06-01] MEDS ORDERED: PRED20TA2 PO (17:57)
[2018-06-01] MEDS ORDERED: EPP3/2 IM (17:57)
[2018-06-01 18:40] VITALS: BP 95/62; PULSE 77; O2SAT 100
--- NOTE | 2018-06-01 19:05 | EMERGENCY ROOM VISIT NOTE ---
History Report prepared by Lotus: Monika Jennings Under the Supervision of: Dr. Mack De Souza M.D. 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 Now with allergic reaction. Patient states she feels like she is on fire and is itchy everywhere. Took 75 mg Benadryl at 1500 and 20 mg Prednisone 1510. History of Present Illness The patient is a 37 year old female who presents to the Emergency Room with complaints of an episode of an allergic reaction that onset 90 minutes ago. 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 She states that she took 75 mg of Benadryl and 20 mg of Prednisone at 1500 fbut it did not help to alleviate the symptoms. The patient states that she feels as though she "was on fire". The patient complains of headache, difficulty breathing, burning of her ears, itchiness in her chest and feet, and fatigue from the Benadryl. The patient denies the use of an Epipen. She notes that she had a hysterectomy. Source of History: patient Onset: 90 minutes ago Position: chest Quality: burning, other (itchy) Timing: other (episode) Associated Symptoms: + headache, + SOB, + fatigue, + rash Note: The patient complains of burning of her ears and itchiness in her chest and feet. Review of Systems See HPI for pertinent positives & negatives. A total of 10 systems reviewed and were otherwise negative. Past Medical & Surgical Medical Problems: (1) Abdominal pain (2) Acute anxiety (3) Acute anxiety (4) Acute gastroenteritis (5) Acute head injury (6) Anemia (7) Angioedema (8) Angioedema (9) Anxiety (10) Breast pain (11) Breast pain (12) Breast pain (13) Breast pain (14) Chronic mastitis (15) Chronic mastitis (16) Chronic mastitis of left breast (17) Concussion (18) Constipation (19) Contusion of breast, right (20) Contusion of knee, right (21) Cramping affecting , antepartum (22) Dental caries (23) Depression (24) Disc herniation (25) Elevated creatine kinase level (26) Elevated liver function tests (27) Endometriosis (28) Engorged breasts (29) Excessive vaginal bleeding (30) External hemorrhoid (31) External hemorrhoid, thrombosed (32) External hemorrhoid, thrombosed (33) Fall (34) Gestational diabetes (35) 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, 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 (36) Hand contusion (37) Headache (38) Hematemesis (39) Hemorrhoid (40) History of mastitis (41) Influenza A (42) Influenza A (43) Laceration (44) Left ovarian cyst (45) Low back pain (46) Low back pain (47) Mastitis (48) Mastitis (49) Mastitis (50) Mastitis (51) Mastitis (52) Menorrhagia (53) Migraines (54) Nausea and vomiting in (55) Neck pain (56) Nipple infection (57) Otitis media (58) Ovarian cyst (59) Pain of both breasts (60) Pain, dental (61) Pelvic pain (62) Pelvic pain (63) Pelvic pain in female (64) Pelvic pain in female (65) (66) (67) with 22 completed weeks gestation (68) with 27 completed weeks gestation (69) Pulmonary congestion (70) Pulmonary congestion (71) Purulent discharge from nipple (72) Purulent mastitis (73) Radicular pain of right lower extremity (74) Right lower quadrant abdominal pain (75) Right lower quadrant abdominal pain (76) Right ovarian cyst (77) Right ovarian cyst (78) RLQ abdominal pain (79) RLQ abdominal pain (80) Seizure (81) Shortness of breath (82) Shortness of breath (83) Swelling (84) Swelling (85) Syncope (86) Third trimester (87) Thrombosed external hemorrhoids Surgical Problems: (1) History of laparoscopy (2) History of tubal ligation Family History Cancer Diabetes mellitus Gallbladder disease Heart disease Hypertension Kidney disease Kidney stones Social History Smoking Status: Current Every Day Smoker Alcohol Use: occasionally Marital Status: in relationship Housing Status: lives with family Occupation Status: employed Current/Historical Medications Scheduled Buspirone Hcl (Buspar), 15 MG PO BID Citalopram Hydrobromide (Celexa), 20 MG PO DAILY Epinephrine (Epipen), 0.3 MG IM UD Prednisone (Prednisone Tab), 0 PO DAILY Ranitidine Hcl (Zantac), 150 MG PO BID Topiramate (Topamax), 50 MG PO BID Allergies Coded Allergies: NSAIDs (Verified Allergy, Severe, IDIOPATHIC ANGIOEDEMA, 06/01/18) Ceftriaxone (Verified Allergy, Intermediate, hives, 06/01/18) Penicillins (Verified Allergy, Intermediate, HIVES, 06/01/18) CANNOT TAKE ANY CROSS DRUGS EITHER OF PENICILLIN Tramadol (Verified Adverse Reaction, Intermediate, headache, 06/01/18) Vancomycin (Verified Adverse Reaction, Intermediate, CHANTAL SYNDROME, 06/01) Nickel (Verified Adverse Reaction, Mild, SKIN IRRITATION, 06/01/18) Physical Exam Vital Signs Date Time Temp Pulse Resp B/P (MAP) Pulse Ox O2 Delivery O2 Flow Rate FiO2 06/01/18 18:40 77 18 95/62 100 06/01/18 17:37 96 Room Air 06/01/18 17:37 68 18 103/61 99 Room Air 06/01/18 15:51 Room Air 06/01/18 15:49 36.6 81 18 116/79 97 Room Air Physical Exam GENERAL: Awake, alert, well-appearing, in no acute distress HENT: Normocephalic, atraumatic. Oropharynx unremarkable. EYES: Normal conjunctiva. Sclera non-icteric. NECK: Supple. No nuchal rigidity. FROM. No JVD. RESPIRATORY: No stridor. No wheezing in lungs. CARDIAC: Regular rate, normal rhythm. Extremities warm and well perfused. Pulses equal. ABDOMEN: Soft, non-distended. No tenderness to palpation. No rebound or guarding. No masses. RECTAL: Deferred. MUSCULOSKELETAL: Chest examination reveals no tenderness. The back is symmetrical on inspection without obvious abnormality. There is no CVA tenderness to palpation. No joint edema. LOWER EXTREMITIES: Calves are equal size bilaterally and non-tender. No edema. No discoloration. NEURO: Normal sensorium. No sensory or motor deficits noted. SKIN: Urticarial rash on chest. Medical Decision & Procedures Medications Administered Medications (Trade) Dose Ordered Sig/Maxine Route Start Time Stop Time Status Last Admin Dose Admin Sodium Chloride 1,000 ml @ 999 mls/hr Q1H1M STAT IV 06/01/18 17:10 06/01/18 18:10 DC 06/01/18 17:36 999 MLS/HR Methylprednisolone Sodium Succinate (Solu-Medrol IV) 125 mg NOW STAT IV 06/01/18 17:10 06/01/18 17:12 DC 06/01/18 17:36 125 MG Ranitidine HCl (zANTac TAB) 150 mg NOW ONCE PO 06/01/18 17:15 06/01/18 17:16 DC 06/01/18 17:36 150 MG ED Course 1707: Past medical records reviewed. The patient was evaluated in room []. A complete history and physical examination was performed. 1740: Upon reexamination the patient is resting comfortably. 1800: Upon reexamination the patient is resting comfortably. I discussed results and treatment plan with the patient. She verbalizes agreement and understanding. The patient is ready for discharge. Medical Decision This is a 37-year-old female who presents emergency department complaining of allergic reaction. Patient was accidentally pricked with a penicillin needle. An IV was established, the patient given Solu-Medrol, Zantac. Repeat examination revealed much improvement the patient's symptoms. The patient was written for EpiPen's will be placed on a prednisone taper along with Zantac. Patient was in agreement with the treatment plan. Medication Reconcilliation Current Medication List: was personally reviewed by me Blood Pressure Screening Patient's blood pressure: Normal blood pressure Impression Primary Impression: Allergic reaction Scribe Attestation The scribe's documentation has been prepared under my direction and personally reviewed by me in its entirety. I confirm that the note above accurately reflects all work, treatment, procedures, and medical decision making performed by me. Departure Information Dispostion Home / Self-Care Prescriptions Epinephrine (EPIPEN) 0.3 Mg/0.3 Ml Inj 0.3 MG IM UD, #2 BOX Prov: Mack De Souza MD 06/01/18 Ranitidine Hcl (ZANTAC) 150 Mg Tab 150 MG PO BID for 7 Days, #14 TAB Prov: Mack De Souza MD 06/01/18 Prednisone (Prednisone Tab) 20 Mg Tab 0 PO DAILY, #7 TAB 2 TABS DAILY FOR 2 DAYS, THEN 1 TAB DAILY FOR 2 DAYS, THEN 1/2 TAB DAILY FOR 2 DAYS. Prov: Mack De Souza MD 06/01/18 Referrals No Doctor, Assigned (PCP) Forms HOME CARE DOCUMENTATION FORM, IMPORTANT VISIT INFORMATION Patient Instructions My [facility] Additional Instructions Take 50 mg Benadryl every 6 hours as needed You have been examined and treated today on an emergency basis only. This is not a substitute for, or an effort to provide, complete comprehensive medical care. It is impossible to recognize and treat all injuries or illnesses in a single emergency department visit. It is therefore important that you follow up closely with Dr Best. Call as soon as possible for an appointment. Thank you for your time and consideration. I look forward to speaking with you again soon. Please don't hesitate to call us if you have any questions. Problem Qualifiers Primary Impression: Allergic reaction Encounter type: initial encounter Qualified Codes: T78.40XA - Allergy, unspecified, initial encounter
== END 2018-06-01 18:41 | disposition home or self-care (01) ==
LOC: C.EDB 15:41 → C.EDC 18:41
DX: T78.40XA Allergy, unspecified, initial encounter (principal); X58.XXXA Exposure to other specified factors, initial encounter; F17.200 Nicotine dependence, unspecified, uncomplicated; Z88.8 Allergy status to other drugs, medicaments and biological substances; Z88.0 Allergy status to penicillin; Z88.5 Allergy status to narcotic agent

== ENCOUNTER 2025-09-20 13:59 | Inpatient (IN) ==
[2025-09-20] MEDS: ONDANSETRON INJ 2 MG/ML 2 ML VIAL IV STA (14:56)
[2025-09-20] MEDS: LACTATED RINGER'S 1,000 ML IV ONE (14:56)
[2025-09-20] MEDS: HYDROmorphone INJ 0.5 MG/0.5 ML SYR IV STA ×2 (14:56→16:44)
[2025-09-20 15:01] LABS: Hematocrit (blood only) 37.6 % (37.0-47.0); Hemoglobin 12.8 g/dL (12.0-16.0); Immature Granulocytes # (auto) 0.08 K/uL (0.01-0.20); Immature Granulocytes % (auto) 0.9 %; Mean Corpuscular Hemoglobin 32.9 pg (25.0-34.0); Mean Corpuscular Volume 96.7 fL (80.0-100.0); Platelet Count 326 K/uL (130-400); RDW Standard Deviation 48.1 fL (36.4-46.3); Red Blood Count 3.89 M/uL (4.20-5.40); White Blood Count 9.22 K/ul (4.8-10.8)
--- NOTE | 2025-09-20 15:06 | Emergency Department Note ---
History of Present Illness General Chief complaint: Abdominal Pain Stated complaint: ABD PAIN Time Seen by Provider: 09/20/25 14:05 History of Present Illness Maximum Pain Intensity: 7 Patient is a 45-year-old female presents with upper abdominal pain and hypotension in the setting of endoscopy yesterday. She states she had several episodes of blood pressures with systolics in the 70s and 80s on her wrist monitor. She did feel lightheaded and dizzy during these episodes. She does state that she normally has low normal blood pressure however it is not typically this low. She did receive propofol during her procedure. She is also complaining of "severe" upper abdominal pain after her endoscopy. Pain does radiate to her back. Constant pain that waxes and wanes in severity. No associated fevers, chills, chest pain, shortness of breath, nausea, vomiting. No change in bowel or bladder habits reported. Did not take anything for pain prior to arrival. Home Medications Medication Instructions Recorded Confirmed Type epinephrine 0.3 mg/0.3 mL 0.3 mg IM DIRECTED PRN 01/16/20 09/20/25 History injection, auto-injector (EpiPen) Anaphylaxis buspirone 10 mg tablet 30 mg PO BID 03/03/21 09/20/25 History escitalopram oxalate 20 mg tablet 20 mg PO QAM 10/20/21 09/20/25 History fexofenadine 180 mg tablet 180 mg PO DAILY PRN Allergy 10/20/21 09/20/25 History Symptoms clonazepam 0.5 mg tablet (Klonopin) 1 mg PO TID 11/26/24 09/20/25 History semaglutide (weight loss) 2.4 1.7 mg subcut Q7D 11/26/24 09/20/25 History mg/0.75 mL subcutaneous pen injector (Wegovy) rizatriptan 10 mg tablet (Maxalt) 10 mg PO .COMPLEX PRN Migraine 01/03/25 09/20/25 Rx Headache #9 tabs topiramate 50 mg tablet (Topamax) 50 mg PO BID #60 tabs 01/03/25 09/20/25 Rx [id number]-netbdmwtlnlwm-[id number] 1 tab PO .COMPLEX PRN Migraine 09/15/25 09/20/25 Rx 50 mg-325 mg-40 mg tablet Headache #9 tabs brexpiprazole 2 mg tablet (Rexulti) 2 mg PO HS 09/20/25 09/20/25 History clonazepam 0.5 mg tablet 0.5 mg PO BID PRN Anxiety 09/20/25 09/20/25 History famotidine 20 mg tablet 20 mg PO DAILY PRN Heartburn 09/20/25 09/20/25 History omeprazole 40 mg capsule,delayed 40 mg PO BID 09/20/25 09/20/25 History release prazosin 2 mg capsule 8 mg PO HS 09/20/25 09/20/25 History Allergies Allergy/AdvReac Type Severity Reaction Status Date / Time NSAIDS (Non-Steroidal Allergy Severe IDIOPATHIC Verified 11/26/24 10:43 Anti-Inflamma ANGIOEDEMA Penicillins Allergy Severe Anaphylaxis Verified 11/26/24 10:43 ceftriaxone Allergy Intermediate Hives Verified 11/26/24 10:43 tramadol AdvReac Intermediate Headache Verified 11/26/24 10:43 vancomycin AdvReac Intermediate CHANTAL Verified 11/26/24 10:43 SYNDROME nickel AdvReac Mild SKIN Verified 11/26/24 10:43 IRRITATION Past Med/Surg History Problem List (Updated 09/20/25 @ 18:11 by Naif Norman MD) Acute upper abdominal pain (Acute) Urge and stress incontinence Encounter for pre-operative examination Stress incontinence in female Urinary incontinence Menorrhagia Laceration of left upper arm (Acute) Hemorrhagic cyst of left ovary (Acute) resolved Allergic reaction (Acute) Abnormal vaginal bleeding (Acute) Tension headache Migraine with aura and without status migrainosus, not intractable Medical History Endometriosis Stress incontinence, female Anxiety with depression Depression 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 > no longer on meds > no futher issues > doesn't follow neuro Low BP tends to run low Sleep apnea mild no cpap Surgical History History of esophagogastroduodenoscopy (EGD) History of colonoscopy History of bilateral tubal ligation History of partial hysterectomy History of tooth extraction History of tonsillectomy History of adenoidectomy H/O exploratory laparotomy Hx of myringotomy multiple H/O laparoscopy Family History Grandmother (Maternal) Cervical cancer Grandmother Diabetes Social History Smoking Status: Current every day smoker Tobacco Type: E-cigarettes / Vaping Cigarettes Per Day: 3 cigs per day plus vape; Second Hand Exposure: No; Do You Dip or Chew Tobacco: No; Hx Alcohol Use: Yes Alcohol type: beer Hx Substance Use: No Preferred Language: Citizen Of [place] Communication Ability: Effective Visual Impairment: No Limitations Hearing Ability: Normal Med Surg Nurse Required: No Beliefs That Will Affect Care: None marital status: Current Living Situation: Spouse and Family Feels Safe at Home: Yes Assistive Devices: Contacts and Glasses Review of Systems Review of systems negative outside of positive findings mentioned in HPI. Physical Exam Vital Signs Vital Signs - 24 hr 09/20/25 14:08 09/20/25 14:08 09/20/25 14:30 Temperature 37.0 C 37 C Temperature Source Oral Oral Pulse Rate 92 H Pulse Rate [Apical] 92 H Pulse Rate from SpO2 Sensor 82 Pulse Rhythm [Apical] Regular Pulse Strength [Apical] Respiratory Rate 16 16 Respiratory Effort / Characteristics Non-Labored Spontaneous Non-Labored Spontaneous Respiratory Depth Normal Normal Respiratory Pattern Regular Blood Pressure 116/67 89/59 L Blood Pressure [Right Arm] 116/67 Blood Pressure Mean 83 69 Blood Pressure Mean [Right Arm] 83 Pulse Oximetry 97 97 96 Oxygen Delivery Method Room Air Room Air Room Air Sepsis Recent Fever Within 48 Hours No Sepsis New/Unexplained Change in Mental Status No Sepsis Action Taken by Nursing No Action Required 09/20/25 14:47 09/20/25 14:54 09/20/25 14:59 Temperature Temperature Source Pulse Rate 80 86 84 Pulse Rate [Apical] Pulse Rate from SpO2 Sensor Pulse Rhythm [Apical] Pulse Strength [Apical] Respiratory Rate 16 18 Respiratory Effort / Characteristics Respiratory Depth Respiratory Pattern Blood Pressure 92/55 L Blood Pressure [Right Arm] Blood Pressure Mean 67 Blood Pressure Mean [Right Arm] Pulse Oximetry 98 97 Oxygen Delivery Method Room Air Room Air Sepsis Recent Fever Within 48 Hours Sepsis New/Unexplained Change in Mental Status Sepsis Action Taken by Nursing 09/20/25 15:00 09/20/25 15:15 09/20/25 15:36 Temperature Temperature Source Pulse Rate 85 74 77 Pulse Rate [Apical] Pulse Rate from SpO2 Sensor 85 75 77 Pulse Rhythm [Apical] Pulse Strength [Apical] Respiratory Rate 18 17 22 Respiratory Effort / Characteristics Respiratory Depth Respiratory Pattern Blood Pressure 102/55 L 91/50 L 100/53 L Blood Pressure [Right Arm] Blood Pressure Mean 70 63 68 Blood Pressure Mean [Right Arm] Pulse Oximetry 95 95 97 Oxygen Delivery Method Room Air Room Air Sepsis Recent Fever Within 48 Hours Sepsis New/Unexplained Change in Mental Status Sepsis Action Taken by Nursing 09/20/25 16:06 09/20/25 16:11 09/20/25 16:15 Temperature Temperature Source Pulse Rate 84 85 Pulse Rate [Apical] 85 Pulse Rate from SpO2 Sensor 85 Pulse Rhythm [Apical] Regular Pulse Strength [Apical] Normal Respiratory Rate 18 18 20 Respiratory Effort / Characteristics Non-Labored Spontaneous Respiratory Depth Normal Respiratory Pattern Regular Blood Pressure 91/47 L 103/47 L Blood Pressure [Right Arm] 91/47 L Blood Pressure Mean 61 65 Blood Pressure Mean [Right Arm] 61 Pulse Oximetry 97 97 Oxygen Delivery Method Room Air Sepsis Recent Fever Within 48 Hours Sepsis New/Unexplained Change in Mental Status Sepsis Action Taken by Nursing 09/20/25 16:30 09/20/25 16:45 09/20/25 17:00 Temperature Temperature Source Pulse Rate 77 81 79 Pulse Rate [Apical] Pulse Rate from SpO2 Sensor 77 79 78 Pulse Rhythm [Apical] Pulse Strength [Apical] Respiratory Rate 21 20 22 Respiratory Effort / Characteristics Respiratory Depth Respiratory Pattern Blood Pressure 104/52 L 78/51 L 78/51 L Blood Pressure [Right Arm] Blood Pressure Mean 69 60 60 Blood Pressure Mean [Right Arm] Pulse Oximetry 97 98 95 Oxygen Delivery Method Sepsis Recent Fever Within 48 Hours Sepsis New/Unexplained Change in Mental Status Sepsis Action Taken by Nursing 09/20/25 17:15 09/20/25 17:16 09/20/25 17:30 Temperature Temperature Source Pulse Rate 73 72 Pulse Rate [Apical] 72 Pulse Rate from SpO2 Sensor 72 72 Pulse Rhythm [Apical] Pulse Strength [Apical] Respiratory Rate 19 20 17 Respiratory Effort / Characteristics Respiratory Depth Respiratory Pattern Blood Pressure 117/93 113/74 Blood Pressure [Right Arm] 117/93 Blood Pressure Mean 101 87 Blood Pressure Mean [Right Arm] 101 Pulse Oximetry 96 95 94 Oxygen Delivery Method Sepsis Recent Fever Within 48 Hours Sepsis New/Unexplained Change in Mental Status Sepsis Action Taken by Nursing 09/20/25 17:45 09/20/25 18:00 Temperature Temperature Source Pulse Rate 76 72 Pulse Rate [Apical] Pulse Rate from SpO2 Sensor 77 72 Pulse Rhythm [Apical] Pulse Strength [Apical] Respiratory Rate 18 14 Respiratory Effort / Characteristics Respiratory Depth Respiratory Pattern Blood Pressure 122/90 110/69 Blood Pressure [Right Arm] Blood Pressure Mean 100 82 Blood Pressure Mean [Right Arm] Pulse Oximetry 96 96 Oxygen Delivery Method Sepsis Recent Fever Within 48 Hours Sepsis New/Unexplained Change in Mental Status Sepsis Action Taken by Nursing See below Constitutional WD/WN, vitals as above Eyes PERRL, conjunctivae normal, anicteric sclerae Respiratory normal respiratory effort, lungs clear to auscultation Cardiovascular RRR, no murmur, no edema Gastrointestinal (Abdomen) Inspection/Auscultation: abdomen normal to inspection; abdomen not distended Percussion/Palpation: + abdomen tender (epigastric TTP with guarding ), + guarding and abdomen soft; abdomen not rigid Course Administered Medications Sodium Chloride (Nss) 1,000 mls @ 999 mls/hr IV .Q1H1M ONE Stop: 09/20/25 18:17 Last Admin: 09/20/25 17:48 Dose: 999 mls/hr Documented By: LUL Discontinued Medications Hydromorphone HCl (Hydromorphone Inj 0.5 Mg/0.5 Ml Syr) 0.5 mg IV NOW STA Stop: 09/20/25 14:45 Last Admin: 09/20/25 14:56 Dose: 0.5 mg Documented By: MIKALA Hydromorphone HCl (Hydromorphone Inj 0.5 Mg/0.5 Ml Syr) 0.5 mg IV NOW STA Stop: 09/20/25 16:37 Last Admin: 09/20/25 16:44 Dose: 0.5 mg Documented By: LUL Lactated Ringer's (Lr) 1,000 mls @ 999 mls/hr IV .Q1H1M ONE Stop: 09/20/25 15:44 Last Infusion: 09/20/25 16:10 Dose: Infused Documented By: Admin: 09/20/25 14:56 Dose: 999 mls/hr Documented By: MIKALA Ioversol (Optiray 320 100ml) 90 ml IV ONCE ONE Stop: 09/20/25 15:43 Last Admin: 09/20/25 15:42 Dose: 90 ml Documented By: KEYONNA Ondansetron HCl (Ondansetron Inj 2 Mg/Ml 2 Ml Vial) 4 mg IV NOW STA Stop: 09/20/25 14:45 Last Admin: 09/20/25 14:56 Dose: 4 mg Documented By: MIKALA Medical Decision Making Differential Diagnosis DDx includes but not limited to: Pancreatitis, gastritis, peptic ulcer disease, viscus perforation Medical Records Attestation: I reviewed the patient's medical records. Home Medications Current Medication List: was personally reviewed by me Laboratory Data Attestation: I reviewed the patient's lab results. 09/20/25 14:19 09/20/25 14:19 Lab Results 09/20/25 09/20/25 Range/Units 14:19 Unknown WBC 9.22 (4.8-10.8) K/ul RBC 3.89 L (4.20-5.40) M/uL Hgb 12.8 (12.0-16.0) g/dL Hct 37.6 (37.0-47.0) % MCV 96.7 (80.0-100.0) fL MCH 32.9 (25.0-34.0) pg MCHC 34.0 (32.0-36.0) g/dL RDW Std Deviation 48.1 H (36.4-46.3) fL RDW Coeff of Bassam 13.7 (11.5-14.5) % Plt Count 326 (130-400) K/uL MPV 10.2 (9.4-12.4) fL Immature Gran % (Auto) 0.9 % Neut % (Auto) 69.0 % Lymph % (Auto) 22.7 % Jenkins % (Auto) 5.1 % Eos % (Auto) 1.8 % Baso % (Auto) 0.5 % Neut # (Auto) 6.36 (1.40-6.50) K/uL Lymph # (Auto) 2.09 (1.20-3.40) K/uL Jenkins # (Auto) 0.47 (0.11-0.59) K/uL Eos # (Auto) 0.17 (0.00-0.50) K/uL Baso # (Auto) 0.05 (0.00-0.20) K/uL Immature Gran # (Auto) 0.08 (0.01-0.20) K/uL Sodium 139 (136-145) mmol/L Potassium 4.0 (3.5-5.1) mmol/L Chloride 108 H (98-107) mmol/L Carbon Dioxide 26 (21-32) mmol/L Anion Gap 5 (3-11) BUN 13 (6-23) mg/dl Creatinine 0.77 (0.6-1.2) mg/dl Est Cr Clr Drug Dosing 97.4 ml/min eGFR 96.28 BUN/Creatinine Ratio 16.9 (10-20) Glucose 87 (70-99(Fasting)) mg/dl Calcium 8.3 L (8.6-10.3) mg/dl Total Bilirubin 0.3 (0.2-1.0) mg/dl AST 23 (13-39) U/L ALT 14 (7-52) U/L Alkaline Phosphatase 84 (34-104) U/L Total Protein 6.3 (6.0-8.3) gm/dl Albumin 3.6 (3.4-5.0) gm/dl Globulin 2.7 (2.5-4.0) gm/dl Albumin/Globulin Ratio 1.3 (0.9-2) Lipase 155 H (11-82) U/L Urine Color Yellow Urine Appearance Turbid A (Clear) Urine pH 8.5 H (4.5-7.5) Ur Specific [place] 1.027 (1.000-1.030) Urine Protein Negative (Negative) Urine Glucose (UA) Negative (Negative) Urine Ketones Negative (Negative) Urine Blood Negative (Negative) Urine Nitrite Negative (Negative) Urine Bilirubin Negative (Negative) Urine Urobilinogen Negative (Negative) Ur Leukocyte Esterase Trace H (Negative) Urine WBC (Auto) 0-5 (0-5) /hpf Urine RBC (Auto) 0-2 (0-2) /hpf U Hyaline Cast (Auto) 0-2 (0-2) /lpf U Epithel Cells (Auto) 3-5 H (0-2) /hpf Urine Bacteria (Auto) None Seen (None Seen) Urine Comment Imaging Data Radiologist's Impression: Abdomen/Pelvis CT 09/20/25 14:44 INDICATION: Abdominal pain COMPARISON: 02/29/2024 TECHNIQUE: Contiguous axial CT images were obtained through the abdomen and pelvis. Dose reduction according to patient size and/or automated exposure control techniques have been utilized for this exam. FINDINGS: CT ABDOMEN: LUNG BASES: Grossly clear. LIVER: No worrisome hepatic lesions. SPLEEN: Unremarkable. GALLBLADDER: Unremarkable. KIDNEYS: No hydronephrosis or nephrolithiasis. No solid renal lesions. PANCREAS: Unremarkable. ADRENAL GLANDS: Unremarkable. PROXIMAL BOWEL: No small bowel obstruction. RETROPERITONEUM: No AAA. No significant lymphadenopathy. OTHER: No abscess. No free air. Small fat-containing umbilical and periumbilical hernias. CT PELVIS: URINARY BLADDER: Unremarkable. PELVIC ORGANS: Uterus not visualized. DISTAL BOWEL: [id number] stool in the colon. Normal appendix. OTHER: No significant lymphadenopathy. There is no free pelvic fluid. IMPRESSION: No acute pathology. Electronically signed by Alfa Harrison 09-20-2025 4:08 PM MDM Narrative Patient is a 45-year-old female presents with severe upper abdominal pain after endoscopy yesterday as well as self-reported hypotension at home. Blood pressure stable on arrival here today. She normally runs between 90 and 100 systolic. Her blood pressure here is 117/93. She is tender in the upper abdomen but nonperitoneal nonrigid on exam. Low suspicion for viscus injury or perforation. Lab work was obtained and reviewed. Mild elevation in lipase at 155. CT of the abdomen pelvis shows no concerning acute or surgical abdomen. Pancreas read as normal on CT however due to clinical picture this may be early acute appendicitis especially in the setting of recent endoscopy. Will admit for pain control and IV fluids. Pressure remained stable here in the ED. Stable for hospitalist service. Impression & Plan Acute upper abdominal pain Discharge Plan Visit Data Chief Complaint: Abdominal Pain Stated Complaint: ABD PAIN ED Provider: Naif Norman Discharge Problem: Acute upper abdominal pain Patient Disposition: Admitted As Inpatient Condition: Good Forms Stand Alone Forms: [employer] Prescriptions Prescriptions: No Action zyfhqvvgph-pedgbrdupgvwj-iyza 50-325-40 mg tablet 1 tab PO .COMPLEX PRN (Reason: Migraine Headache) Qty: 9 5RF Rx Instructions: TAKE 1-2 CAPS TWICE DAILY NEEDED FOR HEADACHE. MAXIMUM OF NO MORE THAN 2-3 DAYS PER WEEK buspirone 10 mg tablet 30 mg PO BID Wegovy 2.4 mg/0.75 mL pen injector 1.7 mg subcut Q7D Rx Instructions: every Monday rizatriptan [Maxalt] 10 mg tablet 10 mg PO .COMPLEX PRN (Reason: Migraine Headache) Qty: 9 6RF Rx Instructions: Take 1 tablet at onset of headache, may repeat dose in 2 hours if needed. Take no more than 2-3 days/week. topiramate [Topamax] 50 mg tablet 50 mg PO BID Qty: 60 6RF clonazepam [Klonopin] 0.5 mg tablet 1 mg PO TID epinephrine [EpiPen] 0.3 mg/0.3 mL Auto-Injector 0.3 mg IM DIRECTED PRN (Reason: Anaphylaxis) escitalopram oxalate 20 mg tablet 20 mg PO QAM fexofenadine 180 mg tablet 180 mg PO DAILY PRN (Reason: Allergy Symptoms) omeprazole 40 mg capsule,delayed release(DR/EC) 40 mg PO BID famotidine 20 mg tablet 20 mg PO DAILY PRN (Reason: Heartburn) prazosin 2 mg capsule 8 mg PO HS clonazepam 0.5 mg tablet 0.5 mg PO BID PRN (Reason: Anxiety) Rexulti 2 mg tablet 2 mg PO HS Referrals Referrals: Kita Best DO [Primary Care Provider] -
[2025-09-20 15:24] LABS: Albumin Level 3.6 gm/dl (3.4-5.0); Anion Gap 5.0 (3-11); Bilirubin,Total 0.3 mg/dl (0.2-1.0); Calcium 8.3 mg/dl (8.6-10.3); Carbon Dioxide 26.0 mmol/L (21-32); Chloride 108.0 mmol/L (98-107); Potassium 4.0 mmol/L (3.5-5.1); Sodium 139.0 mmol/L (136-145)
[2025-09-20 15:30] LABS: Alanine Aminotransferase 14.0 U/L (7-52); Albumin Globulin Ratio 1.3 (0.9-2); Alkaline Phosphatase 84.0 U/L (34-104); Blood Urea Nitrogen 13.0 mg/dl (6-23); Creatinine Clr Calc Pharmacy 97.4 ml/min; Globulin 2.7 gm/dl (2.5-4.0); Glucose 87.0 mg/dl (70-99(Fasting)); Lipase 155.0 U/L (11-82); Total Protein 6.3 gm/dl (6.0-8.3)
[2025-09-20] MEDS: OPTIRAY 320 100ml IV ONE (15:42)
--- NOTE | 2025-09-20 16:08 | CT Scan Report ---
INDICATION: Abdominal pain COMPARISON: 02/29/2024 TECHNIQUE: Contiguous axial CT images were obtained through the abdomen and pelvis. Dose reduction according to patient size and/or automated exposure control techniques have been utilized for this exam. FINDINGS: CT ABDOMEN: LUNG BASES: Grossly clear. LIVER: No worrisome hepatic lesions. SPLEEN: Unremarkable. GALLBLADDER: Unremarkable. KIDNEYS: No hydronephrosis or nephrolithiasis. No solid renal lesions. PANCREAS: Unremarkable. ADRENAL GLANDS: Unremarkable. PROXIMAL BOWEL: No small bowel obstruction. RETROPERITONEUM: No AAA. No significant lymphadenopathy. OTHER: No abscess. No free air. Small fat-containing umbilical and periumbilical hernias. CT PELVIS: URINARY BLADDER: Unremarkable. PELVIC ORGANS: Uterus not visualized. DISTAL BOWEL: [id number]-rxvqmlhw stool in the colon. Normal appendix. OTHER: No significant lymphadenopathy. There is no free pelvic fluid. IMPRESSION: No acute pathology. Electronically signed by Alfa Harrison 09-20-2025 4:08 PM
--- NOTE | 2025-09-20 16:39 | History & Physical Report ---
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 Hypotension Dizziness due to above Likely worsened due to decreased oral intake, ongoing diarrhea H/O chronic hypotension Check orthostatics IV fluids Monitor blood pressure Diarrhea Check stool studies Monitor volume status Esophagitis Started on PPI IV twice daily for now Obesity On Wegovy--skipped her dose today due to her symptoms Other chronic conditions Generalized anxiety disorder PTSD Depression Gestational diabetes Former tobacco use disorder Ongoing nicotine vaping, THC use Continue home medications DVT Px: SCDs for now Re: H/O hematemesis/esophagitis Code Status Full Code Disposition Admit to [facility] with telemetry I personally interviewed and examined the patient at bedside. Reviewed blood work, imaging studies, old record. Discussed with the ED physician. I spent a total [id number] coordinating, documenting, and providing care for this patient. History of Present Illness Chief Complaint: Abdominal pain Primary Care Provider: Kita Best DO Patient is a 45-year-old female with history of generalized anxiety disorder, PTSD, depression, obesity, chronic hypotension, gestational diabetes, former s moker, current vaping, THC use, esophagitis presents with history of worsening abdominal pain associate with nausea, dizziness, ongoing diarrhea. Patient reports that she had upper endoscopy yesterday by Dr. Montero for ongoing hematemesis, chronic diarrhea for about 1 month duration and was found to have esophagitis. Patient was to be started on omeprazole which she did not start taking. Patient reports having generalized abdominal pain predominantly right lower quadrant radiating to, sharp, associate with nausea and decreased appetite. She states that food intake intermittently worsens abdominal pain and pain medications slightly improved her symptoms. She reports having ongoing diarrhea for the last month, multiple episodes, nonbloody. She completed Zithromax course last week for pneumonia. She states that her blood pressure usually runs low but noted to have significantly low blood pressure with systolic in 70s yesterday while at home and reports dizziness which is new. Denies any history of chest pain, pedal edema, fever, chills, syncope, headache, vomiting, dysuria, hematuria. She admits to use THC to help with sleep and drinks alcohol socially, last alcohol drink yesterday. Allergies Allergy/AdvReac Type Severity Reaction Status Date / Time NSAIDS (Non-Steroidal Allergy Severe IDIOPATHIC Verified 11/26/24 10:43 Anti-Inflamma ANGIOEDEMA Penicillins Allergy Severe Anaphylaxis Verified 11/26/24 10:43 ceftriaxone Allergy Intermediate Hives Verified 11/26/24 10:43 tramadol AdvReac Intermediate Headache Verified 11/26/24 10:43 vancomycin AdvReac Intermediate CHANTAL Verified 11/26/24 10:43 SYNDROME nickel AdvReac Mild SKIN Verified 11/26/24 10:43 IRRITATION Home Medications Medication Instructions Recorded Confirmed Type epinephrine 0.3 mg/0.3 mL 0.3 mg IM DIRECTED PRN 01/16/20 09/20/25 History injection, auto-injector (EpiPen) Anaphylaxis buspirone 10 mg tablet 30 mg PO BID 03/03/21 09/20/25 History escitalopram oxalate 20 mg tablet 20 mg PO QAM 10/20/21 09/20/25 History fexofenadine 180 mg tablet 180 mg PO DAILY PRN Allergy 10/20/21 09/20/25 History Symptoms clonazepam 0.5 mg tablet (Klonopin) 1 mg PO TID 11/26/24 09/20/25 History semaglutide (weight loss) 2.4 1.7 mg subcut Q7D 11/26/24 09/20/25 History mg/0.75 mL subcutaneous pen injector (Wegovy) rizatriptan 10 mg tablet (Maxalt) 10 mg PO .COMPLEX PRN Migraine 01/03/25 09/20/25 Rx Headache #9 tabs topiramate 50 mg tablet (Topamax) 50 mg PO BID #60 tabs 01/03/25 09/20/25 Rx [id number]-mnkctqzx 1 tab PO .COMPLEX PRN Migraine 09/15/25 09/20/25 Rx 50 mg-325 mg-40 mg tablet Headache #9 tabs brexpiprazole 2 mg tablet (Rexulti) 2 mg PO HS 09/20/25 09/20/25 History clonazepam 0.5 mg tablet 0.5 mg PO BID PRN Anxiety 09/20/25 09/20/25 History famotidine 20 mg tablet 20 mg PO DAILY PRN Heartburn 09/20/25 09/20/25 History omeprazole 40 mg capsule,delayed 40 mg PO BID 09/20/25 09/20/25 History release prazosin 2 mg capsule 8 mg PO HS 09/20/25 09/20/25 History Past Med/Surg History Problem List (Updated 09/20/25 @ 18:21 by Ron Carter MD) Esophagitis Acute upper abdominal pain (Acute) Urge and stress incontinence Encounter for pre-operative examination Stress incontinence in female Urinary incontinence Menorrhagia Laceration of left upper arm (Acute) Hemorrhagic cyst of left ovary (Acute) resolved Allergic reaction (Acute) Abnormal vaginal bleeding (Acute) Tension headache Migraine with aura and without status migrainosus, not intractable Medical History Endometriosis Stress incontinence, female Anxiety with depression Depression 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 > no longer on meds > no futher issues > doesn't follow neuro Low BP tends to run low Sleep apnea mild no cpap Surgical History History of esophagogastroduodenoscopy (EGD) History of colonoscopy History of bilateral tubal ligation History of partial hysterectomy History of tooth extraction History of tonsillectomy History of adenoidectomy H/O exploratory laparotomy Hx of myringotomy multiple H/O laparoscopy Family History Grandmother (Maternal) Cervical cancer Grandmother Diabetes Social History Smoking Status: Current every day smoker Tobacco Type: E-cigarettes / Vaping Cigarettes Per Day: 3 cigs per day plus vape; Second Hand Exposure: No; Do You Dip or Chew Tobacco: No; Hx Alcohol Use: Yes Alcohol type: beer Hx Substance Use: No Preferred Language: Ugandan Communication Ability: Effective Visual Impairment: No Limitations Hearing Ability: Normal Physical Therapy Resident Required: No Beliefs That Will Affect Care: None marital status: Current Living Situation: Spouse and Family Feels Safe at Home: Yes Assistive Devices: Contacts and Glasses Review of Systems Review of Systems: All systems reviewed & are unremarkable except as noted in Subjective Physical Exam Physical Exam: Physical Exam: Vitals signs as noted above General Appearance: Overweight, no apparent distress Head: normocephalic, Atraumatic Eyes: normal inspection, EOMI Neck: supple, Trachea midline Respiratory/Chest: Normal breath sounds, CTA, No accessory muscle use Cardiovascular: S1, S2, No murmur Abdomen/GI:Soft, generalized tender, protuberant, bowel sounds present, no guarding or rigidity Extremities/Musculoskeletal:normal inspection, no edema Neurologic/Psych:AAOX3, grossly no focal neurological deficits Skin: normal color, warm Results & Data Results & Data Vital Signs (Past 12 Hours) Vital Signs Temp Pulse Pulse Resp BP BP Pulse Ox 09/20/25 16:11 85 18 91/47 L 97 09/20/25 15:15 74 17 91/50 L 95 09/20/25 15:00 85 18 102/55 L 95 09/20/25 14:59 84 09/20/25 14:54 86 18 92/55 L 97 09/20/25 14:47 80 16 98 09/20/25 14:30 89/59 L 96 09/20/25 14:08 37 C 92 H 16 116/67 97 09/20/25 14:08 37.0 C 92 H 16 116/67 97 O2 Del Method 09/20/25 16:11 Room Air 09/20/25 15:15 Room Air 09/20/25 15:00 Room Air 09/20/25 14:59 09/20/25 14:54 Room Air 09/20/25 14:47 Room Air 09/20/25 14:30 Room Air 09/20/25 14:08 Room Air 09/20/25 14:08 Room Air Laboratory Results Short CBC 09/20/25 Range/Units 14:19 WBC 9.22 (4.8-10.8) K/ul Hgb 12.8 (12.0-16.0) g/dL Hct 37.6 (37.0-47.0) % Plt Count 326 (130-400) K/uL BMP 09/20/25 14:19 Sodium 139 Potassium 4.0 Chloride 108 H Carbon Dioxide 26 BUN 13 Creatinine 0.77 Glucose 87 Calcium 8.3 L Liver Function 09/20/25 Range/Units 14:19 Total Bilirubin 0.3 (0.2-1.0) mg/dl AST 23 (13-39) U/L ALT 14 (7-52) U/L Alkaline Phosphatase 84 (34-104) U/L Albumin 3.6 (3.4-5.0) gm/dl Urine 09/20/25 Range/Units Unknown Urine Color Yellow Urine Appearance Turbid A (Clear) Urine pH 8.5 H (4.5-7.5) Ur Specific [place] 1.027 (1.000-1.030) Urine Protein Negative (Negative) Urine Glucose (UA) Negative (Negative) Diagnostic Findings CT ABD:No acute pathology. Medications Administered Home Medications Medication Instructions Recorded Confirmed epinephrine 0.3 mg/0.3 mL 0.3 mg IM DIRECTED PRN 01/16/20 09/20/25 injection, auto-injector (EpiPen) Anaphylaxis buspirone 10 mg tablet 30 mg PO BID 03/03/21 09/20/25 escitalopram oxalate 20 mg tablet 20 mg PO QAM 10/20/21 09/20/25 fexofenadine 180 mg tablet 180 mg PO DAILY PRN Allergy 10/20/21 09/20/25 Symptoms clonazepam 0.5 mg tablet (Klonopin) 1 mg PO TID 11/26/24 09/20/25 semaglutide (weight loss) 2.4 1.7 mg subcut Q7D 11/26/24 09/20/25 mg/0.75 mL subcutaneous pen injector (Dianevmare) brexpiprazole 2 mg tablet (Rexulti) 2 mg PO HS 09/20/25 09/20/25 clonazepam 0.5 mg tablet 0.5 mg PO BID PRN Anxiety 09/20/25 09/20/25 famotidine 20 mg tablet 20 mg PO DAILY PRN Heartburn 09/20/25 09/20/25 omeprazole 40 mg capsule,delayed 40 mg PO BID 09/20/25 09/20/25 release prazosin 2 mg capsule 8 mg PO HS 09/20/25 09/20/25 Previous Rx's Medication Instructions Recorded rizatriptan 10 mg tablet (Maxalt) 10 mg PO .COMPLEX PRN Migraine 01/03/25 Headache #9 tabs topiramate 50 mg tablet (Topamax) 50 mg PO BID #60 tabs 01/03/25 [id number]-xdbysrgayiwsw-nzogpdli 1 tab PO .COMPLEX PRN Migraine 09/15/25 50 mg-325 mg-40 mg tablet Headache #9 tabs
[2025-09-20 16:48] LABS: Appearance Urine Turbid (Clear); Bacteria Urine Automated None Seen (None Seen); Cast Urine Automated 0-2 /lpf (0-2); Glucose Urine UA Negative (Negative); RBC Urine Automated 0-2 /hpf (0-2); WBC Urine Automated 0-5 /hpf (0-5)
[2025-09-20] MEDS: SODIUM CHLORIDE 0.9% 1,000 ML IV ONE (17:48)
[2025-09-20] MEDS ORDERED: clonazePAM 0.5 MG TAB PO PRN (19:27)
[2025-09-20] MEDS ORDERED: ACETAMINOPHEN 325 MG TAB PO PRN (19:27)
[2025-09-20] MEDS ORDERED: FAMOTIDINE 20 MG TAB PO PRN (19:27)
[2025-09-20] MEDS: SODIUM CHLORIDE 0.9% 1,000 ML IV SCH (20:04)
[2025-09-20] MEDS: PANTOprazole 40 MG/10 ML SYR IV SCH (20:14)
[2025-09-20] MEDS: ONDANSETRON INJ 2 MG/ML 2 ML VIAL IV PRN (20:32)
[2025-09-20] MEDS: busPIRone 15 MG TAB PO SCH (20:33)
[2025-09-20] MEDS: clonazePAM 1 MG TAB PO SCH (20:33)
[2025-09-20] MEDS: TOPIRAMATE 50 MG TAB PO SCH (20:34)
[2025-09-20] MEDS: PRAZOSIN HCL 1 MG CAP PO SCH (20:38)
[2025-09-20] MEDS: HYDROmorphone INJ 0.5 MG/0.5 ML SYR IV PRN (20:58)
[2025-09-20] MEDS: ACETAMINOPHEN 1,000 MG/100 ML VIAL IV STA (22:48)
--- NOTE | 2025-09-20 23:25 | Communication Note ---
Date of Service: September 20, 2025 Patient with blood-streaked emesis as per RN. AP UGIB Continue IV PPI N.p.o. until seen by GI in a.m.
[2025-09-20 23:51] LABS: Hematocrit (blood only) 35.6 % (37.0-47.0); Hemoglobin 11.7 g/dL (12.0-16.0)
[2025-09-20] MEDS: PROMETHAZINE 12.5 MG/50.5 ML BAG IV PRN (23:55)
[2025-09-21] MEDS: clonazePAM 0.5 MG TAB PO STA (01:36)
[2025-09-21 06:04] LABS: Hematocrit (blood only) 37.4 % (37.0-47.0); Hemoglobin 12.2 g/dL (12.0-16.0); Mean Corpuscular Hemoglobin 32.5 pg (25.0-34.0); Mean Corpuscular Volume 99.7 fL (80.0-100.0); Platelet Count 284 K/uL (130-400); RDW Standard Deviation 51.4 fL (36.4-46.3); Red Blood Count 3.75 M/uL (4.20-5.40); White Blood Count 7.31 K/ul (4.8-10.8)
[2025-09-21 06:25] LABS: Alanine Aminotransferase 14.0 U/L (7-52); Albumin Globulin Ratio 1.6 (0.9-2); Albumin Level 3.9 gm/dl (3.4-5.0); Alkaline Phosphatase 73.0 U/L (34-104); Anion Gap 5.0 (3-11); Bilirubin,Total 0.3 mg/dl (0.2-1.0); Blood Urea Nitrogen 10.0 mg/dl (6-23); Calcium 8.0 mg/dl (8.6-10.3); Carbon Dioxide 26.0 mmol/L (21-32); Chloride 109.0 mmol/L (98-107); Cholesterol 221.0 mg/dl (0-200); Creatinine Clr Calc Pharmacy 96.9 ml/min; Globulin 2.4 gm/dl (2.5-4.0); Glucose 80.0 mg/dl (70-99(Fasting)); HDL Cholesterol 64.0 mg/dl; Lipase 19.0 U/L (11-82); Magnesium 2.1 mg/dl (1.7-2.4); Potassium 3.7 mmol/L (3.5-5.1); Sodium 140.0 mmol/L (136-145); Total Protein 6.3 gm/dl (6.0-8.3); Triglycerides 214.0 mg/dl (0-150)
[2025-09-21] MEDS: ESCITALOPRAM OXALATE 20 MG TAB PO SCH (08:51)
[2025-09-21] MEDS ORDERED: INFLUENZA VACC TS2025-26(6m+)/PF (IIV3) 0.5mL Syr IM ONE (09:00)
--- NOTE | 2025-09-21 09:48 | Gastrointestinal Consultation ---
Date of Consultation September 21, 2025 Assessment & Plan (1) Acute upper abdominal pain: She has abdominal pain without clear etiology. Her lipase was 155 and that is an insignificant test especially in light of normal pancreas on CT scan. She had EGD on Monday which showed esophagitis which would explain the blood streaks in her emesis. She is not having an upper GI bleed. Wegovy can cause issues with nausea and vomiting even though she has been on this for a couple of years. It is possible this is a functional process but she doesn't have a recent issue that can be blamed for it. My suspicion is that some of her pain is related to adhesive disease. Her description of the pain and its location point against this being biliary but ultrasound of the gallbladder could be considered. She may need colonoscopy at some point as well. History of Present Illness Reason for Consultation: abdominal pain Attending Physician: Dangelo Peck MD History of Present Illness 45 year old female who has battled abdominal pain for about a month. She had an EGD by Dr. Montero on Wednesday 09/19 which showed "LA class B esophagitis". She was to start omeprazole but had not done that yet. She describes pain in her lower right side radiating down towards her hip. She is unable to tolerate anything PO at least for the last couple of days. She says she had a BP of 74/40 at home and she was very dizzy with that. She does also feng with heartburn. She says her pain is constant but she can get a "severe" sharp pain that last for "5-7 seconds". Apparently last night she vomited and there was streaks of blood present. Dr. Roldan saw her and labeled it an "UGIB". She takes Wegovy and has been on it for a couple of years she says. She has had a major stress event 2 and a half years ago but nothing recently. She also has a history of endometriosis and has had adhesions before. She has not had an ultrasound but CT last night was normal. She also has been complaining of diarrhea for the past month as well. Allergies Allergy/AdvReac Type Severity Reaction Status Date / Time NSAIDS (Non-Steroidal Allergy Severe IDIOPATHIC Verified 11/26/24 10:43 Anti-Inflamma ANGIOEDEMA Penicillins Allergy Severe Anaphylaxis Verified 11/26/24 10:43 ceftriaxone Allergy Intermediate Hives Verified 11/26/24 10:43 tramadol AdvReac Intermediate Headache Verified 11/26/24 10:43 vancomycin AdvReac Intermediate CHANTAL Verified 11/26/24 10:43 SYNDROME nickel AdvReac Mild SKIN Verified 11/26/24 10:43 IRRITATION Home Medications Medication Instructions Recorded Confirmed Type epinephrine 0.3 mg/0.3 mL 0.3 mg IM DIRECTED PRN 01/16/20 09/20/25 History injection, auto-injector (EpiPen) Anaphylaxis buspirone 10 mg tablet 30 mg PO BID 03/03/21 09/20/25 History escitalopram oxalate 20 mg tablet 20 mg PO QAM 10/20/21 09/20/25 History fexofenadine 180 mg tablet 180 mg PO DAILY PRN Allergy 10/20/21 09/20/25 History Symptoms clonazepam 0.5 mg tablet (Klonopin) 1 mg PO TID 11/26/24 09/20/25 History semaglutide (weight loss) 2.4 1.7 mg subcut Q7D 11/26/24 09/20/25 History mg/0.75 mL subcutaneous pen injector (Wegovy) rizatriptan 10 mg tablet (Maxalt) 10 mg PO .COMPLEX PRN Migraine 01/03/25 09/20/25 Rx Headache #9 tabs topiramate 50 mg tablet (Topamax) 50 mg PO BID #60 tabs 01/03/25 09/20/25 Rx [id number]-qgevovknuvwas-psojboex 1 tab PO .COMPLEX PRN Migraine 09/15/25 09/20/25 Rx 50 mg-325 mg-40 mg tablet Headache #9 tabs brexpiprazole 2 mg tablet (Rexulti) 2 mg PO HS 09/20/25 09/20/25 History clonazepam 0.5 mg tablet 0.5 mg PO BID PRN Anxiety 09/20/25 09/20/25 History famotidine 20 mg tablet 20 mg PO DAILY PRN Heartburn 09/20/25 09/20/25 History omeprazole 40 mg capsule,delayed 40 mg PO BID 09/20/25 09/20/25 History release prazosin 2 mg capsule 8 mg PO HS 09/20/25 09/20/25 History Patient History Medical History Endometriosis Stress incontinence, female Anxiety with depression Depression 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 > no longer on meds > no futher issues > doesn't follow neuro Low BP tends to run low Sleep apnea mild no cpap Surgical History History of esophagogastroduodenoscopy (EGD) History of colonoscopy History of bilateral tubal ligation History of partial hysterectomy History of tooth extraction History of tonsillectomy History of adenoidectomy H/O exploratory laparotomy Hx of myringotomy multiple H/O laparoscopy Family History Grandmother (Maternal) Cervical cancer Grandmother Diabetes Social History Smoking Status: Current every day smoker Tobacco Type: E-cigarettes / Vaping Cigarettes Per Day: 3 cigs per day plus vape; Second Hand Exposure: No; Do You Dip or Chew Tobacco: No; Hx Alcohol Use: Yes Alcohol type: hard liquor Hx Substance Use: Yes Last Used Substance: Days (ago) Preferred Language: Danish Communication Ability: Effective Visual Impairment: No Limitations Hearing Ability: Normal 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 Beliefs That Will Affect Care: None marital status: Current Living Situation: Family Other Information That Helps Us Care for You: No Feels Safe at Home: Yes Safety Concerns: Feels Safe At This Time Assistive Devices: None Review of Systems Review of Systems: All systems reviewed & are unremarkable except as noted in HPI & below Physical Exam Physical Exam: In no apparent distress Constitutional: WD/WN, vitals as above Neck: trachea midline, no thyromegaly Respiratory: normal respiratory effort, lungs clear to auscultation Cardiovascular: RRR, no murmur, no edema Gastrointestinal (Abdomen): Percussion/Palpation: + abdomen tender (midepigastrium) and abdomen soft; no guarding and no hepatosplenomegaly Results & Data Vital Signs (Past 12 Hours) Vital Signs Temp Pulse Pulse Resp BP BP Pulse Ox 09/21/25 07:53 36.2 C L 65 18 109/72 97 09/21/25 03:26 36.5 C 67 18 103/67 95 09/20/25 23:20 36.5 C 65 18 114/72 97 09/20/25 22:40 68 O2 Del Method 09/21/25 07:53 Room Air 09/21/25 03:26 Room Air 09/20/25 23:20 Room Air 09/20/25 22:40 Laboratory Results 09/21/25 09/20/25 09/20/25 Range/Units 05:02 Unknown 23:38 WBC 7.31 (4.8-10.8) K/ul RBC 3.75 L (4.20-5.40) M/uL Hgb 12.2 11.7 L (12.0-16.0) g/dL Hct 37.4 35.6 L (37.0-47.0) % MCV 99.7 (80.0-100.0) fL MCH 32.5 (25.0-34.0) pg MCHC 32.6 (32.0-36.0) g/dL RDW Std Deviation 51.4 H (36.4-46.3) fL RDW Coeff of [place] 13.9 (11.5-14.5) % Plt Count 284 (130-400) K/uL MPV 9.9 (9.4-12.4) fL Immature Gran % (Auto) % Neut % (Auto) % Lymph % (Auto) % [place] % (Auto) % Eos % (Auto) % Baso % (Auto) % Neut # (Auto) (1.40-6.50) K/uL Lymph # (Auto) (1.20-3.40) K/uL [place] # (Auto) (0.11-0.59) K/uL Eos # (Auto) (0.00-0.50) K/uL Baso # (Auto) (0.00-0.20) K/uL Immature Gran # (Auto) (0.01-0.20) K/uL Sodium 140 (136-145) mmol/L Potassium 3.7 (3.5-5.1) mmol/L Chloride 109 H (98-107) mmol/L Carbon Dioxide 26 (21-32) mmol/L Anion Gap 5 (3-11) BUN 10 (6-23) mg/dl Creatinine 0.80 (0.6-1.2) mg/dl Est Cr Clr Drug Dosing 96.9 ml/min eGFR 91.97 BUN/Creatinine Ratio 12.5 (10-20) Glucose 80 (70-99(Fasting)) mg/dl Calcium 8.0 L (8.6-10.3) mg/dl Magnesium 2.1 (1.7-2.4) mg/dl Total Bilirubin 0.3 (0.2-1.0) mg/dl AST 21 (13-39) U/L ALT 14 (7-52) U/L Alkaline Phosphatase 73 (34-104) U/L Total Protein 6.3 (6.0-8.3) gm/dl Albumin 3.9 (3.4-5.0) gm/dl Globulin 2.4 L (2.5-4.0) gm/dl Albumin/Globulin Ratio 1.6 (0.9-2) Triglycerides 214 H (0-150) mg/dl Cholesterol 221 H (0-200) mg/dl LDL Cholesterol, Calc 114 mg/dl VLDL Cholesterol, Calc 43 H (0-30) mg/dl HDL Cholesterol 64 mg/dl Cholesterol/HDL Ratio 3.5 (0-5) Lipase 19 (11-82) U/L Urine Color Yellow Urine Appearance Turbid A (Clear) Urine pH 8.5 H (4.5-7.5) Ur Specific [place] 1.027 (1.000-1.030) Urine Protein Negative (Negative) Urine Glucose (UA) Negative (Negative) Urine Ketones Negative (Negative) Urine Blood Negative (Negative) Urine Nitrite Negative (Negative) Urine Bilirubin Negative (Negative) Urine Urobilinogen Negative (Negative) Ur Leukocyte Esterase Trace H (Negative) Urine WBC (Auto) 0-5 (0-5) /hpf Urine RBC (Auto) 0-2 (0-2) /hpf U Hyaline Cast (Auto) 0-2 (0-2) /lpf U Epithel Cells (Auto) 3-5 H (0-2) /hpf Urine Bacteria (Auto) None Seen (None Seen) Urine Comment Blood Type O Positive Antibody Screen NEGATIVE 09/20/25 Range/Units 14:19 WBC 9.22 (4.8-10.8) K/ul RBC 3.89 L (4.20-5.40) M/uL Hgb 12.8 (12.0-16.0) g/dL Hct 37.6 (37.0-47.0) % MCV 96.7 (80.0-100.0) fL MCH 32.9 (25.0-34.0) pg MCHC 34.0 (32.0-36.0) g/dL RDW Std Deviation 48.1 H (36.4-46.3) fL RDW Coeff of Bassam 13.7 (11.5-14.5) % Plt Count 326 (130-400) K/uL MPV 10.2 (9.4-12.4) fL Immature Gran % (Auto) 0.9 % Neut % (Auto) 69.0 % Lymph % (Auto) 22.7 % [place] % (Auto) 5.1 % Eos % (Auto) 1.8 % Baso % (Auto) 0.5 % Neut # (Auto) 6.36 (1.40-6.50) K/uL Lymph # (Auto) 2.09 (1.20-3.40) K/uL [place] # (Auto) 0.47 (0.11-0.59) K/uL Eos # (Auto) 0.17 (0.00-0.50) K/uL Baso # (Auto) 0.05 (0.00-0.20) K/uL Immature Gran # (Auto) 0.08 (0.01-0.20) K/uL Sodium 139 (136-145) mmol/L Potassium 4.0 (3.5-5.1) mmol/L Chloride 108 H (98-107) mmol/L Carbon Dioxide 26 (21-32) mmol/L Anion Gap 5 (3-11) BUN 13 (6-23) mg/dl Creatinine 0.77 (0.6-1.2) mg/dl Est Cr Clr Drug Dosing 97.4 ml/min eGFR 96.28 BUN/Creatinine Ratio 16.9 (10-20) Glucose 87 (70-99(Fasting)) mg/dl Calcium 8.3 L (8.6-10.3) mg/dl Magnesium (1.7-2.4) mg/dl Total Bilirubin 0.3 (0.2-1.0) mg/dl AST 23 (13-39) U/L ALT 14 (7-52) U/L Alkaline Phosphatase 84 (34-104) U/L Total Protein 6.3 (6.0-8.3) gm/dl Albumin 3.6 (3.4-5.0) gm/dl Globulin 2.7 (2.5-4.0) gm/dl Albumin/Globulin Ratio 1.3 (0.9-2) Triglycerides (0-150) mg/dl Cholesterol (0-200) mg/dl LDL Cholesterol, Calc mg/dl VLDL Cholesterol, Calc (0-30) mg/dl HDL Cholesterol mg/dl Cholesterol/HDL Ratio (0-5) Lipase 155 H (11-82) U/L Urine Color Urine Appearance (Clear) Urine pH (4.5-7.5) Ur Specific [place] (1.000-1.030) Urine Protein (Negative) Urine Glucose (UA) (Negative) Urine Ketones (Negative) Urine Blood (Negative) Urine Nitrite (Negative) Urine Bilirubin (Negative) Urine Urobilinogen (Negative) Ur Leukocyte Esterase (Negative) Urine WBC (Auto) (0-5) /hpf Urine RBC (Auto) (0-2) /hpf U Hyaline Cast (Auto) (0-2) /lpf U Epithel Cells (Auto) (0-2) /hpf Urine Bacteria (Auto) (None Seen) Urine Comment Blood Type Antibody Screen Diagnostic Findings Abdomen/Pelvis CT 09/20/25 14:44 INDICATION: Abdominal pain COMPARISON: 02/29/2024 TECHNIQUE: Contiguous axial CT images were obtained through the abdomen and pelvis. Dose reduction according to patient size and/or automated exposure control techniques have been utilized for this exam. FINDINGS: CT ABDOMEN: LUNG BASES: Grossly clear. LIVER: No worrisome hepatic lesions. SPLEEN: Unremarkable. GALLBLADDER: Unremarkable. KIDNEYS: No hydronephrosis or nephrolithiasis. No solid renal lesions. PANCREAS: Unremarkable. ADRENAL GLANDS: Unremarkable. PROXIMAL BOWEL: No small bowel obstruction. RETROPERITONEUM: No AAA. No significant lymphadenopathy. OTHER: No abscess. No free air. Small fat-containing umbilical and periumbilical hernias. CT PELVIS: URINARY BLADDER: Unremarkable. PELVIC ORGANS: Uterus not visualized. DISTAL BOWEL: Wxas-dl-lijxilef stool in the colon. Normal appendix. OTHER: No significant lymphadenopathy. There is no free pelvic fluid. IMPRESSION: No acute pathology. Electronically signed by Alfa Harrison 09-20-2025 4:08 PM
--- NOTE | 2025-09-21 10:33 | XRay Report ---
EXAM: Radiograph of the Chest 1 View INDICATION: Dyspnea TECHNIQUE: Frontal view of the chest. COMPARISON: 10/08/2022 FINDINGS: Lungs and pleural spaces: No consolidation or pulmonary edema. No pleural effusion or pneumothorax. Heart: Shape and configuration within normal limits allowing for technique. Mediastinum: Normal contour. Bones/joints: No fracture, erosion or dislocation. Soft tissues: No abnormality noted. No radiopaque foreign body noted. Upper abdomen: No abnormality noted. IMPRESSION: No acute cardiopulmonary disease. ACT 112: N/A Electronically signed by Zina Villavicencio 09-21-2025 10:33 AM
[2025-09-21] MEDS: LIDOCAINE 5% 1 PATCH TD SCH (10:51)
--- NOTE | 2025-09-21 11:39 | Ultrasound Report ---
EXAM: US Abdomen Limited Right Upper Quadrant INDICATION: Pain TECHNIQUE: Real-time ultrasound of the right upper quadrant with image documentation. COMPARISON: No relevant prior studies available. FINDINGS: Liver: Mildly heterogeneous and echogenic. Smooth cortical contour. No mass. No intrahepatic bile duct dilation. Gallbladder: No gallstones, wall thickening or surrounding fluid. Common bile duct: No acute abnormality noted. No stones. No dilation. 4 mm Pancreas: Largely obscured by bowel gas artifact. No gross abnormality. Right kidney: 11.2 cm long. Normal cortical thickness and echotexture. No mass, stone or hydronephrosis. IMPRESSION: 1. Normal sonographic appearance of the gallbladder. 2. Hepatic steatosis. Electronically signed by Zina Villavicencio 09-21-2025 11:39 AM
--- NOTE | 2025-09-21 12:07 | Electrocardiogram Report ---
Test Reason : Blood Pressure : */* mmHG Vent. Rate : 90 BPM Atrial Rate : 90 BPM P-R Int : 178 ms QRS Dur : 64 ms QT Int : 336 ms P-R-T Axes : 44 16 -6 degrees QTcB Int : 411 ms Normal sinus rhythm When compared with ECG of 21-May-2023 17:19, Premature ventricular complexes are no longer Present Confirmed by Kota Mercado ([id number]) on 09/21/2025 12:07:18 PM Referred By: REFERRED SELF Confirmed By: Kota Mercado
--- NOTE | 2025-09-21 12:29 | Hospitalist Progress Note ---
Date of Service September 21, 2025 Assessment & Plan (1) Acute upper abdominal pain: (2) Esophagitis: Plan 45 yo F w/ PMH of generalized anxiety disorder, PTSD, depression, obesity, chronic hypotension, gestational diabetes, former smoker, current vaping, THC use, esophagitis presents with history of worsening abdominal pain associate with nausea, dizziness, ongoing diarrhea. Pt had UGI scope 09/19 for ongoing hematemesis/chronic diarrhea for about 1 month - she was found to have esophagitis. Pt recommended to start on omeprazole which she was yet to start. 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 She is being managed for the following: Abdominal pain/nausea DD: Acute pancreatitis, THC use, esophagitis/alcohol use Esophagitis: Started on PPI IV twice daily for now Patient reports a month of abdominal pain, nausea, diarrhea, hematemesis. Patient underwent EGD scope 09/19, noted to have esophagitis, recommended PPI. Admitting lipase of 155, CTAP with no acute process. GB US with no cholecystitis. CXR with no acute findings. Continue with PPI, patient reports improving belly pain today and has not moved bowels since yesterday, resume clear liquid diet from evening. GI on board, appreciate recommendation. Counseled to quit THC and alcohol use. Will hold wegovy on dc given persistent N, V. Hypotension Dizziness due to above Likely worsened due to decreased oral intake, ongoing diarrhea H/O chronic hypotension Orthostatics neg. IV fluids at gentle rate. Monitor blood pressure Diarrhea: none since yesterday morning. Check stool studies. Monitor volume status Obesity: On Wegovy--skipped her dose today due to her symptoms Other chronic conditions Generalized anxiety disorder PTSD Depression Gestational diabetes Former tobacco use disorder Ongoing nicotine vaping, THC use Continue home medications DVT Px: SCDs for now Re: H/O hematemesis/esophagitis Code Status : Full Code Disposition: c/w med/tele. Admission and Anticipated Discharge Date Admission Date: September 20, 2025 Subjective Patient was seen and examined at bedside. Patient was sitting up in bed, on room air, NAD. Patient reports upper abdominal pain, right lower back pain. Will utilize lidocaine patch. Patient reports no further diarrhea since yesterday morning, patient reports Vomiting x 2 last evening. Denies any pain or burning while passing urine, reports moving gas, reports feeling very weak and tired. Patient denies fever/sore throat/cough. Physical Exam Physical Exam: Physical Exam: Vitals signs as noted above General Appearance: Overweight, no apparent distress Head: normocephalic, Atraumatic Eyes: normal inspection, EOMI Neck: supple, Trachea midline Respiratory/Chest: Normal breath sounds, CTA, No accessory muscle use Cardiovascular: S1, S2, No murmur Abdomen/GI:Soft, generalized tender, protuberant, bowel sounds present, no guarding or rigidity Extremities/Musculoskeletal:normal inspection, no edema Neurologic/Psych:AAOX3, grossly no focal neurological deficits Skin: normal color, warm Results & Data Results & Data Vital Signs (Past 12 Hours) Vital Signs Temp Pulse Pulse Resp BP BP Pulse Ox 09/21/25 11:42 36.8 C 62 18 103/72 97 09/21/25 10:00 64 09/21/25 09:47 09/21/25 07:53 36.2 C L 65 18 109/72 97 09/21/25 03:26 36.5 C 67 18 103/67 95 O2 Del Method 09/21/25 11:42 Room Air 09/21/25 10:00 09/21/25 09:47 Room Air 09/21/25 07:53 Room Air 09/21/25 03:26 Room Air
[2025-09-21] MEDS: REMOVE LIDODERM PATCH SCH (20:04)
[2025-09-21] MEDS: MELATONIN 3 MG TAB PO PRN (20:05)
[2025-09-22 06:42] LABS: Hematocrit (blood only) 35.1 % (37.0-47.0); Hemoglobin 11.7 g/dL (12.0-16.0); Mean Corpuscular Hemoglobin 33.5 pg (25.0-34.0); Mean Corpuscular Volume 100.6 fL (80.0-100.0); Platelet Count 259 K/uL (130-400); RDW Standard Deviation 50.4 fL (36.4-46.3); Red Blood Count 3.49 M/uL (4.20-5.40); White Blood Count 6.76 K/ul (4.8-10.8)
[2025-09-22 07:06] LABS: Anion Gap 5.0 (3-11); Blood Urea Nitrogen 7.0 mg/dl (6-23); Calcium 8.4 mg/dl (8.6-10.3); Carbon Dioxide 27.0 mmol/L (21-32); Chloride 108.0 mmol/L (98-107); Creatinine Clr Calc Pharmacy 107.6 ml/min; Glucose 82.0 mg/dl (70-99(Fasting)); Magnesium 2.1 mg/dl (1.7-2.4); Potassium 4.1 mmol/L (3.5-5.1); Sodium 140.0 mmol/L (136-145)
--- NOTE | 2025-09-22 11:19 | Gastroenterology Progress Note ---
Date of Service September 22, 2025 Assessment & Plan (1) Esophagitis: Plan: 45 year old female with history of endometriosis w/ numerous surgical interventions, anxiety, PTSD, depression, obesity, chronic hypotension, THC use, recent EGD at [facility] w/ reflux esophagitis (path pending) admitted w/ ongoing symptoms of abdominal discomfort, nausea/vomiting (w/ specks of BRB). Continue IV PPI, may convert to home based dosing after 72 hours of IV PPI therapy. GERD dietary and lifestyle changes. No indication for additional inpatient endoscopic evaluation. Agree w/ THC cessation. This will take about 6 week trial off therapy. Continue supportive measures. Recall gi as needed. I spent a total of 40 minutes on the date of service in review of patient's record, and previously obtained information in person and appropriate medical visit, discussion and education of plan, with patient and/or caregiver, placing orders for tests/referral/procedures as medically necessary and documentation of pertinent clinical information in patient's medical records for their visit today. Admission and Anticipated Discharge Date Admission Date: September 20, 2025 Supervising Physician Co-Signing Physician Notes I saw and examined this patient with our nurse practitioner and agree with her assessment and plan. Patient with atypical abdominal pain post endoscopic procedure last week. Endoscopy revealed moderate esophagitis. Cross-sectional imaging during his hospitalization does not show any acute pathology however CT scan does show a large stool burden. Pelvic ultrasound unrevealing. Etiology is unclear. Possibly related to obstipation and stool burden aggravated by recent sedation. Elevated lipase is nonspecific. Now normalized. Rarely upper endoscopy could cause mild pancreatitis which is also a possibility. Could consider trial of MiraLAX for constipation. 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 Subjective Pt reports lower pelvic discomfort this AM. Is scheduled for a pelvic US. She had a bout of emesis overnight. There has been small specks of blood present in emesis. No further BMs. No report of black or bloody stools. ABD US 2024: Normal sonographic appearance of the gallbladder. Hepatic willard atosis. CTAP 2024: No acute pathology. EGD 2024: LA Grade B reflux esophagitis with no bleeding. Biopsied. - Normal stomach. Biopsied. - Normal examined duodenum. Biopsied. Colonoscopy 2022: - The entire examined colon is normal on direct and retroflexion views. - No specimens collected. EGD 2022: Normal esophagus. - Normal stomach. Biopsied. - Normal examined duodenum. Review of Systems Review of Systems: All other findings negative except as noted in HPI. Physical Exam Gastrointestinal (Abdomen): normal bowel sounds, soft, nontender, no hepatosplenomegaly Results & Data Results & Data Vital Signs (Past 12 Hours) Vital Signs Temp Pulse Pulse Resp BP BP Pulse Ox 09/22/25 11:12 97.9 F 74 108/68 97 09/22/25 07:42 97.7 F 65 16 105/74 98 09/22/25 07:17 09/22/25 05:18 61 09/22/25 03:38 96.8 F L 64 18 100/63 94 09/22/25 00:41 105/71 09/22/25 00:09 97.9 F 70 18 99/65 L 92 O2 Del Method 09/22/25 11:12 Room Air 09/22/25 07:42 Room Air 09/22/25 07:17 Room Air 09/22/25 05:18 09/22/25 03:38 Room Air 09/22/25 00:41 09/22/25 00:09 Room Air Laboratory Results 09/22/25 Range/Units 05:30 WBC 6.76 (4.8-10.8) K/ul RBC 3.49 L (4.20-5.40) M/uL Hgb 11.7 L (12.0-16.0) g/dL Hct 35.1 L (37.0-47.0) % MCV 100.6 H (80.0-100.0) fL MCH 33.5 (25.0-34.0) pg MCHC 33.3 (32.0-36.0) g/dL RDW Std Deviation 50.4 H (36.4-46.3) fL RDW Coeff of Bassam 13.8 (11.5-14.5) % Plt Count 259 (130-400) K/uL MPV 10.5 (9.4-12.4) fL Sodium 140 (136-145) mmol/L Potassium 4.1 (3.5-5.1) mmol/L Chloride 108 H (98-107) mmol/L Carbon Dioxide 27 (21-32) mmol/L Anion Gap 5 (3-11) BUN 7 (6-23) mg/dl Creatinine 0.72 (0.6-1.2) mg/dl Est Cr Clr Drug Dosing 107.6 ml/min eGFR 104.36 BUN/Creatinine Ratio 9.7 L (10-20) Glucose 82 (70-99(Fasting)) mg/dl Calcium 8.4 L (8.6-10.3) mg/dl Phosphorus 3.0 (2.5-4.9) mg/dl Magnesium 2.1 (1.7-2.4) mg/dl PG Care Time/CCT Total # of Minutes Spent Total Time Spent with Patient: Total time spent is greater than 50% in coordination of care (as documented) at patient's floor/unit and/or counseling patient: Coding Level of Care Code 60595 SUB INP/OBS CARE 2MIN Diagnoses Esophagitis K20.90
[2025-09-22] MEDS ORDERED: Nursing to Pharmacy Communication SCH (13:30)
--- NOTE | 2025-09-22 14:57 | Hospitalist Progress Note ---
Date of Service September 22, 2025 Assessment & Plan (1) Acute upper abdominal pain: (2) Esophagitis: Plan 45 yo F w/ PMH of generalized anxiety disorder, PTSD, depression, obesity, chronic hypotension, gestational diabetes, former smoker, current vaping, THC use, esophagitis presents with history of worsening abdominal pain associate with nausea, dizziness, ongoing diarrhea. Pt had UGI scope 09/19 for ongoing hematemesis/chronic diarrhea for about 1 month - she was found to have esophagitis. Pt recommended to start on omeprazole which she was yet to start. 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 She is being managed for the following: Abdominal pain/nausea DD: Acute pancreatitis, THC use, esophagitis/alcohol use Esophagitis: Started on PPI IV twice daily for now Patient reports a month of abdominal pain, nausea, diarrhea, hematemesis. Patient underwent EGD scope 09/19, noted to have esophagitis, recommended PPI. Admitting lipase of 155, CTAP with no acute process. GB US with no cholecystitis. CXR with no acute findings. Pelvic US pending. Continue with PPI, patient reports improving belly pain today and has not moved bowels since 2 d Pt reports improving N, V and would like solid diet. Soft diet ordered for today. GI on board, IV PPI for 72 hrs then po ppi, f/u gi as OP. Counseled to quit THC and alcohol use. Will hold wegovy on dc given persistent N, V. Hypotension Dizziness due to above Likely worsened due to decreased oral intake, ongoing diarrhea H/O chronic hypotension Orthostatics neg. now better. Monitor blood pressure Diarrhea: none since 2d . Obesity: On Wegovy--skipped her dose on the day of presentation due to her symptoms Other chronic conditions Generalized anxiety disorder PTSD Depression Gestational diabetes Former tobacco use disorder Ongoing nicotine vaping, THC use Continue home medications DVT Px: SCDs for now Re: H/O hematemesis/esophagitis Code Status : Full Code Disposition: c/w med/tele. likely dc demian on po atb Admission and Anticipated Discharge Date Admission Date: September 20, 2025 Subjective Patient was seen and examined at bedside. Patient was sitting up in bed, on room air, NAD. Patient reports overall improvement in her nausea, vomiting, diarrhea and is able to tolerate diet and would like to advance it to solid. Soft diet ordered for today and will monitor. Patient reports strength coming back, reports ambulating in the hallway and making some progress. Patient denies fever sore throat or cough. Patient is anxious that her right lower quadrant could be her ovary cyst bursting and would like ultrasound done. Ultrasound ordered. Physical Exam Physical Exam: General Appearance: Overweight, no apparent distress Head: normocephalic, Atraumatic Eyes: normal inspection, EOMI Neck: supple, Trachea midline Respiratory/Chest: Normal breath sounds, CTA, No accessory muscle use Cardiovascular: S1, S2, No murmur Abdomen/GI:Soft, generalized tender x mild , protuberant, bowel sounds present, no guarding or rigidity Extremities/Musculoskeletal:normal inspection, no edema Neurologic/Psych:AAOX3, grossly no focal neurological deficits Skin: normal color, warm Results & Data Results & Data Vital Signs (Past 12 Hours) Vital Signs Temp Pulse Pulse Resp BP BP Pulse Ox 09/22/25 12:59 64 09/22/25 11:12 36.6 C 74 108/68 97 09/22/25 07:42 36.5 C 65 16 105/74 98 09/22/25 07:17 09/22/25 05:18 61 09/22/25 03:38 36.0 C L 64 18 100/63 94 O2 Del Method 09/22/25 12:59 09/22/25 11:12 Room Air 09/22/25 07:42 Room Air 09/22/25 07:17 Room Air 09/22/25 05:18 09/22/25 03:38 Room Air
--- NOTE | 2025-09-22 15:18 | Ultrasound Report ---
US pelvic limited CLINICAL HISTORY: Pelvic pain. Status post hysterectomy. Evaluate for ovarian cyst. COMPARISON STUDY: Pelvic ultrasound July 09, 2018. CT of the abdomen and pelvis September 20. TECHNIQUE: Transabdominal and transvaginal sonography of the pelvis was performed. FINDINGS: The uterus is surgically absent. The right ovary was not visualized. No right adnexal mass was identified. Left ovary is unremarkable by sonography, measuring 1.8 x 0.6 x 0.9 cm. Color flow is identified within the left ovary. No free fluid was identified. There was no adnexal mass. IMPRESSION: 1. Unremarkable sonographic appearance of the left ovary. 2. Nonvisualization of the right ovary. No adnexal masses. No free fluid. 3. Status post hysterectomy. ACT 112: Negative or not required by law. Electronically signed by: Rex Cuevas M.D. 09/22/2025 3:16 PM
[2025-09-23 04:29] LABS: Amphetamines+Metham, Urine Neg (Neg); MDMA (Ecstacy), Urine Neg (Neg); Marijuana, Urine Pos (Neg)
[2025-09-23 06:09] LABS: Adenovirus F 40/41 PCR Not Detected (NotDetected); Campylobacter PCR Not Detected (NotDetected); Enteroaggregative E.coli(EAEC) Not Detected (NotDetected); Shiga-like Toxin E.coli (STEC) Not Detected (NotDetected); Vibrio species PCR Not Detected (NotDetected)
[2025-09-23 07:09] LABS: Hematocrit (blood only) 35.1 % (37.0-47.0); Hemoglobin 11.7 g/dL (12.0-16.0); Mean Corpuscular Hemoglobin 33.1 pg (25.0-34.0); Mean Corpuscular Volume 99.2 fL (80.0-100.0); Platelet Count 247 K/uL (130-400); RDW Standard Deviation 48.1 fL (36.4-46.3); Red Blood Count 3.54 M/uL (4.20-5.40); White Blood Count 6.73 K/ul (4.8-10.8)
[2025-09-23 07:41] LABS: Anion Gap 6.0 (3-11); Blood Urea Nitrogen 7.0 mg/dl (6-23); Calcium 7.9 mg/dl (8.6-10.3); Carbon Dioxide 24.0 mmol/L (21-32); Chloride 106.0 mmol/L (98-107); Creatinine Clr Calc Pharmacy 96.7 ml/min; Glucose 114.0 mg/dl (70-99(Fasting)); Magnesium 1.9 mg/dl (1.7-2.4); Potassium 3.9 mmol/L (3.5-5.1); Sodium 136.0 mmol/L (136-145)
[2025-09-23 07:58] VITALS: O2SAT 94
[2025-09-23] MEDS: DOCUSATE SODIUM/SENNA 50/8.6MG TAB PO SCH (08:23)
--- NOTE | 2025-09-23 09:40 | Gastroenterology Progress Note ---
Date of Service September 23, 2025 Assessment & Plan (1) Esophagitis: Plan: 45 year old female with history of endometriosis w/ numerous surgical interventions, anxiety, PTSD, depression, obesity, chronic hypotension, THC use, recent EGD at [facility] w/ reflux esophagitis (path pending) admitted w/ ongoing symptoms of abdominal discomfort, nausea/vomiting (w/ specks of BRB). Continue IV PPI, may convert to home based dosing after 72 hours of IV PPI therapy. GERD dietary and lifestyle changes. No indication for additional inpatient endoscopic evaluation. Agree w/ THC cessation. This will take about 6 week trial off therapy. Continue supportive measures. Recommend gynecolgical evaluation. Recall gi as needed. I spent a total of 40 minutes on the date of service in review of patient's record, and previously obtained information in person and appropriate medical visit, discussion and education of plan, with patient and/or caregiver, placing orders for tests/referral/procedures as medically necessary and documentation of pertinent clinical information in patient's medical records for their visit today. Admission and Anticipated Discharge Date Admission Date: September 22, 2025 Supervising Physician Co-Signing Physician Notes I saw and examined this patient with our nurse practitioner and agree with her assessment and plan. Patient now complaining of lower back and pelvic pain with radiation down to her legs. Does not sound like GI pathology is cause for her pain. She does feel little better after taking MiraLAX and having a bowel movement. I would recommend continuing the MiraLAX as an outpatient. In light of the changing nature of her pain consider imaging of her lower spine. She does have a past history of requiring epidural injections for back pain. If she continues to have GI symptoms she can follow-up with our GI team as an outpatient. Subjective Moved her bowels overnight. No black or bloody stools. No further emesis. Continued left sided pelvic pain which radiates down her leg. Wants to go home. Review of Systems Review of Systems: All other findings negative except as noted in HPI. Physical Exam Constitutional: WD/WN, vitals as above Respiratory: normal respiratory effort Cardiovascular: Rate/Rhythm: regular rate Gastrointestinal (Abdomen): Inspection/Auscultation: abdomen normal to inspe ction and normal bowel sounds Skin: no rashes, warm and dry Results & Data Results & Data Vital Signs (Past 12 Hours) Vital Signs Temp Pulse Pulse Resp BP BP Pulse Ox 09/23/25 08:00 121/78 09/23/25 07:57 97.7 F 73 16 86/52 L 94 09/23/25 07:07 09/23/25 05:45 73 09/23/25 03:28 97.3 F L 80 20 105/68 98 09/22/25 23:47 97.7 F 64 18 100/72 96 09/22/25 21:54 68 O2 Del Method 09/23/25 08:00 09/23/25 07:57 Room Air 09/23/25 07:07 Room Air 09/23/25 05:45 09/23/25 03:28 Room Air 09/22/25 23:47 Room Air 09/22/25 21:54 Laboratory Results 09/23/25 09/23/25 09/23/25 Range/Units 05:30 04:40 03:25 WBC 6.73 (4.8-10.8) K/ul RBC 3.54 L (4.20-5.40) M/uL Hgb 11.7 L (12.0-16.0) g/dL Hct 35.1 L (37.0-47.0) % MCV 99.2 (80.0-100.0) fL MCH 33.1 (25.0-34.0) pg MCHC 33.3 (32.0-36.0) g/dL RDW Std Deviation 48.1 H (36.4-46.3) fL RDW Coeff of Bassam 13.4 (11.5-14.5) % Plt Count 247 (130-400) K/uL MPV 10.5 (9.4-12.4) fL Sodium 136 (136-145) mmol/L Potassium 3.9 (3.5-5.1) mmol/L Chloride 106 (98-107) mmol/L Carbon Dioxide 24 (21-32) mmol/L Anion Gap 6 (3-11) BUN 7 (6-23) mg/dl Creatinine 0.80 (0.6-1.2) mg/dl Est Cr Clr Drug Dosing 96.7 ml/min eGFR 91.97 BUN/Creatinine Ratio 8.8 L (10-20) Glucose 114 H (70-99(Fasting)) mg/dl Calcium 7.9 L (8.6-10.3) mg/dl Phosphorus 3.5 (2.5-4.9) mg/dl Magnesium 1.9 (1.7-2.4) mg/dl Stl C. cayetanensis PCR Not Detected (NotDetected) Stool Rotavirus A PCR Not Detected (NotDetected) Stl Adenov F 40/41 PCR Not Detected (NotDetected) Stool Astrovirus (PCR) Not Detected (NotDetected) Stool Campylobacter PCR Not Detected (NotDetected) Stool Cryptosporidium PCR Not Detected (NotDetected) Stl E.coli Shiga Tox PCR Not Detected (NotDetected) Stl Enterotoxigenic E PCR Not Detected (NotDetected) Stool EPEC (PCR) Not Detected (NotDetected) Stool EAEC (PCR) Not Detected (NotDetected) Stl E. histolytica PCR Not Detected (NotDetected) Stool Giardia Lamblia PCR Not Detected (NotDetected) Stool Salmonella PCR Not Detected (NotDetected) Stool Sapovirus (PCR) Not Detected (NotDetected) Stl P. shigelloides PCR Not Detected (NotDetected) Stl Shigella/EIEC PCR Not Detected (NotDetected) St Y.enterocolitica PCR Not Detected (NotDetected) Stool Vibrio (PCR) Not Detected (NotDetected) Stl Vibrio cholerae PCR Not Detected (NotDetected) Stl Norovirus GI/GII PCR Not Detected (NotDetected) Urine Butalbital Pending Urine Opiates Screen Pos H (Neg) U Codeine Confrm GC/MS Pending Ur Morphine (GC/MS) Pending Ur Hydrocodone (GC/MS) Pending Ur Norhydrocodone Pending Ur Noroxycodone Pending Urine Oxycodone (GC/MS) Pending U Oxymorphone GC/MS Pending Ur Methadone, Qual Neg (Neg) Ur Hydromorphone (GC/MS) Pending Urine Fentanyl Screen Neg (Neg) Urine Barbiturates Pos H (Neg) Ur Phencyclidine (PCP) Neg (Neg) U Amphetamin/Meth Scrn Neg (Neg) MDMA (Ecstasy) Screen Neg (Neg) Urine Amobarbital Pending Urine Pentobarbital Pending Urine Phenobarbital Pending Urine Secobarbital Pending U OH-Alprazolam Confrm Pending U Benzodiazepines Scrn Pos H (Neg) 7-Amino Clonazepam Pending Ur Nordiazepam Confirm Pending U OH-ethylflurazepam Pending U Lorazepam Cnf GC/MS Pending U Oxazepam Confm GC/MS Pending Ur Temazepam Confirm Pending U OH-Triazolam Confirm Pending U OH-Midazolam Confirm Pending Ur Cocaine Metabolite Neg (Neg) U Marijuana (THC) Screen Pos H (Neg) U Marijuana THC Carboxy Pending Drug Screen Comment Pending PG Care Time/CCT Total # of Minutes Spent Total Time Spent with Patient: Total time spent is greater than 50% in coordination of care (as documented) at patient's floor/unit and/or counseling patient: Coding Level of Care Code 99592 SUB INP/OBS CARE MIN Diagnoses Esophagitis K20.90
[2025-09-23] MEDS: POLYETHYLENE (MIRALAX) 17 GM PACK PO PRN (10:15)
--- NOTE | 2025-09-23 14:02 | Discharge Summary ---
Date of Service September 23, 2025 Admission HPI Per Admitting Provider Patient is a 45-year-old female with history of generalized anxiety disorder, PTSD, depression, obesity, chronic hypotension, gestational diabetes, former smoker, current vaping, THC use, esophagitis presents with history of worsening abdominal pain associate with nausea, dizziness, ongoing diarrhea. Patient reports that she had upper endoscopy yesterday by Dr. Montero for ongoing hematemesis, chronic diarrhea for about 1 month duration and was found to have esophagitis. Patient was to be started on omeprazole which she did not start taking. Patient reports having generalized abdominal pain predominantly right lower quadrant radiating to, sharp, associate with nausea and decreased appetite. She states that food intake intermittently worsens abdominal pain and pain medications slightly improved her symptoms. She reports having ongoing diarrhea for the last month, multiple episodes, nonbloody. She completed Zithromax course last week for pneumonia. She states that her blood pressure usually runs low but noted to have significantly low blood pressure with systolic in 70s yesterday while at home and reports dizziness which is new. Denies any history of chest pain, pedal edema, fever, chills, syncope, headache, vomiting, dysuria, hematuria. She admits to use THC to help with sleep and drinks alcohol socially, last alcohol drink yesterday. Admission Exam Per Admitting Provider Physical Exam: Vitals signs as noted above General Appearance: Overweight, no apparent distress Head: normocephalic, Atraumatic Eyes: normal inspection, EOMI Neck: supple, Trachea midline Respiratory/Chest: Normal breath sounds, CTA, No accessory muscle use Cardiovascular: S1, S2, No murmur Abdomen/GI:Soft, generalized tender, protuberant, bowel sounds present, no guarding or rigidity Extremities/Musculoskeletal:normal inspection, no edema Neurologic/Psych:AAOX3, grossly no focal neurological deficits Skin: normal color, warm Principal Diagnosis Abdominal pain/nausea Esophagitis Discharge Exam General Appearance: Overweight, no apparent distress Head: normocephalic, Atraumatic Eyes: normal inspection, EOMI Neck: supple, Trachea midline Respiratory/Chest: Normal breath sounds, CTA, No accessory muscle use Cardiovascular: S1, S2, No murmur Abdomen/GI:Soft, non tender when distracted , protuberant, bowel sounds present, no guarding or rigidity Extremities/Musculoskeletal:normal inspection, no edema Neurologic/Psych:AAOX3, grossly no focal neurological deficits Skin: normal color, warm Discharge Data Allergies Allergy/AdvReac Type Severity Reaction Status Date / Time NSAIDS (Non-Steroidal Allergy Severe IDIOPATHIC Verified 11/26/24 10:43 Anti-Inflamma ANGIOEDEMA Penicillins Allergy Severe Anaphylaxis Verified 11/26/24 10:43 ceftriaxone Allergy Intermediate Hives Verified 11/26/24 10:43 tramadol AdvReac Intermediate Headache Verified 11/26/24 10:43 vancomycin AdvReac Intermediate CHANTAL Verified 11/26/24 10:43 SYNDROME nickel AdvReac Mild SKIN Verified 11/26/24 10:43 IRRITATION Consultations 09/20/25 16:42 ED Decision to Admit Stat 09/20/25 19:27 Consult Gastroenterology Routine Ordered Studies 09/20/25 14:44 CT abd pelvis IV con only Stat 09/21/25 09:56 US GB [US gallbladder] Routine 09/22/25 09:11 US pelvic limited Routine 09/22/25 14:13 US transvaginal Routine Hospital Course (1) Acute upper abdominal pain: (2) Esophagitis: Plan 45 yo F w/ PMH of generalized anxiety disorder, PTSD, depression, obesity, chronic hypotension, gestational diabetes, former smoker, current vaping, THC use, esophagitis presents with history of worsening abdominal pain associate with nausea, dizziness, ongoing diarrhea. Pt had UGI scope 09/19 for ongoing hematemesis/chronic diarrhea for about 1 month - she was found to have esophagitis. Pt recommended to start on omeprazole which she was yet to start. She recently completed zithromax about a week ago side boss for pna. 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 She was managed for the following: Abdominal pain/nausea DD: Acute pancreatitis, THC use, esophagitis/alcohol use Esophagitis: Started on PPI IV twice daily for now Patient reports a month of abdominal pain, nausea, diarrhea, hematemesis. Patient underwent EGD scope 09/19, noted to have esophagitis, recommended PPI. Admitting lipase of 155, CTAP with no acute process. GB US with no cholecystitis. CXR with no acute findings. Pelvic US no acute finding. Patient reports significant improvement in belly pain, Nausea and vomiting. Pt has been asking to advance diet and tolerated diet well per rn s/p 72 hr iv ppi, now on po panto, c/w po panto on dc, f/u gi in 4 weeks. Pt feels stable and would like to go home. pt is hemodynamically stable. Counseled to quit THC and alcohol use. Will hold wegovy on dc given persistent N, V. Hypotension Dizziness due to above Likely worsened due to decreased oral intake, ongoing diarrhea H/O chronic hypotension Orthostatics neg. now better. Encourage quitting THC, Alcohol, Wegovy to help w/ nausea, vomiting, abd pain. Diarrhea: none since 2d . moved 1 BM yesterday. Obesity: On Wegovy--skipped her dose on the day of presentation due to her symptoms Other chronic conditions Generalized anxiety disorder PTSD Depression Gestational diabetes Former tobacco use disorder Ongoing nicotine vaping, THC use Continue home medications DVT Px: SCDs for now Re: H/O hematemesis/esophagitis Code Status : Full Code patient is being discharged with following instructions at the point of discharge: Follow-up with your primary care physician within a week time and likely you will need labs CBC/CMP/magnesium/phosphorus. As discussed at the bedside, recommend you quit alcohol use and marijuana use to help with abdominal pain/nausea. Also recommend that you hold Wegovy and seek for alternative treatment with your outpatient provider given persistent nausea, vomiting, abdominal pain. For your esophagitis you are being discharged on pantoprazole twice a day, fol low-up with your GI doctor in 4 to 6 weeks time upon discharge. You can utilize ihpl-eaa-jiblsst stool softener and laxatives [Per top lift scourer's recommendation] with a goal of 1-2 bowel movements a day. Take your medications as prescribed. Please make sure that you are able to get your medications today by calling your pharmacy before you leave the hospital so that your treatment continuity is not broken. Home Health Attestation I certify that this patient is under my care and that I, or a physicians assistant director of public works working with me, had a face to-face encounter that meets the home health bkhg-fr-wzlk encounter requirements with this patient. The encounter with the patient was in whole, or in part, for the following medical condition, which is the primary reason for home health care (list medical condition): I certify that, based on my findings, the following services are medically necessary home health services: My clinical findings support the need for the above services because: Further, I certify that my clinical findings support that this patient is homebound (i.e. absences from home require considerable and taxing effort and are for medical reasons or mandaen services or infrequently or of short duration when for other reasons) because: Certification for Home Health Services: Based on the above findings, I certify that this patient is confined to the home and needs intermittent fci care, physical therapy and/or speech therapy or continues to need occupational therapy. The patient is under my care, and I have initiated the establishment of the plan of care. This patient will be followed by a physician who will periodically review the plan of care. Total Time Total Time Spent Total Time Spent (In Minutes): 40 Discharge Plan Discharge Items Patient Disposition: Home - Self-Care Reason For Visit: HYPOTENSION Discharge Diagnosis: Abdominal pain/nausea Esophagitis Condition on Discharge: Good Activity: Resume your previous activity Non-emergency contact: Primary Care Provider Call non-emergency contact if: you have any medication questions and your symptoms worsen Follow-up/Referrals: Kita Best DO [Primary Care Provider] - (Date & Time 09/29/2025 11:20 AM Provider: Kita Best DO [facility] ) Diet: Regular Addtl Attending Provider Instructions: Follow-up with your primary care physician within a week time and likely you will need labs CBC/CMP/magnesium/phosphorus. As discussed at the bedside, recommend you quit alcohol use and marijuana use to help with abdominal pain/nausea. Also recommend that you hold Wegovy and seek for alternative treatment with your outpatient provider given persistent nausea, vomiting, abdominal pain. For your esophagitis you are being discharged on pantoprazole twice a day, follow-up with your GI doctor in 4 to 6 weeks time upon discharge. You can utilize kzoe-sle-rsbdjbp stool softener and laxatives [Per top lift scourer's recommendation] with a goal of 1-2 bowel movements a day. Take your medications as prescribed. Please make sure that you are able to get your medications today by calling your pharmacy before you leave the hospital so that your treatment continuity is not broken. Pending Studies at Discharge: No Stand-Alone Forms: My Anne Fogarty, Smoking Cessation Medications and DC Order Prescriptions: New oxycodone 5 mg Tablet 5 mg PO Q8H PRN (Reason: pain) 3 Days Qty: 9 0RF pantoprazole 40 mg Tablet,Delayed Release (Dr/Ec) 40 mg PO BID Qty: 60 0RF ondansetron 4 mg tablet,disintegrating 4 mg PO DAILY PRN (Reason: nausea and vomiting) 10 Days Qty: 10 0RF Continued udbnsmaroc-jwalxtnnzbugx-skuw 50-325-40 mg tablet 1 tab PO .COMPLEX PRN (Reason: Migraine Headache) Qty: 9 5RF Rx Instructions: TAKE 1-2 CAPS TWICE DAILY NEEDED FOR HEADACHE. MAXIMUM OF NO MORE THAN 2-3 DAYS PER WEEK buspirone 10 mg tablet 30 mg PO BID rizatriptan [Maxalt] 10 mg tablet 10 mg PO .COMPLEX PRN (Reason: Migraine Headache) Qty: 9 6RF Rx Instructions: Take 1 tablet at onset of headache, may repeat dose in 2 hours if needed. Take no more than 2-3 days/week. topiramate [Topamax] 50 mg tablet 50 mg PO BID Qty: 60 6RF clonazepam [Klonopin] 0.5 mg tablet 1 mg PO TID epinephrine [EpiPen] 0.3 mg/0.3 mL Auto-Injector 0.3 mg IM DIRECTED PRN (Reason: Anaphylaxis) escitalopram oxalate 20 mg tablet 20 mg PO QAM fexofenadine 180 mg tablet 180 mg PO DAILY PRN (Reason: Allergy Symptoms) famotidine 20 mg tablet 20 mg PO DAILY PRN (Reason: Heartburn) prazosin 2 mg capsule 8 mg PO HS clonazepam 0.5 mg tablet 0.5 mg PO BID PRN (Reason: Anxiety) Rexulti 2 mg tablet 2 mg PO HS Held Wegovy 2.4 mg/0.75 mL pen injector 1.7 mg subcut Q7D Hold Instructions: Resume on 10/14/25. Hold it until you further discuss with your outpatient provider Rx Instructions: every Monday Discontinued omeprazole 40 mg capsule,delayed release(DR/EC) 40 mg PO BID Discharge Orders: Discharge Order (Routine); Ordered 09/23/25 Ordered By: Dangelo Peck Admission Data Admit Date/Time: 09/22/25 17:00 Attending Provider: Dangelo Peck Admit Provider: Ron Carter Primary Care Provider: [place] Other Providers: Ron Carter; Montez Ferguson; Yonatan Pena; Elaina Sinha; Amy Cruz; Antoinette Milian; Halina Miller; Ever Montero; Kyara Aguirre; Terry Hightower; Barbara Richardson; Evonne Haley; Sandra Silva; Millie Montez; Cecilia Vasquez; Antoni Strange; Artur Juarez; Mary Buitrago; Alberto Thompson Jr; Abhilash Stubbs; Russell Lund; Phil Gates; Patria Jimenez; Ulises Morris I; Heather East; Wu Coombs; Gregory Turner; Parker Solomon; Rober Nicole; Nata Parker
[2025-09-23 15:08] VITALS: RESP 16; TEMP 98.1
[2025-09-23 15:52] VITALS: BP 100/72; PULSE 72
== END 2025-09-23 16:40 | disposition home or self-care (01) | DRG 391 ==
LOC: 2N 13:59 → ED 13:59 → SUATTDRO 17:39 → 2N 18:56